=== PATIENT | male | born 1945 | race Caucasian/White ===

== ENCOUNTER 2019-12-09 14:25 | Inpatient (IN) | payer OTHER, MEDICARE ==
[2019-12-09] MEDS ORDERED: IPRATROPIUM-ALBUTEROL 3 ML NEB INHALATION PRN (14:31)
--- NOTE | 2019-12-09 14:38 | ED ---
General Adult HPI - General Stated complaint: lung mass Time Seen by Provider: 12/09/19 14:27 Source: patient, EMS, RN notes reviewed, old records reviewed - History of Present Illness Initial comments: 74-year-old male presenting as transfer from outside facility with right hilar mass, concern for metastases and a postobstructive pneumonia. Patient had presented with worsening dyspnea over the past one week. He received laboratory testing, chest x-ray, EKG, and CT of the chest. This revealed a right hilar mass, with postobstructive pneumonia versus pneumonitis as well as pleural effusion. There was concern for T10 lesion on CT. He had had increasing dyspnea and hemoptysis. He was initially 93% on room air which corrected with do not treatment prior to transfer. He receives ceftriaxone and Levaquin prior to transfer. He has been transferred for both treatment of pneumonia and evaluation of lung mass. Review of Systems ROS Statement: Those systems with pertinent positive or pertinent negative responses have been documented in the HPI. ROS Other: All systems not noted in ROS Statement are negative. General Exam General appearance: alert, in no apparent distress Head exam: Present: atraumatic, normocephalic Eye exam: Present: normal appearance, PERRL ENT exam: Present: normal exam Neck exam: Present: normal inspection. Absent: tenderness, meningismus Respiratory exam: Present: wheezes, rhonchi, decreased breath sounds. Absent: respiratory distress Cardiovascular Exam: Present: regular rate, normal rhythm GI/Abdominal exam: Present: soft. Absent: distended, tenderness, guarding Extremities exam: Present: normal inspection, normal capillary refill. Absent: pedal edema Neurological exam: Present: alert, oriented X3, CN II-XII intact. Absent: motor sensory deficit Psychiatric exam: Present: normal affect, normal mood Skin exam: Present: warm, dry, intact. Absent: cyanosis, diaphoretic Medical Decision Making - Medical Decision Making 74-year-old male presenting with new right hilar lung mass, postobstructive pneumonia, dyspnea and hemoptysis. Patient had received antibiotics prior to transfer. He will be admitted for pulmonology evaluation, likely oncology evaluation. Repeat laboratory studies will be obtained, review of previously obtained laboratory studies reveal normal CBC with mild leukocytosis of 12, normal electrolytes, negative troponin, negative BNP. Case discussed with Dr. Small who will admit. Disposition Clinical Impression: Postobstructive pneumonia, Hilar mass Disposition: ADMITTED IP TO THIS HOSP Condition: Stable Is patient prescribed a controlled substance at d/c from ED?: No Referrals: Niles Mead MD [Primary Care Provider] - 1-2 days Decision to Admit Reason: Admit from EC Decision Date: 12/09/19 Decision Time: 14:38
[2019-12-09] MEDS ORDERED: SODIUM CHLORIDE 0.9% 500 ML 500 ML IV STA (15:27)
[2019-12-09] MEDS ORDERED: BENZONATATE 100 MG CAP PO PRN (17:42)
[2019-12-09] MEDS ORDERED: CYCLOBENZAPRINE 10 MG TAB PO PRN (17:42)
[2019-12-09] MEDS ORDERED: TEMAZEPAM 15 MG CAP PO PRN (17:45)
[2019-12-09] MEDS ORDERED: ALPRAZolam 0.25 MG TAB PO PRN (17:45)
[2019-12-09] MEDS: IPRATROPIUM-ALBUTEROL 3 ML NEB INHALATION SCH ×2 (17:54→21:16)
[2019-12-09] MEDS: methylPREDNISolone SOD SUCCI 125 MG/2 ML VIAL IV SCH (18:27)
[2019-12-09] MEDS: NICOTINE 14MG/24HR PATCH TRANSDERM SCH (18:27)
[2019-12-09] MEDS: SODIUM CHLORIDE 0.9% 1,000 ML IV SCH (18:28)
--- NOTE | 2019-12-09 18:39 | CT ---
EXAMINATION TYPE: CT brain wo con DATE OF EXAM: 12/09/2019 COMPARISON: None INDICATION: Lung Ca DLP: 1196.4 mGycm, Automated exposure control for dose reduction was used. CONTRAST: None. This may limit evaluation for metastasis. CT of the brain is performed utilizing 3 mm thick sections through the posterior fossa and 3 mm thick sections through the remaining calvarium. Study is performed within 24 hours of arrival to the hosp ital. No abnormal hyperdensity is present to suggest an acute intracranial hemorrhage. No mass lesion is evident. No acute infarcts are evident. Some mild subcortical white matter changes may be present most notably at the right parietal region which is nonspecific and most likely related to microvascular ischemic change. Given the patient's history of lung cancer a contrast MRI is recommended for closer evaluatio n of this region. Ventricles and sulci are appropriate for the patient age. Paranasal sinuses and mastoid air cells within the [id number] are clear. IMPRESSIONS: 1. Suspected subcortical white matter ischemic-type changes. With the patient's history of lung can cer, MRI with contrast recommended for closer evaluation.
--- NOTE | 2019-12-09 19:07 | XR ---
EXAMINATION TYPE: XR chest 2V DATE OF EXAM: 12/09/2019 COMPARISON: 12/09/2019 outside film INDICATION: Abnormal prior TECHNIQUE: Frontal and lateral views of the chest are obtained. FINDINGS: The heart size is normal. The pulmonary vasculature is normal. There is a small right pleural effusion. Some platelike atelectasis at the right base.. IMPRESSION: 1. Small right pleural effusion with adjacent atelectasis.
--- NOTE | 2019-12-09 19:44 | HP ---
HISTORY AND PHYSICAL DATE OF SERVICE: 12/09/2019. CHIEF COMPLAINT: Lung mass. HISTORY OF PRESENT ILLNESS: This 74-year-old gentleman with a past medical history of multiple medical problems including hyperlipidemia, history of hernia, history of bursitis, being followed by Dr. Mead in the outpatient setting, was complaining of increased shortness of breath. The patient went to [facility] and transferred to [facility]. Patient had right hilar mass. The patient also had concerns of metastasis and and possible obstructing pneumonia. Patient also complaining of chest pain which is increasing with respiration. Shortness of breath increasing for the last several days. The possibility of postobstructive pneumonia also considered and the concerns of T10 lesion was also noted on the CT scan. There is some hemoptysis and shortness of breath also noted. The patient was being closely monitored at this time. Patient is started on Rocephin and Levaquin at this time. There is no history of fever, rigors or chills. No history of headache, loss of consciousness or chest pain, palpitations at this time. PAST MEDICAL HISTORY: Hyperlipidemia, hernia, history of bursitis of the hips, history of nicotine dependence. MEDICATIONS: Home medications are: 1. Flexeril 10 mg b.i.d. p.r.n. 2. Aleve 220 mg b.i.d. p.r.n. 3. Meloxicam 50 mg daily. 4. Tessalon Perles 100 mg q.8 p.r.n. 5. Ecotrin 81 mg p.o. daily. 6. Albuterol 2 puffs q.6h p.r.n. 7. Niacin 100 mg p.o. b.i.d. 8. Allerest 1 tablet p.o. daily. ALLERGIES: CODEINE, IBUPROFEN, MOLD, TETANUS TOXOID. SOCIAL HISTORY: History of smoking. No history of alcohol intake. FAMILY HISTORY: History of heart disease and strokes in the family. REVIEW OF SYSTEMS: ENT: No diminished vision. Diminished hearing. CARDIOVASCULAR system is as mentioned earlier. RESPIRATORY: As mentioned earlier. GI no nausea or vomiting. no dysuria. NERVOUS SYSTEM: No numbness or weakness. ALLERGY/IMMUNOLOGY: No allergy or hayfever. MUSCULOSKELETAL as mentioned earlier. HEMATOLOGY/ONCOLOGY: As mentioned earlier. ENDOCRINE as mentioned earlier. CONSTITUTIONAL: As mentioned earlier. DERMATOLOGY: Negative. RHEUMATOLOGY: Negative. PSYCHIATRIC: As mentioned earlier. PHYSICAL EXAMINATION: Alert and oriented times three. Pulse is 108, blood pressure 160/95, respirations 20, temperature 98.8, pulse ox 94% on 2 L. HEENT: Conjunctivae normal. NECK: No JVD. CARDIOVASCULAR: S1, S2 muffled. No S3, no S4. Tachycardia. RESPIRATIONS: Breath sounds diminished in the bases. Bilateral scattered rhonchi and crackles. ABDOMEN: Soft, obese, nontender. No mass palpable. LEGS no edema no swelling. NERVOUS SYSTEM: Higher functions as mentioned earlier. Moves all four extremities. No focal motor or sensory deficits. Lymphatics: No lymph nodes palpable in the neck, axillae or groin. SKIN: No ulcer, rashes or bleeding. JOINTS: No active deforming arthropathy. LABS: At this time shows labs are pending at this time. ASSESSMENT: 1. Acute right postobstructive pneumonia with severe pain and pleuritic pain. 2. Possible right hilar mass, rule out lung malignancy. 3. History of nicotine dependence. 4. Hyperlipidemia. 5. History of hernia. 6. History of bursitis of the hips. 7. Tachycardia for evaluation. RECOMMENDATIONS AND DISCUSSION: This 74-year-old gentleman who presented with multiple complex medical issues, we will monitor the patient closely. Continue the current medications, management, and symptomatic treatment. We will initiate broad-spectrum IV antibiotics. Consult Dr. Ponce for possible bronchoscopy. The patient apparently also already had an outpatient appointment for Dr. Ponce. We will continue to monitor. Otherwise, DVT prophylaxis. Symptomatic treatment. IV steroids. Prognosis guarded because of multiple complex medical issues. Further recommendations to follow. A copy of this dictation being forwarded to Dr. Mead who is the primary physician. Discussed with the patient at the bedside. MMODL / IJN: [id number] /
[2019-12-09] MEDS ORDERED: METOPROLOL TARTRATE 25 MG TAB PO STA (20:07)
[2019-12-09] MEDS: PIPERACILLIN-TAZOBACTAM 3.375 GM in SODIUM CHLORIDE 0.9% 100 ML IVPB SCH (20:14)
[2019-12-09] MEDS: HEPARIN SODIUM,PORCINE 5,000 UNIT/ML 1 ML VIAL SQ SCH (20:15)
[2019-12-09] MEDS ORDERED: METOPROLOL TARTRATE 25 MG TAB PO SCH (21:00)
[2019-12-09] MEDS: BUDESONIDE 1 MG/2 ML NEBU INHALATION SCH (21:17)
[2019-12-09 23:38] LABS: Appearance,Urine Cloudy (Clear); Bilirubin,Urine Negative (Negative); Blood,Urine Negative (Negative); Color,Urine Yellow; Glucose,Urine (UA) Trace (Negative); Ketones,Urine Trace (Negative); Leukocyte Esterase,Urine Negative (Negative); Mucus,Urine Rare /hpf; Nitrite,Urine Negative (Negative); PH, Urine 5.5 (5.0-8.0); Protein,Urine Trace (Negative); RBC,Urine 3 /hpf (0-5); Specific Gravity,Urine 1.035 (1.001-1.035); Squamous Epithelial Cell,Urine <1 /hpf (0-4); Urobilinogen,Urine <2.0 mg/dL (<2.0); WBC,Urine 3 /hpf (0-5)
[2019-12-10] MEDS: NIACIN 100 MG PO SCH ×3 (00:42→22:19)
[2019-12-10] MEDS: INSULIN ASPART (NovoLOG) 100 UNIT/ML VIAL SQ SCH ×5 (00:43→22:09)
[2019-12-10] MEDS: methylPREDNISolone SOD SUCCI 125 MG/2 ML VIAL IV SCH ×5 (00:52→23:51)
[2019-12-10] MEDS: PIPERACILLIN-TAZOBACTAM 3.375 GM in SODIUM CHLORIDE 0.9% 100 ML IVPB SCH ×3 (04:07→22:09)
[2019-12-10 06:14] LABS: Glucose,Whole Blood 144 mg/dL (75-99)
[2019-12-10] MEDS: PANTOPRAZOLE 40 MG TABLET PO SCH (06:57)
[2019-12-10 07:29] LABS: Basophils % (A) 0 %; Eosinophils % (A) 0 %; HCT 39.4 % (39.0-53.0); HGB 13.3 gm/dL (13.0-17.5); Lymphocytes # (A) 0.7 k/uL (1.0-4.8); Lymphocytes % (A) 5 %; MCH 31.2 pg (25.0-35.0); MCHC 33.7 g/dL (31.0-37.0); MCV 92.7 fL (80.0-100.0); Mean Platelet Volume 7.7; Monocytes # (A) 0.4 k/uL (0-1.0); Monocytes % (A) 2 %; Neutrophils # (A) 15.3 k/uL (1.3-7.7); Neutrophils % (A) 93 %; Platelet Count 412 k/uL (150-450); RBC 4.25 m/uL (4.30-5.90); RDW 12.3 % (11.5-15.5); WBC 16.5 k/uL (3.8-10.6)
[2019-12-10 07:31] LABS: ALT 27 U/L (4-49); AST 33 U/L (17-59); African American GFR (CKD) >90 (>60 ml/min/1.73 sqM); Albumin 3.3 g/dL (3.5-5.0); Alkaline Phosphatase 99 U/L (38-126); Anion Gap 9 mmol/L; Blood Urea Nitrogen 17 mg/dL (9-20); Calcium 9.2 mg/dL (8.4-10.2); Carbon Dioxide 20 mmol/L (22-30); Chloride 109 mmol/L (98-107); Glucose 143 mg/dL (74-99); Non-African American GFR(CKD) 81 (>60 ml/min/1.73 sqM); Potassium 4.4 mmol/L (3.5-5.1); Sodium 138 mmol/L (137-145); Total Bilirubin 0.5 mg/dL (0.2-1.3); Total Protein 7.5 g/dL (6.3-8.2)
--- NOTE | 2019-12-10 07:43 | XR ---
EXAMINATION TYPE: XR chest 1V portable DATE OF EXAM: 12/10/2019 COMPARISON: 12/09/2019 HISTORY: Lung cancer. Shortness of breath. TECHNIQUE: Single frontal view of the chest is obtained. FINDINGS: Right perihilar mass is seen as well as small layering right pleural effusion that is incr ease in the interim with associated right basilar airspace disease. Diffuse mild interstitial pulmona ry edema. Diffuse osseous demineralization. Upper limits of normal size of the cardiomediastinal silh ouette. IMPRESSION: Slightly worsened small right layering pleural effusion and right basilar atelectasis as well as mild interstitial pulmonary edema. Similar right perihilar mass.
[2019-12-10] MEDS: SODIUM CHLORIDE 0.9% 1,000 ML IV SCH ×2 (07:48→17:21)
[2019-12-10] MEDS: BUDESONIDE 1 MG/2 ML NEBU INHALATION SCH ×2 (08:17→19:19)
[2019-12-10] MEDS: IPRATROPIUM-ALBUTEROL 3 ML NEB INHALATION SCH ×4 (08:17→19:19)
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
[2019-12-10] MEDS ORDERED: predniSONE 20 MG TAB PO SCH (09:00)
[2019-12-10] MEDS: IOPAMIDOL CONTRAST (ORAL USE) VIAL PO PRN ×2 (09:17→10:23)
[2019-12-10] MEDS: METOPROLOL TARTRATE 50 MG TAB PO SCH ×2 (09:22→22:17)
[2019-12-10] MEDS: HEPARIN SODIUM,PORCINE 5,000 UNIT/ML 1 ML VIAL SQ SCH ×2 (09:23→22:08)
[2019-12-10] MEDS: NICOTINE 14MG/24HR PATCH TRANSDERM SCH (09:23)
--- NOTE | 2019-12-10 11:35 | CT ---
EXAMINATION TYPE: CT abdomen pelvis wo con DATE OF EXAM: 12/10/2019 COMPARISON: None HISTORY: possible lung CA CT DLP: 1007 mGycm Examination of the solid and hollow viscera is limited given the lack of contrast. FINDINGS: LUNG BASES: There is a right infrahilar mass. Moderate pleural effusion with compressive atelectasis. Suspect posterior soft tissue mass incompletely imaged. LIVER/GB: The gallbladder is unremarkable. No space-occupying hepatic lesion. PANCREAS: No pancreatic mass identified. No inflammatory process seen. SPLEEN: No evidence for splenomegaly. No intrasplenic lesions seen. ADRENALS: No adrenal nodules identified. No evidence for thickening. KIDNEYS: Hypoattenuating renal lesions likely reflect cysts. No nephrolithiasis. No hydronephrosis. BOWEL: Appendix has a normal appearance. No evidence of bowel obstruction. No inflammatory process. Lymph nodes: No evidence for adenopathy greater than 1 cm. Abdominal aorta: Atheromatous changes seen. No evidence for aneurysm. Genital organs: No significant abnormality. Other: Abnormal attenuation T10 may reflect hemangioma. Metastatic lesion is not excluded. IMPRESSION: 1. Right infrahilar mass with right-sided pleural effusion and atelectasis. Partially imaged chest wa ll mass seen posteriorly. 2. T10 abnormal attenuation to reflect hemangioma versus metastatic lesion. 3. Probable renal cysts.
--- NOTE | 2019-12-10 11:44 | NM ---
EXAMINATION TYPE: NM bone scan whole body DATE OF EXAM: 12/10/2019 COMPARISON: CT abdomen pelvis dated 12/10/[address] thorax dated 12/09/2019 HISTORY: Lung cancer Delayed whole-body scanning was performed following the injection of 26.4 mCi Tc 99m MDP. Images acq uired 3 hours post injection. FINDINGS: Abnormal uptake is seen on the right posterior rib 8 focally. When correlated with the recent outside CT dated 12/09/2019 this relates to a rib fracture. The previously questioned hemangioma versus metas tatic lesion at T10 within the vertebral body does not demonstrate abnormal uptake and is compatible with a benign hemangioma. Degenerative uptake is seen in the acromio clavicular joints, glenohumeral joints, sternoclavicular j oints, sacroiliac joints, knees, elbows, wrists, and ankles IMPRESSION: 1. No scintigraphic evidence of metastatic disease. 2. The previously questioned metastatic lesion at T10 versus hemangioma is no uptake and is most comp atible with a benign hemangioma. 3. Focal abnormal uptake on the right posterior rib 8 represents a minimally displaced fracture when correlated with the outside recent CT thorax.
[2019-12-10 11:58] LABS: Glucose,Whole Blood 169 mg/dL (75-99)
--- NOTE | 2019-12-10 12:21 | ECHOF ---
Referral Reason:chf MEASUREMENTS -------- HEIGHT: 188.0 cm WEIGHT: 102.1 kg BP: 144/63 IVSd: 1.6 cm (0.6 - 1.1) LVIDd: 3.1 cm (3.9 - 5.3) LVPWd: 1.8 cm (0.6 - 1.1) IVSs: 2.1 cm LVIDs: 1.9 cm LVPWs: 2.1 cm Ao Diam: 3.1 cm (2.0 - 3.7) AV Cusp: 1.9 cm (1.5 - 2.6) LA Diam: 3.4 cm (2.7 - 3.8) MV EXCURSION: 18.742 mm (> 18.000) MV EF SLOPE: 90 mm/s (70 - 150) EPSS: 0.7 cm MV E Moiz: 0.67 m/s MV DecT: 215 ms MV A Moiz: 1.02 m/s MV E/A Ratio: 0.66 RAP: 5.00 mmHg RVSP: 12.99 mmHg FINDINGS -------- Resting tachycardia (HR>100bpm). This was a technically adequate study. The left ventricular size is normal. There is severe concentric left ventricular hypertrophy. Ove rall left ventricular systolic function is normal with, an EF between 55 - 60 %. The right ventricle is normal in size. The left atrial size is normal. The right atrial size is normal. Aortic valve is trileaflet and is mildly thickened. The mitral valve is normal. The mitral valve leaflets are mildly thickened. There is trace mitral regurgitation. The tricuspid valve appears structurally normal. Trace tricuspid regurgitation present. Right lauro tricular systolic pressure is normal at < 35 mmHg. There is no pulmonic regurgitation present. The aortic root size is normal. Normal inferior vena cava with normal inspiratory collapse consistent with estimated right atrial pre ssure of 5 mmHg. There is a trivial pericardial effusion present. CONCLUSIONS -------- 1. Resting tachycardia (HR>100bpm). 2. This was a technically adequate study. 3. The left ventricular size is normal. 4. There is severe concentric left ventricular hypertrophy. 5. Overall left ventricular systolic function is normal with, an EF between 55 - 60 %. 6. The right ventricle is normal in size. 7. The left atrial size is normal. 8. The right atrial size is normal. 9. Aortic valve is trileaflet and is mildly thickened. 10. The mitral valve is normal. 11. The mitral valve leaflets are mildly thickened. 12. There is trace mitral regurgitation. 13. The tricuspid valve appears structurally normal. 14. Trace tricuspid regurgitation present. 15. Right ventricular systolic pressure is normal at < 35 mmHg. 16. There is no pulmonic regurgitation present. 17. The aortic root size is normal. 18. Normal inferior vena cava with normal inspiratory collapse consistent with estimated right atrial pressure of 5 mmHg. 19. There is a trivial pericardial effusion present. MASSEUR/MASSEUSE: Odilia Venegas RDCS
--- NOTE | 2019-12-10 14:31 | US ---
EXAMINATION TYPE: US chest DATE OF EXAM: 12/10/2019 COMPARISON: CT 12/10/2019 CLINICAL HISTORY: Markings for thoracentesis by pulmonary staff. TECHNIQUE: Targeted ultrasound of the posterior lower bilateral hemithoraces EXAM MEASUREMENTS: Right Pleural Effusion pocket size: 9.2 cm Right skin surface to fluid distance: 2.2 cm Multiple loculations noted. Left Pleural Effusion pocket size: none appreciated cm Right side marked for possible thoracentesis outside the dept. Pulmonologists are able to review the images in the patient?s EMR. IMPRESSIONS: Multiloculated small right pleural effusion.
[2019-12-10 16:59] LABS: Glucose,Whole Blood 146 mg/dL (75-99)
--- NOTE | 2019-12-10 20:34 | CONS ---
CONSULTATION PULMONARY/CRITICAL CARE CONSULTATION: DATE OF SERVICE: 12/10/2019 REASON FOR CONSULTATION: Lung mass. This is a very pleasant 74-year-old male who sees Dr. Mead up in [place]. He apparently was sent down for consideration of an evaluation of a hilar mass. The patient was apparently thought to have post-obstructive pneumonia. He came into the hospital complaining of increasing shortness of breath over the last week or so. In addition, he is coughing and producing some phlegm. No fever or chills. The patient apparently had a CT scan done in the other institution, but that CT scan is not available to me. Here he has had chest x-rays and abdominal CT scanning. Again his primary complaint was shortness of breath. He is coughing. He is producing phlegm. He has been coughing up phlegm that is bloody at times. Anyway, he was found to have a saturation that was a bit low initially. Currently he is on oxygen therapy, breathing treatments, antibiotics and corticosteroids. The patient will have an ultrasound of the chest. We will see if we can retrieve the CT scan of the chest done at the outside institution. He will likely need thoracentesis and bronchoscopy. HOME MEDICATIONS: His home medications include Flexeril, naproxen, meloxicam, Tessalon Perles, aspirin, albuterol inhaler and niacin. PAST MEDICAL HISTORY: His past medical history is positive for hyperlipidemia, bursitis, chronic nicotine dependence and hernia. Medications are reviewed. ALLERGIES: CODEINE, IBUPROFEN, MOLD, TETANUS TOXOID. SOCIAL HISTORY: Positive for 60 years of tobacco use. He smokes cigarettes, pipes and cigars. He inhaled many of these things. Denies any alcohol intake. No illicit drug use. FAMILY HISTORY: Positive for heart disease and strokes. REVIEW OF SYSTEMS: CONSTITUTIONAL: Negative. NEUROLOGIC: Negative. HEENT: Negative. CARDIOVASCULAR: Negative. PULMONARY: Shortness of breath, chest tightness, wheezing, cough and phlegm production. GI: Negative. : Negative. IMMUNOLOGIC: Negative. ENDOCRINOLOGIC: Negative. DERMATOLOGIC: Negative. RHEUMATOLOGIC negative. PHYSICAL EXAMINATION: VITAL SIGNS: Vital signs are reviewed. Temperature is 96.3, heart rate 94, respiratory rate 18, blood pressure 148/71, mean 96. Four-liter saturation is 96%. GENERAL APPEARANCE: Appears in no acute distress. HEENT EXAMINATION: Grossly unremarkable. Mucous membranes are moist. No oral lesions. NECK: Supple. Full range of motion. No adenopathy or thyromegaly. Neck veins are flat. CARDIOVASCULAR EXAMINATION: Regular rhythm and rate. S1, S2 normal. No S3, S4 or murmur. LUNGS: Relatively clear left lung. There are some coarse rhonchi on the right side. Breath sounds are diminished at the right side, particularly at the right base. Some crackles at the right base as well. ABDOMEN: Soft. Bowel sounds are heard. EXTREMITIES: Intact. No cyanosis, clubbing or edema. SKIN: Without rash. NEUROLOGIC: Neurologic examination is brief but nonfocal. LAB DATA: Reviewed. White count 16.5, hemoglobin 13.3, hematocrit 39.4, platelet count 412,000. Sodium 138, potassium 4.4, chloride 109, CO2 20. Anion gap is 9. BUN and creatinine were 17 and 0.93. The rest of the comprehensive metabolic profile looks okay. Urine is essentially negative. IMAGING: Chest x-ray shows a small right pleural effusion. A follow-up chest x-ray shows a slightly worsened right-sided pleural effusion as well as some mild interstitial edema and a potential right parahilar mass. A CT scan of the abdomen and pelvis shows a right infrahilar mass with right-sided pleural effusion and atelectasis. There is also a T10 lesion which may represent a benign or a malignant etiology. We have ordered an ultrasound of the right chest to see how big the effusion is. The bone scan shows no evidence of metastatic disease. CURRENT MEDICATIONS: Medications are reviewed. He is on Tylenol, Xanax, Tessalon Perles, Pulmicort, Flexeril, subcutaneous heparin, insulin, DuoNeb, Solu-Medrol, niacin, nicotine patch, Protonix, Zosyn, basic IV, and Restoril. ASSESSMENT: 1. Right infrahilar mass and possible post-obstructive pneumonia with pleural effusion; rule out lung cancer. 2. History of heavy tobacco use for more than 60 years. 3. Rule out chronic obstructive pulmonary disease. 4. History of hyperlipidemia. 5. History of hernia. 6. History of bursitis. 7. Degenerative joint disease. PLAN: The patient was counseled about the importance of smoking cessation. Apparently he recently met a woman and he stopped. The patient will have an ultrasound of the chest to rule out pleural effusion that might require thoracentesis. In addition, we will get him on the schedule for bronchoscopy. We might be able to make a diagnosis based on the appearance of the CT scan. Additional recommendations and suggestions are forthcoming. Will continue to follow. Medications are appropriate. MMODL / IJN: [id number] /
[2019-12-10 20:50] LABS: Glucose,Whole Blood 177 mg/dL (75-99)
--- NOTE | 2019-12-10 23:21 | PN ---
PROGRESS NOTE DATE OF SERVICE: 12/10/2019 This 74-year-old gentleman admitted with lung mass, also had possible postobstructive pneumonia also. The patient also had complete workup including abdominal pelvis CAT scan which showed right infrahilar mass and pleural effusion. Otherwise T10 abdominal attenuation. A 2D echo with Doppler was done from the cardiac point standpoint, which showed ejection fraction about 50-60 percent and Cardiology and Pulmonology following the patient closely. The atrial fibrillation with rapid ventricular rate resolved and indicating a paroxysmal atrial fibrillation. A bone scan was also done which showed no scintigraphic evidence of metastatic disease. T10 benign hemangioma suspected and a chest ultrasound was also done which showed multiloculated small right pleural effusion. Dr. Ponce, emergency services director evaluated the patient and recommended bronchoscopy. The patient being closely monitored. No chest pain. No palpitations. PAST MEDICAL HISTORY: Reviewed. REVIEW OF SYSTEMS: Cardiovascular as mentioned earlier. Respirations: As mentioned earlier. GASTROINTESTINAL: No nausea or vomiting. GENITOURINARY: No dysuria. CENTRAL NERVOUS SYSTEM: No numbness or weakness. CURRENT MEDICATIONS: Reviewed and include: 1. Tylenol 500 q.6h p.r.n. 2. DuoNeb q.i.d. and p.r.n. 3. Xanax 0.5 t.i.d. 4. Pulmicort. 5. Heparin. 6. Solu-Medrol 60 IV q.6h. 7. Lopressor. 8. Habitrol 14. 9. Protonix. 10.Zosyn. 11.Restoril. PHYSICAL EXAM: Patient is alert and oriented x2. Pulse is 70. Blood pressure is 144/60, respiration 18, temperature 97.7, pulse ox 94% on room air. HEENT: Conjunctivae normal. NECK: No JVD. CARDIOVASCULAR: S1, S2 muffled. RESPIRATION: Breath sounds diminished in the bases. Scattered rhonchi and crackles, especially on the right side. ABDOMEN: Soft. Nontender. LEGS are no edema. No swelling. CENTRAL NERVOUS SYSTEM: No focal deficits. LABORATORY DATA: WBC 16.2, hemoglobin 13.3. Sodium 138. ASSESSMENT: 1. Acute right postobstructive pneumonia possibly with severe pain and pleuritic pain. 2. Right hilar mass, rule out lung malignancy. 3. Chronic obstructive pulmonary disease, possibly. 4. History of nicotine dependence. 5. Hyperlipidemia. 6. History of hernia. 7. Atrial fibrillation with fast ventricular rate paroxysmal. 8. History of bursitis of both hips. 9. Increased random blood sugar possibly secondary to steroids. RECOMMENDATIONS AND DISCUSSION: In this 74-year-old gentleman who presented with multiple complex medical issues, at this time, I recommend to continue current medications, continue symptomatic treatment, management and beta blockers. Continue the bronchodilators, steroids. Continue the rest of medication. Continue with antibiotics and Dr. Ponce is planning bronchoscopy tomorrow. Symptomatically, the patient is slightly better. Guarded prognosis. Further recommendations to follow. MMODL / IJN: [id number] /
[2019-12-11] MEDS: PIPERACILLIN-TAZOBACTAM 3.375 GM in SODIUM CHLORIDE 0.9% 100 ML IVPB SCH ×3 (04:10→21:12)
[2019-12-11 05:43] LABS: Glucose,Whole Blood 137 mg/dL (75-99)
[2019-12-11] MEDS: methylPREDNISolone SOD SUCCI 125 MG/2 ML VIAL IV SCH ×4 (05:47→23:57)
[2019-12-11] MEDS: INSULIN ASPART (NovoLOG) 100 UNIT/ML VIAL SQ SCH ×4 (06:45→21:12)
[2019-12-11] MEDS: PANTOPRAZOLE 40 MG TABLET PO SCH (06:45)
[2019-12-11] MEDS: IPRATROPIUM-ALBUTEROL 3 ML NEB INHALATION SCH ×4 (06:55→21:14)
[2019-12-11] MEDS: BUDESONIDE 1 MG/2 ML NEBU INHALATION SCH ×2 (06:56→21:14)
[2019-12-11 07:04] LABS: Basophils % (A) 0 %; Eosinophils # (A) 0.1 k/uL (0-0.7); Eosinophils % (A) 0 %; HCT 40.8 % (39.0-53.0); Lymphocytes # (A) 0.8 k/uL (1.0-4.8); Lymphocytes % (A) 3 %; MCH 30.2 pg (25.0-35.0); MCHC 31.9 g/dL (31.0-37.0); MCV 94.6 fL (80.0-100.0); Mean Platelet Volume 7.6; Monocytes # (A) 0.8 k/uL (0-1.0); Monocytes % (A) 3 %; Neutrophils # (A) 24.8 k/uL (1.3-7.7); Neutrophils % (A) 93 %; Platelet Count 389 k/uL (150-450); RBC 4.31 m/uL (4.30-5.90); RDW 12.5 % (11.5-15.5); WBC 26.7 k/uL (3.8-10.6)
[2019-12-11 07:16] LABS: Calcium 8.7 mg/dL (8.4-10.2); Potassium 4.5 mmol/L (3.5-5.1)
[2019-12-11] MEDS: METOPROLOL TARTRATE 50 MG TAB PO SCH ×2 (09:12→21:12)
[2019-12-11] MEDS: HEPARIN SODIUM,PORCINE 5,000 UNIT/ML 1 ML VIAL SQ SCH ×2 (09:13→21:13)
[2019-12-11] MEDS: SODIUM CHLORIDE 0.9% 1,000 ML IV SCH ×2 (09:13→23:59)
[2019-12-11] MEDS: NICOTINE 14MG/24HR PATCH TRANSDERM SCH (09:14)
[2019-12-11] MEDS: NIACIN 100 MG PO SCH ×2 (09:14→21:19)
[2019-12-11 12:02] LABS: Glucose,Whole Blood 113 mg/dL (75-99)
[2019-12-11] MEDS ORDERED: KETAMINE 10 MG/ML 20 ML VIAL ONE (12:21)
[2019-12-11] MEDS ORDERED: fentaNYL (PF) 50 MCG/ML 2 ML AMP ONE (12:21)
[2019-12-11] MEDS ORDERED: GLYCOPYRROLATE 0.2 MG/ML 2 ML VIAL ONE (12:21)
[2019-12-11] MEDS ORDERED: MIDAZOLAM 2 MG/2 ML VIAL ONE (12:21)
[2019-12-11] MEDS ORDERED: PROPOFOL 10 MG/ML 20 ML VIAL IV ONE (12:21)
[2019-12-11] MEDS ORDERED: LIDOCAINE 2% INJ 20 MG/ML INTRATRACH ONE (12:28)
--- NOTE | 2019-12-11 12:35 | P.PN ---
Subjective Progress Note Date: 12/11/19 Principal diagnosis: Shortness of breath, right infrahilar mass and possible postobstructive pneumonia with pleural effusion, rule out lung cancer On 12/11/2019 patient seen in follow-up on selective care unit, vital signs are stable, he is on 4 L of oxygen his pulse ox is 95%, no acute issues overnight, patient has been nothing by mouth since midnight, for bronchoscopy with biopsies of the right infrahilar mass, and right-sided thoracentesis today. Patient is on IV Zosyn, steroids, nebulized bronchodilators. No complaints of chest pain. No worsening shortness of breath Objective - Vital Signs Vital signs: Vital Signs Temp 97.6 F 12/11/19 11:58 Pulse 57 L 12/11/19 11:58 Resp 18 12/11/19 11:58 BP 147/78 12/11/19 11:58 Pulse Ox 95 12/11/19 11:58 Intake & Output 12/10/19 12/11/19 12/11/19 18:59 06:59 18:59 Intake Total 480 1285 Output Total 400 Balance 480 885 Intake: Intake, IV Titration 925 Amount Piperacillin-Tazobactam 3 100 .375 gm In Sodium Chloride 0.9% 100 ml @ 25 mls/hr IVPB Q8H SANDRINE Rx#: [id number] Sodium Chloride 0.9% 1, 825 000 ml @ 75 mls/hr IV . [id number] SANDRINE Rx#:[id number] Oral 480 360 Output: Urine 400 Other: Voiding Method Toilet Toilet # Voids 1 # Bowel Movements 1 - Exam GENERAL EXAM: Alert, very pleasant, 74-year-old white male, on 4 L of oxygen with a pulse ox of 95% comfortable in no apparent distress. HEAD: Normocephalic/atraumatic. EYES: Normal reaction of pupils, equal size. Conjunctiva pink, sclera white. NOSE: Clear with pink turbinates. THROAT: No erythema or exudates. NECK: No masses, no JVD, no thyroid enlargement, no adenopathy. CHEST: No chest wall deformity. Symmetrical expansion. LUNGS: Equal air entry with diminished breath sounds over right lower lobe, CVS: Regular rate and rhythm, normal S1 and S2, no gallops, no murmurs, no rubs ABDOMEN: Soft, nontender. No hepatosplenomegaly, normal bowel sounds, no guarding or rigidity. EXTREMITIES: No clubbing, no edema, no cyanosis, 2+ pulses and upper and lower extremities. MUSCULOSKELETAL: Muscle strength and tone normal. SPINE: No scoliosis or deformity SKIN: No rashes CENTRAL NERVOUS SYSTEM: Alert and oriented -3. No focal deficits, tone is normal in all 4 extremities. PSYCHIATRIC: Alert and oriented -3. Appropriate affect. Intact judgment and insight. - Labs CBC & Chem 7: 12/11/19 06:50 12/11/19 06:50 Labs: Abnormal Lab Results - Last 24 Hours (Table) 12/10/19 12/10/19 12/11/19 Range/Units 16:57 20:48 05:41 WBC (3.8-10.6) k/uL Neutrophils # (1.3-7.7) k/uL Lymphocytes # (1.0-4.8) k/uL Chloride (98-107) mmol/L Carbon Dioxide (22-30) mmol/L BUN (9-20) mg/dL Glucose (74-99) mg/dL POC Glucose (mg/dL) 146 H 177 H 137 H (75-99) mg/dL 12/11/19 12/11/19 12/11/19 Range/Units 06:50 06:50 11:59 WBC 26.7 H (3.8-10.6) k/uL Neutrophils # 24.8 H (1.3-7.7) k/uL Lymphocytes # 0.8 L (1.0-4.8) k/uL Chloride 109 H (98-107) mmol/L Carbon Dioxide 21 L (22-30) mmol/L BUN 24 H (9-20) mg/dL Glucose 138 H (74-99) mg/dL POC Glucose (mg/dL) 113 H (75-99) mg/dL Assessment and Plan Plan: Assessment: #1. Right infrahilar mass and possible postobstructive pneumonia with pleural effusion, rule out lung cancer #2. History of heavy tobacco use for more than 60 years #3. Rule out chronic obstructive pulmonary disease 4. History of hyperlipidemia #5. History of hernia #6. History of bursitis #7. Degenerative joint disease #8. A. fib with RVR, currently in sinus rhythm #9. Chronic smoker of pipe and cigarettes on and off for over 40 years Plan: We'll proceed with right-sided thoracentesis before bronchoscopy with biopsies. Fluid will be sent for cytology, analysis, and cultures, biopsies will be sent to pathology. No continue with Zosyn, IV steroids, nebulized bronchodilators. We'll continue to follow I performed a history & physical examination of the patient and discussed their management with my nurse practitioner, Ginna Sanchez. I reviewed the nurse practitioner's note and agree with the documented findings and plan of care. Lung sounds are positive for diminished breath sounds. The findings and the impression was discussed with the patient. I attest to the documentation by the nurse practitioner. Time with Patient: Less than 30
--- NOTE | 2019-12-11 12:37 | PCN ---
PROCEDURE NOTE PROCEDURE: Right-sided thoracentesis. PREOPERATIVE DIAGNOSIS: Right pleural effusion. POSTOPERATIVE DIAGNOSIS: Right pleural effusion. OPERATORS: Dr. Ponce, Dr. Garcia and Helena Sanchez. DESCRIPTION OF PROCEDURE: A time-out was completed verifying correct patient, procedure, site, positioning , and implant (s) or special equipment if applicable. Ultrasound guidance was used and appropriate fluid pocket was identified and marked. Patient was positioned, prepped and draped in usual sterile fashion. Lidocaine was used to anesthetize the area. A Thoracentesis catheter was introduced into the pleural space and fluid was removed. Blood loss was none. A chest x-ray was ordered to evaluate for pneumothorax. Total Fluid Removed: 650 mL. Color of Fluid: Bloody in nature. Fluid was sent for appropriate laboratory tests. Patient tolerated the procedure well and there were no complications. The procedure took place in room 1 endoscopy. There was informed consent and universal timeout. The patient was receiving oxygen therapy. The posterior right chest was marked by ultrasound and 650 mL was removed from the right pleural space. No immediate complication. A chest x-ray will be done to rule out pneumothorax. The fluid was bloody in nature. It will be sent for analysis including cytology, chemistry and microbiology. Again the patient tolerated the procedure well without complication. MMODL / IJN: [id number] /
[2019-12-11] MEDS ORDERED: IV FLUID CONTINUATION 1,000 ML IV ONE ×2 (12:58)
--- NOTE | 2019-12-11 13:07 | PCN ---
PROCEDURE NOTE PROCEDURE: Bronchoscopy, airway examination, therapeutic lavage, BAL, brushes, washes and transbronchial biopsies right lower lobe. PREOPERATIVE DIAGNOSIS: Lung mass. POSTOP DIAGNOSIS: Lung mass. FURNACE LOADER: Dr. Ponce, Dr. Garcia and Helena Sanchez. DESCRIPTION OF PROCEDURE: There was informed consent and universal timeout. The patient's procedure took place in room #1 endoscopy suite. PROFESSIONAL BONDSMAN provided general anesthesia, unconscious sedation. After the patient was adequately sedated and being fully monitored, the bronchoscope was inserted through the right nostril. It passed through the right nasopharynx into the oropharynx. The hypopharynx was then entered. The hypopharyngeal structures including anterior commissure, true cords, false cords, arytenoids, piriform sinuses, right and left valleculae and epiglottis all appeared normal. There were some thick secretions noted in the hypopharynx. After topicalization, the bronchoscope was pushed through the glottic opening into the trachea. The trachea was normal. The tracheal brianne was sharp. The left side including the left upper lobe proper and its 2 segments, the lingula and its 2 segments, and the left lower lobe and its 4 segments all appeared normal. On the right side, there were thick secretions. The right upper lobe and its 3 segments appeared normal. Likewise, the right middle lobe and its 2 segments appeared relatively normal although there was some extrinsic compression. Of note was the fact that it was very difficult to enter into the right lower lobe. In fact, there was lots of significant extrinsic compression and obstruction endobronchially. The bronchoscope was pushed as far down as it could go. There, we did brushes of the right lower lobe under fluoroscopic guidance, multiple transbronchial biopsies on fluoroscopic guidance, and washes under fluoroscopic guidance. The patient tolerated the procedure well. There was minimal bleeding. We got 6 good pieces on transbronchial biopsy. The bronchoscope was then pulled back. We assessed the area to make sure there was no additional bleeding and there was not. The bronchoscope was withdrawn. The patient will be recovered. We did check for a pneumothorax after the procedure. There was none noted on fluoroscopy. A formal chest x-ray will be done. MMODL / IJN: [id number] /
--- NOTE | 2019-12-11 13:19 | XR ---
EXAMINATION TYPE: XR chest 1V portable DATE OF EXAM: 12/11/2019 COMPARISON: 12/10/2019 HISTORY: Status post right lung biopsy. TECHNIQUE: Single frontal view of the chest is obtained. FINDINGS: Right infrahilar mass remains. Improved right pleural effusion now trace with multifocal r ight basilar airspace disease. No postprocedural pneumothorax seen. Left lung is well aerated. Cardio mediastinal silhouette is stable. No acute osseous pathology. IMPRESSION: No postprocedural pneumothorax status post right lung biopsy. Right lung mass is seen wi th improved now trace right pleural effusion and right basilar airspace disease.
--- NOTE | 2019-12-11 13:44 | FL ---
EXAMINATION TYPE: FL bronchoscopy DATE OF EXAM: 12/11/2019 COMPARISON: NONE HISTORY: Right lung biopsy via bronchoscopy TECHNIQUE: Fluoroscopy. FINDINGS: Fluoroscopic guidance was provided during procedure performed by Dr. Small. A total of 68 seconds of fluoroscopic time was utilized during the procedure. No images were recorded. IMPRESSION: As Above.
[2019-12-11 15:50] LABS: Appearance,BF Cloudy; Nucleated Cells, Body Fluid 500 /uL; RBC, Body Fluid 17100 /uL
[2019-12-11 15:51] LABS: Appearance,BF Cloudy; Nucleated Cells, Body Fluid 3000 /uL; RBC, Body Fluid 71000 /uL
[2019-12-11 16:10] LABS: Mononuclear WBC,Body Fluid 37 %; Polynuclear WBC,Body Fluid 63 %; Total Cells Counted,Body Fluid 100
[2019-12-11 16:17] LABS: Mononuclear WBC,Body Fluid 73 %; Polynuclear WBC,Body Fluid 21 %; Total Cells Counted,Body Fluid 100
--- NOTE | 2019-12-11 16:36 | P.PN ---
Subjective Progress Note Date: 12/11/19 This is a 74-year-old gentleman with history of hypertension, hyperlipidemia who presented to [facility] with shortness of breath and hemoptysis. Cardiology was consulted by atrial fibrillation. Initial EKG here was interpreted by computer is atrial fibrillation. However, close inspection is suggestive of sinus rhythm and sinus tachycardia. Hasn't had any recurrence of atrial fibrillation. At this point patient doesn't need any long-term anticoagulation. His bronchoscopy and is being evaluated for bronchial mass. From Cardec standpoint we'll continue to monitor for any signs of atrial fibrillation. Objective - Vital Signs Vital signs: Vital Signs Temp 98.0 F 12/11/19 12:54 Pulse 88 12/11/19 15:34 Resp 16 12/11/19 13:24 BP 115/58 12/11/19 13:24 Pulse Ox 98 12/11/19 13:24 Intake & Output 12/10/19 12/11/19 12/11/19 18:59 06:59 18:59 Intake Total 480 1285 50 Output Total 400 Balance 480 885 50 Intake: IV 50 Intake, IV Titration 925 Amount Piperacillin-Tazobactam 3 100 .375 gm In Sodium Chloride 0.9% 100 ml @ 25 mls/hr IVPB Q8H SANDRINE Rx#: [id number] Sodium Chloride 0.9% 1, 825 000 ml @ 75 mls/hr IV . [id number] SANDRINE Rx#:[id number] Oral 480 360 Output: Urine 400 Other: Voiding Method Toilet Toilet # Voids 1 2 # Bowel Movements 1 - Exam GENERAL EXAM: Patient is alert and oriented and doesn't appear to be in any acute distress HEENT: Normocephalic. Normal reaction of pupils, equal size, normal range of extraocular motion. No erythema or exudates in the throat. NECK: No masses, no nuchal rigidity. CHEST: No chest wall deformity. LUNGS: Diminished breath sounds HEART: S1 and S2 normal with no audible mumurs or gallops. Regular rhythm, femorals equal on both sides.. ABDOMEN: No hepatosplenomegaly, normal bowel sounds, no guarding or rigidity. SKIN: No rashes CENTRAL NERVOUS SYSTEM: No focal deficits. EXTREMITIES: No cyanosis, clubbing or edema. - Labs CBC & Chem 7: 12/11/19 06:50 12/11/19 06:50 Labs: Abnormal Lab Results - Last 24 Hours (Table) 12/10/19 12/10/19 12/11/19 Range/Units 16:57 20:48 05:41 WBC (3.8-10.6) k/uL Neutrophils # (1.3-7.7) k/uL Lymphocytes # (1.0-4.8) k/uL Chloride (98-107) mmol/L Carbon Dioxide (22-30) mmol/L BUN (9-20) mg/dL Glucose (74-99) mg/dL POC Glucose (mg/dL) 146 H 177 H 137 H (75-99) mg/dL 12/11/19 12/11/19 12/11/19 Range/Units 06:50 06:50 11:59 WBC 26.7 H (3.8-10.6) k/uL Neutrophils # 24.8 H (1.3-7.7) k/uL Lymphocytes # 0.8 L (1.0-4.8) k/uL Chloride 109 H (98-107) mmol/L Carbon Dioxide 21 L (22-30) mmol/L BUN 24 H (9-20) mg/dL Glucose 138 H (74-99) mg/dL POC Glucose (mg/dL) 113 H (75-99) mg/dL Assessment and Plan (1) Atrial fibrillation Current Visit: Yes Status: Acute Code(s): I48.91 - UNSPECIFIED ATRIAL FIBRILLATION SNOMED Code(s): 88891944 (2) Hilar mass Current Visit: Yes Status: Acute Code(s): R91.8 - OTHER NONSPECIFIC ABNORMAL FINDING OF LUNG FIELD SNOMED Code(s): 624581337 (3) Postobstructive pneumonia Current Visit: Yes Status: Acute Code(s): J18.9 - PNEUMONIA, UNSPECIFIED ORGANISM SNOMED Code(s): 773095527 Plan: Review of his EKGs, did not show any definite atrial fibrillation. On telemetry, so far no atrial fibrillation documented. At this point we do not recommend any anticoagulation. Further recommendation will depend upon the clinical course
[2019-12-11 17:05] LABS: Glucose,Whole Blood 158 mg/dL (75-99)
[2019-12-11 18:43] LABS: Glucose, BF Source Thoracentesis Fluid; Glucose, Body Fluid 96 mg/dL; LDH, Body Fluid Source Thoracentesis Fluid; Total Protein, Body Fluid 4600 mg/dL
[2019-12-11 20:40] LABS: Glucose,Whole Blood 174 mg/dL (75-99)
--- NOTE | 2019-12-11 21:56 | PN ---
PROGRESS NOTE DATE OF SERVICE: 12/11/2019 This 74-year-old gentleman admitted with right hilar mass also had possible postobstructive pneumonia. The patient also had chest pain indicative of pleurisy. Dr. Ponce performed bronchoscopy today and the patient also had thoracocentesis on the right side and 650 mL of blood-stained fluid was also removed. Cytology has been sought at this time. The bronchoscopy revealed a lot of significant extrinsic compression and obstruction endobronchially. Brushings were done. The post-procedure chest x-ray, which was reviewed presently by me, showed evidence of a right lower lobe lesion, possibly mass lesion, and surrounding pneumonia also. PAST MEDICAL HISTORY: Reviewed. REVIEW OF SYSTEMS: CARDIOVASCULAR: No angina, palpitations. RESPIRATORY: As mentioned earlier. GASTROINTESTINAL: As mentioned earlier. GENITOURINARY: No dysuria or retention. CENTRAL NERVOUS SYSTEM: No numbness or weakness. CURRENT MEDICATIONS: Reviewed and include: 1. Tylenol p.r.n. 2. DuoNeb q.i.d. and p.r.n. 3. Xanax 0.25 t.i.d. 4. Tessalon. 5. Pulmicort 1 mg b.i.d. 6. Flexeril 10 mg b.i.d. p.r.n. 7. Heparin 5000 units subcutaneously b.i.d. 8. NovoLog. 9. Solu-Medrol 60 IV q.6. 10.Lopressor. 11.Habitrol 14 daily. 12.Niacin 100 mg p.o. b.i.d. 13.Protonix. 14.Zosyn 3.75 IV q.6. 15.Restoril 15 mg at bedtime p.r.n. PHYSICAL EXAM: Patient is alert and oriented x3. Pulse is 71, blood pressure is 115/58, respirations 16, temperature 98 degrees, pulse ox 98% on 2 liters. HEENT: Conjunctivae normal. NECK: No JVD. CARDIOVASCULAR: S1, S2, muffled. RESPIRATION: Breath sounds diminished in the bases. Bilateral scattered rhonchi and crackles. ABDOMEN: Soft, obese, nontender. LEGS: No edema. No swelling. CENTRAL NERVOUS SYSTEM: No focal deficits. LABS: WBC 26.7, glucose 113. Other labs are noted. Bronchial washing reports are pending at this time. ASSESSMENT: 1. Acute right postobstructive pneumonia, possibly with Gram-negative, with severe pleuritic pain with pleurisy. 2. Right hilar mass, possible lung cancer, status post bronchoscopy and brush biopsies. 3. Right pleural effusion, hemorrhagic, status post thoracentesis. 4. Chronic obstructive pulmonary disease, possibly. 5. History of nicotine dependence. 6. Hypertension. 7. Hyperlipidemia. 8. History of bursitis of both hips. 9. Increased random blood sugar, possibly secondary to steroids. 10.Possible sinus tachycardia. RECOMMENDATIONS AND DISCUSSION: In this 74-year-old gentleman who presented with multiple complex medical issues, we will monitor the patient closely. Continue the current medications, continue with the bronchodilators. Continue with IV steroids. Continue with empiric antibiotics. Symptomatic treatment for the pain. Closely monitor. As mentioned earlier, Cardiology opined that the rhythm is possibly sinus tachycardia rather than atrial fibrillation as read by the computer. We will continue to monitor. Bone scan is noted. Overall prognosis extremely guarded because of multiple complex medical issues. Further recommendations to follow. A copy of this dictation is being forwarded to Dr. Mead, who is the primary physician. MMODL / IJN: [id number] /
[2019-12-12] MEDS: PIPERACILLIN-TAZOBACTAM 3.375 GM in SODIUM CHLORIDE 0.9% 100 ML IVPB SCH ×3 (04:25→21:19)
[2019-12-12 05:53] LABS: Glucose,Whole Blood 117 mg/dL (75-99)
[2019-12-12 06:19] LABS: Basophils % (A) 0 %; Eosinophils % (A) 0 %; HCT 41.8 % (39.0-53.0); HGB 13.3 gm/dL (13.0-17.5); Lymphocytes # (A) 0.7 k/uL (1.0-4.8); Lymphocytes % (A) 3 %; MCH 30.3 pg (25.0-35.0); MCHC 31.9 g/dL (31.0-37.0); MCV 94.9 fL (80.0-100.0); Mean Platelet Volume 7.7; Monocytes # (A) 0.5 k/uL (0-1.0); Monocytes % (A) 2 %; Neutrophils # (A) 19.6 k/uL (1.3-7.7); Neutrophils % (A) 94 %; Platelet Count 409 k/uL (150-450); RDW 12.4 % (11.5-15.5); WBC 20.9 k/uL (3.8-10.6)
[2019-12-12] MEDS: methylPREDNISolone SOD SUCCI 125 MG/2 ML VIAL IV SCH ×3 (06:22→17:28)
[2019-12-12] MEDS: PANTOPRAZOLE 40 MG TABLET PO SCH (06:23)
[2019-12-12] MEDS: INSULIN ASPART (NovoLOG) 100 UNIT/ML VIAL SQ SCH ×4 (06:23→21:09)
[2019-12-12 06:27] LABS: Calcium 8.9 mg/dL (8.4-10.2); Potassium 4.6 mmol/L (3.5-5.1)
[2019-12-12] MEDS: IPRATROPIUM-ALBUTEROL 3 ML NEB INHALATION SCH ×4 (09:13→20:32)
[2019-12-12] MEDS: BUDESONIDE 1 MG/2 ML NEBU INHALATION SCH ×2 (09:13→20:32)
[2019-12-12] MEDS: NICOTINE 14MG/24HR PATCH TRANSDERM SCH (09:56)
[2019-12-12] MEDS: NIACIN 100 MG PO SCH ×2 (09:56→21:30)
[2019-12-12] MEDS: METOPROLOL TARTRATE 50 MG TAB PO SCH ×2 (09:56→21:21)
[2019-12-12] MEDS: HEPARIN SODIUM,PORCINE 5,000 UNIT/ML 1 ML VIAL SQ SCH ×2 (09:56→21:21)
[2019-12-12] MEDS: SODIUM CHLORIDE 0.9% 1,000 ML IV SCH (11:52)
[2019-12-12 12:15] LABS: Glucose,Whole Blood 134 mg/dL (75-99)
--- NOTE | 2019-12-12 13:35 | P.PN ---
Subjective Progress Note Date: 12/12/19 Principal diagnosis: Shortness of breath, right infrahilar mass and possible postobstructive pneumonia with pleural effusion, rule out lung cancer The patient is seen today every 2019 in follow-up on the selective care unit. He is currently resting quite comfortably in bed. He is feeling quite a bit better today compared to yesterday. Maintaining O2 saturations up to 95% on 3 L/m per nasal cannula. His been afebrile. Hemodynamically stable. He did undergo a right-sided thoracentesis with 650 ML's of bloody fluid removed. Fluid analysis shows a exudative result with high LDH of 1416 and high-protein at 4.6. Pathology pending. He is continued on DuoNeb inhalations, Tessalon Perles, Pulmicort and Perforomist inhalations, IV Solu-Medrol. He is on antibiotics in the form of Zosyn. NicoDerm patch is in place. Objective - Vital Signs Vital signs: Vital Signs Temp 97.8 F 12/12/19 06:02 Pulse 68 12/12/19 11:41 Resp 18 12/12/19 06:02 BP 143/71 12/12/19 06:02 Pulse Ox 99 12/12/19 06:02 Intake & Output 12/11/19 12/12/19 12/12/19 18:59 06:59 18:59 Intake Total 530 1125 480 Output Total 275 Balance 530 850 480 Intake: IV 50 Intake, IV Titration 1025 Amount Piperacillin-Tazobactam 3 200 .375 gm In Sodium Chloride 0.9% 100 ml @ 25 mls/hr IVPB Q8H [facility] Rx#: [id number] Sodium Chloride 0.9% 1, 825 000 ml @ 75 mls/hr IV . [id number] [facility] Rx#:[id number] Oral 480 100 480 Output: Urine 275 Other: Voiding Method Toilet # Voids 2 - Exam GENERAL EXAM: Alert, active, pleasant 74-year-old gentleman, on 3 L nasal ca nnula, comfortable in no apparent distress. HEAD: Normocephalic. EYES: Normal reaction of pupils, equal size. NOSE: Clear with pink turbinates. THROAT: No erythema or exudates. NECK: No masses, no JVD. CHEST: No chest wall deformity. LUNGS: Equal air entry with crackles in the right lung base, diminished. CVS: S1 and S2 normal with no audible murmur, regular rhythm. ABDOMEN: No hepatosplenomegaly, normal bowel sounds, no guarding or rigidity. SPINE: No scoliosis or deformity SKIN: No rashes CENTRAL NERVOUS SYSTEM: No focal deficits, tone is normal in all 4 extremities. EXTREMITIES: There is no peripheral edema. No clubbing, no cyanosis. Peripheral pulses are intact. - Labs CBC & Chem 7: 12/12/19 05:31 12/12/19 05:31 Labs: Abnormal Lab Results - Last 24 Hours (Table) 12/11/19 12/11/19 12/12/19 Range/Units 16:54 20:39 05:31 WBC 20.9 H (3.8-10.6) k/uL Neutrophils # 19.6 H (1.3-7.7) k/uL Lymphocytes # 0.7 L (1.0-4.8) k/uL BUN (9-20) mg/dL Glucose (74-99) mg/dL POC Glucose (mg/dL) 158 H 174 H (75-99) mg/dL 12/12/19 12/12/19 12/12/19 Range/Units 05:31 05:52 12:13 WBC (3.8-10.6) k/uL Neutrophils # (1.3-7.7) k/uL Lymphocytes # (1.0-4.8) k/uL BUN 25 H (9-20) mg/dL Glucose 114 H (74-99) mg/dL POC Glucose (mg/dL) 117 H 134 H (75-99) mg/dL Microbiology - Last 24 Hours (Table) 12/11/19 12:15 Gram Stain - Preliminary Thoracic Fluid Body Fluid Culture - Preliminary 12/11/19 12:15 Acid Fast Bacilli Smear - Final Bronchial Washings - Right Acid Fast Bacilli Culture - Preliminary 12/11/19 12:15 Acid Fast Bacilli Smear - Final Thoracic Fluid Acid Fast Bacilli Culture - Preliminary 12/11/19 12:15 Gram Stain - Preliminary Bronchial Washings - Right Bronchial Washings Culture - Preliminary 12/11/19 12:15 Fungal Culture - Preliminary Thoracic Fluid 12/11/19 12:15 Fungal Culture - Preliminary Bronchial Washings - Right Assessment and Plan Assessment: #1. Right infrahilar mass and possible postobstructive pneumonia with pleural effusion, rule out lung cancer #2. History of heavy tobacco use for more than 60 years #3. Rule out chronic obstructive pulmonary disease 4. History of hyperlipidemia #5. History of hernia #6. History of bursitis #7. Degenerative joint disease #8. A. fib with RVR, currently in sinus rhythm #9. Chronic smoker of pipe and cigarettes on and off for over 40 years Plan: The patient was seen and evaluated by Dr. Ponce. He is stable from the pulmonary standpoint. Fluid analysis from the pleural effusion is exudative in nature with elevated LDH and protein. Pathology pending. We'll continue with the current treatment plan. Titrate down the FiO2 as tolerated. Patient should be ready for discharge in the next 24-48 hours. He will follow-up in our office for pathology results next week. We'll continue to follow and make further recommendations based on his clinical status. I, the cosigning physician, performed a history & physical examination of the patient. Lungs sounds with crackles in the right lung base. Diminished. Maintaining good O2 saturations in the 90s on 3 L/m per nasal cannula. I discussed the assessment and plan of care with my nurse practitioner, Joselin Garcia. I attest to the above note as dictated by her.
[2019-12-12 16:35] LABS: Glucose,Whole Blood 121 mg/dL (75-99)
--- NOTE | 2019-12-12 19:58 | PN ---
PROGRESS NOTE DATE OF SERVICE: 12/12/2018 This 74-year-old gentleman admitted with right hilar mass and possible pneumonia, is being closely monitored. Patient still has some right-sided chest pain. Patient had bronchoscopy and brush biopsy by Dr. Ponce. The patient also had right pleural effusion which was also tapped yesterday. The patient is complaining of pain. Patient is on IV steroids as well as bronchodilators. Final biopsies are pending is at this time. PAST MEDICAL HISTORY: Reviewed. REVIEW OF SYSTEMS: CARDIOVASCULAR SYSTEM: As mentioned earlier. RESPIRATORY: As mentioned earlier. GI: No nausea. : No dysuria. NERVOUS SYSTEM: No numbness or weakness. CURRENT MEDICATIONS: 1. Tylenol 500 mg q.6h p.r.n. 2. DuoNeb q.i.d. and p.r.n. 3. Xanax 0.5 t.i.d. 4. Tessalon Perles q.6h. 5. Pulmicort 1 mg b.i.d. 6. Flexeril 10 mg b.i.d. p.r.n. 7. Heparin. 8. NovoLog. 9. Solu-Medrol 60 IV q.6 hours. 10.Lopressor 50 mg p.o. b.i.d. 11.Habitrol 14 daily. 12.Protonix 40 mg. 13.Zosyn 3.375 IV q.8. 14.Restoril 50 mg q.h.s. p.r.n. PHYSICAL EXAMINATION: Alert and oriented x3. Pulse is 60, blood pressure 143/70, respiration 18, temperature 97.8, pulse ox 90% on 3 L. HEENT: Conjunctivae normal. Oral mucosa moist. NECK: No jugular venous distention. No lymph node enlargement. CARDIOVASCULAR: S1, S2. RESPIRATORY: Diminished breath sounds at the bases. Bilateral scattered rhonchi and crackles. Expiratory wheezing. ABDOMEN: Soft, nontender. LEGS: No edema, no swelling. NERVOUS SYSTEM: No focal deficits. LAB STUDIES: WBC 20.9, hemoglobin 13.3, sodium 139, potassium 4.6. ASSESSMENT: 1. Acute right obstructive pneumonia, possibly gram-negative with severe pleuritic pain with pleurisy. 2. Right hilar mass, probable lung cancer status post bronchoscopy and brush biopsies. 3. Right pleural effusion hemorrhage status post thoracocentesis. 4. Chronic obstructive pulmonary disease. 5. History of nicotine dependence. 6. Hypertension. 7. Hyperlipidemia. 8. History of bursitis of both hips. 9. Increased random blood sugar, possibly secondary to steroids. 10.Possible sinus tachycardia. RECOMMENDATIONS AND DISCUSSION: In this 74-year-old gentleman who presented with multiple complex medical issues, we will monitor the patient closely, continue the current treatment and continue the symptomatic treatment. Continue the bronchodilators. Continue with IV steroids. Continue with empiric antibiotics. Otherwise, monitor closely. Increase ambulation. We will cut down the IV fluids at this time. Closely follow with multiple consultants and with biopsy. Further recommendations to follow. MMODL / IJN: [id number] /
[2019-12-12 20:41] LABS: Glucose,Whole Blood 126 mg/dL (75-99)
[2019-12-12] MEDS ORDERED: MORPHINE SULFATE 4 MG/ML SYRINGE IVP PRN (22:56)
[2019-12-12] MEDS: ACETAMINOPHEN TAB 500 MG TAB PO PRN (23:18)
--- NOTE | 2019-12-12 23:52 | XR ---
EXAMINATION TYPE: XR chest 2V DATE OF EXAM: 12/12/2019 COMPARISON: 12/11/2019 HISTORY: Short of breath TECHNIQUE: FINDINGS: There is blunting right costophrenic angle. There is infiltrate right lower lobe and consol idation at the inferior right pulmonary hilum. Left lung is clear. There is no pneumothorax. Bony tho rax is intact. IMPRESSION: Right pleural effusion and right lower lobe infiltrate unchanged compared to yesterday. N o pneumothorax.
[2019-12-13] MEDS: methylPREDNISolone SOD SUCCI 125 MG/2 ML VIAL IV SCH ×4 (00:26→18:10)
[2019-12-13] MEDS: PIPERACILLIN-TAZOBACTAM 3.375 GM in SODIUM CHLORIDE 0.9% 100 ML IVPB SCH ×3 (04:44→21:45)
[2019-12-13] MEDS: ACETAMINOPHEN TAB 500 MG TAB PO PRN ×2 (05:12→20:45)
[2019-12-13 06:01] LABS: Glucose,Whole Blood 111 mg/dL (75-99)
[2019-12-13] MEDS: INSULIN ASPART (NovoLOG) 100 UNIT/ML VIAL SQ SCH ×4 (06:26→21:46)
[2019-12-13] MEDS: PANTOPRAZOLE 40 MG TABLET PO SCH (06:26)
[2019-12-13] MEDS: HEPARIN SODIUM,PORCINE 5,000 UNIT/ML 1 ML VIAL SQ SCH ×2 (08:22→21:45)
[2019-12-13] MEDS: METOPROLOL TARTRATE 50 MG TAB PO SCH ×2 (08:22→21:45)
[2019-12-13] MEDS: NIACIN 100 MG PO SCH ×2 (08:23→21:46)
[2019-12-13] MEDS: NICOTINE 14MG/24HR PATCH TRANSDERM SCH (08:23)
[2019-12-13] MEDS: IPRATROPIUM-ALBUTEROL 3 ML NEB INHALATION SCH ×4 (08:30→21:18)
[2019-12-13] MEDS: BUDESONIDE 1 MG/2 ML NEBU INHALATION SCH ×2 (08:31→21:18)
[2019-12-13 11:44] LABS: Glucose,Whole Blood 111 mg/dL (75-99)
--- NOTE | 2019-12-13 12:11 | P.PN ---
Subjective Progress Note Date: 12/13/19 Principal diagnosis: Shortness of breath, right infrahilar mass and possible postobstructive pneumonia with pleural effusion, rule out lung cancer The patient is seen today every 2019 in follow-up on the selective care unit. He is currently resting quite comfortably in bed. He is feeling quite a bit better today compared to yesterday. Maintaining O2 saturations up to 95% on 3 L/m per nasal cannula. His been afebrile. Hemodynamically stable. He did undergo a right-sided thoracentesis with 650 ML's of bloody fluid removed. Fluid analysis shows a exudative result with high LDH of 1416 and high-protein at 4.6. Pathology pending. He is continued on DuoNeb inhalations, Tessalon Perles, Pulmicort and Perforomist inhalations, IV Solu-Medrol. He is on antibiotics in the form of Zosyn. NicoDerm patch is in place. The patient is seen today 12/13/2019 in follow-up on the selective care unit. Currently up ambulating in the room. Awake and alert in no acute distress. Maintaining O2 saturations in the low 90s on 2 L/m per nasal cannula. He's been afebrile. Pleural fluid and bronchial wash cultures are still pending. Pathology pending. Blood glucose 111. He remains on IV Solu-Medrol, DuoNeb inhalations, Pulmicort inhalations. Antibiotics in the form of Zosyn. NicoDerm patches in place. Objective - Vital Signs Vital signs: Vital Signs Temp 98.3 F 12/13/19 11:50 Pulse 62 12/13/19 11:50 Resp 18 12/13/19 11:50 BP 181/85 12/13/19 11:50 Pulse Ox 92 L 12/13/19 11:50 Intake & Output 12/12/19 12/13/19 12/13/19 18:59 06:59 18:59 Intake Total 1999 1185 180 Output Total 400 400 Balance 1999 785 -220 Intake: Intake, IV Titration 800 825 Amount Piperacillin-Tazobactam 3 200 .375 gm In Sodium Chloride 0.9% 100 ml @ 25 mls/hr IVPB Q8H [facility] Rx#: [id number] Sodium Chloride 0.9% 1, 600 825 000 ml @ 75 mls/hr IV . [id number] [facility] Rx#:[id number] Oral 1200 360 180 Output: Urine 400 400 Other: Voiding Method Toilet Toilet # Voids 2 - Exam GENERAL EXAM: Alert, active, pleasant 74-year-old gentleman, on 2 L nasal cannu la, comfortable in no apparent distress. HEAD: Normocephalic. EYES: Normal reaction of pupils, equal size. NOSE: Clear with pink turbinates. THROAT: No erythema or exudates. NECK: No masses, no JVD. CHEST: No chest wall deformity. LUNGS: Equal air entry with crackles in the right lung base, diminished. CVS: S1 and S2 normal with no audible murmur, regular rhythm. ABDOMEN: No hepatosplenomegaly, normal bowel sounds, no guarding or rigidity. SPINE: No scoliosis or deformity SKIN: No rashes CENTRAL NERVOUS SYSTEM: No focal deficits, tone is normal in all 4 extremities. EXTREMITIES: There is no peripheral edema. No clubbing, no cyanosis. Peripheral pulses are intact. - Labs CBC & Chem 7: 12/12/19 05:31 12/12/19 05:31 Labs: Abnormal Lab Results - Last 24 Hours (Table) 12/12/19 12/12/19 12/12/19 Range/Units 12:13 16:33 20:40 POC Glucose (mg/dL) 134 H 121 H 126 H (75-99) mg/dL 12/13/19 12/13/19 Range/Units 06:00 11:41 POC Glucose (mg/dL) 111 H 111 H (75-99) mg/dL Microbiology - Last 24 Hours (Table) 12/11/19 12:15 Gram Stain - Preliminary Thoracic Fluid Body Fluid Culture - Preliminary 12/11/19 12:15 Gram Stain - Final Bronchial Washings - Right Bronchial Washings Culture - Final Assessment and Plan Assessment: 1. Right infrahilar mass and possible postobstructive pneumonia with pleural effusion, rule out lung cancer 2. History of heavy tobacco use for more than 60 years 3. Rule out chronic obstructive pulmonary disease 4. History of hyperlipidemia 5. History of hernia 6. History of bursitis 7. Degenerative joint disease 8. A. fib with RVR, currently in sinus rhythm 9. Chronic smoker of pipe and cigarettes on and off for over 40 years Plan: The patient was seen and evaluated by Dr. Ponce. Fluid analysis from the pleural effusion is exudative in nature with elevated LDH and protein. Pathology pending. Titrate down the FiO2 as tolerated. He is cleared for discharge from the pulmonary standpoint. He will follow-up in our office for pathology results next week. I, the cosigning physician, performed a history & physical examination of the patient. Lungs sounds with crackles in the right lung base. Diminished. Maintaining good O2 saturations in the 90s on 2 L/m per nasal cannula. I discussed the assessment and plan of care with my nurse practitioner, Joselin Garcia. I attest to the above note as dictated by her.
[2019-12-13 17:05] LABS: Glucose,Whole Blood 105 mg/dL (75-99)
--- NOTE | 2019-12-13 20:46 | PN ---
PROGRESS NOTE DATE OF SERVICE: 12/13/2019 This 74-year-old gentleman admitted to the hospital with possible right hilar mass as well as postobstructive pneumonia is complaining of severe right-sided pain 10/[address] Ponce performed a bronchoscopy and thoracocentesis. Most recent chest x-ray which was reviewed personally by me showed still evidence of right lower lobe lesions including possible mass lesion with some postobstructive pneumonia and as well as some effusion also. The patient being closely monitored. PAST MEDICAL HISTORY: Reviewed. REVIEW OF SYSTEMS: CARDIOVASCULAR: No angina. RESPIRATIONS: As mentioned earlier. GI no nausea or vomiting. no dysuria. NERVOUS SYSTEM: No numbness or weakness. CURRENT MEDICATIONS: Reviewed and include: PHYSICAL EXAMINATION: Alert and oriented times three. Pulse is 62. Blood pressure 160/87, respirations 16, temperature 98 degrees, pulse ox 98% on 2 L. HEENT: Conjunctivae normal. NECK: No JVD. CARDIOVASCULAR: S1, S2 muffled. RESPIRATORY: Breath sounds diminished in the bases. A few scattered rhonchi and crackles. Expiratory wheezing also present. ABDOMEN: Soft, nontender. LEGS are no edema. No swelling. Nervous system: No focal deficits. LABS: At this time showed glucose 114, otherwise WBC 10.9 and BUN is 25, creatinine is 1. ASSESSMENT: 1. Acute right postobstructive pneumonia possibly gram-negative with severe pleuritic pain and pleurisy. 2. Right hilar mass probable lung cancer status bronchoscopy and brush biopsies, right pleural effusion possibly hemorrhagic, status post thoracocentesis. 3. Chronic obstructive pulmonary disease. 4. History of nicotine dependence. 5. Hypertension. 6. Hyperlipidemia. 7. History of bursitis of both hips. 8. Increased random blood sugar, possibly secondary to steroids. 9. Possible sinus tachycardia, no evidence of atrial fibrillation on the EKG per Cardiology. RECOMMENDATIONS AND DISCUSSION: Recommend to continue current medications, management and the symptomatic treatment. Patient is on high-dose IV steroids. I would recommend current medications and continue with pain medications, broad-spectrum IV antibiotics, bronchodilators. The patient requires nebulizer at home. We will continue to monitor and further recommendations to follow. Closely follow with Pulmonary. MMODL / IJN: [id number] / [facility]
[2019-12-13 21:47] LABS: Glucose,Whole Blood 120 mg/dL (75-99)
[2019-12-14] MEDS: methylPREDNISolone SOD SUCCI 125 MG/2 ML VIAL IV SCH ×3 (01:35→11:33)
[2019-12-14] MEDS: PIPERACILLIN-TAZOBACTAM 3.375 GM in SODIUM CHLORIDE 0.9% 100 ML IVPB SCH ×2 (05:03→11:33)
[2019-12-14 07:06] LABS: Glucose,Whole Blood 109 mg/dL (75-99)
[2019-12-14] MEDS: NICOTINE 14MG/24HR PATCH TRANSDERM SCH (07:32)
[2019-12-14] MEDS: HEPARIN SODIUM,PORCINE 5,000 UNIT/ML 1 ML VIAL SQ SCH (07:32)
[2019-12-14] MEDS: INSULIN ASPART (NovoLOG) 100 UNIT/ML VIAL SQ SCH ×2 (07:32→11:26)
[2019-12-14] MEDS: PANTOPRAZOLE 40 MG TABLET PO SCH (07:32)
[2019-12-14] MEDS: ACETAMINOPHEN TAB 500 MG TAB PO PRN (07:37)
[2019-12-14] MEDS: NIACIN 100 MG PO SCH (08:24)
[2019-12-14] MEDS: METOPROLOL TARTRATE 50 MG TAB PO SCH (08:24)
[2019-12-14] MEDS: IPRATROPIUM-ALBUTEROL 3 ML NEB INHALATION SCH ×3 (08:52→16:19)
[2019-12-14] MEDS: BUDESONIDE 1 MG/2 ML NEBU INHALATION SCH (08:52)
[2019-12-14 11:27] LABS: Glucose,Whole Blood 110 mg/dL (75-99)
--- NOTE | 2019-12-14 12:07 | P.PN ---
Subjective Progress Note Date: 12/14/19 A 74-year-old male patient with a right hilar mass and the right-sided pleural effusion post bronchoscopy revealing some endobronchial irregularities in the distal bronchus intermedius/right lower lobe area. Biopsies were done and that is also still pending for now. Patient also underwent a thoracentesis of the right lung with evacuation of650 mL of pleural fluid that was nonbloody. LDH was elevated and the total protein was elevated consistent with an exudate. Fluid cytology still pending for now. We are suspecting a locally advanced or metastatic non-small cell lung cancer. Final path is not out. Meanwhile, the patient is ambulating is on room air oxygen. No hemoptysis. Chest is a bit s ore at the site of the biopsy. No nausea. No vomiting. No altered mentation. Objective - Vital Signs Vital signs: Vital Signs Temp 97.4 F L 12/14/19 07:00 Pulse 94 12/14/19 09:08 Resp 14 12/14/19 07:00 BP 179/57 12/14/19 09:50 Pulse Ox 93 L 12/14/19 11:21 Intake & Output 12/13/19 12/14/19 12/14/19 18:59 06:59 18:59 Intake Total 410 Output Total 800 Balance -390 Intake: Oral 410 Output: Urine 800 Other: Voiding Method Toilet Toilet # Voids 1 2 - Exam GENERAL EXAM: Alert, active, pleasant 74-year-old gentleman, on RA, comfortable in no apparent distress. HEAD: Normocephalic. EYES: Normal reaction of pupils, equal size. NOSE: Clear with pink turbinates. THROAT: No erythema or exudates. NECK: No masses, no JVD. CHEST: No chest wall deformity. LUNGS: Equal air entry with crackles in the right lung base, diminished. CVS: S1 and S2 normal with no audible murmur, regular rhythm. ABDOMEN: No hepatosplenomegaly, normal bowel sounds, no guarding or rigidity. SPINE: No scoliosis or deformity SKIN: No rashes CENTRAL NERVOUS SYSTEM: No focal deficits, tone is normal in all 4 extremities. EXTREMITIES: There is no peripheral edema. No clubbing, no cyanosis. Peripheral pulses ar - Labs CBC & Chem 7: 12/12/19 05:31 12/12/19 05:31 Labs: Abnormal Lab Results - Last 24 Hours (Table) 12/13/19 12/13/19 12/14/19 Range/Units 17:03 21:43 07:04 POC Glucose (mg/dL) 105 H 120 H 109 H (75-99) mg/dL 12/14/19 Range/Units 11:25 POC Glucose (mg/dL) 110 H (75-99) mg/dL Microbiology - Last 24 Hours (Table) 12/11/19 12:15 Gram Stain - Preliminary Thoracic Fluid Body Fluid Culture - Preliminary 12/11/19 12:15 Gram Stain - Final Bronchial Washings - Right Bronchial Washings Culture - Final Assessment and Plan Plan: 1. Right infrahilar mass and possible postobstructive pneumonia with pleural effusion, rule out lung cancer, most likely of a primary lung type. As for the right-sided pleural effusion, this was drained and 650 mL of pleural fluid was also aspirated from the right lower lobe. Suspect locally advanced versus metastatic lung cancer with a malignant right-sided pleural effusion. In any rate, the fluid is exudative. Cytology is still pending. Biopsies from the right lower lobe are still pending. 2. History of heavy tobacco use for more than 60 years 3. Rule out chronic obstructive pulmonary disease 4. History of hyperlipidemia 5. History of hernia 6. History of bursitis 7. Degenerative joint disease 8. A. fib with RVR, currently in sinus rhythm 9. Chronic smoker of pipe and cigarettes on and off for over 40 years Plan As you are waiting for the final pathology results, the patient came in discharged home. No need for home oxygen therapy. Complete a seven-day course of Augmentin 875 mg by mouth twice a day in addition to a short course of prednisone burst taper starting with 30 mg for 4 days and then 20 mg for 4 days and then 10 mg for 4 days. A short-term follow-up in our office to discuss her results and set forth a treatment plan or this patient.
[2019-12-14] MEDS ORDERED: predniSONE 10 MG TAB PO SCH (12:15)
--- NOTE | 2019-12-14 14:05 | P.DS ---
Providers Date of admission: 12/09/19 14:31 Expected date of discharge: 12/14/19 Attending physician: Karoline Small Consults: 12/09/19 14:31 Consult Physician Routine Consulting Provider: Fuad Ponce Consult Reason/Comments: Lung mass, post obstructive pneumonia, metastases Do you want consulting provider notified?: Yes 12/09/19 17:45 Consult Physician Routine Consulting Provider: Paramjit Darnell Consult Reason/Comments: afib Do you want consulting provider notified?: Yes Consult Physician Routine Consulting Provider: Peter Barlow Consult Reason/Comments: Atrial fibrillation Do you want consulting provider notified?: Yes Primary care physician: [facility] Course: Final diagnosis Acute right postobstructive pneumonia possibly gram-negative with severe pleuritic pain and pleurisy Right hilar mass probable lung cancer status post bronchoscopy and brush biopsies, right pleural effusion possibly hemorrhagic, status post thoracentesis Chronic obstructive pulmonary disease History of nicotine dependence Hypertension Hyperlipidemia History of bursitis of both hips Increased random blood sugar, possibly secondary to steroids possible sinus tachycardia, no evidence of atrial fibrillation on EKG per cardiology Discharge disposition Patient is being discharged in a stable condition with guarded prognosis to home and will follow-up with Dr. Niles Mead in the outpatient setting upon discharge. Patient will also follow-up with Dr. Ponce pulmonary in 1-2 weeks. Patient will continue on a short course of oral antibiotics in the form of Augmentin twice daily for the next one week along with a prednisone taper. Patient will also continue bronchodilators prescription for nebulizer was provided. Total time taken is 35 minutes. History of present illness This is a 74-year-old male who was recently admitted with a possible right hilar mass as well as post-obstructive pneumonia and was being closely monitored. Pulmonary is following closely. During hospitalization Dr. Ponce performed a bronchoscopy along with a thoracentesis of the right side. Patient will be following up with Dr. Ponce in the office in 1-2 weeks for test results. Patient was maintained on IV steroids, IV antibiotics, and bronchodilators and showed some slow improvement. Patient will be continued on a prednisone taper along with oral Augmentin twice daily for the next one week. Patient will be continued on DuoNeb treatments 4 times a day along with when necessary until follow-up with primary care provider and pulmonary. Currently patients condition is stable and is ready for discharge today. No reports of chest pain or palpitations. Patient is afebrile. No reports of nausea or vomiting and patient is tolerating diet. On exam vital signs are stable. Temp is 97.4F, pulse is 98, respirations are 14, blood pressure is 179/57, oxygen saturation is 93% on room air. Cardio S1, S2 are muffled. Respiratory system shows diminished breath sounds at the bases with a few scattered rhonchi and some expiratory wheezing noted. Abdomen is soft and nontender. Nervous system shows no focal deficits. Please refer to medication reconciliation sheet for a list of medications. Patient Condition at Discharge: Stable Plan - Discharge Summary Discharge Rx Participant: No New Discharge Prescriptions: New Amoxic-Pot Clav 875-125Mg [Augmentin 875-125] 1 tab PO Q12HR 7 Days #14 tablet Ipratropium-Albuterol Nebulize [Duoneb 0.5 mg-3 mg/3 ml Soln] 3 ml INHALATION RT-QID 30 Days #120 ml Ipratropium-Albuterol Nebulize [Duoneb 0.5 mg-3 mg/3 ml Soln] 3 ml INHALATION RT-Q4H PRN ml PRN Reason: Shortness Of Breath Or Wheezing Metoprolol Tartrate [Lopressor] 50 mg PO BID 30 Days #60 tab HYDROcodone/APAP 5-325MG [[place] 5-325] 1 tab PO Q6HR PRN 3 Days #12 tab PRN Reason: Pain predniSONE 10 mg PO DIRECTED #30 tab Budesonide [Pulmicort] 1 mg INHALATION RT-BID 30 Days #30 ml Continue Cyclobenzaprine [Flexeril] 10 mg PO BID PRN PRN Reason: Pain Naproxen Sodium [Aleve] 220 mg PO BID PRN PRN Reason: Pain Meloxicam 15 mg PO DAILY Benzonatate [Tessalon Perles] 100 mg PO Q8H PRN PRN Reason: Cough Aspirin EC [Ecotrin Low Dose] 81 mg PO DAILY Albuterol Inhaler [Ventolin Hfa Inhaler] 2 puff INHALATION RT-Q6H PRN PRN Reason: Shortness Of Breath Niacin 100 mg PO BID Allerest Allergy Tablet 1 tab PO DAILY Discharge Medication List Albuterol Inhaler [Ventolin Hfa Inhaler] 2 puff INHALATION RT-Q6H PRN 12/09/19 [History] Allerest Allergy Tablet 1 tab PO DAILY 12/09/19 [History] Aspirin EC [Ecotrin Low Dose] 81 mg PO DAILY 12/09/19 [History] Benzonatate [Tessalon Perles] 100 mg PO Q8H PRN 12/09/19 [History] Cyclobenzaprine [Flexeril] 10 mg PO BID PRN 12/09/19 [History] Meloxicam 15 mg PO DAILY 12/09/19 [History] Naproxen Sodium [Aleve] 220 mg PO BID PRN 12/09/19 [History] Niacin 100 mg PO BID 12/09/19 [History] Amoxic-Pot Clav 875-125Mg [Augmentin 875-125] 1 tab PO Q12HR 7 Days #14 tablet 12/14/19 [Rx] Budesonide [Pulmicort] 1 mg INHALATION RT-BID 30 Days #30 ml 12/14/19 [Rx] HYDROcodone/APAP 5-325MG [[place] 5-325] 1 tab PO Q6HR PRN 3 Days #12 tab 12/14/19 [Rx] Ipratropium-Albuterol Nebulize [Duoneb 0.5 mg-3 mg/3 ml Soln] 3 ml INHALATION RT-Q4H PRN ml 12/14/19 [Rx] Ipratropium-Albuterol Nebulize [Duoneb 0.5 mg-3 mg/3 ml Soln] 3 ml INHALATION RT-QID 30 Days #120 ml 12/14/19 [Rx] Metoprolol Tartrate [Lopressor] 50 mg PO BID 30 Days #60 tab 12/14/19 [Rx] predniSONE 10 mg PO DIRECTED #30 tab 12/14/19 [Rx] Follow up Appointment(s)/Referral(s): [facility] [NON-STAFF] - (Supplied the Nebulizer) Niles Mead MD [Primary Care Provider] - 12/15/19 11:00 am Fuad Ponce DO [Doctor of Osteopathic Medicine] - 12/24/19 10:00 am Activity/Diet/Wound Care/Special Instructions: Activity Limited until follow-up Follow-up with primary care provider upon discharge Follow-up with Dr. Ponce in 7-10 days Continue with antibiotics until finished Continue with the prednisone taper Continue with breathing treatments Discharge Disposition: HOME SELF-CARE
[2019-12-14 14:57] VITALS: BP 173/71; RESP 16; TEMP 97.5
[2019-12-14 16:30] VITALS: PULSE 74
[2019-12-14] MEDS ORDERED: AMOXIC-POT CLAV 875-125MG 1 EACH TAB PO SCH (21:00)
== END 2019-12-14 18:35 | disposition home or self-care (01) | DRG 180 ==
LOC: EC 14:25 → 5NMEDONC 14:31 → 3SCARD 17:47 → 6NMEDSUR 12-13 15:12
PROVIDERS: ADMIT Hospitalist; ATTEND Hospitalist
PROC: 0BB68ZX Excision of Right Lower Lobe Bronchus, Via Natural or Artificial Opening Endoscopic, Diagnostic (ICD-10-PCS; principal; 2019-12-11 12:00)
PROC: 0B9F8ZX Drainage of Right Lower Lung Lobe, Via Natural or Artificial Opening Endoscopic, Diagnostic (ICD-10-PCS; principal; 2019-12-11 12:00)
PROC: 0BD68ZX Extraction of Right Lower Lobe Bronchus, Via Natural or Artificial Opening Endoscopic, Diagnostic (ICD-10-PCS; principal; 2019-12-11 12:00)
PROC: 0W993ZZ Drainage of Right Pleural Cavity, Percutaneous Approach (ICD-10-PCS; 2019-12-11 12:00)
DX: C34.01 Malignant neoplasm of right main bronchus (principal); J15.6 Pneumonia due to other Gram-negative bacteria; J44.0 Chronic obstructive pulmonary disease with (acute) lower respiratory infection; R04.2 Hemoptysis; J90 Pleural effusion, not elsewhere classified; J98.11 Atelectasis; J81.1 Chronic pulmonary edema; C77.1 Secondary and unspecified malignant neoplasm of intrathoracic lymph nodes; E78.5 Hyperlipidemia, unspecified; F17.210 Nicotine dependence, cigarettes, uncomplicated; I48.0 Paroxysmal atrial fibrillation; F41.9 Anxiety disorder, unspecified; M19.90 Unspecified osteoarthritis, unspecified site; D18.00 Hemangioma unspecified site; I10 Essential (primary) hypertension; R73.9 Hyperglycemia, unspecified; T38.0X5A Adverse effect of glucocorticoids and synthetic analogues, initial encounter; R74.0 Nonspecific elevation of levels of transaminase and lactic acid dehydrogenase [LDH]; Z71.6 Tobacco abuse counseling; Z79.1 Long term (current) use of non-steroidal anti-inflammatories (NSAID); Z79.82 Long term (current) use of aspirin; Z79.899 Other long term (current) drug therapy; Z87.39 Personal history of other diseases of the musculoskeletal system and connective tissue; Z91.048 Other nonmedicinal substance allergy status; Z87.81 Personal history of (healed) traumatic fracture; Z88.6 Allergy status to analgesic agent; Z88.5 Allergy status to narcotic agent; Z88.7 Allergy status to serum and vaccine; Z82.3 Family history of stroke; Z82.49 Family history of ischemic heart disease and other diseases of the circulatory system; Z80.7 Family history of other malignant neoplasms of lymphoid, hematopoietic and related tissues
CPT/HCPCS: 31623; 31624; 31628; 70450; 71045; 71046; 74176; 76604; 78306; 80048; 80053; 81001; 82945; 83615; 84157; 84443; 84484; 85025; 87070; 87102; 87116; 87205; 87206; 87252; 87496; 87498; 87502; 87529; 87634; 87798; 88104; 88108; 88305; 88341; 88342; 89050; 93005; 93306; 94640; 94760; 96361; 96365; 96366; 96372; 96375; 99285

== ENCOUNTER → 2019-12-19 | Outpatient (CLI) | payer MEDICARE ==
--- NOTE | 2019-12-21 09:30 | PE ---
Nuclear medicine PET/CT HISTORY: Non-small cell lung cancer, initial Patient received 11.7 mCi F-18 FDG intravenously in delayed scanning performed from skull base to mid thighs. Localization and attenuation correction CT scan Correlation prior CT dated 12/10/2019 Neck and chest: Within the subcutaneous fat of the upper back there is a small subcutaneous soft tiss ue nodule measuring only 5 to 6 mm with associated uptake, SUV 3. Subcarinal yudi uptake is extensiv e, the node is enlarged and SUV is 28. Right hilar uptake is also extensive, SUV 21. Peripheral uptak e associated with the right lower lobe soft tissue, SUV 11.1. There is an associated right pleural ef fusion. ABDOMEN: There is a focus of uptake. Noted within the tail of pancreas. SUV 6.9. No retroperitoneal u ptake, no evident adrenal mass. No evident liver mass. Soft tissue uptake along the anterior musculat ure of the proximal left lower extremity shows SUV 10.7. Within the abdomen at the level of the rectu m there is a soft tissue mass present measuring approximately 2.9 cm on axial image 231, SUV is 6. Osseous structures show multiple foci of abnormal uptake, within the manubrium there is a focus of up take seen without corresponding CT abnormality, SUV is 10.4, multiple ribs show small foci of uptake bilaterally. Focus of uptake also present within the L3 vertebral body. IMPRESSION: Lung mass with mediastinal and hilar adenopathy, hypermetabolic uptake. Abnormal uptake n oted within soft tissues, the pancreas, bones, pancreas, rectum shows an exophytic mass.
== END | disposition home or self-care (01) ==
LOC: RADPETMAIN 15:11
PROVIDERS: ATTEND Internal Medicine Critical Care Medicine
DX: C34.31 Malignant neoplasm of lower lobe, right bronchus or lung (principal)
CPT/HCPCS: 78815; A9552

== ENCOUNTER 2019-12-29 14:56 | Inpatient (IN) | payer MEDICARE ==
[2019-12-29 15:35] LABS: Basophils # (A) 0.1 k/uL (0-0.2); Basophils % (A) 0 %; Eosinophils # (A) 0.5 k/uL (0-0.7); Eosinophils % (A) 3 %; HCT 43.8 % (39.0-53.0); HGB 14.4 gm/dL (13.0-17.5); Lymphocytes # (A) 0.9 k/uL (1.0-4.8); Lymphocytes % (A) 5 %; MCH 30.9 pg (25.0-35.0); MCHC 32.9 g/dL (31.0-37.0); MCV 93.9 fL (80.0-100.0); Mean Platelet Volume 8.2; Monocytes # (A) 0.8 k/uL (0-1.0); Monocytes % (A) 5 %; Neutrophils # (A) 15.5 k/uL (1.3-7.7); Neutrophils % (A) 87 %; Platelet Count 245 k/uL (150-450); RBC 4.67 m/uL (4.30-5.90); RDW 13.3 % (11.5-15.5); WBC 17.9 k/uL (3.8-10.6)
[2019-12-29] MEDS ORDERED: IPRATROPIUM-ALBUTEROL 3 ML NEB INHALATION STA (15:40)
--- NOTE | 2019-12-29 15:42 | ED ---
SOB HPI - General Chief Complaint: Shortness of Breath Stated Complaint: RITA/coughing blood Time Seen by Provider: 12/29/19 15:19 Source: patient, family, RN notes reviewed Mode of arrival: wheelchair Limitations: no limitations - History of Present Illness Initial Comments: This is a 74-year-old male history of lung cancer is stage IV now who presents with complaints of shortness of breath for the past 2 days some exertional dyspnea also is had chronic pain specialist to his back exam for was his pain patches as he becomes somewhat incoherent generally is not feeling well. He has nausea. His sats are running or from 75-86%. MD Complaint: shortness of breath, cough - Related Data Home Medications Medication Instructions Recorded Confirmed Albuterol Inhaler [Ventolin Hfa 2 puff INHALATION RT-Q6H PRN 12/09/19 12/09/19 Inhaler] Allerest Allergy Tablet 1 tab PO DAILY 12/09/19 12/09/19 Aspirin EC [Ecotrin Low Dose] 81 mg PO DAILY 12/09/19 12/09/19 Benzonatate [Tessalon Perles] 100 mg PO Q8H PRN 12/09/19 12/09/19 Cyclobenzaprine [Flexeril] 10 mg PO BID PRN 12/09/19 12/09/19 Meloxicam 15 mg PO DAILY 12/09/19 12/09/19 Naproxen Sodium [Aleve] 220 mg PO BID PRN 12/09/19 12/09/19 Niacin 100 mg PO BID 12/09/19 12/09/19 Previous Rx's Medication Instructions Recorded Amoxic-Pot Clav 875-125Mg 1 tab PO Q12HR 7 Days #14 tablet 12/14/19 [Augmentin 875-125] Budesonide [Pulmicort] 1 mg INHALATION RT-BID 30 Days #30 12/14/19 ml HYDROcodone/APAP 5-325MG [[place] 1 tab PO Q6HR PRN 3 Days #12 tab 12/14/19 5-325] Ipratropium-Albuterol Nebulize 3 ml INHALATION RT-Q4H PRN ml 12/14/19 [Duoneb 0.5 mg-3 mg/3 ml Soln] Ipratropium-Albuterol Nebulize 3 ml INHALATION RT-QID 30 Days 12/14/19 [Duoneb 0.5 mg-3 mg/3 ml Soln] #120 ml Metoprolol Tartrate [Lopressor] 50 mg PO BID 30 Days #60 tab 12/14/19 predniSONE 10 mg PO DIRECTED #30 tab 12/14/19 Allergies Allergy/AdvReac Type Severity Reaction Status Date / Time codeine AdvReac Unknown Verified 12/29/19 15:06 ibuprofen AdvReac Unknown Verified 12/29/19 15:06 mold AdvReac Unknown Verified 12/29/19 15:06 tetanus and diphtheria AdvReac Unknown Verified 12/29/19 15:06 toxoids Review of Systems ROS Statement: Those systems with pertinent positive or pertinent negative responses have been documented in the HPI. ROS Other: All systems not noted in ROS Statement are negative. Past Medical History Past Medical History: Cancer, Hyperlipidemia, Osteoarthritis (OA) Additional Past Medical History / Comment(s): hernia, bursitis in hips and knees. Lung ca stage 4 History of Any Multi-Drug Resistant Organisms: None Reported Past Surgical History: Hernia Repair Additional Past Surgical History / Comment(s): back surgery 2008 replaced L5 disc, Past Anesthesia/Blood Transfusion Reactions: No Reported Reaction Past Psychological History: No Psychological Hx Reported Smoking Status: Former smoker Past Alcohol Use History: Occasional Past Drug Use History: None Reported - Past Family History Father Family Medical History: Cancer Additional Family Medical History / Comment(s): multiple myeloma, hypotension Mother Family Medical History: Cancer, Hypertension Additional Family Medical History / Comment(s): multiple myeloma General Exam - General Exam Comments Initial Comments: This is a well-developed well-nourished awake alert oriented 3 male Limitations: no limitations General appearance: alert, in no apparent distress Head exam: Present: atraumatic, normocephalic, normal inspection Eye exam: Present: normal appearance, PERRL, EOMI. Absent: scleral icterus, con junctival injection, periorbital swelling ENT exam: Present: mucous membranes dry Neck exam: Present: normal inspection. Absent: tenderness, meningismus, lymphadenopathy Respiratory exam: Present: wheezes, decreased breath sounds. Absent: respiratory distress, rales, rhonchi, stridor Cardiovascular Exam: Present: regular rate, normal rhythm, normal heart sounds. Absent: systolic murmur, diastolic murmur, rubs, gallop, clicks GI/Abdominal exam: Present: soft, normal bowel sounds. Absent: distended, tenderness, guarding, rebound, rigid Extremities exam: Present: normal inspection, full ROM, normal capillary refill. Absent: tenderness, pedal edema, joint swelling, calf tenderness Back exam: Present: normal inspection Neurological exam: Present: alert, oriented X3, CN II-XII intact Psychiatric exam: Present: normal affect, normal mood Skin exam: Present: warm, dry, intact, normal color. Absent: rash Course Vital Signs 12/29/19 12/29/19 12/29/19 15:02 15:29 16:17 Temperature 98.0 F Pulse Rate 60 92 Respiratory 24 22 Rate Blood Pressure 131/80 O2 Sat by Pulse 89 L Oximetry 12/29/19 16:27 Temperature Pulse Rate 103 H Respiratory Rate Blood Pressure O2 Sat by Pulse Oximetry Medical Decision Making - Medical Decision Making Due to the findings I did discuss findings the patient he still short of breath he will be admitted place an IV antibiotics continued treatments and pulmonary consultation. Case is discussed with Dr. Guzman - Lab Data Result diagrams: 12/29/19 15:20 12/29/19 15:20 Lab Results 12/29/19 12/29/19 12/29/19 Range/Units 15:20 15:20 15:20 WBC 17.9 H (3.8-10.6) k/uL RBC 4.67 (4.30-5.90) m/uL Hgb 14.4 (13.0-17.5) gm/dL Hct 43.8 (39.0-53.0) % MCV 93.9 (80.0-100.0) fL MCH 30.9 (25.0-35.0) pg MCHC 32.9 (31.0-37.0) g/dL RDW 13.3 (11.5-15.5) % Plt Count 245 (150-450) k/uL Neutrophils % 87 % Lymphocytes % 5 % Monocytes % 5 % Eosinophils % 3 % Basophils % 0 % Neutrophils # 15.5 H (1.3-7.7) k/uL Lymphocytes # 0.9 L (1.0-4.8) k/uL Monocytes # 0.8 (0-1.0) k/uL Eosinophils # 0.5 (0-0.7) k/uL Basophils # 0.1 (0-0.2) k/uL PT 10.8 (9.0-12.0) sec INR 1.0 (<1.2) APTT 24.5 (22.0-30.0) sec Sodium 136 L (137-145) mmol/L Potassium 4.4 (3.5-5.1) mmol/L Chloride 103 (98-107) mmol/L Carbon Dioxide 22 (22-30) mmol/L Anion Gap 11 mmol/L BUN 20 (9-20) mg/dL Creatinine 1.01 (0.66-1.25) mg/dL Est GFR (CKD-EPI)AfAm 85 (>60 ml/min/1.73 sqM) Est GFR (CKD-EPI)NonAf 74 (>60 ml/min/1.73 sqM) Glucose 137 H (74-99) mg/dL Plasma Lactic Acid Arturo (0.7-2.0) mmol/L Calcium 9.0 (8.4-10.2) mg/dL Total Bilirubin 0.9 (0.2-1.3) mg/dL AST 39 (17-59) U/L ALT 42 (4-49) U/L Alkaline Phosphatase 130 H (38-126) U/L Troponin I (0.000-0.034) ng/mL Total Protein 7.2 (6.3-8.2) g/dL Albumin 3.5 (3.5-5.0) g/dL 12/29/19 12/29/19 Range/Units 15:20 15:20 WBC (3.8-10.6) k/uL RBC (4.30-5.90) m/uL Hgb (13.0-17.5) gm/dL Hct (39.0-53.0) % MCV (80.0-100.0) fL MCH (25.0-35.0) pg MCHC (31.0-37.0) g/dL RDW (11.5-15.5) % Plt Count (150-450) k/uL Neutrophils % % Lymphocytes % % Monocytes % % Eosinophils % % Basophils % % Neutrophils # (1.3-7.7) k/uL Lymphocytes # (1.0-4.8) k/uL Monocytes # (0-1.0) k/uL Eosinophils # (0-0.7) k/uL Basophils # (0-0.2) k/uL PT (9.0-12.0) sec INR (<1.2) APTT (22.0-30.0) sec Sodium (137-145) mmol/L Potassium (3.5-5.1) mmol/L Chloride (98-107) mmol/L Carbon Dioxide (22-30) mmol/L Anion Gap mmol/L BUN (9-20) mg/dL Creatinine (0.66-1.25) mg/dL Est GFR (CKD-EPI)AfAm (>60 ml/min/1.73 sqM) Est GFR (CKD-EPI)NonAf (>60 ml/min/1.73 sqM) Glucose (74-99) mg/dL Plasma Lactic Acid Arturo 2.2 H* (0.7-2.0) mmol/L Calcium (8.4-10.2) mg/dL Total Bilirubin (0.2-1.3) mg/dL AST (17-59) U/L ALT (4-49) U/L Alkaline Phosphatase (38-126) U/L Troponin I <0.012 (0.000-0.034) ng/mL Total Protein (6.3-8.2) g/dL Albumin (3.5-5.0) g/dL - EKG Data -: EKG Interpreted by Me (Sinus tachycardia present) EKG Comments: Sinus tachycardia rate of 104 frequent PVCs. Interval 142 QRS 92 QT since QTC 336/441 LVH noted - Radiology Data Radiology results: image reviewed (I did review the imaging is evidence of increased right lower lobe markings the previous exam) Disposition Clinical Impression: Right lower lobe pneumonia, Acute exacerbation of chronic obstructive pulmonary disease, Lung cancer Disposition: ADMITTED IP TO THIS HOSP Condition: Fair Referrals: Niles Mead MD [Primary Care Provider] - 1-2 days
[2019-12-29 15:49] LABS: Albumin 3.5 g/dL (3.5-5.0); Potassium 4.4 mmol/L (3.5-5.1); Total Bilirubin 0.9 mg/dL (0.2-1.3); Total Protein 7.2 g/dL (6.3-8.2)
[2019-12-29 15:58] LABS: Partial Thromboplastin Time 24.5 sec (22.0-30.0); Prothrombin Time 10.8 sec (9.0-12.0)
[2019-12-29] MEDS ORDERED: SODIUM CHLORIDE 0.9% 1,000 ML IV STA (16:45)
[2019-12-29] MEDS ORDERED: LEVOFLOXACIN 750MG-D5W PMX 750 MG in DEXTROSE/WATER 1 150ML.BAG IVPB STA (17:24)
[2019-12-29] MEDS ORDERED: PNEUMONIA PROTOCOL UTILIZED 1 EACH MISC PO PRN (17:24)
[2019-12-29] MEDS ORDERED: PIPERACILLIN-TAZOBACTAM 3.375 GM in SODIUM CHLORIDE 0.9% 100 ML IVPB STA (17:24)
[2019-12-29] MEDS ORDERED: HYDROcodone/APAP 5-325MG 1 EACH TAB PO PRN (17:27)
[2019-12-29] MEDS ORDERED: CYCLOBENZAPRINE 10 MG TAB PO PRN (17:27)
[2019-12-29] MEDS ORDERED: predniSONE 10 MG TAB PO SCH (17:30)
--- NOTE | 2019-12-29 17:32 | XR ---
EXAMINATION TYPE: XR chest 2V DATE OF EXAM: 12/29/2019 COMPARISON: 12/12/2019 HISTORY: Short of breath. Lung cancer. TECHNIQUE: FINDINGS: There is bilateral pulmonary interstitial edema. There is masslike infiltrate at the right pulmonary hilum. Unchanged. There is mild blunting of right costophrenic angle. There are chest leads . IMPRESSION: There is infiltrate and pleural thickening and pleural fluid similar to last exam. Right lower lobe mass unchanged. Pulmonary interstitial edema slightly worse than last exam.
[2019-12-29] MEDS: SODIUM CHLORIDE 0.9% 1,000 ML IV SCH (18:44)
[2019-12-29] MEDS: methylPREDNISolone SOD SUCCI 125 MG/2 ML VIAL IV SCH ×2 (18:52→22:41)
[2019-12-29] MEDS: IPRATROPIUM-ALBUTEROL 3 ML NEB INHALATION SCH ×2 (20:13→23:02)
[2019-12-29] MEDS: METOPROLOL TARTRATE 50 MG TAB PO SCH (22:36)
[2019-12-29] MEDS: PIPERACILLIN-TAZOBACTAM 3.375 GM in SODIUM CHLORIDE 0.9% 100 ML IVPB SCH (22:41)
[2019-12-30] MEDS: IPRATROPIUM-ALBUTEROL 3 ML NEB INHALATION SCH ×5 (03:11→21:06)
[2019-12-30] MEDS: SODIUM CHLORIDE 0.9% 1,000 ML IV SCH ×3 (04:42→14:08)
[2019-12-30] MEDS: methylPREDNISolone SOD SUCCI 125 MG/2 ML VIAL IV SCH ×2 (04:56→11:13)
--- NOTE | 2019-12-30 07:47 | XR ---
EXAMINATION TYPE: XR chest 2V DATE OF EXAM: 12/30/2019 COMPARISON: 12/29/2019 HISTORY: Pneumonia. Follow-up exam. Lung cancer. TECHNIQUE: Frontal and lateral views of the chest are obtained. FINDINGS: Known right lower lobe lung mass with mediastinal adenopathy is redemonstrated with surrou nding patchy opacity. Increasing left lower lung opacity is also seen with diffuse interstitial promi nence. Cardia mediastinal silhouette is stable. Trace right pleural effusion. No pneumothorax seen. IMPRESSION: 1. Similar appearance of the right lower lobe pulmonary mass and surrounding airspace disease with kn own mediastinal adenopathy. 2. Increasing confluence of the left basilar opacity, possible multifocal pneumonia. 3. Stable interstitial prominence and trace right pleural effusion, mild fluid overload.
[2019-12-30] MEDS: ASPIRIN 81 MG PO SCH (09:07)
[2019-12-30] MEDS: MELOXICAM 7.5 MG TAB PO SCH (09:07)
[2019-12-30] MEDS: PIPERACILLIN-TAZOBACTAM 3.375 GM in SODIUM CHLORIDE 0.9% 100 ML IVPB SCH ×3 (09:07→23:43)
[2019-12-30] MEDS: METOPROLOL TARTRATE 50 MG TAB PO SCH ×2 (09:07→21:59)
[2019-12-30] MEDS ORDERED: IPRATROPIUM-ALBUTEROL 3 ML NEB INHALATION PRN (10:18)
--- NOTE | 2019-12-30 11:36 | CONS ---
CONSULTATION PULMONARY/CRITICAL CARE CONSULTATION: DATE OF CONSULTATION: 12/30/2019 This is a 74-year-old gentleman who I recently diagnosed with advanced non-small cell lung cancer, squamous cell type. I saw him in consultation on December 09. Please see my consultation on that day. He came into the hospital with a right hilar mass and postobstructive pneumonia. He underwent bronchoscopy which was positive for squamous cell carcinoma. A CT scan and PET scan were ordered. The PET scan showed diffuse disease to many portions of his body. Anyway, the patient comes back into the emergency room on December 28. He came in at 1456 in the afternoon. He presented with complaints of shortness of breath for the last couple days prior to admission. In addition, he has pain in the right chest, cough, chest congestion and phlegm production. He just was not feeling very well. His saturations were low. The patient sees Dr. Mead as a primary doctor. Again, I just met him recently in mid November. I had got him scheduled to see Dr. Jac Boles in Radiation therapy and Dr. Romelia Rm in Medical Oncology. I do not know that he seen either as yet. I think he was suppose to see Dr. Boles today. Again, the cancer was positive for squamous cell type. . CURRENT MEDICATIONS: Include albuterol inhaler, Allerest allergy tablet, aspirin, Tessalon Perles, Flexeril, meloxicam, naproxen, niacin, Augmentin, Pulmicort, formoterol, [place], DuoNeb, metoprolol, and prednisone. ALLERGIES: CODEINE, IBUPROFEN, MOLD and TETANUS and DIPHTHERIA SHOTS. MEDICAL HISTORY: Includes lung cancer, recently discovered, postobstructive pneumonia, hyperlipidemia, and osteoarthritis. Other medical problems include hernia, knee and hip bursitis, and the advanced lung cancer as mentioned. SURGICAL HISTORY: Includes hernia repair, recent bronchoscopy with biopsy, and back surgery. SOCIAL HISTORY: Positive for being a former heavy smoker. Does not smoke currently. Has been smoking for a number of years. He drinks alcohol occasionally. No illicit drug use. 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 FAMILY HISTORY: Positive for father with multiple myeloma and hypertension in her mother with a history of multiple myeloma and hypertension. REVIEW OF SYSTEMS: CONSTITUTIONAL: Negative. NEUROLOGIC: Negative. HEENT: Negative. CARDIOVASCULAR: Right sided chest pain. PULMONARY: Shortness of breath, chest congestion, cough, minimal phlegm production. GI: Negative. : Negative. RHEUMATOLOGIC: Negative. IMMUNOLOGIC: Negative. ENDOCRINOLOGIC: Negative. DERMATOLOGIC: Negative. Current vital signs are reviewed. Temperature is 97.6, heart rate 98, respiratory rate 18, blood pressure 120/90, mean 102 L, four L saturation 92%. Appears in no acute distress HEENT examination is grossly unremarkable. Nasal O2 in place. There is no conversational dyspnea. No accessory muscle use or audible wheezing. NECK: Supple, full range of motion. No adenopathy or thyromegaly. Neck veins are flat. CARDIOVASCULAR: Examination reveals regular rhythm rate. Heart rate in the high 80s low 90s. S1, S2 normal. Heart sounds are distant. LUNGS: Reveal coarse diffuse rhonchi. There are crackles at both lung bases. No wheezes. ABDOMEN: Soft, bowel sounds are heard. EXTREMITIES: Intact. No cyanosis, clubbing, or edema. SKIN: Without rash. NEUROLOGIC: Examination is brief, but nonfocal. LAB DATA: Includes a white count 17.9, hemoglobin 14.4, hematocrit 43.8, platelet count 345,000. PT, INR and PTT normal. Sodium 136, potassium 4.4, chloride is 103, CO2 is 22, anion gap 11, BUN and creatinine were 20 and 1.01, glucose was 137. Lactic acid was 2.2 and repeat was 1.8. The rest of his CMP was normal. The patient had a chest x-ray done, both on the third and the fourth. The chest x-ray shows a right lung mass, primarily in the right lower lobe. In addition, there may be a left-sided opacity in the left lower lobe as well. Microbiology is negative. Current medications are reviewed. Pulmonary medications include DuoNeb, Levaquin, Zosyn and oxygen therapy. ASSESSMENT: 1. Chronic obstructive pulmonary disease exacerbation complicated by left basilar pneumonia in a patient with a recent diagnosis of advanced non-small cell lung cancer/squamous cell type, with multiple metastatic sites including mediastinal and hilar adenopathy, pancreas, bones, and various soft tissues. 2. Prior history of heavy tobacco use. 3. Hyperlipidemia. 4. History of bursitis. 5. Prior history of hernia. PLAN: The patient's medications are reviewed. Will make sure he is on appropriate bronchodilators and antibiotics. Dr. Boles will apparently see the patient today and will get medical Oncology to see him while he is here in the hospital. I did explain what the diagnosis was to him. He does understand. Additional recommendations and suggestions are forthcoming. Prognosis is guarded. Will await input from Radiation Oncology and Medical Oncology. MMRASHAUNL / JONNAN: [id number] /
[2019-12-30 11:38] LABS: Glucose,Whole Blood 190 mg/dL (75-99)
[2019-12-30] MEDS ORDERED: IPRATROPIUM-ALBUTEROL 3 ML NEB INHALATION SCH (12:00)
[2019-12-30] MEDS: INSULIN ASPART (NovoLOG) 100 UNIT/ML VIAL SQ SCH ×3 (12:34→21:59)
--- NOTE | 2019-12-30 12:58 | P.HPIM ---
History of Present Illness H&P Date: 12/30/19 Chief Complaint: Short of breath History of presenting complaint: This is a very pleasant 74-year-old patient of Dr. Mead. Long-standing smoker until about a month ago. Chronic stable medical conditions include hyperlipidemia, Nila arthritis, bursitis of the hips and knees. Recently had a [place]. Diagnosed with lung cancer stage IV. Pathology is come back showing non-small cell lung cancer. Patient due to see radiation oncologist Dr. Jac Boles and oncologist Dr. Rm. Patient smoked for many years stopped about a month ago. Lives with his fiance. Patient presents with worsening shortness of breath last 3 days.'s S cough minimal sputum. No fever or chills. Appetite is fair. Fair bowel movements. Patient has thus pain in the mid spine for which she takes fentanyl patch. Review of systems: GEN.: Tired EYES: None HEENT: None NECK: None RESPIRATORY: As above CARDIOVASCULAR: None GASTROINTESTINAL: None GENITOURINARY: None MUSCULOSKELETAL: Joint pains and as above LYMPHATICS: None HEMATOLOGICAL: None PSYCHIATRY: None NEUROLOGICAL: None Past medical history to include: COPD, hypertension, hyperlipidemia, bursitis of the hips and knees, recently diagnosed lung cancer stage IV non-small cell type Social history: Smoked for many years stopped a month ago. 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 Physical examination: VITAL SIGNS: [98, 60, 24, 131/80, 89% on room air GENERAL: BMI 27%, propped up in bed slightly tired. EYES: Pupils equal. Conjunctiva normal. HEENT: External appearance of nose and ears normal, oral cavity grossly normal. NECK: JVD not raised; masses not palpable. HEART: First and second heart sounds are normal; no edema. LUNGS: Respiratory rate increased, decreased breath sounds some expiratory crackles. ABDOMEN: Soft, nontender, liver spleen not palpable, no masses palpable. PSYCH: Alert and oriented x3; mood and affect normal. NEUROLOGICAL: Cranial nerves grossly intact; no facial asymmetry, power and sensation grossly intact. LYMPHATICS: No lymph nodes palpable in the axilla and neck INVESTIGATIONS, reviewed in the clinical context: White count 7.9 hemoglobin 14.4 potassium 4.4 creatinine 1.01 Lactic acid 2.2 EKG tracing personally reviewed by me-sinus rhythm with PVCs Chest x-ray film personally reviewed by me-shows right-sided mass, interstitial prominence also the left side Assessment: -Bilateral pneumonia suspected gram-negative organism in up immunosuppressed patient -Acute hypoxic respiratory failure from above -COPD acute exacerbation in a ex-smoker -Stage IV lung cancer non-small cell type-new diagnosis -Hyperlipidemia -Primary osteoarthritis -Lactic acidosis2 Plan: Patient started on the blood bronchodilators make it every 4 hours, IV Solu- Medrol, IV Zosyn. Possibly some IV fluids. Home medications resumed. Lovenox for DVT prophylaxis. Consultation made to pulmonary radiation oncology and oncology. Care was discussed with the patient question were answered. We'll also add inhaled steroids. Care was discussed with the patient. Past Medical History Past Medical History: Cancer, Hyperlipidemia, Osteoarthritis (OA) Additional Past Medical History / Comment(s): hernia, bursitis in hips and knees. Lung ca stage 4 History of Any Multi-Drug Resistant Organisms: None Reported Past Surgical History: Hernia Repair Additional Past Surgical History / Comment(s): back surgery 2008 replaced L5 disc, Past Anesthesia/Blood Transfusion Reactions: No Reported Reaction Past Psychological History: No Psychological Hx Reported Smoking Status: Former smoker Past Alcohol Use History: Occasional Past Drug Use History: None Reported - Past Family History Father Family Medical History: Cancer Additional Family Medical History / Comment(s): multiple myeloma, hypotension Mother Family Medical History: Cancer, Hypertension Additional Family Medical History / Comment(s): multiple myeloma Medications and Allergies Home Medications Medication Instructions Recorded Confirmed Type Albuterol Inhaler [Ventolin Hfa 2 puff INHALATION RT-Q6H PRN 12/09/19 12/29/19 History Inhaler] Allerest Allergy Tablet 1 tab PO DAILY 12/09/19 12/29/19 History Aspirin EC [Ecotrin Low Dose] 81 mg PO DAILY 12/09/19 12/29/19 History Cyclobenzaprine [Flexeril] 10 mg PO BID PRN 12/09/19 12/29/19 History Meloxicam 15 mg PO DAILY 12/09/19 12/29/19 History Naproxen Sodium [Aleve] 220 mg PO BID PRN 12/09/19 12/29/19 History Niacin 100 mg PO BID 12/09/19 12/29/19 History Budesonide [Pulmicort] 1 mg INHALATION RT-BID 30 Days #30 12/14/19 12/29/19 Rx ml Ipratropium-Albuterol Nebulize 3 ml INHALATION RT-Q4H PRN ml 12/14/19 12/29/19 Rx [Duoneb 0.5 mg-3 mg/3 ml Soln] Ipratropium-Albuterol Nebulize 3 ml INHALATION RT-QID 30 Days 12/14/19 12/29/19 Rx [Duoneb 0.5 mg-3 mg/3 ml Soln] #120 ml Metoprolol Tartrate [Lopressor] 50 mg PO BID 30 Days #60 tab 12/14/19 12/29/19 Rx fentaNYL 25MCG/HR PATCH [Duragesic 1 patch TRANSDERM Q72H 12/29/19 12/29/19 History 25MCG/HR] Allergies Allergy/AdvReac Type Severity Reaction Status Date / Time codeine AdvReac Unknown Verified 12/29/19 20:21 ibuprofen AdvReac Unknown Verified 12/29/19 20:21 mold AdvReac Unknown Verified 12/29/19 20:21 tetanus and diphtheria AdvReac Unknown Verified 12/29/19 20:21 toxoids Physical Exam Vitals: Vital Signs Temp Pulse Pulse Resp BP BP Pulse Ox 12/30/19 09:00 97.6 F 98 18 120/90 92 L 12/30/19 08:36 94 12/30/19 08:26 100 91 L 12/30/19 04:03 97.9 F 81 20 128/73 92 L 12/30/19 03:23 76 12/30/19 03:11 72 12/29/19 23:40 74 12/29/19 23:31 74 12/29/19 23:07 97.8 F 69 20 142/69 92 L 12/29/19 21:23 97.5 F L 68 22 142/64 94 L 12/29/19 20:57 97.5 F L 68 22 142/64 94 L 12/29/19 20:31 100 12/29/19 20:13 100 12/29/19 18:57 98.2 F 78 16 139/64 98 12/29/19 18:02 94 16 148/63 99 12/29/19 16:27 103 H 12/29/19 16:17 92 12/29/19 15:29 22 12/29/19 15:02 98.0 F 60 24 131/80 89 L Intake and Output 12/29/19 12/30/19 12/30/19 22:59 06:59 14:59 Intake Total 270 1100 0 Balance 270 1100 0 Intake: Intake, IV Titration 150 1100 Amount Levofloxacin 750Mg-D5w 150 Pmx 750 mg In Dextrose/ Water 1 150ml.bag @ 100 mls/hr IVPB ONCE STA Rx#: [id number] Piperacillin-Tazobactam 3 100 .375 gm In Sodium Chloride 0.9% 100 ml @ 25 mls/hr IVPB Q8HR SANDRINE Rx# :[id number] Sodium Chloride 0.9% 1, 1000 000 ml @ 100 mls/hr IV . Q10H SANDRINE Rx#:[id number] Oral 120 0 Other: # Voids 1 1 Weight 102.965 kg Results CBC & Chem 7: 12/29/19 15:20 12/29/19 15:20 Labs: Abnormal Lab Results - Last 24 Hours (Table) 12/29/19 12/29/19 12/29/19 Range/Units 15:20 15:20 15:20 WBC 17.9 H (3.8-10.6) k/uL Neutrophils # 15.5 H (1.3-7.7) k/uL Lymphocytes # 0.9 L (1.0-4.8) k/uL Sodium 136 L (137-145) mmol/L Glucose 137 H (74-99) mg/dL Plasma Lactic Acid Arturo 2.2 H* (0.7-2.0) mmol/L Alkaline Phosphatase 130 H (38-126) U/L Thrombosis Risk Factor Assmnt - Choose All That Apply Any of the Below Risk Factors Present?: Yes Each Factor Represents 1 point: Serious lung disease incl. pneumonia (< 1month) Other Risk Factors: No Other congenital or acquired thrombophilia - If yes, enter type in comment: No Thrombosis Risk Factor Assessment Total Risk Factor Score: 1 Thrombosis Risk Factor Assessment Level: Low Risk
--- NOTE | 2019-12-30 14:02 | CDI ---
Documentation Clarification Form Date: 12/30/2019 01:46:42 PM From: Barbara Odonnell RN CCDS Admit Date: 12/29/2019 05:24:00 PM Patient Name: Maynor Daniels Visit Number: [id number] Discharge Date: ATTENTION: The Clinical Documentation Specialists (CDI) and [facility] Coding Staff appreciate your assistance in clarifying documentation. Please respond to the clarification below the line at the bottom and electronically sign. The CDI & [facility] Coding staff will review the response and follow-up if needed. Please note: Queries are made part of the Legal Health Record. If you have any questions, please contact the author of this message via ITS. Dr. Tuan Guzman 74-year-old male presents to the ED with shortness of breath and cough History/Risk Factors: Recent diagnosis of Lung cancer stage IV, stopped smoking a month ago. Clinical Indicators: Per the H&P 3/4 Bilateral pneumonia suspected gram-negative organism in an immunosuppressed patient. 3/ WBC 17.9 3/ Neutrophils 15.5 Lactic acid: 12/28 2.2, re check 12/28 1.8 Vitals signs on admission: 131/80 60 98.0 24 89% ra Treatment: Antibiotics: /3 Levofloxacin Ivpb x1; / Levaquin oral Daily 12/28 Zosyn Ivpb Q 8hrs IV Bolus: 12/28 0.9ns 1L bolus followed by 100cc/hr In your professional opinion, please clarify if these findings signify one of the following conditions, whether the condition is POA, and cause, if known: * Sepsis poa * Sepsis ruled out * Other, please specify * Unable to determine SIRS Criteria (2 or more of the following may indicate SIRS): -Temperature < 96.8F (36C) or > 101.0F (38.3C) -Heart Rate > 90 bpm -Respiratory Rate > 20 breaths/min or PaCO2 < 32 mmHg -White Blood Cell Count > 12,000 or < 4,000 cells/mm3 or > 10% bands -Lactate >2.0 mmol/L (>4.0 is equivalent to septic shock) (Last Revision: January 2018) Sepsis, POA MTDD
[2019-12-30] MEDS: ENOXAPARIN 40 MG/0.4 ML SYRINGE SQ SCH (14:07)
[2019-12-30 16:43] LABS: Glucose,Whole Blood 136 mg/dL (75-99)
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
[2019-12-30] MEDS ORDERED: LEVOFLOXACIN 750 MG TAB PO SCH (18:00)
[2019-12-30] MEDS: NAPROXEN 250 MG TAB PO PRN (18:08)
[2019-12-30] MEDS: methylPREDNISolone SOD SUCCI 40 MG/ML 1 ML VIAL IV SCH ×2 (18:08→23:43)
[2019-12-30] MEDS: BUDESONIDE 1 MG/2 ML NEBU INHALATION SCH (21:06)
[2019-12-30] MEDS: FORMOTEROL FUMARATE 20 MCG/2 ML NEBU INHALATION SCH (21:07)
[2019-12-30 21:21] LABS: Glucose,Whole Blood 157 mg/dL (75-99)
[2019-12-31] MEDS: IPRATROPIUM-ALBUTEROL 3 ML NEB INHALATION SCH ×7 (00:59→23:51)
[2019-12-31 06:20] LABS: Glucose,Whole Blood 145 mg/dL (75-99)
[2019-12-31] MEDS: INSULIN ASPART (NovoLOG) 100 UNIT/ML VIAL SQ SCH ×4 (06:52→22:03)
[2019-12-31] MEDS: FORMOTEROL FUMARATE 20 MCG/2 ML NEBU INHALATION SCH ×2 (07:49→20:20)
[2019-12-31] MEDS: BUDESONIDE 1 MG/2 ML NEBU INHALATION SCH ×2 (07:49→20:20)
[2019-12-31] MEDS: methylPREDNISolone SOD SUCCI 40 MG/ML 1 ML VIAL IV SCH ×3 (08:37→23:27)
[2019-12-31] MEDS: ASPIRIN 81 MG PO SCH (08:38)
[2019-12-31] MEDS: METOPROLOL TARTRATE 50 MG TAB PO SCH ×2 (08:38→22:03)
[2019-12-31] MEDS: ENOXAPARIN 40 MG/0.4 ML SYRINGE SQ SCH (08:38)
[2019-12-31] MEDS: MELOXICAM 7.5 MG TAB PO SCH (08:38)
[2019-12-31] MEDS: SODIUM CHLORIDE 0.9% 1,000 ML IV SCH (10:42)
[2019-12-31] MEDS: PIPERACILLIN-TAZOBACTAM 3.375 GM in SODIUM CHLORIDE 0.9% 100 ML IVPB SCH ×3 (11:01→23:28)
[2019-12-31 11:44] LABS: Glucose,Whole Blood 106 mg/dL (75-99)
--- NOTE | 2019-12-31 14:21 | P.PN ---
Subjective Progress Note Date: 12/31/19 On 12/31/2019 during the patient for a follow-up. The patient the patient also has COPD. The patient came into the hospital because of worsening shortness of breath and back pain. The patient was seen by radiation oncology. There was concern of significant narrowing of the distal right mainstem bronchus/bronchus intermedius area and the patient is currently being considered for radiation therapy for palliative purposes. He is going to undergo the first session today. He will also need medical oncology. As part of his workup, an MRI of the brain was to be completed to complete the staging workup. His tumor is still being evaluated for PDL 1 mutation. The patient has no significant chest pain. Less short of breath. No significant mucus production. He gets winded with limited amount of activity. The patient is being done also for home oxygen therapy for this patient. He is on a combination of DuoNeb nebulized treatment [id number], IV Zosyn, IV Solu Medrol 40 mg every 8 hours. He was receiving a fentanyl patch at home at a dose of 25 g for pain control. Objective - Vital Signs Vital signs: Vital Signs Temp 97.8 F 12/31/19 04:00 Pulse 75 12/31/19 11:47 Resp 20 12/31/19 11:47 BP 145/75 12/31/19 11:47 Pulse Ox 98 12/31/19 11:47 Intake & Output 12/30/19 12/31/19 12/31/19 18:59 06:59 18:59 Intake Total 702 480 420 Output Total 2 Balance 700 480 420 Weight 99.9 kg Intake: Oral 702 480 420 Output: Stool 2 Other: # Voids 1 1 - Exam The patient appeared well nourished and normally developed. Vital signs as documented. Head exam is unremarkable. No scleral icterus or corneal arcus noted. Neck is without jugular venous distension, thyromegaly, or carotid bruits. Carotid upstrokes are brisk bilaterally. Lungs sounds are diminished bilaterally right more than left and right lower lobe area. Few scattered rhonchi and expiratory wheezes are appreciated bilaterally. Cardiac exam reveals the PMI to be normally sized and situated. Rhythm is regular. First and second heart sounds normal. No murmurs, rubs or gallops. Abdominal exam reveals normal bowel sounds, no masses, no organomegaly and no aortic enlargement. Extremities are nonedematous and both femoral and pedal pulses are normal.Examination of the skin revealed no evidence of significant rashes, suspicious appearing nevi or other concerning lesions. Neurologically the patient is awake and alert and there is no focal neurological deficit. 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 The patient is being considered for palliative radiation therapy due to narrowing of the distal right bronchus intermedius/right lower lobe bronchus due to extrinsic compression and endobronchial tumor involvement.. The patient would also need systemic treatment depending on his PD L1 status. The patient has multiple metastatic lesions per PET scan findings. MRI of the brain is pending to complete the staging workup. 2 COPD 3 worsening shortness of breath maybe secondary to above in addition to the possibility of an acute COPD exacerbation currently on a combination of bronchodilators and steroids. Superimposed pneumonia is doubtful although cannot be completely excluded currently on IV Zosyn. 4 smoking history of 5 hyperlipidemia Plan Palliative radiation therapy to be started today Oncology follow-up regarding metastatic squamous cell carcinoma of the lung MRI of the brain to rule out [employer] metastases Continue bronchodilators Continue steroids Continued IV Zosyn Prognosis poor based on the above. Arrange home oxygen.
--- NOTE | 2019-12-31 16:27 | P.PN ---
Progress Note - Text Progress Note Date: 12/31/19 Chief Complaint: Short of breath History of presenting complaint: This is a very pleasant 74-year-old patient of Dr. Mead. Long-standing smoker until about a month ago. Chronic stable medical conditions include hyperlipidemia, Nila arthritis, bursitis of the hips and knees. Recently had a [place]. Diagnosed with lung cancer stage IV. Pathology is come back showing non-small cell lung cancer. Patient due to see radiation oncologist Dr. Jac Boles and oncologist Dr. Rm. Patient smoked for many years stopped about a month ago. Lives with his fiance. Patient presents with worsening shortness of breath last 3 days.'s S cough minimal sputum. No fever or chills. Appetite is fair. Fair bowel movements. Patient has thus pain in the mid spine for which she takes fentanyl patch. Admitted with-bilateral pneumonia, acute hypoxic respiratory failure, COPD exacerbation. Today-feeling a bit better. Less cough. Patient due to start radiation tomorrow. More cheerful today. Review of systems: Was done for constitutional, cardiovascular, GI, pulmonary. relevant finding as above Active Medications Hydrocodone Bitart/Acetaminophen ([place] 5-325) 1 each PO Q6HR PRN PRN Reason: Pain Albuterol/Ipratropium (Duoneb 0.5 Mg-3 Mg/3 Ml Soln) 3 ml INHALATION RT-QID PRN PRN Reason: Shortness Of Breath Or Wheezing Albuterol/Ipratropium (Duoneb 0.5 Mg-3 Mg/3 Ml Soln) 3 ml INHALATION Q4H [facility] Last Admin: 12/31/19 16:23 Dose: Not Given Documented by: Aspirin (Aspirin) 81 mg PO DAILY [facility] Last Admin: 12/31/19 08:38 Dose: 81 mg Documented by: Budesonide (Pulmicort) 1 mg INHALATION RT-BID [facility] Last Admin: 12/31/19 07:49 Dose: 1 mg Documented by: Cyclobenzaprine HCl (Flexeril) 10 mg PO BID PRN PRN Reason: Pain Enoxaparin Sodium (Lovenox) 40 mg SQ DAILY [facility] Last Admin: 12/31/19 08:38 Dose: 40 mg Documented by: Formoterol Fumarate (Perforomist) 20 mcg INHALATION RT-BID [facility] Last Admin: 12/31/19 07:49 Dose: 20 mcg Documented by: Piperacillin Sod/Tazobactam (Sod 3.375 gm/ Sodium Chloride) 100 mls @ 25 mls/hr IVPB Q8HR [facility] Stop: 01/09/20 00:01 Last Admin: 12/31/19 14:58 Dose: 25 mls/hr Documented by: Sodium Chloride (Saline 0.9%) 1,000 mls @ 50 mls/hr IV .Q20H [facility] Last Admin: 12/31/19 10:42 Dose: Not Given Documented by: Insulin Aspart (Novolog) 0 unit SQ ACHS [facility]; Protocol Last Admin: 12/31/19 11:46 Dose: Not Given Documented by: Meloxicam (Mobic) 15 mg PO DAILY [facility] Last Admin: 12/31/19 08:38 Dose: 15 mg Documented by: Methylprednisolone Sodium Succinate (Solu-Medrol) 40 mg IV Q8HR [facility] Last Admin: 12/31/19 14:58 Dose: 40 mg Documented by: Metoprolol Tartrate (Lopressor) 50 mg PO BID [facility] Last Admin: 12/31/19 08:38 Dose: 50 mg Documented by: Miscellaneous Information (Pneumonia Protocol Utilized) 1 each PO ONCE PRN PRN Reason: Per Protocol Naproxen (Naprosyn) 250 mg PO BID PRN PRN Reason: Pain Last Admin: 12/30/19 18:08 Dose: 250 mg Documented by: Niacin [Niacin] 100 (Mg) 100 mg PO BID [facility] Last Admin: 12/31/19 10:41 Dose: Not Given Documented by: Physical examination: VITAL SIGNS: 97.8, 88, 20, 135/67, 92% on 4 L GENERAL: Sitting on the bed, less tired short of breath EYES: Pupils equal. Conjunctiva normal. HEENT: External appearance of nose and ears normal, oral cavity grossly normal. NECK: JVD not raised; masses not palpable. HEART: First and second heart sounds are normal; no edema. LUNGS: Respiratory rate increased, decreased breath sounds some expiratory crackles. ABDOMEN: Soft, nontender, liver spleen not palpable, no masses palpable. PSYCH: Alert and oriented x3; mood and affect normal. INVESTIGATIONS, reviewed in the clinical context: Accu-Cheks noted Previous testing White count 7.9 hemoglobin 14.4 potassium 4.4 creatinine 1.01 Lactic acid 2.2 EKG tracing personally reviewed by me-sinus rhythm with PVCs Chest x-ray film personally reviewed by me-shows right-sided mass, interstitial prominence also the left side Assessment: -Bilateral pneumonia suspected gram-negative organism in up immunosuppressed patient, slow to respond -Acute hypoxic respiratory failure from above -COPD acute exacerbation in a ex-smoker, slow to respond -Stage IV lung cancer non-small cell type-new diagnosis -Hyperlipidemia -Primary osteoarthritis -Lactic acidosis2 Plan: Continue with bronchodilators, steroids, antibiotics. Patient to start palliative radiation treatment for back pain tomorrow. Other medications to continue. Care was discussed with the patient. Continue IV Zosyn.
[2019-12-31 17:56] LABS: Glucose,Whole Blood 111 mg/dL (75-99)
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
[2019-12-31 20:33] LABS: Glucose,Whole Blood 163 mg/dL (75-99)
[2020-01-01] MEDS: IPRATROPIUM-ALBUTEROL 3 ML NEB INHALATION SCH ×5 (04:02→19:28)
[2020-01-01] MEDS: SODIUM CHLORIDE 0.9% 1,000 ML IV SCH (05:39)
[2020-01-01] MEDS: INSULIN ASPART (NovoLOG) 100 UNIT/ML VIAL SQ SCH ×4 (06:55→21:16)
[2020-01-01 06:57] LABS: Glucose,Whole Blood 128 mg/dL (75-99)
[2020-01-01 07:19] LABS: African American GFR (CKD) >90 (>60 ml/min/1.73 sqM); Anion Gap 9 mmol/L; Blood Urea Nitrogen 21 mg/dL (9-20); Calcium 8.7 mg/dL (8.4-10.2); Carbon Dioxide 20 mmol/L (22-30); Chloride 108 mmol/L (98-107); Glucose 117 mg/dL (74-99); Non-African American GFR(CKD) 85 (>60 ml/min/1.73 sqM); Potassium 4.2 mmol/L (3.5-5.1); Sodium 137 mmol/L (137-145)
[2020-01-01 07:21] LABS: HCT 37.5 % (39.0-53.0); HGB 12.3 gm/dL (13.0-17.5); MCH 30.7 pg (25.0-35.0); MCHC 32.7 g/dL (31.0-37.0); MCV 93.8 fL (80.0-100.0); Mean Platelet Volume 7.9; Platelet Count 296 k/uL (150-450); RBC 3.99 m/uL (4.30-5.90); RDW 13.3 % (11.5-15.5); WBC 18.4 k/uL (3.8-10.6)
[2020-01-01] MEDS: BUDESONIDE 1 MG/2 ML NEBU INHALATION SCH ×2 (07:24→19:28)
[2020-01-01] MEDS: FORMOTEROL FUMARATE 20 MCG/2 ML NEBU INHALATION SCH ×2 (07:24→19:28)
[2020-01-01] MEDS: PIPERACILLIN-TAZOBACTAM 3.375 GM in SODIUM CHLORIDE 0.9% 100 ML IVPB SCH ×2 (08:13→17:38)
[2020-01-01] MEDS: methylPREDNISolone SOD SUCCI 40 MG/ML 1 ML VIAL IV SCH ×2 (08:13→17:37)
[2020-01-01] MEDS: MELOXICAM 7.5 MG TAB PO SCH (08:14)
[2020-01-01] MEDS: ASPIRIN 81 MG PO SCH (08:14)
[2020-01-01] MEDS: METOPROLOL TARTRATE 50 MG TAB PO SCH ×2 (08:14→21:16)
[2020-01-01] MEDS: ENOXAPARIN 40 MG/0.4 ML SYRINGE SQ SCH (08:15)
[2020-01-01 12:23] LABS: Glucose,Whole Blood 108 mg/dL (75-99)
--- NOTE | 2020-01-01 16:53 | P.PN ---
Subjective Progress Note Date: 01/01/20 On 12/31/2019 during the patient for a follow-up. The patient the patient also has COPD. The patient came into the hospital because of worsening shortness of breath and back pain. The patient was seen by radiation oncology. There was concern of significant narrowing of the distal right mainstem bronchus/bronchus intermedius area and the patient is currently being considered for radiation therapy for palliative purposes. He is going to undergo the first session today. He will also need medical oncology. As part of his workup, an MRI of the brain was to be completed to complete the staging workup. His tumor is still being evaluated for PDL 1 mutation. The patient has no significant chest pain. Less short of breath. No significant mucus production. He gets winded with limited amount of activity. The patient is being done also for home oxygen therapy for this patient. He is on a combination of DuoNeb nebulized treatment [id number], IV Zosyn, IV Solu Medrol 40 mg every 8 hours. He was receiving a fentanyl patch at home at a dose of 25 g for pain control. On 01/01/2020 patient is seen in follow-up on selective care unit, he is awake and alert, still has some exertional dyspnea, but overall he states his breathing has improved, he is a 2 L of oxygen the pulse ox of 94%, he is afebrile, hemodynamically stable, lung sounds reveal some bronchial sounds over right lower lobe, no wheezing, no rhonchi, breathing is comfortable. Yesterday patient had his second radiation treatment. Tolerated it well. No cough or congestion, no wheezing. Today's labs have been reviewed, white blood cell count is 18.4, hemoglobin of 12.3, sodium is 137, potassium is 4.2, chloride is 108, CO2 is 20, BUN is 21, creatinine 0.89. She has been treated with IV steroids, breathing treatments, and empiric antibiotics. Urine culture showed Tameka albicans, blood cultures negative. There have been no fever or chills. Objective - Vital Signs Vital signs: Vital Signs Temp 98.2 F 01/01/20 12:00 Pulse 64 01/01/20 15:58 Resp 18 01/01/20 15:58 BP 179/86 01/01/20 12:00 Pulse Ox 94 L 01/01/20 15:58 Intake & Output 12/31/19 01/01/20 01/01/20 18:59 06:59 18:59 Intake Total 1180 240 Balance 1180 240 Weight 98.7 kg Intake: Intake, IV Titration 100 Amount Piperacillin-Tazobactam 3 100 .375 gm In Sodium Chloride 0.9% 100 ml @ 25 mls/hr IVPB Q8HR [facility] Rx# :[id number] Oral 1080 240 Other: # Voids 1 - Exam GENERAL EXAM: Alert, very pleasant, 74-year-old white male, arthritis of oxygen with pulse ox 96%, comfortable in no apparent distress. HEAD: Normocephalic/atraumatic. EYES: Normal reaction of pupils, equal size. Conjunctiva pink, sclera white. NOSE: Clear with pink turbinates. THROAT: No erythema or exudates. NECK: No masses, no JVD, no thyroid enlargement, no adenopathy. CHEST: No chest wall deformity. Symmetrical expansion. LUNGS: Equal air entry with bronchial sounds at the right lower base CVS: Regular rate and rhythm, normal S1 and S2, no gallops, no murmurs, no rubs ABDOMEN: Soft, nontender. No hepatosplenomegaly, normal bowel sounds, no guarding or rigidity. EXTREMITIES: No clubbing, no edema, no cyanosis, 2+ pulses and upper and lower extremities. MUSCULOSKELETAL: Muscle strength and tone normal. SPINE: No scoliosis or deformity SKIN: No rashes CENTRAL NERVOUS SYSTEM: Alert and oriented -3. No focal deficits, tone is normal in all 4 extremities. PSYCHIATRIC: Alert and oriented -3. Appropriate affect. Intact judgment and insight. - Labs CBC & Chem 7: 01/01/20 06:18 01/01/20 06:18 Labs: Abnormal Lab Results - Last 24 Hours (Table) 12/31/19 12/31/19 01/01/20 Range/Units 17:54 20:23 06:18 WBC 18.4 H (3.8-10.6) k/uL RBC 3.99 L (4.30-5.90) m/uL Hgb 12.3 L (13.0-17.5) gm/dL Hct 37.5 L (39.0-53.0) % Chloride (98-107) mmol/L Carbon Dioxide (22-30) mmol/L BUN (9-20) mg/dL Glucose (74-99) mg/dL POC Glucose (mg/dL) 111 H 163 H (75-99) mg/dL 01/01/20 01/01/20 01/01/20 Range/Units 06:18 06:31 12:20 WBC (3.8-10.6) k/uL RBC (4.30-5.90) m/uL Hgb (13.0-17.5) gm/dL Hct (39.0-53.0) % Chloride 108 H (98-107) mmol/L Carbon Dioxide 20 L (22-30) mmol/L BUN 21 H (9-20) mg/dL Glucose 117 H (74-99) mg/dL POC Glucose (mg/dL) 128 H 108 H (75-99) mg/dL Microbiology - Last 24 Hours (Table) 12/31/19 04:12 Gram Stain - Preliminary Sputum Sputum Culture - Preliminary Tameka albicans 12/29/19 17:30 Blood Culture - Preliminary Blood No Growth after 48 hours Assessment and Plan Plan: Assessment: 1 stage IV squamous cell carcinoma of the lung. The patient is being considered for palliative radiation therapy due to narrowing of the distal right bronchus intermedius/right lower lobe bronchus due to extrinsic compression and endobronchial tumor involvement.. The patient would also need systemic treatment depending on his PD L1 status. The patient has multiple metastatic lesions per PET scan findings. MRI of the brain is pending to complete the staging workup. 2 COPD 3 worsening shortness of breath maybe secondary to above in addition to the possibility of an acute COPD exacerbation currently on a combination of bronchodilators and steroids. Superimposed pneumonia is doubtful although cannot be completely excluded currently on IV Zosyn. 4 smoking history of 5 hyperlipidemia Plan: Vital signs are stable, patient is tolerating ambulation still has some exertional dyspnea, but overall breathing has significantly improved, is co mfortable, no significant cough or congestion, tolerated his radiation treatment well. Cultures are negative thus far, no acute events overnight, his oxygen delivered to his house, possibility of discharge home today or tomorrow I performed a history & physical examination of the patient and discussed their management with my nurse practitioner, Ginna Sanchez. I reviewed the nurse practitioner's note and agree with the documented findings and plan of care. Lung sounds are positive for diminished breath sounds. The findings and the impression was discussed with the patient. I attest to the documentation by the nurse practitioner. Time with Patient: Less than 30
[2020-01-01 17:23] LABS: Glucose,Whole Blood 98 mg/dL (75-99)
--- NOTE | 2020-01-01 20:10 | P.PN ---
Progress Note - Text Progress Note Date: 01/01/20 Chief Complaint: Short of breath History of presenting complaint: This is a very pleasant 74-year-old patient of Dr. Mead. Long-standing smoker until about a month ago. Chronic stable medical conditions include hyperlipidemia, Nila arthritis, bursitis of the hips and knees. Recently had a Cosco. Diagnosed with lung cancer stage IV. Pathology is come back showing non-small cell lung cancer. Patient due to see radiation oncologist Dr. Jac Boles and oncologist Dr. Rm. Patient smoked for many years stopped about a month ago. Lives with his fiance. Patient presents with worsening shortness of breath last 3 days.'s S cough minimal sputum. No fever or chills. Appetite is fair. Fair bowel movements. Patient has thus pain in the mid spine for which she takes fentanyl patch. Admitted with-bilateral pneumonia, acute hypoxic respiratory failure, COPD exacerbation. Start radiation treatment for obstruction. Today-eating much better. Breathing much improved. The short of breath. Review of systems: Was done for constitutional, cardiovascular, GI, pulmonary. relevant finding as above Active Medications Hydrocodone Bitart/Acetaminophen ([place] 5-325) 1 each PO Q6HR PRN PRN Reason: Pain Albuterol/Ipratropium (Duoneb 0.5 Mg-3 Mg/3 Ml Soln) 3 ml INHALATION RT-QID PRN PRN Reason: Shortness Of Breath Or Wheezing Albuterol/Ipratropium (Duoneb 0.5 Mg-3 Mg/3 Ml Soln) 3 ml INHALATION Q4H [facility] [place] Last Admin: 01/01/20 19:28 Dose: 3 ml Documented by: Aspirin (Aspirin) 81 mg PO DAILY [facility] [place] Last Admin: 01/01/20 08:14 Dose: 81 mg Documented by: Budesonide (Pulmicort) 1 mg INHALATION RT-BID [facility] [place] Last Admin: 01/01/20 19:28 Dose: 1 mg Documented by: Cyclobenzaprine HCl (Flexeril) 10 mg PO BID PRN PRN Reason: Pain Enoxaparin Sodium (Lovenox) 40 mg SQ DAILY [facility] [place] Last Admin: 01/01/20 08:15 Dose: 40 mg Documented by: Formoterol Fumarate (Perforomist) 20 mcg INHALATION RT-BID [facility] [place] Last Admin: 01/01/20 19:28 Dose: 20 mcg Documented by: Piperacillin Sod/Tazobactam (Sod 3.375 gm/ Sodium Chloride) 100 mls @ 25 mls/hr IVPB Q8HR [facility] [place] Stop: 01/09/20 00:01 Last Admin: 01/01/20 17:38 Dose: 25 mls/hr Documented by: Sodium Chloride (Saline 0.9%) 1,000 mls @ 50 mls/hr IV .Q20H [facility] [place] Last Admin: 01/01/20 05:39 Dose: Not Given Documented by: Insulin Aspart (Novolog) 0 unit SQ ACHS [facility] [place]; Protocol Last Admin: 01/01/20 17:28 Dose: Not Given Documented by: Meloxicam (Mobic) 15 mg PO DAILY [facility] [place] Last Admin: 01/01/20 08:14 Dose: 15 mg Documented by: Methylprednisolone Sodium Succinate (Solu-Medrol) 40 mg IV Q8HR [facility] [place] Last Admin: 01/01/20 17:37 Dose: 40 mg Documented by: Metoprolol Tartrate (Lopressor) 50 mg PO BID [facility] [place] Last Admin: 01/01/20 08:14 Dose: 50 mg Documented by: Miscellaneous Information (Pneumonia Protocol Utilized) 1 each PO ONCE PRN PRN Reason: Per Protocol Naproxen (Naprosyn) 250 mg PO BID PRN PRN Reason: Pain Last Admin: 12/30/19 18:08 Dose: 250 mg Documented by: Niacin [Niacin] 100 (Mg) 100 mg PO BID [facility] [place] Last Admin: 01/01/20 08:15 Dose: Not Given Documented by: Physical examination: VITAL SIGNS: 98.2, 67, 18, 179/86, 97% on 2 L GENERAL: Sitting on the bed, for more comfortable EYES: Pupils equal. Conjunctiva normal. HEENT: External appearance of nose and ears normal, oral cavity grossly normal. NECK: JVD not raised; masses not palpable. HEART: First and second heart sounds are normal; no edema. LUNGS: Respiratory rate increased, improved air entry. ABDOMEN: Soft, nontender, liver spleen not palpable, no masses palpable. PSYCH: Alert and oriented x3; mood and affect normal. INVESTIGATIONS, reviewed in the clinical context: White count 18.4 hemoglobin 12.3 creatinine 0.89 Previous testing White count 7.9 hemoglobin 14.4 potassium 4.4 creatinine 1.01 Lactic acid 2.2 EKG tracing personally reviewed by wv-sinus rhythm with PVCs Chest x-ray film personally reviewed by me-shows right-sided mass, interstitial prominence also the left side Assessment: -Bilateral pneumonia suspected gram-negative organism in up immunosuppressed patient, improving -Post obstructive pneumonia-patient getting radiation treatment -Acute hypoxic respiratory failure from above -COPD acute exacerbation in a ex-smoker, improving -Stage IV lung cancer non-small cell type-new diagnosis -Hyperlipidemia -Primary osteoarthritis -Lactic acidosis2 Plan: Continue bronchodilators, IV Solu-Medrol to by mouth prednisone tomorrow morning. Continue with IV Zosyn today. Just oral antibiotics tomorrow. Oral intake good. DC IV fluids. Planning for discharge tomorrow.
[2020-01-01 20:35] LABS: Glucose,Whole Blood 132 mg/dL (75-99)
[2020-01-02] MEDS: PIPERACILLIN-TAZOBACTAM 3.375 GM in SODIUM CHLORIDE 0.9% 100 ML IVPB SCH (00:24)
[2020-01-02] MEDS: IPRATROPIUM-ALBUTEROL 3 ML NEB INHALATION SCH ×4 (00:51→12:59)
[2020-01-02] MEDS: SODIUM CHLORIDE 0.9% 1,000 ML IV SCH (03:03)
[2020-01-02] MEDS: NAPROXEN 250 MG TAB PO PRN (04:51)
[2020-01-02 06:20] LABS: Glucose,Whole Blood 95 mg/dL (75-99)
[2020-01-02] MEDS: INSULIN ASPART (NovoLOG) 100 UNIT/ML VIAL SQ SCH ×2 (06:24→12:53)
[2020-01-02] MEDS ORDERED: AMOXIC-POT CLAV 875-125MG 1 EACH TAB PO SCH (09:00)
[2020-01-02] MEDS ORDERED: predniSONE 20 MG TAB PO SCH (09:00)
[2020-01-02] MEDS: FORMOTEROL FUMARATE 20 MCG/2 ML NEBU INHALATION SCH (09:08)
[2020-01-02] MEDS: BUDESONIDE 1 MG/2 ML NEBU INHALATION SCH (09:08)
[2020-01-02] MEDS: MELOXICAM 7.5 MG TAB PO SCH (09:31)
[2020-01-02] MEDS: ASPIRIN 81 MG PO SCH (09:32)
[2020-01-02] MEDS: ENOXAPARIN 40 MG/0.4 ML SYRINGE SQ SCH (09:32)
[2020-01-02] MEDS: METOPROLOL TARTRATE 50 MG TAB PO SCH (09:32)
[2020-01-02 11:55] LABS: Glucose,Whole Blood 109 mg/dL (75-99)
[2020-01-02 13:21] VITALS: BP 152/93; PULSE 60; RESP 22; TEMP 97.3
--- NOTE | 2020-01-02 21:17 | P.DS ---
Providers Date of admission: 12/29/19 17:24 Expected date of discharge: 01/02/20 Attending physician: Tuan Guzman Consults: 12/29/19 17:24 Consult Physician Routine Consulting Provider: Fuad Ponce Consult Reason/Comments: Pneumonia, COPD, lung cancer Do you want consulting provider notified?: Yes 12/30/19 12:21 Consult Physician Routine Consulting Provider: Robbi Boles Consult Reason/Comments: Known to pt/lung CA Do you want consulting provider notified?: Yes Consult Physician Routine Consulting Provider: Gildardo Jaime Consult Reason/Comments: Lung CA Do you want consulting provider notified?: Yes Primary care physician: [facility] Course: Chief Complaint: Short of breath History of presenting complaint: This is a very pleasant 74-year-old patient of Dr. Mead. Long-standing smoker until about a month ago. Chronic stable medical conditions include hyperlipidemia, Nila arthritis, bursitis of the hips and knees. Recently had a Cosco. Diagnosed with lung cancer stage IV. Pathology is come back showing non-small cell lung cancer. Patient due to see radiation oncologist Dr. Jac Boles and oncologist Dr. Rm. Patient smoked for many years stopped about a month ago. Lives with his fiance. Patient presents with worsening shortness of breath last 3 days.'s S cough minimal sputum. No fever or chills. Appetite is fair. Fair bowel movements. Patient has thus pain in the mid spine for which she takes fentanyl patch. Admitted with-bilateral pneumonia, acute hypoxic respiratory failure, COPD exacerbation. Start radiation treatment for obstruction. Today-breathing is much improved. Has been eating well. Pain at the radiation site. Had lengthy discussion the patient patient's son and [id number] present. . Discussed with Dr. Dixon.. Okay to [place]. Follow-up with oncology and pulmonary. Discussion and discharge planning more than 35 minutes Consultation: Dr. Dixon and partners from pulmonary Dr. Jac Boles from radiation oncology Physical examination: VITAL SIGNS: 97.3, 60, 22, 152/93 95% on room air GENERAL: Sitting on the bed, for more comfortable EYES: Pupils equal. Conjunctiva normal. HEENT: External appearance of nose and ears normal, oral cavity grossly normal. NECK: JVD not raised; masses not palpable. HEART: First and second heart sounds are normal; no edema. LUNGS: Respiratory rate normal, improved air entry. ABDOMEN: Soft, nontender, liver spleen not palpable, no masses palpable. PSYCH: Alert and oriented x3; mood and affect normal. INVESTIGATIONS, reviewed in the clinical context: White count 18.4 hemoglobin 12.3 creatinine 0.89 Previous testing White count 7.9 hemoglobin 14.4 potassium 4.4 creatinine 1.01 Lactic acid 2.2 EKG tracing personally reviewed by me-sinus rhythm with PVCs Chest x-ray film personally reviewed by me-shows right-sided mass, interstitial prominence also the left side Assessment: -Post obstructive pneumonia-suspect gram-negative organisms patient getting radiation treatment, POA -Acute hypoxic respiratory failure from above, POA -COPD acute exacerbation in a ex-smoker, POA -Stage IV lung cancer non-small cell type-new diagnosis -Hyperlipidemia -Primary osteoarthritis -Lactic acidosis2 Disposition: Home Patient Condition at Discharge: Fair Plan - Discharge Summary Discharge Rx Participant: No New Discharge Prescriptions: New Amoxic-Pot Clav 875-125Mg [Augmentin 875-125] 1 each PO Q12HR #10 tab HYDROcodone/APAP 5-325MG [[place] 5-325] 1 each PO Q6HR PRN #30 tab PRN Reason: Pain predniSONE 10 mg PO DAILY #30 tab Continue Cyclobenzaprine [Flexeril] 10 mg PO BID PRN PRN Reason: Pain Naproxen Sodium [Aleve] 220 mg PO BID PRN PRN Reason: Pain Aspirin EC [Ecotrin Low Dose] 81 mg PO DAILY Albuterol Inhaler [Ventolin Hfa Inhaler] 2 puff INHALATION RT-Q6H PRN PRN Reason: Shortness Of Breath Niacin 100 mg PO BID Allerest Allergy Tablet 1 tab PO DAILY Ipratropium-Albuterol Nebulize [Duoneb 0.5 mg-3 mg/3 ml Soln] 3 ml INHALATION RT-QID 30 Days #120 ml Ipratropium-Albuterol Nebulize [Duoneb 0.5 mg-3 mg/3 ml Soln] 3 ml INHALATION RT-Q4H PRN ml PRN Reason: Shortness Of Breath Or Wheezing Metoprolol Tartrate [Lopressor] 50 mg PO BID 30 Days #60 tab Budesonide [Pulmicort] 1 mg INHALATION RT-BID 30 Days #30 ml Discontinued Meloxicam 15 mg PO DAILY fentaNYL 25MCG/HR PATCH [Duragesic 25MCG/HR] 1 patch TRANSDERM Q72H Discharge Medication List Albuterol Inhaler [Ventolin Hfa Inhaler] 2 puff INHALATION RT-Q6H PRN 12/09/19 [History] Allerest Allergy Tablet 1 tab PO DAILY 12/09/19 [History] Aspirin EC [Ecotrin Low Dose] 81 mg PO DAILY 12/09/19 [History] Cyclobenzaprine [Flexeril] 10 mg PO BID PRN 12/09/19 [History] Naproxen Sodium [Aleve] 220 mg PO BID PRN 12/09/19 [History] Niacin 100 mg PO BID 12/09/19 [History] Budesonide [Pulmicort] 1 mg INHALATION RT-BID 30 Days #30 ml 12/14/19 [Rx] Ipratropium-Albuterol Nebulize [Duoneb 0.5 mg-3 mg/3 ml Soln] 3 ml INHALATION RT-Q4H PRN ml 12/14/19 [Rx] Ipratropium-Albuterol Nebulize [Duoneb 0.5 mg-3 mg/3 ml Soln] 3 ml INHALATION RT-QID 30 Days #120 ml 12/14/19 [Rx] Metoprolol Tartrate [Lopressor] 50 mg PO BID 30 Days #60 tab 12/14/19 [Rx] Amoxic-Pot Clav 875-125Mg [Augmentin 875-125] 1 each PO Q12HR #10 tab 01/02/20 [Rx] HYDROcodone/APAP 5-325MG [[place] 5-325] 1 each PO Q6HR PRN #30 tab 01/02/20 [Rx] predniSONE 10 mg PO DAILY #30 tab 01/02/20 [Rx] Follow up Appointment(s)/Referral(s): Niles Mead MD [Primary Care Provider] - 1 Week Romelia Rm MD [STAFF PHYSICIAN] - 01/04/20 9:00 am Patient Instructions/Handouts: Lung Cancer (GEN), COPD (Chronic Obstructive Pulmonary Disease) (DC), Pneumonia (DC) Activity/Diet/Wound Care/Special Instructions: Patient requires home oxygen at discharge secondary to hypoxia from COPD and lung cancer Discharge Disposition: HOME SELF-CARE
== END 2020-01-02 13:50 | disposition home or self-care (01) | DRG 871 ==
LOC: EC 14:56 → 3SCARD 17:24
PROVIDERS: ADMIT Hospitalist; ATTEND Hospitalist
PROC: DB021ZZ Beam Radiation of Lung using Photons 1 - 10 MeV (ICD-10-PCS; principal; 2019-12-31)
DX: A41.9 Sepsis, unspecified organism (principal); J96.01 Acute respiratory failure with hypoxia; J15.6 Pneumonia due to other Gram-negative bacteria; E87.2 Acidosis; C77.1 Secondary and unspecified malignant neoplasm of intrathoracic lymph nodes; C79.51 Secondary malignant neoplasm of bone; C78.89 Secondary malignant neoplasm of other digestive organs; C79.89 Secondary malignant neoplasm of other specified sites; J44.1 Chronic obstructive pulmonary disease with (acute) exacerbation; J44.0 Chronic obstructive pulmonary disease with (acute) lower respiratory infection; C34.01 Malignant neoplasm of right main bronchus; G89.3 Neoplasm related pain (acute) (chronic); M19.91 Primary osteoarthritis, unspecified site; E78.5 Hyperlipidemia, unspecified; Z87.39 Personal history of other diseases of the musculoskeletal system and connective tissue; Z98.890 Other specified postprocedural states; Z96.89 Presence of other specified functional implants; Z79.899 Other long term (current) drug therapy; Z79.82 Long term (current) use of aspirin; Z79.1 Long term (current) use of non-steroidal anti-inflammatories (NSAID); Z87.891 Personal history of nicotine dependence; Z87.01 Personal history of pneumonia (recurrent); Z88.6 Allergy status to analgesic agent; Z91.048 Other nonmedicinal substance allergy status; Z88.5 Allergy status to narcotic agent; Z88.7 Allergy status to serum and vaccine; Z80.7 Family history of other malignant neoplasms of lymphoid, hematopoietic and related tissues; Z82.49 Family history of ischemic heart disease and other diseases of the circulatory system
CPT/HCPCS: 36415; 71046; 77295; 77300; 77332; 77334; 77412; 77417; 80048; 80053; 83605; 83735; 84484; 85025; 85027; 85610; 85730; 87040; 87070; 87205; 93005; 94640; 94760; 96361; 96365; 96367; 96375; 99285

== ENCOUNTER → 2020-01-06 | Outpatient (CLI) | payer MEDICARE ==
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
== END | disposition home or self-care (01) ==
LOC: RADMRIMAIN 14:07
PROVIDERS: ATTEND Internal Medicine Hematology & Oncology
DX: G31.89 Other specified degenerative diseases of nervous system (principal); R90.89 Other abnormal findings on diagnostic imaging of central nervous system; C79.51 Secondary malignant neoplasm of bone; M48.061 Spinal stenosis, lumbar region without neurogenic claudication; M48.07 Spinal stenosis, lumbosacral region; M51.36 Other intervertebral disc degeneration, lumbar region; M47.816 Spondylosis without myelopathy or radiculopathy, lumbar region; Q05.7 Lumbar spina bifida without hydrocephalus; C34.31 Malignant neoplasm of lower lobe, right bronchus or lung
CPT/HCPCS: 70553; 72158; A9585

== ENCOUNTER 2020-01-14 22:54 | Inpatient (IN) | payer MEDICARE ==
[2020-01-14] MEDS ORDERED: IPRATROPIUM-ALBUTEROL 3 ML NEB INHALATION STA (23:06)
[2020-01-14] MEDS ORDERED: SODIUM CHLORIDE 0.9% 1,000 ML IV STA ×2 (23:06)
[2020-01-14] MEDS ORDERED: MORPHINE SULFATE 4 MG/ML SYRINGE IVP STA (23:07)
--- NOTE | 2020-01-14 23:08 | ED ---
SOB HPI - General Stated Complaint: Chest Pain Time Seen by Provider: 01/14/20 22:57 Source: RN notes reviewed, old records reviewed Limitations: no limitations - History of Present Illness Initial Comments: This is a 74-year-old male DF for evaluation patient has a for evaluation regarding diffuse body aches diffuse body pains not feeling well shortness of breath. Patient comes in by EMS in significant distress secondary to significantly low oxygen level, oxygen low 80s even on home O2. Patient is recent diagnosis of lung CA, recent treatment for pneumonia which he didn't think was improved. Patient did Taper down from steroids, antibiotics. Patient has no recent travel show sick contacts but does have the recent inpatient hospitalization, patient does follow-up at this hospital for both for oncology as well as a significant respiratory issues. No chest pain, the patient has significant pain to his body with severe weakness MD Complaint: shortness of breath, cough, anxiety -: days(s) Severity: severe Severity scale (1-10): 8 Quality: aching, throbbing Consistency: constant Improves With: nothing Worsens With: exertion Known History Of: other (Lung CA) Context: recent URI, anxiety, recent illness Associated Symptoms: cough, other (weakness) Treatments Prior to Arrival: oxygen - Related Data Home Medications Medication Instructions Recorded Confirmed Albuterol Inhaler [Ventolin Hfa 2 puff INHALATION RT-Q6H PRN 12/09/19 12/29/19 Inhaler] Allerest Allergy Tablet 1 tab PO DAILY 12/09/19 12/29/19 Aspirin EC [Ecotrin Low Dose] 81 mg PO DAILY 12/09/19 12/29/19 Cyclobenzaprine [Flexeril] 10 mg PO BID PRN 12/09/19 12/29/19 Naproxen Sodium [Aleve] 220 mg PO BID PRN 12/09/19 12/29/19 Niacin 100 mg PO BID 12/09/19 12/29/19 Previous Rx's Medication Instructions Recorded Budesonide [Pulmicort] 1 mg INHALATION RT-BID 30 Days #30 12/14/19 ml Ipratropium-Albuterol Nebulize 3 ml INHALATION RT-Q4H PRN ml 12/14/19 [Duoneb 0.5 mg-3 mg/3 ml Soln] Ipratropium-Albuterol Nebulize 3 ml INHALATION RT-QID 30 Days 12/14/19 [Duoneb 0.5 mg-3 mg/3 ml Soln] #120 ml Metoprolol Tartrate [Lopressor] 50 mg PO BID 30 Days #60 tab 12/14/19 Amoxic-Pot Clav 875-125Mg 1 each PO Q12HR #10 tab 01/02/20 [Augmentin 875-125] HYDROcodone/APAP 5-325MG [[place] 1 each PO Q6HR PRN #30 tab 01/02/20 5-325] predniSONE 10 mg PO DAILY #30 tab 01/02/20 Allergies Allergy/AdvReac Type Severity Reaction Status Date / Time codeine AdvReac Unknown Verified 12/29/19 20:21 ibuprofen AdvReac Unknown Verified 12/29/19 20:21 mold AdvReac Unknown Verified 12/29/19 20:21 tetanus and diphtheria AdvReac Unknown Verified 12/29/19 20:21 toxoids Review of Systems ROS Statement: Those systems with pertinent positive or pertinent negative responses have been documented in the HPI. ROS Other: All systems not noted in ROS Statement are negative. Past Medical History Past Medical History: Cancer, Hyperlipidemia, Osteoarthritis (OA) Additional Past Medical History / Comment(s): hernia, bursitis in hips and knees. Lung ca stage 4 History of Any Multi-Drug Resistant Organisms: None Reported Past Surgical History: Hernia Repair Additional Past Surgical History / Comment(s): back surgery 2008 replaced L5 disc, Past Anesthesia/Blood Transfusion Reactions: No Reported Reaction Past Psychological History: No Psychological Hx Reported Smoking Status: Former smoker (Smoked for 60 years; recently was smoking pipes up to 5 a day) Past Alcohol Use History: Occasional Past Drug Use History: None Reported - Past Family History Father Family Medical History: Cancer Additional Family Medical History / Comment(s): multiple myeloma, hypotension Mother Family Medical History: Cancer, Hypertension Additional Family Medical History / Comment(s): multiple myeloma General Exam General appearance: alert, in no apparent distress Head exam: Present: atraumatic, normocephalic, normal inspection Eye exam: Present: normal appearance, PERRL, EOMI. Absent: scleral icterus, conjunctival injection, periorbital swelling ENT exam: Present: normal exam, mucous membranes moist Neck exam: Present: normal inspection. Absent: tenderness, meningismus, lymphadenopathy Respiratory exam: Present: wheezes, accessory muscle use, decreased breath sounds, prolonged expiratory. Absent: respiratory distress, rales, rhonchi, stridor Cardiovascular Exam: Present: normal rhythm, bradycardia, normal heart sounds. Absent: systolic murmur, diastolic murmur, rubs, gallop, clicks GI/Abdominal exam: Present: soft, normal bowel sounds. Absent: distended, tenderness, guarding, rebound, rigid Extremities exam: Present: normal inspection, full ROM, normal capillary refill. Absent: tenderness, pedal edema, joint swelling, calf tenderness Back exam: Present: normal inspection Neurological exam: Present: alert, oriented X3, CN II-XII intact Psychiatric exam: Present: normal affect, normal mood Skin exam: Present: warm, dry, intact, normal color. Absent: rash Course Vital Signs 01/14/20 01/14/20 01/14/20 22:56 23:21 23:28 Temperature 98.0 F Pulse Rate 56 L 58 L 59 L Respiratory 18 Rate Blood Pressure 115/60 O2 Sat by Pulse 94 L Oximetry 01/14/20 23:30 Temperature Pulse Rate 93 Respiratory 22 Rate Blood Pressure 115/60 O2 Sat by Pulse 92 L Oximetry - Reevaluation(s) Reevaluation #1: 01/15/20 00:03 Medical records reviewed Reevaluation #2: 01/15/20 00:03 Mild the minimal improvement in symptoms of breathing treatment oxygenation here in the ER Reevaluation #3: 01/15/20 00:03 Pain is improved Reevaluation #4: 01/15/20 00:03 Patient family informed results, questions are answered Medical Decision Making - Medical Decision Making 71 female DF for evaluation patient has a for evaluation of severe shortness of breath history of COPD with new diagnosis of small cell lung cancer, patient does have increasing right-sided pleural effusion edema decreasing white count sent low suspicion for recurrent pneumonia, no fever, patient will be admitted for breathing treatments, COPD exacerbation complicated with pleural effusion and hypoxia. - Lab Data Result diagrams: 01/14/20 23:01 01/14/20 23:01 Lab Results 01/14/20 01/14/20 01/14/20 Range/Units 23:01 23:01 23:01 WBC 15.6 H (3.8-10.6) k/uL RBC 4.25 L (4.30-5.90) m/uL Hgb 13.0 (13.0-17.5) gm/dL Hct 40.3 (39.0-53.0) % MCV 95.0 (80.0-100.0) fL MCH 30.7 (25.0-35.0) pg MCHC 32.4 (31.0-37.0) g/dL RDW 13.5 (11.5-15.5) % Plt Count 218 (150-450) k/uL Neutrophils % 84 % Lymphocytes % 6 % Monocytes % 7 % Eosinophils % 1 % Basophils % 0 % Neutrophils # 13.1 H (1.3-7.7) k/uL Lymphocytes # 0.9 L (1.0-4.8) k/uL Monocytes # 1.1 H (0-1.0) k/uL Eosinophils # 0.2 (0-0.7) k/uL Basophils # 0.0 (0-0.2) k/uL PT 10.2 (9.0-12.0) sec INR 1.0 (<1.2) APTT 24.5 (22.0-30.0) sec Sodium 135 L (137-145) mmol/L Potassium 4.7 (3.5-5.1) mmol/L Chloride 104 (98-107) mmol/L Carbon Dioxide 23 (22-30) mmol/L Anion Gap 8 mmol/L BUN 22 H (9-20) mg/dL Creatinine 0.86 (0.66-1.25) mg/dL Est GFR (CKD-EPI)AfAm >90 (>60 ml/min/1.73 sqM) Est GFR (CKD-EPI)NonAf 86 (>60 ml/min/1.73 sqM) Glucose 131 H (74-99) mg/dL Plasma Lactic Acid Arturo (0.7-2.0) mmol/L Calcium 8.6 (8.4-10.2) mg/dL Magnesium 2.0 (1.6-2.3) mg/dL Total Bilirubin 0.4 (0.2-1.3) mg/dL AST 30 (17-59) U/L ALT 49 (4-49) U/L Alkaline Phosphatase 94 (38-126) U/L Creatine Kinase <20 L (55-170) U/L Troponin I (0.000-0.034) ng/mL NT-Pro-B Natriuret Pep pg/mL Total Protein 6.0 L (6.3-8.2) g/dL Albumin 3.0 L (3.5-5.0) g/dL Influenza Type A RNA (Not Detectd) Influenza Type B (PCR) (Not Detectd) 01/14/20 01/14/20 01/14/20 Range/Units 23:01 23:01 23:01 WBC (3.8-10.6) k/uL RBC (4.30-5.90) m/uL Hgb (13.0-17.5) gm/dL Hct (39.0-53.0) % MCV (80.0-100.0) fL MCH (25.0-35.0) pg MCHC (31.0-37.0) g/dL RDW (11.5-15.5) % Plt Count (150-450) k/uL Neutrophils % % Lymphocytes % % Monocytes % % Eosinophils % % Basophils % % Neutrophils # (1.3-7.7) k/uL Lymphocytes # (1.0-4.8) k/uL Monocytes # (0-1.0) k/uL Eosinophils # (0-0.7) k/uL Basophils # (0-0.2) k/uL PT (9.0-12.0) sec INR (<1.2) APTT (22.0-30.0) sec Sodium (137-145) mmol/L Potassium (3.5-5.1) mmol/L Chloride (98-107) mmol/L Carbon Dioxide (22-30) mmol/L Anion Gap mmol/L BUN (9-20) mg/dL Creatinine (0.66-1.25) mg/dL Est GFR (CKD-EPI)AfAm (>60 ml/min/1.73 sqM) Est GFR (CKD-EPI)NonAf (>60 ml/min/1.73 sqM) Glucose (74-99) mg/dL Plasma Lactic Acid Arturo 2.6 H* (0.7-2.0) mmol/L Calcium (8.4-10.2) mg/dL Magnesium (1.6-2.3) mg/dL Total Bilirubin (0.2-1.3) mg/dL AST (17-59) U/L ALT (4-49) U/L Alkaline Phosphatase (38-126) U/L Creatine Kinase (55-170) U/L Troponin I <0.012 (0.000-0.034) ng/mL NT-Pro-B Natriuret Pep 494 pg/mL Total Protein (6.3-8.2) g/dL Albumin (3.5-5.0) g/dL Influenza Type A RNA (Not Detectd) Influenza Type B (PCR) (Not Detectd) 01/14/20 Range/Units 23:21 WBC (3.8-10.6) k/uL RBC (4.30-5.90) m/uL Hgb (13.0-17.5) gm/dL Hct (39.0-53.0) % MCV (80.0-100.0) fL MCH (25.0-35.0) pg MCHC (31.0-37.0) g/dL RDW (11.5-15.5) % Plt Count (150-450) k/uL Neutrophils % % Lymphocytes % % Monocytes % % Eosinophils % % Basophils % % Neutrophils # (1.3-7.7) k/uL Lymphocytes # (1.0-4.8) k/uL Monocytes # (0-1.0) k/uL Eosinophils # (0-0.7) k/uL Basophils # (0-0.2) k/uL PT (9.0-12.0) sec INR (<1.2) APTT (22.0-30.0) sec Sodium (137-145) mmol/L Potassium (3.5-5.1) mmol/L Chloride (98-107) mmol/L Carbon Dioxide (22-30) mmol/L Anion Gap mmol/L BUN (9-20) mg/dL Creatinine (0.66-1.25) mg/dL Est GFR (CKD-EPI)AfAm (>60 ml/min/1.73 sqM) Est GFR (CKD-EPI)NonAf (>60 ml/min/1.73 sqM) Glucose (74-99) mg/dL Plasma Lactic Acid Arturo (0.7-2.0) mmol/L Calcium (8.4-10.2) mg/dL Magnesium (1.6-2.3) mg/dL Total Bilirubin (0.2-1.3) mg/dL AST (17-59) U/L ALT (4-49) U/L Alkaline Phosphatase (38-126) U/L Creatine Kinase (55-170) U/L Troponin I (0.000-0.034) ng/mL NT-Pro-B Natriuret Pep pg/mL Total Protein (6.3-8.2) g/dL Albumin (3.5-5.0) g/dL Influenza Type A RNA Not Detected (Not Detectd) Influenza Type B (PCR) Not Detected (Not Detectd) - EKG Data -: EKG Interpreted by Me (EKG shows sinus a rate of 100, KS 150, QRS 90, QTc 448, multiple PVCs) - Radiology Data Radiology results: report reviewed (Chest x-ray shows increased right-sided effusion and edema), image reviewed Critical Care Time Critical Care Time: Yes Total Critical Care Time: 31 Disposition Clinical Impression: Squamous cell lung cancer, Acute exacerbation of chronic obstructive pulmonary disease, Lung cancer, Malignant pleural effusion, Acute pulmonary edema, Hypoxia Disposition: ADMITTED IP TO THIS HOSP Condition: Serious Is patient prescribed a controlled substance at d/c from ED?: No Referrals: Niles Mead MD [Primary Care Provider] - 1-2 days
[2020-01-14 23:17] LABS: Basophils % (A) 0 %; Eosinophils # (A) 0.2 k/uL (0-0.7); Eosinophils % (A) 1 %; HCT 40.3 % (39.0-53.0); Lymphocytes # (A) 0.9 k/uL (1.0-4.8); Lymphocytes % (A) 6 %; MCH 30.7 pg (25.0-35.0); MCHC 32.4 g/dL (31.0-37.0); Mean Platelet Volume 7.7; Monocytes # (A) 1.1 k/uL (0-1.0); Monocytes % (A) 7 %; Neutrophils # (A) 13.1 k/uL (1.3-7.7); Neutrophils % (A) 84 %; Platelet Count 218 k/uL (150-450); RBC 4.25 m/uL (4.30-5.90); RDW 13.5 % (11.5-15.5); WBC 15.6 k/uL (3.8-10.6)
[2020-01-14 23:28] LABS: ALT 49 U/L (4-49); AST 30 U/L (17-59); African American GFR (CKD) >90 (>60 ml/min/1.73 sqM); Alkaline Phosphatase 94 U/L (38-126); Anion Gap 8 mmol/L; Blood Urea Nitrogen 22 mg/dL (9-20); Calcium 8.6 mg/dL (8.4-10.2); Carbon Dioxide 23 mmol/L (22-30); Chloride 104 mmol/L (98-107); Creatine Kinase <20 U/L (55-170); Glucose 131 mg/dL (74-99); Non-African American GFR(CKD) 86 (>60 ml/min/1.73 sqM); Potassium 4.7 mmol/L (3.5-5.1); Sodium 135 mmol/L (137-145); Total Bilirubin 0.4 mg/dL (0.2-1.3)
[2020-01-14 23:29] LABS: Partial Thromboplastin Time 24.5 sec (22.0-30.0); Prothrombin Time 10.2 sec (9.0-12.0)
--- NOTE | 2020-01-14 23:54 | XR ---
EXAMINATION TYPE: XR chest 2V DATE OF EXAM: 01/14/2020 COMPARISON: 12/30/2019 HISTORY: Pneumonia TECHNIQUE: FINDINGS: There is blunting right costophrenic angle and large area of airspace infiltrate right lowe r lobe. There is also some infiltrate left lower lobe. Pulmonary vascularity is difficult to evaluate because of the lung disease. Heart appears enlarged. Congestive heart failure is possible. IMPRESSION: Increasing bilateral pulmonary infiltrates and pleural fluid on the right side compared t o last exam. This could be chronic congestive heart failure. RDS is also possible.
[2020-01-15] MEDS ORDERED: DEXAMETHASONE SOD PHOSPHATE 10 MG/ML 1 ML VIAL IV STA
[2020-01-15] MEDS ORDERED: IPRATROPIUM-ALBUTEROL 3 ML NEB INHALATION STA
[2020-01-15] MEDS ORDERED: SODIUM CHLORIDE 0.9% 1,000 ML IV SCH
[2020-01-15] MEDS ORDERED: MORPHINE SULFATE 4 MG/ML SYRINGE IVP PRN (00:09)
[2020-01-15] MEDS: IPRATROPIUM-ALBUTEROL 3 ML NEB INHALATION SCH ×3 (08:19→15:45)
[2020-01-15] MEDS: ENOXAPARIN 40 MG/0.4 ML SYRINGE SQ SCH (09:25)
[2020-01-15] MEDS ORDERED: CYCLOBENZAPRINE 10 MG TAB PO PRN (12:55)
[2020-01-15] MEDS ORDERED: HYDROcodone/APAP 5-325MG 1 EACH TAB PO PRN (12:55)
[2020-01-15] MEDS ORDERED: NAPROXEN 250 MG TAB PO PRN (12:55)
[2020-01-15] MEDS ORDERED: NIACIN 100 MG PO SCH (13:00)
[2020-01-15] MEDS ORDERED: FUROSEMIDE 10 MG/ML 4 ML VIAL IV STA (13:20)
[2020-01-15] MEDS: METOPROLOL TARTRATE 50 MG TAB PO SCH ×2 (13:33→20:51)
[2020-01-15] MEDS: LEVOFLOXACIN 500 MG TAB PO SCH (13:33)
[2020-01-15] MEDS: ASPIRIN 81 MG PO SCH (13:33)
[2020-01-15] MEDS: BUDESONIDE 1 MG/2 ML NEBU INHALATION SCH ×2 (14:17→19:55)
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
--- NOTE | 2020-01-15 14:50 | P.CNPUL ---
History of Present Illness Consult date: 01/15/20 Requesting physician: Tuan Guzman Reason for consult: dyspnea Chief complaint: Shortness of breath, muscle and joint pain History of present illness: This is a very pleasant 74-year-old gentleman who follows with Dr. Mead as his primary care provider. He has a history of hyperlipidemia, osteoarthritis, recent diagnosis of squamous cell carcinoma and the bronchial wash from November 2019. He had a recent admission for postobstructive pneumonia and discharged in good condition on 01/02/2020. He had been seen at [facility] in [facility] this week 01/13/2020 and had undergone bronchoscopy with further biopsies. Yesterday he developed a fairly acute onset of shortness of breath, muscle and joint aches and difficulty ambulating. He was brought here to the emergency room via EMS and had been found to have low oxygen levels in the 70s even while on home oxygen. Chest x-ray revealed increasing bilateral pulmonary infiltrates and pleural fluid on the right side compared to previous exam of 12/30/2019. White count 15.6. Hemoglobin 13.1. Sodium 135. Potassium 4.7. Creatinine 0.86. Initial lactic 2.6, currently 1.7. Troponin negative. ProBNP 494. Influenza screen negative. He is seen today in consultation on the regular medical floor. He is awake and alert in no acute distress. He is maintaining O2 saturations in the 90s on 6 L/m per nasal cannula. Breathing a bit easier today compared to yesterday. Able to move his lower extremities and bend his knees with less joint pain. He has remained afebrile. Hemodynamically stable. He did receive 1 L of fluid resuscitation yesterday. Review of Systems REVIEW OF SYSTEMS: CONSTITUTIONAL: Denies any recent significant weight loss or weight gain. EYES: Denies change in vision. EARS, NOSE, MOUTH, THROAT: Denies headaches, denies sore throat. CARDIOVASCULAR: Denies chest pain, palpitations or syncopal episodes. RESPIRATORY: Positive for shortness of breath, no cough, congestion or hem optysis. GASTROINTESTINAL: Denies change in appetite, denies abdominal pain GENITOURINARY: Denies hematuria, denies infections. MUSKULOSKELETAL: Positive for joint and muscle pain INTEGUMENTARY: Denies rash, denies eczema. NEUROLOGICAL: Denies recent memory loss, no recent seizure activity. PSYCHIATRIC: Denies anxiety, denies depression. HEMATOLOGIC/LYMPHATIC: Denies anemia, denies enlarged lymph nodes. Past Medical History Past Medical History: Cancer, Hyperlipidemia, Osteoarthritis (OA) Additional Past Medical History / Comment(s): hernia, bursitis in hips and knees. Lung ca stage 4 History of Any Multi-Drug Resistant Organisms: None Reported Past Surgical History: Hernia Repair Additional Past Surgical History / Comment(s): back surgery 2008 replaced L5 disc, Past Anesthesia/Blood Transfusion Reactions: No Reported Reaction Past Psychological History: No Psychological Hx Reported Smoking Status: Former smoker Past Alcohol Use History: Occasional Past Drug Use History: None Reported - Past Family History Father Family Medical History: Cancer Additional Family Medical History / Comment(s): multiple myeloma, hypotension Mother Family Medical History: Cancer, Hypertension Additional Family Medical History / Comment(s): multiple myeloma Medications and Allergies Home Medications Medication Instructions Recorded Confirmed Type Albuterol Inhaler [Ventolin Hfa 2 puff INHALATION RT-Q6H PRN 12/09/19 01/15/20 History Inhaler] Allerest Allergy Tablet 1 tab PO DAILY 12/09/19 01/15/20 History Aspirin EC [Ecotrin Low Dose] 81 mg PO DAILY 12/09/19 01/15/20 History Cyclobenzaprine [Flexeril] 10 mg PO BID PRN 12/09/19 01/15/20 History Naproxen Sodium [Aleve] 220 mg PO BID PRN 12/09/19 01/15/20 History Niacin 100 mg PO BID 12/09/19 01/15/20 History Budesonide [Pulmicort] 1 mg INHALATION RT-BID 30 Days #30 12/14/19 01/15/20 Rx ml Ipratropium-Albuterol Nebulize 3 ml INHALATION RT-Q4H PRN ml 12/14/19 01/15/20 Rx [Duoneb 0.5 mg-3 mg/3 ml Soln] Ipratropium-Albuterol Nebulize 3 ml INHALATION RT-QID 30 Days 12/14/19 01/15/20 Rx [Duoneb 0.5 mg-3 mg/3 ml Soln] #120 ml Metoprolol Tartrate [Lopressor] 50 mg PO BID 30 Days #60 tab 12/14/19 01/15/20 Rx HYDROcodone/APAP 5-325MG [Baxley 1 tab PO Q6HR PRN 01/15/20 01/15/20 History 5-325] predniSONE See Taper PO DAILY 01/15/20 01/15/20 History Allergies Allergy/AdvReac Type Severity Reaction Status Date / Time codeine AdvReac Unknown Verified 01/15/20 08:57 ibuprofen AdvReac Unknown Verified 01/15/20 08:57 mold AdvReac Unknown Verified 01/15/20 08:57 tetanus and diphtheria AdvReac Unknown Verified 01/15/20 08:57 toxoids Physical Exam Vitals: Vital Signs Temp Pulse Pulse Resp BP BP Pulse Ox 01/15/20 12:23 97.8 F 110 H 18 152/73 93 L 01/15/20 11:31 96 01/15/20 11:19 102 H 01/15/20 08:34 90 01/15/20 08:22 96 01/15/20 05:00 98.3 F 91 16 148/77 94 L 01/15/20 01:19 97.7 F 70 142/63 92 L 01/15/20 00:29 101 H 01/15/20 00:22 95 01/15/20 00:00 101 H 22 113/96 94 L 01/14/20 23:30 93 22 115/60 92 L 01/14/20 23:28 59 L 01/14/20 23:21 58 L 01/14/20 22:56 98.0 F 56 L 18 115/60 94 L Intake and Output 01/14/20 01/15/20 01/15/20 22:59 06:59 14:59 Output Total 800 Balance -800 Output: Urine 800 Other: Voiding Method Urinal Weight 98.883 kg 98.883 kg GENERAL EXAM: Alert, active, pleasant 74-year-old gentleman, on 6 L nasal cannul a, comfortable in no apparent distress. HEAD: Normocephalic. EYES: Normal reaction of pupils, equal size. NOSE: Clear with pink turbinates. THROAT: No erythema or exudates. NECK: No masses, no JVD. CHEST: No chest wall deformity. LUNGS: Equal air entry with crackles in the bilateral bases right greater than left. CVS: S1 and S2 normal with no audible murmur, regular rhythm. ABDOMEN: No hepatosplenomegaly, normal bowel sounds, no guarding or rigidity. SPINE: No scoliosis or deformity SKIN: No rashes CENTRAL NERVOUS SYSTEM: No focal deficits, tone is normal in all 4 extremities. EXTREMITIES: There is no peripheral edema. No clubbing, no cyanosis. Peripheral pulses are intact. Results - Laboratory Findings CBC and BMP: 01/14/20 23:01 01/14/20 23:01 PT/INR, D-dimer PT 10.2 sec (9.0-12.0) 01/14/20 23:01 INR 1.0 (<1.2) 01/14/20 23:01 Abnormal lab findings: Abnormal Labs 01/14/20 01/14/20 01/14/20 23:01 23:01 23:01 WBC 15.6 H RBC 4.25 L Neutrophils # 13.1 H Lymphocytes # 0.9 L Monocytes # 1.1 H Sodium 135 L BUN 22 H Glucose 131 H Plasma Lactic Acid Arturo 2.6 H* Creatine Kinase <20 L Total Protein 6.0 L Albumin 3.0 L - Diagnostic Findings Chest x-ray: image reviewed Assessment and Plan Assessment: 1 Acute on chronic hypoxic respiratory failure in a patient with a recent diagnosis highly suspicious for non-small cell lung cancer on a bronchial wash in November 2019. Transbronchial biopsies were nondiagnostic. PET scan on 12/19/2019 revealed left lung mass with mediastinal and hilar adenopathy along with abnormal uptake within soft tissues, the pancreas, bones, rectum. Follow-up bronchoscopy with biopsies done 01/13/2020, [facility] in [place]. Results pending. Possible healthcare acquired pneumonia, possible pulmonary embolism, possible fluid volume overload. 2 Acute exacerbation chronic obstructive pulmonary disease 3 Previous heavy tobacco dependence 4 Hyperlipidemia 5 History of bursitis. 6 History of hernia. Plan: The patient was seen and evaluated by Dr. Arreguin. Chest x-ray reviewed. We will go ahead and order a CT angiogram to rule out pulmonary embolism. Add Levaquin. Give a dose of Lasix 80 mg IV 1. Titrate down the FiO2 as tolerated. We'll continue to follow and make further recommendations based on his clinical status. I, the cosigning physician, performed a history & physical examination of the patient. Lungs sounds with basilar crackles right greater than left. Maintaining good O2 saturations in the 90s on 6 L/m per nasal cannula. I discussed the assessment and plan of care with my nurse practitioner, Joselin Garcia. I attest to the above consultation as dictated by her. Time with Patient: Greater than 30
--- NOTE | 2020-01-15 15:53 | CT ---
EXAMINATION TYPE: CT angio chest DATE OF EXAM: 01/15/2020 COMPARISON: PET CT December 19, 2019. HISTORY: Lung ca, hypoxia, r.o PE. CT DLP: 480.80 mGycm. Automated Exposure Control for Dose Reduction was Utilized. CONTRAST: CTA scan of the thorax is performed with IV Contrast, patient injected with 100 mL of Isovue 370, pul monary embolism protocol. MIP Images are created on CT scanner and reviewed. FINDINGS: LUNGS: Background of fairly severe underlying emphysematous change redemonstrated. Large in place of right infrahilar mass or neoplasm redemonstrated with associated basilar obstructive atelectasis and/ or consolidation and small right pleural effusion. Left lung shows no suspicious focal nodule or mass . No pneumothorax bilaterally. MEDIASTINUM: There is satisfactory enhancement of the pulmonary artery and its branches, there is no CT evidence for pulmonary embolism. Mass effect with narrowing of right lower lobe arterial branch noted. There are abnormal thoracic lymph nodes redemonstrated. Markedly enlarged subcarinal lymph nod e measuring 4.2 x 4.0 cm axial image 72 is redemonstrated. No cardiomegaly or pericardial effusion i s seen. OTHER: Multilevel spurring in the spine. IMPRESSION: Advanced emphysematous change with known high-grade right lung neoplasm. No acute pulmona ry embolism. No significant change from recent PET/CT.
[2020-01-15] MEDS ORDERED: PIPERACILLIN-TAZOBACTAM 3.375 GM in SODIUM CHLORIDE 0.9% 100 ML IVPB SCH (16:00)
--- NOTE | 2020-01-15 19:20 | P.HPIM ---
History of Present Illness H&P Date: 01/15/20 Chief Complaint: Short of breath Chief Complaint: Short of breath History of presenting complaint: This is a very pleasant 74-year-old patient of Dr. Mead. Long-standing smoker until recently Chronic stable medical conditions include hyperlipidemia, osteoarthritis, bursitis of the hips and knees, home oxygen 3 L.. Diagnosed with lung cancer stage IV. - non-small cell lung cancer. Recently in the hospital from December 28 through . Started on radiation treatment. He recently had PET scan that showed metastatic disease. He was at [facility] on January 12 had bronchoscopy with further biopsies. Patient following that became suddenly tired aching all over a bit short of breath week. No fever no chills. Slight cough. Pulse ox to drop to 70%. No headaches. No throat pain. Appetite has remained good. Patient feeling better this morning. Review of systems: GEN.: Tired, no fever or chills EYES: None HEENT: None NECK: None RESPIRATORY: As above CARDIOVASCULAR: None GASTROINTESTINAL: None GENITOURINARY: None MUSCULOSKELETAL: Joint pains and as above LYMPHATICS: None HEMATOLOGICAL: None PSYCHIATRY: None NEUROLOGICAL: None Past medical history to include: COPD, hypertension, hyperlipidemia, bursitis of the hips and knees, lung cancer stage IV non-small cell type Social history: Smoked for many years stopped November 2019. 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 Physical examination: VITAL SIGNS: 98, 56, 18, blood pressure 115/60, 94% on 10 L nonrebreather-upon presentation GENERAL: BMI 26.5, sitting up in distress EYES: Pupils equal. Conjunctiva normal. HEENT: External appearance of nose and ears normal, oral cavity grossly normal. NECK: JVD not raised; masses not palpable. HEART: First and second heart sounds are normal; no edema. LUNGS: Respiratory rate increased, decreased breath sounds some wheezing. ABDOMEN: Soft, nontender, liver spleen not palpable, no masses palpable. PSYCH: Alert and oriented x3; mood and affect normal. NEUROLOGICAL: Cranial nerves grossly intact; no facial asymmetry, power and sensation grossly intact. LYMPHATICS: No lymph nodes palpable in the axilla and neck INVESTIGATIONS, reviewed in the clinical context: White count 15.6 hemoglobin 13 platelets 218 potassium 4.7 creatinine 0.86 Influenza type A and type B both negative EKG tracing personally reviewed by me-PVCs, sinus rhythm Chest x-ray film personally reviewed by me-increasing bilateral infiltrates Assessment: -Possible malignant pneumonitis, POA -Acute hypoxic respiratory failure from above, POA -COPD acute exacerbation in a ex-smoker, POA -Stage IV lung cancer non-small cell type- -Hyperlipidemia -Primary osteoarthritis -Lactic acidosis, type II Plan: Patient started on bronchodilators, Levaquin. Computed tomography scan being ordered for rule out PE. Home medications are to be resumed. Add inhaled steroids. Pulmonary was consulted. Lovenox for DVT prophylaxis. Had IV Solu- Medrol. Past Medical History Past Medical History: Cancer, Hyperlipidemia, Osteoarthritis (OA) Additional Past Medical History / Comment(s): hernia, bursitis in hips and knees. Lung ca stage 4 History of Any Multi-Drug Resistant Organisms: None Reported Past Surgical History: Hernia Repair Additional Past Surgical History / Comment(s): back surgery 2008 replaced L5 disc, Past Anesthesia/Blood Transfusion Reactions: No Reported Reaction Past Psychological History: No Psychological Hx Reported Smoking Status: Former smoker Past Alcohol Use History: Occasional Past Drug Use History: None Reported - Past Family History Father Family Medical History: Cancer Additional Family Medical History / Comment(s): multiple myeloma, hypotension Mother Family Medical History: Cancer, Hypertension Additional Family Medical History / Comment(s): multiple myeloma Medications and Allergies Home Medications Medication Instructions Recorded Confirmed Type Albuterol Inhaler [Ventolin Hfa 2 puff INHALATION RT-Q6H PRN 12/09/19 01/15/20 History Inhaler] Allerest Allergy Tablet 1 tab PO DAILY 12/09/19 01/15/20 History Aspirin EC [Ecotrin Low Dose] 81 mg PO DAILY 12/09/19 01/15/20 History Cyclobenzaprine [Flexeril] 10 mg PO BID PRN 12/09/19 01/15/20 History Naproxen Sodium [Aleve] 220 mg PO BID PRN 12/09/19 01/15/20 History Niacin 100 mg PO BID 12/09/19 01/15/20 History Budesonide [Pulmicort] 1 mg INHALATION RT-BID 30 Days #30 12/14/19 01/15/20 Rx ml Ipratropium-Albuterol Nebulize 3 ml INHALATION RT-Q4H PRN ml 12/14/19 01/15/20 Rx [Duoneb 0.5 mg-3 mg/3 ml Soln] Ipratropium-Albuterol Nebulize 3 ml INHALATION RT-QID 30 Days 12/14/19 01/15/20 Rx [Duoneb 0.5 mg-3 mg/3 ml Soln] #120 ml Metoprolol Tartrate [Lopressor] 50 mg PO BID 30 Days #60 tab 12/14/19 01/15/20 Rx HYDROcodone/APAP 5-325MG [Lorain 1 tab PO Q6HR PRN 01/15/20 01/15/20 History 5-325] predniSONE See Taper PO DAILY 01/15/20 01/15/20 History Allergies Allergy/AdvReac Type Severity Reaction Status Date / Time codeine AdvReac Unknown Verified 01/15/20 08:57 ibuprofen AdvReac Unknown Verified 01/15/20 08:57 mold AdvReac Unknown Verified 01/15/20 08:57 tetanus and diphtheria AdvReac Unknown Verified 01/15/20 08:57 toxoids Physical Exam Vitals: Vital Signs Temp Pulse Pulse Resp BP BP Pulse Ox 01/15/20 12:23 97.8 F 110 H 18 152/73 93 L 01/15/20 11:31 96 01/15/20 11:19 102 H 01/15/20 08:34 90 01/15/20 08:22 96 01/15/20 05:00 98.3 F 91 16 148/77 94 L 01/15/20 01:19 97.7 F 70 142/63 92 L 01/15/20 00:29 101 H 01/15/20 00:22 95 01/15/20 00:00 101 H 22 113/96 94 L 01/14/20 23:30 93 22 115/60 92 L 01/14/20 23:28 59 L 01/14/20 23:21 58 L 01/14/20 22:56 98.0 F 56 L 18 115/60 94 L Intake and Output 01/14/20 01/15/20 01/15/20 22:59 06:59 14:59 Output Total 800 Balance -800 Output: Urine 800 Other: Voiding Method Urinal Weight 98.883 kg 98.883 kg Results CBC & Chem 7: 01/14/20 23:01 01/14/20 23:01 Labs: Abnormal Lab Results - Last 24 Hours (Table) 01/14/20 01/14/20 01/14/20 Range/Units 23:01 23:01 23:01 WBC 15.6 H (3.8-10.6) k/uL RBC 4.25 L (4.30-5.90) m/uL Neutrophils # 13.1 H (1.3-7.7) k/uL Lymphocytes # 0.9 L (1.0-4.8) k/uL Monocytes # 1.1 H (0-1.0) k/uL Sodium 135 L (137-145) mmol/L BUN 22 H (9-20) mg/dL Glucose 131 H (74-99) mg/dL Plasma Lactic Acid Arturo 2.6 H* (0.7-2.0) mmol/L Creatine Kinase <20 L (55-170) U/L Total Protein 6.0 L (6.3-8.2) g/dL Albumin 3.0 L (3.5-5.0) g/dL Thrombosis Risk Factor Assmnt - Choose All That Apply Any of the Below Risk Factors Present?: Yes Each Factor Represents 1 point: Abnormal pulmonary function (COPD), Obesity (BMI >25) Other Risk Factors: Yes Each Risk Factor Represents 2 Points: Age 61-74 years, Malignancy Other congenital or acquired thrombophilia - If yes, enter type in comment: No Thrombosis Risk Factor Assessment Total Risk Factor Score: 6 Thrombosis Risk Factor Assessment Level: High Risk
[2020-01-15] MEDS: IPRATROPIUM-ALBUTEROL 3 ML NEB INHALATION PRN (19:55)
[2020-01-15] MEDS: methylPREDNISolone SOD SUCCI 40 MG/ML 1 ML VIAL IV SCH (20:25)
[2020-01-15] MEDS: LACTATED RINGERS 1,000 ML IV SCH (20:25)
[2020-01-16] MEDS: methylPREDNISolone SOD SUCCI 40 MG/ML 1 ML VIAL IV SCH ×2 (04:01→13:46)
[2020-01-16] MEDS: BUDESONIDE 1 MG/2 ML NEBU INHALATION SCH (09:01)
[2020-01-16] MEDS: IPRATROPIUM-ALBUTEROL 3 ML NEB INHALATION PRN ×3 (09:01→16:04)
[2020-01-16] MEDS: ASPIRIN 81 MG PO SCH (10:07)
[2020-01-16] MEDS: ENOXAPARIN 40 MG/0.4 ML SYRINGE SQ SCH (10:07)
[2020-01-16] MEDS: LEVOFLOXACIN 500 MG TAB PO SCH (10:07)
[2020-01-16] MEDS: METOPROLOL TARTRATE 50 MG TAB PO SCH (10:07)
--- NOTE | 2020-01-16 12:11 | P.PN ---
Subjective Progress Note Date: 01/16/20 Principal diagnosis: Acute on chronic hypoxic respiratory failure This is a very pleasant 74-year-old gentleman who follows with Dr. Mead as his primary care provider. He has a history of hyperlipidemia, osteoarthritis, recent diagnosis of squamous cell carcinoma and the bronchial wash from November 2019. He had a recent admission for postobstructive pneumonia and discharged in good condition on 01/02/2020. He had been seen at [facility] in [facility] this week 01/13/2020 and had undergone bronchoscopy with further biopsies. Yesterday he developed a fairly acute onset of shortness of breath, muscle and joint aches and difficulty ambulating. He was brought here to the emergency room via EMS and had been found to have low oxygen levels in the 70s even while on home oxygen. Chest x-ray revealed increasing bilateral pulmonary infiltrates and pleural fluid on the right side compared to previous exam of 12/30/2019. White count 15.6. Hemoglobin 13.1. Sodium 135. Potassium 4.7. Creatinine 0.86. Initial lactic 2.6, currently 1.7. Troponin negative. ProBNP 494. Influenza screen negative. He is seen today in consultation on the regular medical floor. He is awake and alert in no acute distress. He is maintaining O2 saturations in the 90s on 6 L/m per nasal cannula. Breathing a bit easier today compared to yesterday. Able to move his lower extremities and bend his knees with less joint pain. He has remained afebrile. Hemodynamically stable. He did receive 1 L of fluid resuscitation yesterday. The patient was seen today 01/16/2020 in follow-up on the regular medical floor. He is currently sitting up in a chair at the bedside. Awake and alert in no acute distress. Denies any worsening shortness of breath, cough or congestion. Breathing much easier today compared to yesterday. Anxious to go home. He is maintaining good O2 saturation in the mid 90s on 2 L/m per nasal cannula. He's afebrile. Hemodynamically stable. CT angiogram ruled out pulmonary embolism. There is advanced emphysematous changes and known high-grade right lung neoplasm. No significant change from recent PET scan on 12/19/2019. He remains on DuoNeb inhalations, Pulmicort and Perforomist inhalations, IV Solu-Medrol. Antibiotics in the form of Levaquin. Objective - Vital Signs Vital signs: Vital Signs Temp 98.0 F 01/16/20 05:00 Pulse 80 01/16/20 09:15 Resp 16 01/16/20 08:00 BP 137/74 01/16/20 05:00 Pulse Ox 95 01/16/20 05:00 Intake & Output 01/15/20 01/16/20 01/16/20 18:59 06:59 18:59 Intake Total 80 815 Output Total 400 300 Balance -320 515 Intake: Intake, IV Titration 80 225 Amount Lactated Ringers 1,000 ml 225 @ 75 mls/hr IV .[id number] SANDRINE Rx#:[id number] Sodium Chloride 0.9% 1, 80 000 ml @ 20 mls/hr IV . Q24H SANDRINE Rx#:[id number] Oral 590 Output: Urine 400 300 Other: Voiding Method Urinal Urinal - Exam GENERAL EXAM: Alert, active, pleasant 74-year-old gentleman, on 2 L nasal cannula, comfortable in no apparent distress. HEAD: Normocephalic. EYES: Normal reaction of pupils, equal size. NOSE: Clear with pink turbinates. THROAT: No erythema or exudates. NECK: No masses, no JVD. CHEST: No chest wall deformity. LUNGS: Equal air entry with rhonchi in the right lung otherwise clear, diminished. CVS: S1 and S2 normal with no audible murmur, regular rhythm. ABDOMEN: No hepatosplenomegaly, normal bowel sounds, no guarding or rigidity. SPINE: No scoliosis or deformity SKIN: No rashes CENTRAL NERVOUS SYSTEM: No focal deficits, tone is normal in all 4 extremities. EXTREMITIES: There is no peripheral edema. No clubbing, no cyanosis. Peripheral pulses are intact. - Labs CBC & Chem 7: 01/14/20 23:01 01/14/20 23:01 Assessment and Plan Assessment: 1 Acute on chronic hypoxic respiratory failure in a patient with a recent diagno sis highly suspicious for non-small cell lung cancer on a bronchial wash in November 2019. Transbronchial biopsies were nondiagnostic. PET scan on 12/19/2019 revealed left lung mass with mediastinal and hilar adenopathy along with abnormal uptake within soft tissues, the pancreas, bones, rectum. Follow-up bronchoscopy with biopsies done 01/13/2020, [facility] in [place]. Results pending. CT angiogram performed yesterday ruled out pulmonary embolism. There is significant advanced emphysematous changes with known high-grade right lung neoplasm. No significant change compared to PET scan. 2 Acute exacerbation chronic obstructive pulmonary disease 3 Previous heavy tobacco dependence 4 Hyperlipidemia 5 History of bursitis. 6 History of hernia. Plan: The patient was seen and evaluated by Dr. Arreguin. He is cleared for discharge from the pulmonary standpoint. Complete a prednisone taper. Complete a course of antibiotics. Continue his home pulmonary medications. Follow-up with o ncology as scheduled. Follow up with Dr. Ponce as scheduled. I, the cosigning physician, performed a history & physical examination of the patient. Lungs sounds with few scattered rhonchi in the right lung. Maintaining good O2 saturations in the 90s on 2 L/m per nasal cannula. I discussed the assessment and plan of care with my nurse practitioner, Joselin Garcia. I attest to the above note as dictated by her.
[2020-01-16 12:18] VITALS: BP 137/78; RESP 17; TEMP 97.5
[2020-01-16] MEDS: LACTATED RINGERS 1,000 ML IV SCH (13:47)
[2020-01-16 16:06] VITALS: PULSE 80
--- NOTE | 2020-01-16 19:54 | P.DS ---
Providers Date of admission: 01/15/20 00:00 Expected date of discharge: 01/16/20 Attending physician: Tuan Guzman Consults: 01/15/20 00:00 Consult Physician Routine Consulting Provider: Ulises Dixon Consult Reason/Comments: hypoxia Do you want consulting provider notified?: Yes Consult Physician Routine Consulting Provider: Romelia Rm Consult Reason/Comments: known Do you want consulting provider notified?: Yes Primary care physician: [facility] Course: Chief Complaint: Short of breath History of presenting complaint: This is a very pleasant 74-year-old patient of Dr. Mead. Long-standing smoker until recently Chronic stable medical conditions include hyperlipidemia, osteoarthritis, bursitis of the hips and knees, home oxygen 3 L.. Diagnosed with lung cancer stage IV. - non-small cell lung cancer. Recently in the hospital from December 28 through . Started on radiation treatment. He recently had PET scan that showed metastatic disease. He was at [facility] in [facility] on January 12 had bronchoscopy with further biopsies. Patient following that became suddenly tired aching all over a bit short of breath week. No fever no chills. Slight cough. Pulse ox to drop to 70%. No headaches. No throat pain. Appetite has remained good. Patient feeling better this morning. Admitted with COPD exacerbation. Possible pneumonia. Given a burst of steroids. Has bronchodilators antibiotics. Today-feeling much better. Feeling back to his baseline. Very keen to go home. Cleared by Dr. Dior. Discussed with patient Discussion and discharge planning more than 35 minutes Consultation: Dr. Arreguin from pulmonary Physical examination: VITAL SIGNS: 97.5, 66, 17, blood pressure 1 3778, 95% on 2 L GENERAL: Sitting up, comfortable EYES: Pupils equal. Conjunctiva normal. HEENT: External appearance of nose and ears normal, oral cavity grossly normal. NECK: JVD not raised; masses not palpable. HEART: First and second heart sounds are normal; no edema. LUNGS: Respiratory rate increased, decreased breath sounds. ABDOMEN: Soft, nontender, liver spleen not palpable, no masses palpable. PSYCH: Alert and oriented x3; mood and affect normal. INVESTIGATIONS, reviewed in the clinical context: White count 15.6 hemoglobin 13 platelets 218 potassium 4.7 creatinine 0.86 Influenza type A and type B both negative EKG tracing personally reviewed by me-PVCs, sinus rhythm Chest x-ray film personally reviewed by me-increasing bilateral infiltrates Assessment: -Possible viral pneumonitis, cannot rule out's bacterial cause POA -Acute hypoxic respiratory failure from above, POA -COPD acute exacerbation in a ex-smoker, POA -Stage IV lung cancer non-small cell type- -Hyperlipidemia -Primary osteoarthritis -Lactic acidosis, type II Disposition: Home Patient Condition at Discharge: Stable Plan - Discharge Summary Discharge Rx Participant: No New Discharge Prescriptions: New Levofloxacin [Levaquin] 500 mg PO Q24H #5 tab predniSONE 10 mg PO DAILY #30 tab Continue Cyclobenzaprine [Flexeril] 10 mg PO BID PRN PRN Reason: Pain Naproxen Sodium [Aleve] 220 mg PO BID PRN PRN Reason: Pain Aspirin EC [Ecotrin Low Dose] 81 mg PO DAILY Albuterol Inhaler [Ventolin Hfa Inhaler] 2 puff INHALATION RT-Q6H PRN PRN Reason: Shortness Of Breath Niacin 100 mg PO BID Allerest Allergy Tablet 1 tab PO DAILY Ipratropium-Albuterol Nebulize [Duoneb 0.5 mg-3 mg/3 ml Soln] 3 ml INHALATION RT-QID 30 Days #120 ml Metoprolol Tartrate [Lopressor] 50 mg PO BID 30 Days #60 tab Budesonide [Pulmicort] 1 mg INHALATION RT-BID 30 Days #30 ml HYDROcodone/APAP 5-325MG [[place] 5-325] 1 tab PO Q6HR PRN PRN Reason: Pain Discontinued Ipratropium-Albuterol Nebulize [Duoneb 0.5 mg-3 mg/3 ml Soln] 3 ml INHALATION RT-Q4H PRN ml PRN Reason: Shortness Of Breath Or Wheezing predniSONE See Taper PO DAILY Discharge Medication List Albuterol Inhaler [Ventolin Hfa Inhaler] 2 puff INHALATION RT-Q6H PRN 12/09/19 [History] Allerest Allergy Tablet 1 tab PO DAILY 12/09/19 [History] Aspirin EC [Ecotrin Low Dose] 81 mg PO DAILY 12/09/19 [History] Cyclobenzaprine [Flexeril] 10 mg PO BID PRN 12/09/19 [History] Naproxen Sodium [Aleve] 220 mg PO BID PRN 12/09/19 [History] Niacin 100 mg PO BID 12/09/19 [History] Budesonide [Pulmicort] 1 mg INHALATION RT-BID 30 Days #30 ml 12/14/19 [Rx] Ipratropium-Albuterol Nebulize [Duoneb 0.5 mg-3 mg/3 ml Soln] 3 ml INHALATION RT-QID 30 Days #120 ml 12/14/19 [Rx] Metoprolol Tartrate [Lopressor] 50 mg PO BID 30 Days #60 tab 12/14/19 [Rx] HYDROcodone/APAP 5-325MG [[place] 5-325] 1 tab PO Q6HR PRN 01/15/20 [History] Levofloxacin [Levaquin] 500 mg PO Q24H #5 tab 01/16/20 [Rx] predniSONE 10 mg PO DAILY #30 tab 01/16/20 [Rx] Follow up Appointment(s)/Referral(s): oncology,dr [Other] - 1 Week Niles Mead MD [Primary Care Provider] - 1-2 days Patient Instructions/Handouts: Prednisone (By mouth), Levofloxacin (By mouth), Lung Cancer (DC), Hypoxia (GEN) Activity/Diet/Wound Care/Special Instructions: diet as tolerated activity limited until seen by
== END 2020-01-16 17:28 | disposition home or self-care (01) | DRG 193 ==
LOC: EC 22:54 → 5NMEDONC 01-15
PROVIDERS: ADMIT Hospitalist; ATTEND Hospitalist
DX: J12.9 Viral pneumonia, unspecified (principal); J96.21 Acute and chronic respiratory failure with hypoxia; J44.0 Chronic obstructive pulmonary disease with (acute) lower respiratory infection; J44.1 Chronic obstructive pulmonary disease with (acute) exacerbation; E87.2 Acidosis; J91.0 Malignant pleural effusion; C34.91 Malignant neoplasm of unspecified part of right bronchus or lung; E78.5 Hyperlipidemia, unspecified; F41.9 Anxiety disorder, unspecified; R59.9 Enlarged lymph nodes, unspecified; M19.91 Primary osteoarthritis, unspecified site; Z99.81 Dependence on supplemental oxygen; Z79.82 Long term (current) use of aspirin; Z79.51 Long term (current) use of inhaled steroids; Z79.899 Other long term (current) drug therapy; Z87.891 Personal history of nicotine dependence; Z98.890 Other specified postprocedural states; Z96.89 Presence of other specified functional implants; Z88.6 Allergy status to analgesic agent; Z88.5 Allergy status to narcotic agent; Z88.7 Allergy status to serum and vaccine; Z91.048 Other nonmedicinal substance allergy status; Z80.7 Family history of other malignant neoplasms of lymphoid, hematopoietic and related tissues; Z82.49 Family history of ischemic heart disease and other diseases of the circulatory system
CPT/HCPCS: 36415; 71046; 71275; 80053; 82550; 83605; 83735; 83880; 84484; 85025; 85610; 85730; 87502; 93005; 94640; 96361; 96374; 96375; 96376; 99291

== ENCOUNTER 2020-01-29 20:47 | Inpatient (IN) | payer MEDICARE ==
--- NOTE | 2020-01-29 21:23 | ED ---
SOB HPI - General Chief Complaint: Shortness of Breath Stated Complaint: SOB Time Seen by Provider: 01/29/20 20:50 Source: patient, RN notes reviewed, old records reviewed Mode of arrival: EMS Limitations: no limitations - History of Present Illness Initial Comments: This is a 74-year-old male. Recent medical history recurrent pneumonia shortness of breath chest pain known diagnosis of lung cancer any as well as a significant recent hospital admission, patient presents today for shortness of breath fever feels like his heart is racing tachycardia diaphoresis and weakness. Patient overall does not feel well. Patient is in mild distress secondary to work of breathing heart rate and fever. MD Complaint: shortness of breath, cough, pain with inspiration, anxiety -: hour(s) Severity: severe Severity scale (1-10): 8 Quality: aching Consistency: constant Improves With: nothing Worsens With: exertion Known History Of: COPD, congestive heart failure, recurrent pneumonia, other (Lung cancer) Context: recent URI, anxiety, recent illness Associated Symptoms: pain with inspiration, fever, cough, sputum production, palpitations Treatments Prior to Arrival: none - Related Data Home Medications Medication Instructions Recorded Confirmed Albuterol Inhaler (Bulk) [Ventolin 2 puff INHALATION RT-Q6H PRN 12/09/19 Hfa Inhaler (Bulk)] Allerest Allergy Tablet 1 tab PO DAILY 12/09/19 01/30/20 Aspirin EC [Ecotrin Low Dose] 81 mg PO DAILY 12/09/19 01/30/20 Cyclobenzaprine [Flexeril] 10 mg PO BID PRN 12/09/19 01/30/20 Naproxen Sodium [Aleve] 220 mg PO BID PRN 12/09/19 01/30/20 Niacin 100 mg PO BID 12/09/19 01/30/20 HYDROcodone/APAP 5-325MG [[place] 1 tab PO Q6HR PRN 01/15/20 01/30/20 5-325] Morphine Sulfate Ir [MSIR] 15 mg PO Q8HR PRN 01/30/20 01/30/20 Previous Rx's Medication Instructions Recorded Budesonide [Pulmicort] 1 mg INHALATION RT-BID 30 Days #30 12/14/19 ml Ipratropium-Albuterol Nebulize 3 ml INHALATION RT-QID 30 Days 12/14/19 [Duoneb 0.5 mg-3 mg/3 ml Soln] #120 ml Amoxic-Pot Clav 875-125Mg 1 each PO Q12HR #10 tab 02/05/20 [Augmentin 875-125] Apixaban [Eliquis] 5 mg PO BID #60 tab 02/05/20 Digoxin [Lanoxin] 125 mcg PO DAILY #30 tab 02/05/20 Famotidine [Pepcid] 20 mg PO Q12HR #60 tab 02/05/20 Folic Acid 1 mg PO DAILY tab 02/05/20 Metoprolol Tartrate [Lopressor] 50 mg PO TID 30 Days #90 tab 02/05/20 Verapamil [Isoptin] 80 mg PO TID #90 tab 02/05/20 Allergies Allergy/AdvReac Type Severity Reaction Status Date / Time codeine AdvReac Unknown Verified 01/15/20 08:57 ibuprofen AdvReac Unknown Verified 01/15/20 08:57 mold AdvReac Unknown Verified 01/15/20 08:57 tetanus and diphtheria AdvReac Unknown Verified 01/15/20 08:57 toxoids Review of Systems ROS Statement: Those systems with pertinent positive or pertinent negative responses have been documented in the HPI. ROS Other: All systems not noted in ROS Statement are negative. Past Medical History Past Medical History: Cancer, Hyperlipidemia, Osteoarthritis (OA) Additional Past Medical History / Comment(s): hernia, bursitis in hips and knees. Lung ca stage 4 History of Any Multi-Drug Resistant Organisms: None Reported Past Surgical History: Hernia Repair Additional Past Surgical History / Comment(s): back surgery 2008 replaced L5 disc, Past Anesthesia/Blood Transfusion Reactions: No Reported Reaction Past Psychological History: No Psychological Hx Reported Smoking Status: Former smoker Past Alcohol Use History: Occasional Past Drug Use History: None Reported - Past Family History Father Family Medical History: Cancer Additional Family Medical History / Comment(s): multiple myeloma, hypotension Mother Family Medical History: Cancer, Hypertension Additional Family Medical History / Comment(s): multiple myeloma General Exam Limitations: no limitations General appearance: alert, in no apparent distress, anxious Head exam: Present: atraumatic, normocephalic, normal inspection Eye exam: Present: normal appearance, PERRL, EOMI. Absent: scleral icterus, conjunctival injection, periorbital swelling ENT exam: Present: normal exam, mucous membranes dry Neck exam: Present: normal inspection. Absent: tenderness, meningismus, lymphadenopathy Respiratory exam: Present: respiratory distress, wheezes, accessory muscle use, decreased breath sounds, prolonged expiratory. Absent: rales, rhonchi, stridor Cardiovascular Exam: Present: normal rhythm, tachycardia, normal heart sounds. Absent: systolic murmur, diastolic murmur, rubs, gallop, clicks GI/Abdominal exam: Present: soft, normal bowel sounds. Absent: distended, tenderness, guarding, rebound, rigid Extremities exam: Present: normal inspection, full ROM, normal capillary refill. Absent: tenderness, pedal edema, joint swelling, calf tenderness Back exam: Present: normal inspection Neurological exam: Present: alert, oriented X3, CN II-XII intact Psychiatric exam: Present: normal affect, normal mood Skin exam: Present: warm, dry, intact, normal color. Absent: rash Course Vital Signs 01/29/20 01/29/20 01/29/20 20:52 21:00 23:10 Temperature 102.7 F H 99.6 F Pulse Rate 121 H 107 H Respiratory 21 18 18 Rate Blood Pressure 151/89 122/67 O2 Sat by Pulse 98 95 Oximetry - Reevaluation(s) Reevaluation #1: Medical record is reviewed Patient feeling better with fever control here in the ER hydration respiratory status is improving Patient does appear to have recurrent pneumonia on top of known CVA Medical Decision Making - Lab Data Result diagrams: 02/05/20 07:12 02/05/20 07:12 Lab Results 01/29/20 01/29/20 01/29/20 Range/Units 20:03 20:03 21:50 WBC 19.2 H (3.8-10.6) k/uL RBC 4.07 L (4.30-5.90) m/uL Hgb 12.3 L (13.0-17.5) gm/dL Hct 38.1 L (39.0-53.0) % MCV 93.8 (80.0-100.0) fL MCH 30.2 (25.0-35.0) pg MCHC 32.2 (31.0-37.0) g/dL RDW 14.4 (11.5-15.5) % Plt Count 294 (150-450) k/uL Neutrophils % 91 % Lymphocytes % 3 % Monocytes % 3 % Eosinophils % 3 % Basophils % 0 % Neutrophils # 17.5 H (1.3-7.7) k/uL Lymphocytes # 0.5 L (1.0-4.8) k/uL Monocytes # 0.6 (0-1.0) k/uL Eosinophils # 0.5 (0-0.7) k/uL Basophils # 0.0 (0-0.2) k/uL PT (9.0-12.0) sec INR (<1.2) APTT (22.0-30.0) sec Sodium (137-145) mmol/L Potassium (3.5-5.1) mmol/L Chloride (98-107) mmol/L Carbon Dioxide (22-30) mmol/L Anion Gap mmol/L BUN (9-20) mg/dL Creatinine (0.66-1.25) mg/dL Est GFR (CKD-EPI)AfAm (>60 ml/min/1.73 sqM) Est GFR (CKD-EPI)NonAf (>60 ml/min/1.73 sqM) Glucose (74-99) mg/dL Plasma Lactic Acid Arturo (0.7-2.0) mmol/L Calcium (8.4-10.2) mg/dL Phosphorus (2.5-4.5) mg/dL Magnesium (1.6-2.3) mg/dL Total Bilirubin (0.2-1.3) mg/dL AST (17-59) U/L ALT (4-49) U/L Alkaline Phosphatase (38-126) U/L Creatine Kinase (55-170) U/L CK-MB (CK-2) (0.0-2.4) ng/mL Troponin I (0.000-0.034) ng/mL NT-Pro-B Natriuret Pep pg/mL Total Protein (6.3-8.2) g/dL Albumin (3.5-5.0) g/dL TSH (0.465-4.680) mIU/L Urine Color Urine Appearance (Clear) Urine pH (5.0-8.0) Ur Specific [place] (1.001-1.035) Urine Protein (Negative) Urine Glucose (UA) (Negative) Urine Ketones (Negative) Urine Blood (Negative) Urine Nitrite (Negative) Urine Bilirubin (Negative) Urine Urobilinogen (<2.0) mg/dL Ur Leukocyte Esterase (Negative) Coronavirus (PCR) Not Detected (Not Detected) Influenza Type A RNA Not Detected (Not Detectd) Influenza Type B (PCR) Not Detected (Not Detectd) 01/29/20 01/29/20 01/29/20 Range/Units 21:50 21:50 21:50 WBC (3.8-10.6) k/uL RBC (4.30-5.90) m/uL Hgb (13.0-17.5) gm/dL Hct (39.0-53.0) % MCV (80.0-100.0) fL MCH (25.0-35.0) pg MCHC (31.0-37.0) g/dL RDW (11.5-15.5) % Plt Count (150-450) k/uL Neutrophils % % Lymphocytes % % Monocytes % % Eosinophils % % Basophils % % Neutrophils # (1.3-7.7) k/uL Lymphocytes # (1.0-4.8) k/uL Monocytes # (0-1.0) k/uL Eosinophils # (0-0.7) k/uL Basophils # (0-0.2) k/uL PT 10.7 (9.0-12.0) sec INR 1.0 (<1.2) APTT 23.6 (22.0-30.0) sec Sodium 131 L (137-145) mmol/L Potassium 4.9 (3.5-5.1) mmol/L Chloride 99 (98-107) mmol/L Carbon Dioxide 25 (22-30) mmol/L Anion Gap 7 mmol/L BUN 21 H (9-20) mg/dL Creatinine 0.92 (0.66-1.25) mg/dL Est GFR (CKD-EPI)AfAm >90 (>60 ml/min/1.73 sqM) Est GFR (CKD-EPI)NonAf 82 (>60 ml/min/1.73 sqM) Glucose 105 H (74-99) mg/dL Plasma Lactic Acid Arturo (0.7-2.0) mmol/L Calcium 8.6 (8.4-10.2) mg/dL Phosphorus 3.0 (2.5-4.5) mg/dL Magnesium 1.8 (1.6-2.3) mg/dL Total Bilirubin 0.4 (0.2-1.3) mg/dL AST 36 (17-59) U/L ALT 41 (4-49) U/L Alkaline Phosphatase 94 (38-126) U/L Creatine Kinase <20 L (55-170) U/L CK-MB (CK-2) (0.0-2.4) ng/mL Troponin I (0.000-0.034) ng/mL NT-Pro-B Natriuret Pep pg/mL Total Protein 6.2 L (6.3-8.2) g/dL Albumin 3.0 L (3.5-5.0) g/dL TSH 1.060 (0.465-4.680) mIU/L Urine Color Yellow Urine Appearance Clear (Clear) Urine pH 5.5 (5.0-8.0) Ur Specific [place] 1.019 (1.001-1.035) Urine Protein Trace H (Negative) Urine Glucose (UA) Negative (Negative) Urine Ketones Negative (Negative) Urine Blood Negative (Negative) Urine Nitrite Negative (Negative) Urine Bilirubin 1+ H (Negative) Urine Urobilinogen 3.0 (<2.0) mg/dL Ur Leukocyte Esterase Negative (Negative) Coronavirus (PCR) (Not Detected) Influenza Type A RNA (Not Detectd) Influenza Type B (PCR) (Not Detectd) 01/29/20 01/29/20 01/29/20 Range/Units 21:50 21:50 21:50 WBC (3.8-10.6) k/uL RBC (4.30-5.90) m/uL Hgb (13.0-17.5) gm/dL Hct (39.0-53.0) % MCV (80.0-100.0) fL MCH (25.0-35.0) pg MCHC (31.0-37.0) g/dL RDW (11.5-15.5) % Plt Count (150-450) k/uL Neutrophils % % Lymphocytes % % Monocytes % % Eosinophils % % Basophils % % Neutrophils # (1.3-7.7) k/uL Lymphocytes # (1.0-4.8) k/uL Monocytes # (0-1.0) k/uL Eosinophils # (0-0.7) k/uL Basophils # (0-0.2) k/uL PT (9.0-12.0) sec INR (<1.2) APTT (22.0-30.0) sec Sodium (137-145) mmol/L Potassium (3.5-5.1) mmol/L Chloride (98-107) mmol/L Carbon Dioxide (22-30) mmol/L Anion Gap mmol/L BUN (9-20) mg/dL Creatinine (0.66-1.25) mg/dL Est GFR (CKD-EPI)AfAm (>60 ml/min/1.73 sqM) Est GFR (CKD-EPI)NonAf (>60 ml/min/1.73 sqM) Glucose (74-99) mg/dL Plasma Lactic Acid Arturo 2.8 H* (0.7-2.0) mmol/L Calcium (8.4-10.2) mg/dL Phosphorus (2.5-4.5) mg/dL Magnesium (1.6-2.3) mg/dL Total Bilirubin (0.2-1.3) mg/dL AST (17-59) U/L ALT (4-49) U/L Alkaline Phosphatase (38-126) U/L Creatine Kinase (55-170) U/L CK-MB (CK-2) <0.2 (0.0-2.4) ng/mL Troponin I 0.023 (0.000-0.034) ng/mL NT-Pro-B Natriuret Pep 970 pg/mL Total Protein (6.3-8.2) g/dL Albumin (3.5-5.0) g/dL TSH (0.465-4.680) mIU/L Urine Color Urine Appearance (Clear) Urine pH (5.0-8.0) Ur Specific [place] (1.001-1.035) Urine Protein (Negative) Urine Glucose (UA) (Negative) Urine Ketones (Negative) Urine Blood (Negative) Urine Nitrite (Negative) Urine Bilirubin (Negative) Urine Urobilinogen (<2.0) mg/dL Ur Leukocyte Esterase (Negative) Coronavirus (PCR) (Not Detected) Influenza Type A RNA (Not Detectd) Influenza Type B (PCR) (Not Detectd) - EKG Data -: EKG Interpreted by Me (EKG shows sinus tachycardia rate of 119 ND 142, QRS 90, QTc 420) Critical Care Time Critical Care Time: Yes Total Critical Care Time: 31 Disposition Clinical Impression: Postobstructive pneumonia, Hypoxia, Right lower lobe pneumonia, Lung cancer, Acute exacerbation of chronic obstructive pulmonary disease, Atrial fibrillation Disposition: ADMITTED IP TO THIS HOSP Condition: Serious
[2020-01-29] MEDS ORDERED: ACETAMINOPHEN TAB 500 MG TAB PO STA (21:31)
[2020-01-29] MEDS ORDERED: SODIUM CHLORIDE 0.9% 1,000 ML IV STA ×2 (21:31)
[2020-01-29 22:07] LABS: Basophils % (A) 0 %; Eosinophils # (A) 0.5 k/uL (0-0.7); Eosinophils % (A) 3 %; HCT 38.1 % (39.0-53.0); HGB 12.3 gm/dL (13.0-17.5); Lymphocytes # (A) 0.5 k/uL (1.0-4.8); Lymphocytes % (A) 3 %; MCH 30.2 pg (25.0-35.0); MCHC 32.2 g/dL (31.0-37.0); MCV 93.8 fL (80.0-100.0); Mean Platelet Volume 7.4; Monocytes # (A) 0.6 k/uL (0-1.0); Monocytes % (A) 3 %; Neutrophils # (A) 17.5 k/uL (1.3-7.7); Neutrophils % (A) 91 %; Platelet Count 294 k/uL (150-450); RBC 4.07 m/uL (4.30-5.90); RDW 14.4 % (11.5-15.5); WBC 19.2 k/uL (3.8-10.6)
[2020-01-29 22:11] LABS: Appearance,Urine Clear (Clear); Bilirubin,Urine 1+ (Negative); Blood,Urine Negative (Negative); Color,Urine Yellow; Glucose,Urine (UA) Negative (Negative); Ketones,Urine Negative (Negative); Leukocyte Esterase,Urine Negative (Negative); Nitrite,Urine Negative (Negative); PH, Urine 5.5 (5.0-8.0); Protein,Urine Trace (Negative); Specific Gravity,Urine 1.019 (1.001-1.035)
[2020-01-29 22:16] LABS: Partial Thromboplastin Time 23.6 sec (22.0-30.0); Prothrombin Time 10.7 sec (9.0-12.0)
--- NOTE | 2020-01-29 22:26 | XR ---
EXAMINATION TYPE: XR chest 1V portable DATE OF EXAM: 01/29/2020 COMPARISON: 01/14/2020 HISTORY: Difficulty breathing TECHNIQUE: Single view FINDINGS: There is opacification of 50% right hemithorax related to large pleural effusion. There is pulmonary vascular congestion. Heart appears enlarged. There are chest leads. IMPRESSION: Chronic congestive heart failure with increasing right pleural effusion compared to last exam.
[2020-01-29 22:27] LABS: ALT 41 U/L (4-49); AST 36 U/L (17-59); African American GFR (CKD) >90 (>60 ml/min/1.73 sqM); Alkaline Phosphatase 94 U/L (38-126); Anion Gap 7 mmol/L; Blood Urea Nitrogen 21 mg/dL (9-20); Calcium 8.6 mg/dL (8.4-10.2); Carbon Dioxide 25 mmol/L (22-30); Chloride 99 mmol/L (98-107); Creatine Kinase <20 U/L (55-170); Glucose 105 mg/dL (74-99); Magnesium 1.8 mg/dL (1.6-2.3); Non-African American GFR(CKD) 82 (>60 ml/min/1.73 sqM); Potassium 4.9 mmol/L (3.5-5.1); Sodium 131 mmol/L (137-145); Total Bilirubin 0.4 mg/dL (0.2-1.3); Total Protein 6.2 g/dL (6.3-8.2)
[2020-01-29] MEDS ORDERED: PNEUMONIA PROTOCOL UTILIZED 1 EACH MISC PO PRN (22:27)
[2020-01-29] MEDS ORDERED: AZITHROMYCIN 500 MG in SODIUM CHLORIDE 0.9% 250 ML IVPB STA (22:27)
[2020-01-29 22:43] LABS: Creatine Kinase MB <0.2 ng/mL (0.0-2.4); Troponin I 0.023 ng/mL (0.000-0.034)
[2020-01-30] MEDS: FUROSEMIDE 10 MG/ML 4 ML VIAL IV SCH ×3 (00:40→20:16)
[2020-01-30] MEDS ORDERED: AZITHROMYCIN 500 MG in SODIUM CHLORIDE 0.9% 250 ML IVPB ONE ×2 (00:45→01:00)
[2020-01-30] MEDS ORDERED: ACETAMINOPHEN TAB 325 MG TAB PO PRN (01:47)
[2020-01-30] MEDS ORDERED: DILTIAZEM DRIP BOLUS FROM BAG 1 MG SOLN IV ONE (04:17)
[2020-01-30] MEDS: DILTIAZEM 125 MG in SODIUM CHLORIDE 0.9% 100 ML IV SCH ×2 (04:34→18:22)
--- NOTE | 2020-01-30 07:21 | XR ---
EXAMINATION TYPE: XR chest 1V portable DATE OF EXAM: 01/30/2020 HISTORY: Pneumonia . REFERENCE: Previous study dated 01/29/2020. FINDINGS: There is a large right pleural effusion, unchanged from previous. Heart size is obscured. T here is vascular congestion and mild edema. IMPRESSION: 1. CONTINUING CHANGES OF MILD HEART FAILURE. 2. LARGE RIGHT SIDED OPACITY LIKELY A COMBINATION OF PLEURAL FLUID AND CONSOLIDATION.
[2020-01-30] MEDS: SYMBICORT 160-4.5 MCG INHALER INHALATION SCH ×2 (07:43→20:24)
[2020-01-30] MEDS: TIOTROPIUM 18 MCG/PUFF INHALER INHALATION SCH (07:43)
[2020-01-30] MEDS ORDERED: IPRATROPIUM BROMIDE 0.06% NASAL SPRAY (15 ML) INTRANASAL SCH (08:00)
[2020-01-30] MEDS ORDERED: ALBUTEROL HFA INHALER INHALATION SCH (08:00)
[2020-01-30] MEDS: HYDROcodone/APAP 5-325MG 1 EACH TAB PO PRN ×3 (08:30→23:19)
[2020-01-30] MEDS: METOPROLOL TARTRATE 50 MG TAB PO SCH ×2 (08:31→20:22)
[2020-01-30] MEDS ORDERED: ASPIRIN 81 MG PO SCH (09:00)
[2020-01-30] MEDS ORDERED: NIACIN 100 MG PO SCH (09:00)
[2020-01-30] MEDS ORDERED: PIPERACILLIN-TAZOBACTAM 3.375 GM in SODIUM CHLORIDE 0.9% 100 ML IVPB SCH (10:30)
[2020-01-30] MEDS ORDERED: ALBUTEROL HFA INHALER INHALATION PRN (10:39)
[2020-01-30] MEDS: ALBUTEROL HFA INHALER INHALATION SCH ×4 (11:22→23:45)
[2020-01-30] MEDS: FAMOTIDINE 20 MG/2 ML VIAL IV SCH ×2 (11:27→20:22)
[2020-01-30] MEDS: MORPHINE SULFATE IR 15 MG TABLET PO PRN ×2 (11:27→19:45)
--- NOTE | 2020-01-30 12:22 | P.CRDCN ---
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 He denies prior history of coronary artery disease and does not regularly follow in the office with a contact worker. We have been asked to see in consultation for heart failure. He is seen and examined sitting up in bed in no acute distress. He states he has been experiencing hot symptoms at home associated with altered mental status, feeling generally weak and increased shortness of breath. Per the patient he underwent chemotherapy yesterday. He is quite uncomfortable due to chronic back pain at the time of my evaluation. He states his shortness of breath has been ongoing and persistent for the previous couple of months. He noticed a cough recently and felt like he was running a fever. On arrival to the emergency department blood pressure was 151/89 heart rate 121 temperature of 102.7F and requiring oxygen via nonrebreather. Through the night around 4 AM he went into atrial fibrillation with rapid ventricular rates around 145. He has been initiated on a Cardizem infusion and is just now converted to sinus mechanism. He denies chest pain or palpitations. Initial EKG on arrival reveals sinus tachycardia with a heart rate of 119. Chest x-ray last night in the emergency department revealed c hronic congestive heart failure with increasing right pleural effusion. Repeat this morning revealed ongoing changes of mild heart failure with a large right- sided opacity. Laboratory data reviewed, WBC 19.2, hemoglobin 12.3, platelets 294, sodium 131, potassium 4.9, creatinine 0.92, lactic acid on admission 2.8 with a repeat of 1.7, magnesium 1.8, troponin 0.023 and 0.027, NT proBNP 970 and TSH 1.06. Coated 19 testing pending. Chronic daily cardiac medications include Lopressor 50 mg twice a day and aspirin 81 mg daily. He underwent when a right pleural effusion thoracentesis in November with removal of 650 mL of fluid and also underwent a bronchoscopy with bronchial washing at that time. REVIEW OF SYSTEMS At the time of my exam: CONSTITUTIONAL: Denies fever or chills. CARDIOVASCULAR: Complains of shortness of breath. Denies chest pain, orthopnea, PND or palpitations. RESPIRATORY: Denies cough. GASTROINTESTINAL: Denies abdominal pain, diarrhea, constipation, nausea or vomiting. MUSCULOSKELETAL: Denies myalgias. NEUROLOGIC: Denies numbness, tingling or weakness. ENDOCRINE: Denies fatigue, weight change, polydipsia or polyurina. GENITOURINARY: Denies burning, hematuria or urgency with micturation. HEMATOLOGIC: Denies history of anemia or bleeding. PHYSICAL EXAMINATION Blood pressure 119/57 heart rate 98 afebrile and maintaining oxygen saturation on nasal cannula. CONSTITUTIONAL: No apparent distress. HEENT: Head is normocephalic. Pupils are equal, round. Sclerae anicteric. Mucous membranes of the mouth are moist. No JVD. No carotid bruit. CHEST EXAMINATION: Lungs are clear to auscultation. No chest wall tenderness is noted on palpation or with deep breathing. HEART EXAMINATION: Irregular rate and rhythm. S1, S2 heard. Systolic ejection murmur at he left sternal border, no gallops or rub. ABDOMEN: Soft, nontender. Positive bowel sounds. EXTREMITIES: 2+ peripheral pulses, no lower extremity edema and no calf tenderness. NEUROLOGIC EXAMINATION: Patient is awake, alert and oriented x3. ASSESSMENT Paroxysmal atrial fibrillation, new onset. Spontaneously converted to sinus mechanism. Pleural effusion Febrile illness associated with shortness of breath and cough, COVID19 testing pending Lactic acidosis Leukocytosis Squamous cell non-small cell carcinoma Hypertension PLAN Repeat EKG to document sinus mechanism. If truly in sinus discontinue cardizem infusion. Obtain 2-D echocardiogram and Doppler study to assess cardiac structure and function. Initiate eliquis 5 mg BID for thromboembolic protection. Discontinue aspirin. Further recommendations to follow based on clinical course. Thank you kindly for this consultation. Nurse Practitioner note has been reviewed, I agree with a documented findings and plan of care. Patient was seen and examined. Past Medical History Past Medical History: Cancer, Hyperlipidemia, Osteoarthritis (OA) Additional Past Medical History / Comment(s): hernia, bursitis in hips and knees. Lung ca stage 4, chemo and radiation History of Any Multi-Drug Resistant Organisms: None Reported Past Surgical History: Hernia Repair Additional Past Surgical History / Comment(s): back surgery 2008 replaced L5 disc, Past Anesthesia/Blood Transfusion Reactions: No Reported Reaction Past Psychological History: No Psychological Hx Reported Smoking Status: Former smoker Past Alcohol Use History: Occasional Past Drug Use History: None Reported - Past Family History Father Family Medical History: Cancer Additional Family Medical History / Comment(s): multiple myeloma, hypotension Mother Family Medical History: Cancer, Hypertension Additional Family Medical History / Comment(s): multiple myeloma Medications and Allergies Home Medications Medication Instructions Recorded Confirmed Type Albuterol Inhaler (Bulk) [Ventolin 2 puff INHALATION RT-Q6H PRN 12/09/1901/29 History Hfa Inhaler (Bulk)] Allerest Allergy Tablet 1 tab PO DAILY 12/09/19 01/15/20 History Aspirin EC [Ecotrin Low Dose] 81 mg PO DAILY 12/09/19 01/30/20 History Cyclobenzaprine [Flexeril] 10 mg PO BID PRN 12/09/19 01/15/20 History Naproxen Sodium [Aleve] 220 mg PO BID PRN 12/09/19 01/30/20 History Niacin 100 mg PO BID 12/09/19 01/30/20 History Budesonide [Pulmicort] 1 mg INHALATION RT-BID 30 Days #30 12/14/19 01/30/20 Rx ml Ipratropium-Albuterol Nebulize 3 ml INHALATION RT-QID 30 Days 12/14/19 01/30/20 Rx [Duoneb 0.5 mg-3 mg/3 ml Soln] #120 ml Metoprolol Tartrate [Lopressor] 50 mg PO BID 30 Days #60 tab 12/14/19 01/30/20 Rx HYDROcodone/APAP 5-325MG [[place] 1 tab PO Q6HR PRN 01/15/20 01/30/20 History 5-325] Levofloxacin [Levaquin] 500 mg PO Q24H #5 tab 01/16/20 01/30/20 Rx predniSONE 10 mg PO DAILY #30 tab 01/16/20 01/30/20 Rx Morphine Sulfate Ir [MSIR] 15 mg PO Q8HR PRN 01/30/20 01/30/20 History Allergies Allergy/AdvReac Type Severity Reaction Status Date / Time codeine AdvReac Unknown Verified 01/15/20 08:57 ibuprofen AdvReac Unknown Verified 01/15/20 08:57 mold AdvReac Unknown Verified 01/15/20 08:57 tetanus and diphtheria AdvReac Unknown Verified 01/15/20 08:57 toxoids Physical Exam Vitals: Vital Signs Temp Pulse Pulse Resp BP BP Pulse Ox 01/30/20 08:00 97.7 F 98 22 119/57 93 L 01/30/20 04:05 18 94 L 01/30/20 04:00 98.0 F 146 H 18 107/60 82 L 01/30/20 00:52 98.3 F 98 20 141/71 95 01/30/20 00:44 98 20 01/29/20 23:10 99.6 F 107 H 18 122/67 95 01/29/20 21:00 18 01/29/20 20:52 102.7 F H 121 H 21 151/89 98 Intake and Output 01/29/20 01/30/20 01/30/20 22:59 06:59 14:59 Intake Total 480 Output Total 975 Balance -975 480 Intake: Oral 480 Output: Urine 975 Other: Voiding Method Urinal # Voids 1 Weight 104.326 kg 102.5 kg Results 01/29/20 21:50 01/29/20 21:50 Cardiac Enzymes 01/29/20 01/29/20 01/30/20 Range/Units 21:50 21:50 04:39 AST 36 (17-59) U/L CK-MB (CK-2) <0.2 (0.0-2.4) ng/mL Troponin I 0.023 0.027 (0.000-0.034) ng/mL Coagulation 01/29/20 Range/Units 21:50 PT 10.7 (9.0-12.0) sec APTT 23.6 (22.0-30.0) sec CBC 01/29/20 Range/Units 21:50 WBC 19.2 H (3.8-10.6) k/uL RBC 4.07 L (4.30-5.90) m/uL Hgb 12.3 L (13.0-17.5) gm/dL Hct 38.1 L (39.0-53.0) % Plt Count 294 (150-450) k/uL Comprehensive Metabolic Panel 01/29/20 Range/Units 21:50 Sodium 131 L (137-145) mmol/L Potassium 4.9 (3.5-5.1) mmol/L Chloride 99 (98-107) mmol/L Carbon Dioxide 25 (22-30) mmol/L BUN 21 H (9-20) mg/dL Creatinine 0.92 (0.66-1.25) mg/dL Glucose 105 H (74-99) mg/dL Calcium 8.6 (8.4-10.2) mg/dL AST 36 (17-59) U/L ALT 41 (4-49) U/L Alkaline Phosphatase 94 (38-126) U/L Total Protein 6.2 L (6.3-8.2) g/dL Albumin 3.0 L (3.5-5.0) g/dL Current Medications Generic Name Dose Route Start Last Admin Trade Name Freq PRN Reason Stop Dose Admin Acetaminophen 650 mg 01/30/20 01:47 Tylenol Tab PO Q6HR PRN Fever and/ or Pain Hydrocodone Bitart/Acetaminophen 1 each 01/30/20 01:44 01/30/20 08:30 [place] 5-325 PO 1 each Q6HR PRN Administration Pain Albuterol Sulfate 3 puff 01/30/20 08:00 01/30/20 07:43 Ventolin Hfa Inhaler INHALATION 3 puff RT-QID SANDRINE Administration Aspirin 81 mg 01/30/20 09:00 01/30/20 08:30 Aspirin PO 81 mg DAILY SANDRINE Administration Azithromycin 500 mg 01/30/20 21:00 Zithromax PO DAILY@2100 SANDRINE Budesonide/Formoterol Fumarate 2 puff 01/30/20 08:00 01/30/20 07:43 Symbicort 160-4.5 Mcg Inhaler INHALATION 2 puff RT-BID SANDRINE Administration Furosemide 40 mg 01/29/20 22:30 01/30/20 00:40 Lasix IV 40 mg Q12H SANDRINE Administration Ceftriaxone Sodium 1 gm/ 50 mls @ 100 mls/hr 01/30/20 22:29 Sodium Chloride IVPB Q24H SANDRINE Diltiazem HCl 125 mg/ Sodium 125 mls @ 7.5 mls/hr 01/30/20 04:30 01/30/20 04:34 Chloride IV 7.5 mg/hr .[id number] SANDRINE 7.5 mls/hr Administration 7.5 MG/HR Metoprolol Tartrate 50 mg 01/30/20 09:00 01/30/20 08:31 Lopressor PO 50 mg BID SANDRINE Administration Miscellaneous Information 1 each 01/29/20 22:27 Pneumonia Protocol Utilized PO ONCE PRN Per Protocol Tiotropium [place] 1 puff 01/30/20 08:00 01/30/20 07:43 Spiriva INHALATION 1 puff RT-DAILY SANDRINE Administration Intake and Output 01/29/20 01/30/20 01/30/20 22:59 06:59 14:59 Intake Total 480 Output Total 975 Balance -975 480 Intake: Oral 480 Output: Urine 975 Other: Voiding Method Urinal # Voids 1 Weight 104.326 kg 102.5 kg 01/29/20 21:50 01/29/20 21:50
--- NOTE | 2020-01-30 13:34 | ECHOF ---
Referral Reason:new onset afib MEASUREMENTS -------- HEIGHT: 193.0 cm WEIGHT: 102.1 kg BP: 119/57 RVIDd: 3.0 cm (< 3.3) IVSd: 1.5 cm (0.6 - 1.1) LVIDd: 3.7 cm (3.9 - 5.3) LVPWd: 1.5 cm (0.6 - 1.1) IVSs: 2.0 cm LVIDs: 2.5 cm LVPWs: 1.9 cm LA Diam: 3.5 cm (2.7 - 3.8) Ao Diam: 3.2 cm (2.0 - 3.7) AV Cusp: 1.7 cm (1.5 - 2.6) MV EXCURSION: 14.924 mm (> 18.000) MV EF SLOPE: 83 mm/s (70 - 150) EPSS: 0.8 cm AR PHT: 1120 ms RAP: 5.00 mmHg RVSP: 26.93 mmHg FINDINGS -------- Atrial fibrillation. This was a technically adequate study. The left ventricular size is normal. There is moderate concentric left ventricular hypertrophy. O verall left ventricular systolic function is mildly impaired with, an EF between 45 - 50 %. The right ventricle is normal in size. Normal LA size by volume 22+/-6 ml/m2. The right atrium is normal in size. Interatrial and interventricular septum intact. Aortic valve is trileaflet and is mildly thickened. Trace to mild aortic regurgitation. The mitral valve leaflets are mildly thickened. Mild mitral annular calcification present. There is trace to mild mitral regurgitation. Mild tricuspid regurgitation present. Right ventricular systolic pressure is normal at < 35 mmHg. Trace/mild (physiologic) pulmonic regurgitation. The aortic root size is normal. Normal inferior vena cava with normal inspiratory collapse consistent with estimated right atrial pre ssure of 5 mmHg. There is a small pericardial effusion is located near the right ventricle. CONCLUSIONS -------- 1. Atrial fibrillation. 2. This was a technically adequate study. 3. The left ventricular size is normal. 4. There is moderate concentric left ventricular hypertrophy. 5. Overall left ventricular systolic function is mildly impaired with, an EF between 45 - 50 %. 6. The right ventricle is normal in size. 7. Normal LA size by volume 22+/-6 ml/m2. 8. The right atrium is normal in size. 9. Interatrial and interventricular septum intact. 10. Aortic valve is trileaflet and is mildly thickened. 11. Trace to mild aortic regurgitation. 12. The mitral valve leaflets are mildly thickened. 13. Mild mitral annular calcification present. 14. There is trace to mild mitral regurgitation. 15. Mild tricuspid regurgitation present. 16. Right ventricular systolic pressure is normal at < 35 mmHg. 17. Trace/mild (physiologic) pulmonic regurgitation. 18. The aortic root size is normal. 19. Normal inferior vena cava with normal inspiratory collapse consistent with estimated right atrial pressure of 5 mmHg. 20. There is a small pericardial effusion is located near the right ventricle. RENTAL CAR DELIVERER: Jessy Buckner RDCS
--- NOTE | 2020-01-30 14:24 | P.HPIM ---
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 History of saturating 92% on 6 L oxygen, no home oxygen at home, he has decreased appetite Heart rate went up to 146 after sucking Cardizem drip this morning's 98, blood pressure 119/57. Fever on admission 1 or 2.7, his saturating 94% on 6 L oxygen via nasal cannula. He has chronic leukocytosis and currently is 19.2 which is slightly more than his baseline of 15-18, sodium 131, creatinine 0.9, lactic acid 2.8 and 1.7, liver enzymes not elevated, troponin is negative, TSH 1.0 Chest x-ray showing right lower lobe pleural effusion and consolidation. EKG: S inus tachycardia at 119 with PVCs, QTC is 427 Currently patient is on Zosyn, and Lasix 40 mg twice daily M APS was checked on 01/29 and he was on morphine IR unremarkable Review of Systems CONSTITUTIONAL: No fever, no malaise, no fatigue. HEENT: No recent visual problems or hearing problems. Denied any sore throat. CARDIOVASCULAR: No orthopnea, PND, no palpitations, no syncope. PULMONARY: no hemoptysis. GASTROINTESTINAL: No diarrhea, no nausea, no vomiting, no abdominal pain. Normoactive bowel sounds. NEUROLOGICAL: No headaches, no weakness, no numbness. HEMATOLOGICAL: Denies any bleeding or petechiae. GENITOURINARY: Denies any burning micturition, frequency, or urgency. MUSCULOSKELETAL/RHEUMATOLOGICAL: Denies any joint pain, swelling, or any muscle pain. ENDOCRINE: Denies any polyuria or polydipsia. Past Medical History Past Medical History: Cancer, Hyperlipidemia, Osteoarthritis (OA) Additional Past Medical History / Comment(s): hernia, bursitis in hips and knees. Lung ca stage 4, chemo and radiation History of Any Multi-Drug Resistant Organisms: None Reported Past Surgical History: Hernia Repair Additional Past Surgical History / Comment(s): back surgery 2008 replaced L5 disc, Past Anesthesia/Blood Transfusion Reactions: No Reported Reaction Past Psychological History: No Psychological Hx Reported Smoking Status: Former smoker Past Alcohol Use History: Occasional Past Drug Use History: None Reported - Past Family History Father Family Medical History: Cancer Additional Family Medical History / Comment(s): multiple myeloma, hypotension Mother Family Medical History: Cancer, Hypertension Additional Family Medical History / Comment(s): multiple myeloma Medications and Allergies Home Medications Medication Instructions Recorded Confirmed Type Albuterol Inhaler (Bulk) [Ventolin 2 puff INHALATION RT-Q6H PRN 12/09/19 01/30/20 History Hfa Inhaler (Bulk)] Allerest Allergy Tablet 1 tab PO DAILY 12/09/19 01/30/20 History Aspirin EC [Ecotrin Low Dose] 81 mg PO DAILY 12/09/19 01/30/20 History Cyclobenzaprine [Flexeril] 10 mg PO BID PRN 12/09/19 01/30/20 History Naproxen Sodium [Aleve] 220 mg PO BID PRN 12/09/19 01/30/20 History Niacin 100 mg PO BID 12/09/19 01/30/20 History Budesonide [Pulmicort] 1 mg INHALATION RT-BID 30 Days #30 12/14/19 01/30/20 Rx ml Ipratropium-Albuterol Nebulize 3 ml INHALATION RT-QID 30 Days 12/14/19 01/30/20 Rx [Duoneb 0.5 mg-3 mg/3 ml Soln] #120 ml Metoprolol Tartrate [Lopressor] 50 mg PO BID 30 Days #60 tab 12/14/19 01/30/20 Rx HYDROcodone/APAP 5-325MG [[place] 1 tab PO Q6HR PRN 01/15/20 01/30/20 History 5-325] Morphine Sulfate Ir [MSIR] 15 mg PO Q8HR PRN 01/30/20 01/30/20 History Allergies Allergy/AdvReac Type Severity Reaction Status Date / Time codeine AdvReac Unknown Verified 01/15/20 08:57 ibuprofen AdvReac Unknown Verified 01/15/20 08:57 mold AdvReac Unknown Verified 01/15/20 08:57 tetanus and diphtheria AdvReac Unknown Verified 01/15/20 08:57 toxoids Physical Exam Vitals: Vital Signs Temp Pulse Pulse Resp BP BP Pulse Ox 01/30/20 08:00 97.7 F 98 22 119/57 93 L 01/30/20 04:05 18 94 L 01/30/20 04:00 98.0 F 146 H 18 107/60 82 L 01/30/20 00:52 98.3 F 98 20 141/71 95 01/30/20 00:44 98 20 01/29/20 23:10 99.6 F 107 H 18 122/67 95 01/29/20 21:00 18 01/29/20 20:52 102.7 F H 121 H 21 151/89 98 Intake and Output 01/29/20 01/30/20 01/30/20 22:59 06:59 14:59 Intake Total 480 Output Total 975 Balance -975 480 Intake: Oral 480 Output: Urine 975 Other: Voiding Method Urinal # Voids 1 Weight 104.326 kg 102.5 kg GENERAL: The patient is alert and oriented x3, not in any acute distress. Well developed, well nourished. HEENT: Pupils are round and equally reacting to light. EOMI. No scleral icterus. No conjunctival pallor. Normocephalic, atraumatic. No pharyngeal erythema. No thyromegaly. CARDIOVASCULAR: S1 and S2 present. No murmurs, rubs, or gallops. -PULMONARY: Chest is clear to auscultation, no wheezing or crackles. Decreased breath sounds on the right lung base ABDOMEN: Soft, nontender, nondistended, normoactive bowel sounds. No palpable organomegaly. MUSCULOSKELETAL: No joint swelling or deformity. EXTREMITIES: No cyanosis, clubbing, or pedal edema. NEUROLOGICAL: Gross neurological examination did not reveal any focal deficits. SKIN: No rashes. No petechiae Results CBC & Chem 7: 01/29/20 21:50 01/29/20 21:50 Labs: Abnormal Lab Results - Last 24 Hours (Table) 01/29/20 01/29/20 01/29/20 Range/Units 21:50 21:50 21:50 WBC 19.2 H (3.8-10.6) k/uL RBC 4.07 L (4.30-5.90) m/uL Hgb 12.3 L (13.0-17.5) gm/dL Hct 38.1 L (39.0-53.0) % Neutrophils # 17.5 H (1.3-7.7) k/uL Lymphocytes # 0.5 L (1.0-4.8) k/uL Sodium 131 L (137-145) mmol/L BUN 21 H (9-20) mg/dL Glucose 105 H (74-99) mg/dL Plasma Lactic Acid Arturo (0.7-2.0) mmol/L Creatine Kinase <20 L (55-170) U/L Total Protein 6.2 L (6.3-8.2) g/dL Albumin 3.0 L (3.5-5.0) g/dL Urine Protein Trace H (Negative) Urine Bilirubin 1+ H (Negative) 01/29/20 Range/Units 21:50 WBC (3.8-10.6) k/uL RBC (4.30-5.90) m/uL Hgb (13.0-17.5) gm/dL Hct (39.0-53.0) % Neutrophils # (1.3-7.7) k/uL Lymphocytes # (1.0-4.8) k/uL Sodium (137-145) mmol/L BUN (9-20) mg/dL Glucose (74-99) mg/dL Plasma Lactic Acid [place] 2.8 H* (0.7-2.0) mmol/L Creatine Kinase (55-170) U/L Total Protein (6.3-8.2) g/dL Albumin (3.5-5.0) g/dL Urine Protein (Negative) Urine Bilirubin (Negative) Thrombosis Risk Factor Assmnt - Choose All That Apply Each Factor Represents 1 point: Swollen legs (current) Other Risk Factors: Yes Each Risk Factor Represents 2 Points: Age 61-74 years Other congenital or acquired thrombophilia - If yes, enter type in comment: No Thrombosis Risk Factor Assessment Total Risk Factor Score: 3 Thrombosis Risk Factor Assessment Level: Moderate Risk Assessment and Plan Assessment: Right lower lobe pneumonia ,Healthcare associated versus postobstructive with possible right-sided pleural effusion Acute hypoxic respiratory failure 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 fib with RVR, new onset Possible Acute COPD exacerbation Elevated lactic acid, came back to normal Hyponatremia Hyperlipidemia Plan: This is a pleasant 74 years old male who presents with lung cancer are pneumonia and A. fib. Continue with antibiotics, continue with aspirin. Continue with Cardizem medication for his atrial fibrillation. Several consults on the case including. Tested for Covid 19 disease is been requested and result is pending. Xanax for anxiety Labs and medication were reviewed.. Continue same treatment. Continue with symptomatic treatment. Resume home medication. Monitor lytes and vitals. DVT and GI prophylaxis. Further recommendations of the clinical course of the patient DVT prophylaxis: Subcutaneous heparin GI Prophylaxis: Pepcid PT/OT: Pending Prognosis is guarded
[2020-01-30] MEDS ORDERED: ALPRAZolam 0.25 MG TAB PO PRN (14:30)
--- NOTE | 2020-01-30 14:36 | P.CNPUL ---
History of Present Illness Consult date: 01/30/20 Reason for consult: dyspnea, pneumonia History of present illness: 74-year-old male patient with known history of metastatic small cell carcinoma of the lung was recently started on systemic chemotherapy. He was started on systemic chemotherapy 2 days ago and the patient came in yesterday to the emergency department because of feeling short of breath and he also felt that he was hallucinating and feeling quite weak. He felt anxious also. He did feel feverish yet there was no documented temperature at home. ED confirmed that the patient had a temperature of 102.7. For that reason, he was admitted to the hospital for further workup. Note that he was having chronic shortness of breath and the patient has limited exercise capacity. He was having also increased cough. Upon arrival to the ED, his heart rate was also at 121. He was placed on nonrebreather facemask and later on he was weaned down to 40 to about 2 by nasal cannula. He was found to be in atrial fibrillation which is of a new onset and his heart rate went up to 145. He was started on Cardizem infusion and later on this morning the patient converted back to normal sinus rhythm. Echo is to follow Chest x-ray shows volume loss in the right lower lobe and a right-sided pleural effusion The white cell count was at 19.2 The troponin is at 0.023 and 0.027 ProBNP level is at 970 Covid19 nasal swab has been done and there still pending Previous CAT scan of the chest that was done on 01/15/2020 shows mass in the right infrahilar region consistent with neoplasm in addition to basilar obstructive atelectasis/consolidation and a right-sided pleural effusion. There was also a moderately enlarged subcarinal lymph node measuring 4 x 4.2 cm and multi level splitting of the spine PET scan from 12/19/2019 showed large mass and mediastinal and hilar lymphadenopathy with increased metabolic uptake and there was also abnormal uptake in the soft tissues, the pancreas, the bones involving multiple ribs bilaterally and focus of uptake also was present the L3 vertebral body. 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 Nuclear bone scan on 12/10/2019 showed metastatic lesion at the level of T10 and focal abnormal uptake in the right posterior eighth rib MRI of the brain done on 01/06/2020 showed no evidence of any intracranial met astases. MRI of the lumbar spine showed 1.1 cm metastatic focus involving the posterior inferior L3 body of the vertebral. Review of Systems CONSTITUTIONAL: Denies any recent significant weight loss or weight gain. The patient reports diminished appetite EYES: Denies change in vision. EARS, NOSE, MOUTH, THROAT: Denies headaches, denies sore throat. CARDIOVASCULAR: Denies chest pain, palpitations or syncopal episodes. There is a new onset atrial fibrillation as mentioned in my HPI RESPIRATORY: Positive for shortness of breath, the patient is also having episodic hemoptysis GASTROINTESTINAL: Denies change in appetite, denies abdominal pain GENITOURINARY: Denies hematuria, denies infections. MUSKULOSKELETAL: Positive for joint and muscle pain INTEGUMENTARY: Denies rash, denies eczema. NEUROLOGICAL: Denies recent memory loss, no recent seizure activity. PSYCHIATRIC: Denies anxiety, denies depression. HEMATOLOGIC/LYMPHATIC: Denies anemia, denies enlarged lymph nodes. Past Medical History Past Medical History: Cancer (Stage IV squamous cell carcinoma of the lung), Hyperlipidemia, Osteoarthritis (OA) Additional Past Medical History / Comment(s): hernia, bursitis in hips and knees. Lung ca stage 4, chemo and radiation History of Any Multi-Drug Resistant Organisms: None Reported Past Surgical History: Hernia Repair Additional Past Surgical History / Comment(s): back surgery 2008 replaced L5 disc, Past Anesthesia/Blood Transfusion Reactions: No Reported Reaction Past Psychological History: No Psychological Hx Reported Smoking Status: Former smoker Past Alcohol Use History: Occasional Past Drug Use History: None Reported - Past Family History Father Family Medical History: Cancer Additional Family Medical History / Comment(s): multiple myeloma, hypotension Mother Family Medical History: Cancer, Hypertension Additional Family Medical History / Comment(s): multiple myeloma Medications and Allergies Home Medications Medication Instructions Recorded Confirmed Type Albuterol Inhaler (Bulk) [Ventolin 2 puff INHALATION RT-Q6H PRN 12/09/19 01/30/20 History Hfa Inhaler (Bulk)] Allerest Allergy Tablet 1 tab PO DAILY 12/09/19 01/30/20 History Aspirin EC [Ecotrin Low Dose] 81 mg PO DAILY 12/09/19 01/30/20 History Cyclobenzaprine [Flexeril] 10 mg PO BID PRN 12/09/19 01/30/20 History Naproxen Sodium [Aleve] 220 mg PO BID PRN 12/09/19 01/30/20 History Niacin 100 mg PO BID 12/09/19 01/30/20 History Budesonide [Pulmicort] 1 mg INHALATION RT-BID 30 Days #30 12/14/19 01/30/20 Rx ml Ipratropium-Albuterol Nebulize 3 ml INHALATION RT-QID 30 Days 12/14/19 01/30/20 Rx [Duoneb 0.5 mg-3 mg/3 ml Soln] #120 ml Metoprolol Tartrate [Lopressor] 50 mg PO BID 30 Days #60 tab 12/14/19 01/30/20 Rx HYDROcodone/APAP 5-325MG [[place] 1 tab PO Q6HR PRN 01/15/20 01/30/20 History 5-325] Morphine Sulfate Ir [MSIR] 15 mg PO Q8HR PRN 01/30/20 01/30/20 History Allergies Allergy/AdvReac Type Severity Reaction Status Date / Time codeine AdvReac Unknown Verified 01/15/20 08:57 ibuprofen AdvReac Unknown Verified 01/15/20 08:57 mold AdvReac Unknown Verified 01/15/20 08:57 tetanus and diphtheria AdvReac Unknown Verified 01/15/20 08:57 toxoids Physical Exam Vitals: Vital Signs Temp Pulse Pulse Resp BP BP Pulse Ox 01/30/20 11:34 97.7 F 136 H 24 112/51 92 L 01/30/20 08:00 97.7 F 98 22 119/57 93 L 01/30/20 04:05 18 94 L 01/30/20 04:00 98.0 F 146 H 18 107/60 82 L 01/30/20 00:52 98.3 F 98 20 141/71 95 01/30/20 00:44 98 20 01/29/20 23:10 99.6 F 107 H 18 122/67 95 01/29/20 21:00 18 01/29/20 20:52 102.7 F H 121 H 21 151/89 98 Intake and Output 01/29/20 01/30/20 01/30/20 22:59 06:59 14:59 Intake Total 720 Output Total 975 Balance -975 720 Intake: Oral 720 Output: Urine 975 Other: Voiding Method Urinal # Voids 1 Weight 104.326 kg 102.5 kg 102.5 kg GENERAL EXAM: Alert, active, pleasant 74-year-old gentleman, on 4 L nasal cannula, comfortable in no apparent distress. HEAD: Normocephalic. EYES: Normal reaction of pupils, equal size. NOSE: Clear with pink turbinates. THROAT: No erythema or exudates. NECK: No masses, no JVD. CHEST: No chest wall deformity. LUNGS: There is diminished breath on the right lung base along with some dullness to percussion. Few scattered rhonchi heard bilaterally. CVS: S1 and S2 normal with no audible murmur, regular rhythm. ABDOMEN: No hepatosplenomegaly, normal bowel sounds, no guarding or rigidity. SPINE: No scoliosis or deformity SKIN: No rashes CENTRAL NERVOUS SYSTEM: No focal deficits, tone is normal in all 4 extremities. EXTREMITIES: There is no peripheral edema. No clubbing, no cyanosis. Peripheral pulses are intact. Results - Laboratory Findings CBC and BMP: 01/29/20 21:50 01/29/20 21:50 PT/INR, D-dimer PT 10.7 sec (9.0-12.0) 01/29/20 21:50 INR 1.0 (<1.2) 01/29/20 21:50 Abnormal lab findings: Abnormal Labs 01/29/20 01/29/20 01/29/20 21:50 21:50 21:50 WBC 19.2 H RBC 4.07 L Hgb 12.3 L Hct 38.1 L Neutrophils # 17.5 H Lymphocytes # 0.5 L Sodium 131 L BUN 21 H Glucose 105 H Plasma Lactic Acid Arturo Creatine Kinase <20 L Total Protein 6.2 L Albumin 3.0 L Urine Protein Trace H Urine Bilirubin 1+ H 01/29/20 21:50 WBC RBC Hgb Hct Neutrophils # Lymphocytes # Sodium BUN Glucose Plasma Lactic Acid Arturo 2.8 H* Creatine Kinase Total Protein Albumin Urine Protein Urine Bilirubin - Diagnostic Findings Chest x-ray: image reviewed Assessment and Plan Plan: 1 acute febrile illness with leukocytosis likely secondary to an underlying infectious cause. Suspect a postobstructive pneumonia involving the right lower lobe. The patient has been placed also end up with isolation suspecting Covid 19 infection and the analysis for that is still pending. I favor bacterial infection/right lower lobe pneumonia on the postobstructive type 2 metastatic squamous cell carcinoma discussed above and the patient was started on systemic chemotherapy recently, specifically [address] Rm 3 right lower lobe atelectasis with a mass effect involving the right lower lobe bronchus secondary to an infrahilar tumor. The patient has atelectasis and right lower lobe effusion and there is an excellent medium for postobstructive pneumonias. 4 COPD 5 skeletal metastases 6 new onset atrial fibrillation with rapid ventricular response, lpn private duty on the case and the patient was treated with a Cardizem drip. No anticoagulants for now 7 hyperlipidemia 8 osteoarthritis with chronic lumbar disc disease 9 acute hypoxic respiratory failure currently on oxygen at 4 L per minute nasal cannula Plan Complete Covid 19 evaluation and this needs to be ruled out Check pro calcitonin level which is consistent with bacterial infection of elevated Monitor fever pattern Discontinue the Rocephin and Zithromax and put the patient IV Zosyn for postobstructive pneumonia Management of atrial fibrillation per cardiology including an echocardiogram and medication for rate control. The metabolic anticoagulation will be left up to cardiology The patient has volume loss and a right-sided pleural effusion. No much benefit from thoracentesis as the patient's right lower lobe may not adequately expand following such a procedure Continue oxygen therapy at 4 L per minute nasal cannula Elevated lactic acid levels are normalizing We'll continue to follow. Prognosis poor. I discussed CODE STATUS and the patient wished to be a DNR/DNI based on our conversation. Time with Patient: Greater than 30
[2020-01-30] MEDS: ALPRAZolam 0.5 MG TAB PO PRN (15:47)
[2020-01-30] MEDS: APIXABAN 5 MG TAB PO SCH ×2 (15:47→20:22)
[2020-01-30 19:56] LABS: Glucose,Whole Blood 122 mg/dL (75-99)
[2020-01-30 20:14] LABS: Basophils % (A) 0 %; Eosinophils # (A) 0.5 k/uL (0-0.7); Eosinophils % (A) 3 %; HCT 36.6 % (39.0-53.0); HGB 11.8 gm/dL (13.0-17.5); Lymphocytes # (A) 0.8 k/uL (1.0-4.8); Lymphocytes % (A) 4 %; MCH 30.6 pg (25.0-35.0); MCHC 32.3 g/dL (31.0-37.0); MCV 94.7 fL (80.0-100.0); Mean Platelet Volume 7.3; Monocytes # (A) 0.2 k/uL (0-1.0); Monocytes % (A) 1 %; Neutrophils % (A) 92 %; Platelet Count 323 k/uL (150-450); RBC 3.86 m/uL (4.30-5.90); RDW 14.3 % (11.5-15.5); WBC 18.5 k/uL (3.8-10.6)
[2020-01-30 20:21] LABS: ABG Base Excess 2.8 mmol/L; ABG HCO3 26 mmol/L (21-25); ABG Oxygen Saturation 93.5 % (94-97); ABG PCO2 35 mmHg (35-45); ABG PH 7.48 (7.35-7.45); ABG PO2 64 mmHg (83-108); ABG TCO2 27 mmol/L (19-24); Allen Test Performed? Yes
[2020-01-30] MEDS: PIPERACILLIN-TAZOBACTAM 3.375 GM in SODIUM CHLORIDE 0.9% 100 ML IVPB SCH (20:22)
--- NOTE | 2020-01-30 20:22 | XR ---
EXAMINATION TYPE: XR chest 1V portable DATE OF EXAM: 01/30/2020 COMPARISON: Today HISTORY: Chest pain There is opacification more than 50% right hemithorax. There is pulmonary vascular congestion. There is mild pulmonary interstitial edema. There are chest leads. IMPRESSION: Congestive heart failure with large right pleural effusion. Pulmonary congestion slightly worse than exam this morning.
[2020-01-30 20:27] LABS: Partial Thromboplastin Time 23.1 sec (22.0-30.0)
[2020-01-30 20:32] LABS: Calcium 7.4 mg/dL (8.4-10.2); Potassium 4.2 mmol/L (3.5-5.1)
[2020-01-30] MEDS ORDERED: HEPARIN SODIUM,PORCINE 5,000 UNIT/ML 1 ML VIAL SQ SCH (21:00)
[2020-01-30] MEDS ORDERED: AZITHROMYCIN 500 MG TAB PO SCH (21:00)
--- NOTE | 2020-01-31 00:29 | P.CONS ---
History of Present Illness - Reason for Consult Consult date: 01/30/20 Fever Requesting physician: Fazal E Sheet - Chief Complaint shortness of breath x 2 days - History of Present Illness Patient is a 74-year-old male with a past medical significant for metastatic small cell carcinoma of the lung for the patient has been recently s tarted on chemotherapy last chemo about 2 days ago before he presented to hospital patient is presented to the hospital with chief complaints of increasing shortness of breath on minimal exertion the patient also have a cough which has been mild to moderate intensity with occasional sputum production no hemoptysis patient denies having any chest pain denies having any URI symptoms no nausea no vomiting no choking with food no abdominal pain or any diarrhea on presentation to the hospital patient was noticed to be febrile with a temperature of 102 consulted for right he was also noticed to be A. fib with RVR patient did have elevated white count of 19,000 patient did have a chest x-ray which was read as chronic congestive heart failure with increasing right pleural effusion compared to last exam with concern for possible pneumonia patient was started on Rocephin and azithromycin he also have COVID-19 testing which came back negative patient subsequently has been evaluated by pulmonary antibiotic has been switched over to Zosyn with concern for possible postobstructive pneumonia infectious disease consult for further recommendation regarding biotic therapy. 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 Lung ca stage 4, chemo and radiation History of Any Multi-Drug Resistant Organisms: None Reported Past Surgical History: Hernia Repair Additional Past Surgical History / Comment(s): back surgery 2008 replaced L5 disc, Past Anesthesia/Blood Transfusion Reactions: No Reported Reaction Past Psychological History: No Psychological Hx Reported Smoking Status: Former smoker Past Alcohol Use History: Occasional Past Drug Use History: None Reported - Past Family History Father Family Medical History: Cancer Additional Family Medical History / Comment(s): multiple myeloma, hypotension Mother Family Medical History: Cancer, Hypertension Additional Family Medical History / Comment(s): multiple myeloma Medications and Allergies Home Medications Medication Instructions Recorded Confirmed Type Albuterol Inhaler (Bulk) [Ventolin 2 puff INHALATION RT-Q6H PRN 12/09/19 01/30/20 History Hfa Inhaler (Bulk)] Allerest Allergy Tablet 1 tab PO DAILY 12/09/19 01/30/20 History Aspirin EC [Ecotrin Low Dose] 81 mg PO DAILY 12/09/19 01/30/20 History Cyclobenzaprine [Flexeril] 10 mg PO BID PRN 12/09/19 01/30/20 History Naproxen Sodium [Aleve] 220 mg PO BID PRN 12/09/19 01/30/20 History Niacin 100 mg PO BID 12/09/19 01/30/20 History Budesonide [Pulmicort] 1 mg INHALATION RT-BID 30 Days #30 12/14/19 01/30/20 Rx ml Ipratropium-Albuterol Nebulize 3 ml INHALATION RT-QID 30 Days 12/14/19 01/30/20 Rx [Duoneb 0.5 mg-3 mg/3 ml Soln] #120 ml Metoprolol Tartrate [Lopressor] 50 mg PO BID 30 Days #60 tab 12/14/19 01/30/20 R x HYDROcodone/APAP 5-325MG [[place] 1 tab PO Q6HR PRN 01/15/20 01/30/20 History 5-325] Morphine Sulfate Ir [MSIR] 15 mg PO Q8HR PRN 01/30/20 01/30/20 History Allergies Allergy/AdvReac Type Severity Reaction Status Date / Time codeine AdvReac Unknown Verified 01/15/20 08:57 ibuprofen AdvReac Unknown Verified 01/15/20 08:57 mold AdvReac Unknown Verified 01/15/20 08:57 tetanus and diphtheria AdvReac Unknown Verified 01/15/20 08:57 toxoids Physical Exam Vitals: Vital Signs Temp Pulse Pulse Resp BP BP Pulse Ox 01/30/20 11:34 97.7 F 136 H 24 112/51 92 L 01/30/20 08:00 97.7 F 98 22 119/57 93 L 01/30/20 04:05 18 94 L 01/30/20 04:00 98.0 F 146 H 18 107/60 82 L 01/30/20 00:52 98.3 F 98 20 141/71 95 01/30/20 00:44 98 20 01/29/20 23:10 99.6 F 107 H 18 122/67 95 01/29/20 21:00 18 01/29/20 20:52 102.7 F H 121 H 21 151/89 98 Intake and Output 01/30/20 01/30/20 01/30/20 06:59 14:59 22:59 Intake Total 720 Output Total 975 Balance -975 720 Intake: Oral 720 Output: Urine 975 Other: Voiding Method Urinal # Voids 1 Weight 102.5 kg 102.5 kg GENERAL DESCRIPTION: Elderly male lying in bed, no distress. No tachypnea or accessory muscle of respiration use. HEENT: Shows Pallor , no scleral icterus. Oral mucous membrane is dry. NECK: Trachea central, no thyromegaly. LUNGS: Unlabored breathing. Decreased breath sound at the base. No wheeze or crackle. HEART: S1, S2, regular rate and rhythm. ABDOMEN: Soft, no tenderness , guarding or rigidity EXTREMITIES: No edema of feet. SKIN: No rash, no masses palpable. NEUROLOGICAL: The patient is awake, alert, oriented x3, mood and affect normal Results CBC & Chem 7: 01/30/20 19:56 01/30/20 19:56 Labs: Abnormal Lab Results - Last 24 Hours (Table) 01/29/20 01/29/20 01/29/20 Range/Units 21:50 21:50 21:50 WBC 19.2 H (3.8-10.6) k/uL RBC 4.07 L (4.30-5.90) m/uL Hgb 12.3 L (13.0-17.5) gm/dL Hct 38.1 L (39.0-53.0) % Neutrophils # 17.5 H (1.3-7.7) k/uL Lymphocytes # 0.5 L (1.0-4.8) k/uL Sodium 131 L (137-145) mmol/L BUN 21 H (9-20) mg/dL Glucose 105 H (74-99) mg/dL Plasma Lactic Acid Arturo (0.7-2.0) mmol/L Creatine Kinase <20 L (55-170) U/L Total Protein 6.2 L (6.3-8.2) g/dL Albumin 3.0 L (3.5-5.0) g/dL Urine Protein Trace H (Negative) Urine Bilirubin 1+ H (Negative) 01/29/20 Range/Units 21:50 WBC (3.8-10.6) k/uL RBC (4.30-5.90) m/uL Hgb (13.0-17.5) gm/dL Hct (39.0-53.0) % Neutrophils # (1.3-7.7) k/uL Lymphocytes # (1.0-4.8) k/uL Sodium (137-145) mmol/L BUN (9-20) mg/dL Glucose (74-99) mg/dL Plasma Lactic Acid Arturo 2.8 H* (0.7-2.0) mmol/L Creatine Kinase (55-170) U/L Total Protein (6.3-8.2) g/dL Albumin (3.5-5.0) g/dL Urine Protein (Negative) Urine Bilirubin (Negative) Assessment and Plan Assessment: 1-patient presented to the hospital with increasing shortness of breath in this patient with history of metastatic lung cancer with recent start of chemotherapy with evidence of for right-sided effusion pneumonia question of possible gram-negative versus postobstructive with likely etiology clinically doubt community-acquired pneumonia and the patient will be ruled out for COVID 19 infection and patient with no other obvious clinical focus of infection abdominal soft and evidence of any cellulitis (1) Postobstructive pneumonia Current Visit: No Status: Acute Priority: High Code(s): J18.9 - PNEUMONIA, UNSPECIFIED ORGANISM SNOMED Code(s): 066122242 Plan: 1-sputum for Gram stain and culture along with blood cultures 2-Zosyn 3.375 g every 8 hour We will follow on clinical condition and cultures to further adjust medication if needed Thank you for this consultation we will follow the patient along with you Time with Patient: Greater than 30
[2020-01-31] MEDS: ALBUTEROL HFA INHALER INHALATION SCH ×4 (03:42→20:29)
[2020-01-31] MEDS: PIPERACILLIN-TAZOBACTAM 3.375 GM in SODIUM CHLORIDE 0.9% 100 ML IVPB SCH ×3 (04:19→20:23)
[2020-01-31] MEDS: SYMBICORT 160-4.5 MCG INHALER INHALATION SCH ×2 (07:15→20:31)
[2020-01-31] MEDS: TIOTROPIUM 18 MCG/PUFF INHALER INHALATION SCH (07:16)
[2020-01-31] MEDS: HYDROmorphone 1 MG/ML 1 ML SYRINGE IVP PRN (08:43)
[2020-01-31] MEDS: FAMOTIDINE 20 MG/2 ML VIAL IV SCH ×2 (08:43→20:23)
[2020-01-31] MEDS: APIXABAN 5 MG TAB PO SCH (08:44)
[2020-01-31] MEDS: METOPROLOL TARTRATE 50 MG TAB PO SCH ×2 (08:44→20:23)
[2020-01-31] MEDS ORDERED: IPRATROPIUM-ALBUTEROL 3 ML NEB INHALATION PRN (10:29)
--- NOTE | 2020-01-31 11:35 | P.PN ---
Subjective HISTORY OF PRESENTING ILLNESS This is a pleasant 74-year-old male past medical history significant for squamous cell lung cancer currently undergoing chemotherapy and radiation, dyslipidemia, hypertension, chronic back pain status post surgery osteoarthritis. He denies prior history of coronary artery disease and does not regularly follow in the office with a capability lead. He is seen and examined sitting up in bed in no acute distress however his oxygen saturations are in the 80s on high flow nonrebreather. He denies worsening shortness of breath. He has no chest pain dizziness or palpitations. He continues to cough. Unfortun ately yesterday shortly after converting to sinus mechanism he went back into atrial fibrillation. He is continued to be maintained on a Cardizem infusion. Heart rates between 90 and 120. Blood pressure 115/55. COVID testing negative. Blood gases from last night reveal a pH of 7.48, pCO2 35, pO2 of 64, bicarbonate 26. Repeat chest x-ray last night revealed congestive heart failure with large right pleural effusion, pulmonary congestion slightly worse than previous study. Currently maintained on Eliquis 5 mg twice a day, diltiazem infusion, Lasix 40 mg IV twice a day and Lopressor 50 mg twice a day. Pulmonary evaluated the patient and suspect post-obstructive pneumonia. PHYSICAL EXAMINATION CONSTITUTIONAL: No apparent distress. HEENT: Head is normocephalic. Pupils are equal, round. Sclerae anicteric. Mucous membranes of the mouth are moist. No JVD. No carotid bruit. CHEST EXAMINATION: Scattered rhonchi, diminished bilaterally. No chest wall tenderness is noted on palpation or with deep breathing. HEART EXAMINATION: Irregular rate and rhythm. S1, S2 heard. Systolic ejection m urmur at he left sternal border, no gallops or rub. EXTREMITIES: 2+ peripheral pulses, no lower extremity edema and no calf tenderness. ASSESSMENT Paroxysmal atrial fibrillation, new onset. Continues in A. fib currently. Eliquis started yesterday and discussed with hematology. Pleural effusion Febrile illness associated with shortness of breath and cough, COVID19 testing NEGATIVE. Lactic acidosis Leukocytosis Squamous cell non-small cell carcinoma Hypertension PLAN Repeat CT chest per pulmonary care team pending at this time. Ongoing medical management. Shortness of breath related to carcinoma and obstructing mass. Nurse Practitioner note has been reviewed, I agree with a documented findings and plan of care. Patient was seen and examined. Objective - Vital Signs Vital signs: Vital Signs Temp 97.5 F L 01/31/20 08:16 Pulse 112 H 01/31/20 08:16 Resp 34 H 01/31/20 08:16 BP 115/55 01/31/20 08:16 Pulse Ox 92 L 01/31/20 08:16 Intake & Output 01/30/20 01/31/20 01/31/20 18:59 06:59 18:59 Intake Total 1063.5 Output Total 800 825 Balance 263.5 -825 Weight 102.5 kg 103 kg Intake: Intake, IV Titration 103.5 Amount Diltiazem 125 mg In 103.5 Sodium Chloride 0.9% 100 ml @ 7.5 MG/HR 7.5 mls/hr IV .[id number] [facility] Rx#: [id number] Oral 960 Output: Urine 800 825 Other: Voiding Method Urinal # Voids 1 - Labs CBC & Chem 7: 01/30/20 19:56 01/30/20 19:56 Labs: Abnormal Lab Results - Last 24 Hours (Table) 01/30/20 01/30/20 01/30/20 Range/Units 09:12 19:44 19:56 WBC 18.5 H (3.8-10.6) k/uL RBC 3.86 L (4.30-5.90) m/uL Hgb 11.8 L (13.0-17.5) gm/dL Hct 36.6 L (39.0-53.0) % Neutrophils # 17.0 H (1.3-7.7) k/uL Lymphocytes # 0.8 L (1.0-4.8) k/uL ABG pH (7.35-7.45) ABG pO2 (83-108) mmHg ABG HCO3 (21-25) mmol/L ABG Total CO2 (19-24) mmol/L ABG O2 Saturation (94-97) % Sodium (137-145) mmol/L BUN (9-20) mg/dL Glucose (74-99) mg/dL POC Glucose (mg/dL) 122 H (75-99) mg/dL Calcium (8.4-10.2) mg/dL Procalcitonin 0.47 H (0.02-0.09) ng/mL 04/04/20 04/04/20 Range/Units 19:56 20:16 WBC (3.8-10.6) k/uL RBC (4.30-5.90) m/uL Hgb (13.0-17.5) gm/dL Hct (39.0-53.0) % Neutrophils # (1.3-7.7) k/uL Lymphocytes # (1.0-4.8) k/uL ABG pH 7.48 H (7.35-7.45) ABG pO2 64 L (83-108) mmHg ABG HCO3 26 H (21-25) mmol/L ABG Total CO2 27 H (19-24) mmol/L ABG O2 Saturation 93.5 L (94-97) % Sodium 134 L (137-145) mmol/L BUN 26 H (9-20) mg/dL Glucose 108 H (74-99) mg/dL POC Glucose (mg/dL) (75-99) mg/dL Calcium 7.4 L (8.4-10.2) mg/dL Procalcitonin (0.02-0.09) ng/mL Microbiology - Last 24 Hours (Table) 01/30/20 07:50 Gram Stain - Preliminary Sputum Sputum Culture - Preliminary 01/29/20 20:00 Blood Culture - Preliminary Blood No Growth after 24 hours
--- NOTE | 2020-01-31 11:39 | CT ---
EXAMINATION TYPE: CT chest wo con DATE OF EXAM: 01/31/2020 COMPARISON: Previous study dated 01/15/2020. HISTORY: RLL collapse. The patient has a known right-sided neoplasm. CT DLP: 534.2 mGycm. Automated Exposure Control for Dose Reduction was Utilized. TECHNIQUE: CT scan of the thorax is performed without IV contrast. FINDINGS: There is a loculated pleural effusion on the right which is increased in size significantly from the previous study. There is right lower lobe collapse and the patient's right lower lobe neopl asm cannot be clearly distinguished. There is, however, a 6 cm cavitary lesion in the right lower lob e and this may represent residual neoplasm. There is a background of coarse interstitial fibrosis and evidence of emphysematous change. There is a small left pleural effusion. The right lower lobe pulmo nary bronchus appears patent. There is no significant axillary adenopathy. There is some shotty mediastinal adenopathy. The heart i s mildly enlarged. There is no pericardial fluid. Visualized portions of the upper abdomen demonstrate a simple appearing, 3.7 cm left renal cyst and a smaller 2.5 cm right renal cyst. There is hypertrophic spondylosis within the spine. There is a comminuted fractures of the posterior aspect of the right seventh, eighth and ninth ribs. There is a mildly displaced. There is no associated pneumothorax. These were present previously. IMPRESSION: 1. LARGE, LOCULATED PLEURAL EFFUSION ON THE RIGHT WITH A SMALLER LEFT PLEURAL EFFUSION. 2. 6 CM CAVITARY LESION IN THE RIGHT LOWER LOBE WHICH LIKELY REPRESENTS PATIENT'S PRIMARY NEOPLASM. 3. PATENCY OF THE RIGHT LOWER LOBE PULMONARY BRONCHUS. 4. FRACTURE THE POSTERIOR ASPECT OF THE RIGHT SEVENTH, EIGHTH AND NINTH RIBS WHICH ARE STABLE FROM [place] EVIOUS. 5. BACKGROUND OF DIFFUSE EMPHYSEMATOUS AND COARSE INTERSTITIAL FIBROSIS. 6. BILATERAL RENAL CYSTS.
[2020-01-31] MEDS: FUROSEMIDE 10 MG/ML 4 ML VIAL IV SCH ×2 (11:49→23:40)
[2020-01-31] MEDS: DILTIAZEM 125 MG in SODIUM CHLORIDE 0.9% 100 ML IV SCH (11:49)
[2020-01-31] MEDS ORDERED: ALBUTEROL HFA INHALER INHALATION SCH (12:00)
[2020-01-31] MEDS ORDERED: IPRATROPIUM-ALBUTEROL 3 ML NEB INHALATION SCH ×3 (12:00→16:00)
[2020-01-31] MEDS ORDERED: ALBUTEROL HFA INHALER INHALATION PRN (12:01)
--- NOTE | 2020-01-31 12:11 | P.PN ---
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 History of saturating 92% on 6 L oxygen, no home oxygen at home, he has decrea sed appetite Heart rate went up to 146 after sucking Cardizem drip this morning's 98, blood pressure 119/57. Fever on admission 1 or 2.7, his saturating 94% on 6 L oxygen via nasal cannula. He has chronic leukocytosis and currently is 19.2 which is slightly more than his baseline of 15-18, sodium 131, creatinine 0.9, lactic acid 2.8 and 1.7, liver enzymes not elevated, troponin is negative, TSH 1.0 Chest x-ray showing right lower lobe pleural effusion and consolidation. EKG: Sinus tachycardia at 119 with PVCs, QTC is 427 Currently patient is on Zosyn, and Lasix 40 mg twice daily MAPS was checked on 01/29 and he was on morphine IR unremarkable 01/31/2020 Patient awake and alert, no chest pain, his dyspnea is improving, yesterday he needed more oxygen and oxygen requirement went up from 6 L via nasal cannula to 15 L via non-rebreather, slightly tachypneic. Occasional coughing. Blood pr essure 98/60, he is afebrile Since admission, he has sleep last night, and this morning patient looks more comfortable WBC is 18.5 K, ABG pH 7.4, CO2 is 26 and pCO2 is 35 from yesterday He remains on Zosyn, which will inhaler and Spiriva also is on Cardizem drip and started on Eliquis CONSTITUTIONAL: No fever, no malaise, no fatigue. HEENT: No recent visual problems or hearing problems. Denied any sore throat. GASTROINTESTINAL: No diarrhea, no nausea, no vomiting, no abdominal pain. Normoactive bowel sounds. NEUROLOGICAL: No headaches, no weakness, no numbness. HEMATOLOGICAL: Denies any bleeding or petechiae. GENITOURINARY: Denies any burning micturition, frequency, or urgency. MUSCULOSKELETAL/RHEUMATOLOGICAL: Denies any joint pain, swelling, or any muscle pain. ENDOCRINE: Denies any polyuria or polydipsia. Active Medications Generic Name Dose Route Start Last Admin Trade Name Freq PRN Reason Stop Dose Admin Acetaminophen 650 mg 01/30/20 01:47 Tylenol Tab PO Q6HR PRN Fever and/ or Pain Hydrocodone Bitart/Acetaminophen 1 each 01/30/20 01:44 01/30/20 23:19 [place] 5-325 PO 1 each Q6HR PRN Administration Pain Albuterol Sulfate 2 puff 01/31/20 12:00 01/31/20 12:01 Ventolin Hfa Inhaler INHALATION 2 puff RT-QID [facility]INE Administration Albuterol Sulfate 2 puff 01/31/20 12:01 Ventolin Hfa Inhaler INHALATION RT-Q2H PRN SHORTNESS OF BREATH Alprazolam 0.5 mg 01/30/20 14:23 01/30/20 15:47 Xanax PO 0.5 mg BID PRN Administration SEVERE Anxiety Apixaban 5 mg 01/30/20 12:30 01/31/20 08:44 Eliquis PO 5 mg BID SANDRINE Administration Budesonide/Formoterol Fumarate 2 puff 01/30/20 08:00 01/31/20 07:15 Symbicort 160-4.5 Mcg Inhaler INHALATION 2 puff RT-BID SANDRINE Administration Famotidine 20 mg 01/30/20 11:15 01/31/20 08:43 Pepcid IV 20 mg Q12HR SAN[facility]INE Administration Furosemide 40 mg 01/29/20 22:30 01/31/20 11:49 Lasix IV 40 mg Q12H SAN[facility]INE Administration Hydromorphone HCl 1 mg 01/31/20 08:23 01/31/20 08:43 Dilaudid IVP 1 mg Q4HR PRN Administration Severe Pain Diltiazem HCl 125 mg/ Sodium 125 mls @ 7.5 mls/hr 01/30/20 04:30 01/31/20 11:49 Chloride IV 7.5 mg/hr .[id number] SAN[facility]INE 7.5 mls/hr Administration 7.5 MG/HR Piperacillin Sod/Tazobactam 100 mls @ 25 mls/hr 01/30/20 20:00 01/31/20 11:50 Sod 3.375 gm/ Sodium Chloride IVPB 25 mls/hr Q8H SAN[facility]INE Administration Metoprolol Tartrate 50 mg 01/30/20 09:00 01/31/20 08:44 Lopressor PO 50 mg BID SANDRNIE Administration Miscellaneous Information 1 each 01/29/20 22:27 Pneumonia Protocol Utilized PO ONCE PRN Per Protocol Morphine Sulfate 15 mg 01/30/20 10:39 01/30/20 19:45 Msir PO 15 mg Q8HR PRN Administration Moderate to Severe Pain Tiotropium [place] 1 puff 02/01/20 08:00 Spiriva INHALATION RT-DAILY SANDRINE Objective - Vital Signs Vital signs: Vital Signs Temp 97.6 F 01/31/20 11:57 Pulse 81 01/31/20 11:57 Resp 18 01/31/20 11:57 BP 98/60 01/31/20 11:57 Pulse Ox 94 L 01/31/20 11:57 Intake & Output 01/30/20 01/31/20 01/31/20 18:59 06:59 18:59 Intake Total 1063.5 125 Output Total 800 825 Balance 263.5 -825 125 Weight 102.5 kg 103 kg Intake: Intake, IV Titration 103.5 125 Amount Diltiazem 125 mg In 103.5 125 Sodium Chloride 0.9% 100 ml @ 7.5 MG/HR 7.5 mls/hr IV .[id number] [facility] Rx#: [id number] Oral 960 Output: Urine 800 825 Other: Voiding Method Urinal # Voids 1 - Exam GENERAL: The patient is alert and oriented x3, not in any acute distress. Well developed, well nourished. HEENT: Pupils are round and equally reacting to light. EOMI. No scleral icterus. No conjunctival pallor. Normocephalic, atraumatic. No pharyngeal erythema. No thyromegaly. CARDIOVASCULAR: S1 and S2 present. No murmurs, rubs, or gallops. -PULMONARY: Chest is clear to auscultation, no wheezing or crackles. Decreased breath sounds on the right lung base ABDOMEN: Soft, nontender, nondistended, normoactive bowel sounds. No palpable organomegaly. MUSCULOSKELETAL: No joint swelling or deformity. EXTREMITIES: No cyanosis, clubbing, or pedal edema. NEUROLOGICAL: Gross neurological examination did not reveal any focal deficits. SKIN: No rashes. No petechiae - Labs CBC & Chem 7: 01/30/20 19:56 01/30/20 19:56 Labs: Abnormal Lab Results - Last 24 Hours (Table) 01/30/20 01/30/20 01/30/20 Range/Units 09:12 19:44 19:56 WBC 18.5 H (3.8-10.6) k/uL RBC 3.86 L (4.30-5.90) m/uL Hgb 11.8 L (13.0-17.5) gm/dL Hct 36.6 L (39.0-53.0) % Neutrophils # 17.0 H (1.3-7.7) k/uL Lymphocytes # 0.8 L (1.0-4.8) k/uL ABG pH (7.35-7.45) ABG pO2 (83-108) mmHg ABG HCO3 (21-25) mmol/L ABG Total CO2 (19-24) mmol/L ABG O2 Saturation (94-97) % Sodium (137-145) mmol/L BUN (9-20) mg/dL Glucose (74-99) mg/dL POC Glucose (mg/dL) 122 H (75-99) mg/dL Calcium (8.4-10.2) mg/dL Procalcitonin 0.47 H (0.02-0.09) ng/mL 01/30/20 01/30/20 Range/Units 19:56 20:16 WBC (3.8-10.6) k/uL RBC (4.30-5.90) m/uL Hgb (13.0-17.5) gm/dL Hct (39.0-53.0) % Neutrophils # (1.3-7.7) k/uL Lymphocytes # (1.0-4.8) k/uL ABG pH 7.48 H (7.35-7.45) ABG pO2 64 L (83-108) mmHg ABG HCO3 26 H (21-25) mmol/L ABG Total CO2 27 H (19-24) mmol/L ABG O2 Saturation 93.5 L (94-97) % Sodium 134 L (137-145) mmol/L BUN 26 H (9-20) mg/dL Glucose 108 H (74-99) mg/dL POC Glucose (mg/dL) (75-99) mg/dL Calcium 7.4 L (8.4-10.2) mg/dL Procalcitonin (0.02-0.09) ng/mL Microbiology - Last 24 Hours (Table) 01/30/20 07:50 Gram Stain - Preliminary Sputum Sputum Culture - Preliminary 01/29/20 20:00 Blood Culture - Preliminary Blood No Growth after 24 hours Assessment and Plan Assessment: Right lower lobe pneumonia ,Healthcare associated versus postobstructive pna, with possible right-sided pleural effusion Acute hypoxic respiratory failure 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 fib with RVR, new onset Possible Acute COPD exacerbation Elevated lactic acid, came back to normal Hyponatremia Hyperlipidemia Plan: This is a pleasant 74 years old male who presents with lung cancer are pneumonia and A. fib. Continue with antibiotics, continue with aspirin. Continue with Cardizem medication for his atrial fibrillation. Several consults on the case including. Tested for Covid 19 disease is been requested and result is pending. Xanax for anxiety Labs and medication were reviewed.. Continue same treatment. Continue with symptomatic treatment. Resume home medication. Monitor lytes and vitals. DVT and GI prophylaxis. Further recommendations of the clinical course of the patient DVT prophylaxis: Subcutaneous heparin GI Prophylaxis: Pepcid PT/OT: Pending Prognosis is guarded
--- NOTE | 2020-01-31 14:53 | P.PN ---
Subjective Progress Note Date: 01/31/20 74-year-old male patient with known history of metastatic small cell carcinoma of the lung was recently started on systemic chemotherapy. He was started on systemic chemotherapy 2 days ago and the patient came in yesterday to the emergency department because of feeling short of breath and he also felt that he was hallucinating and feeling quite weak. He felt anxious also. He did feel feverish yet there was no documented temperature at home. ED confirmed that the patient had a temperature of 102.7. For that reason, he was admitted to the hospital for further workup. Note that he was having chronic shortness of breath and the patient has limited exercise capacity. He was having also increased cough. Upon arrival to the ED, his heart rate was also at 121. He was placed on nonrebreather facemask and later on he was weaned down to 40 to about 2 by nasal cannula. He was found to be in atrial fibrillation which is of a new onset and his heart rate went up to 145. He was started on Cardizem infusion and later on this morning the patient converted back to normal sinus rhythm. Echo is to follow Chest x-ray shows volume loss in the right lower lobe and a right-sided pleural effusion The white cell count was at 19.2 The troponin is at 0.023 and 0.027 ProBNP level is at 970 Covid19 nasal swab has been done and there still pending Previous CAT scan of the chest that was done on 01/15/2020 shows mass in the right infrahilar region consistent with neoplasm in addition to basilar obst ructive atelectasis/consolidation and a right-sided pleural effusion. There was also a moderately enlarged subcarinal lymph node measuring 4 x 4.2 cm and multi level splitting of the spine PET scan from 12/19/2019 showed large mass and mediastinal and hilar lymphadenopathy with increased metabolic uptake and there was also abnormal uptake in the soft tissues, the pancreas, the bones involving multiple ribs bilaterally and focus of uptake also was present the L3 vertebral body. 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 Nuclear bone scan on 12/10/2019 showed metastatic lesion at the level of T10 and focal abnormal uptake in the right posterior eighth rib MRI of the brain done on 01/06/2020 showed no evidence of any intracranial metastases. MRI of the lumbar spine showed 1.1 cm metastatic focus involving the posterior inferior L3 body of the vertebral. On 01/31/2020 on seeing the patient for a follow-up. Since yesterday, the patient had a very rough night. The patient became short of breath and hypoxic and he has been placed on 100% nonrebreather facemask. His pH is at 7.48 with a pCO2 of 35 and pO2 of 64 and this was done 80% oxygen. His white cell count remains elevated at 18.5. His Covid 19 evaluation was negative. Coagulation profile is within normal limits. Renal function is also stable. ProBNP level is 3005 60. Pro-Calcitonin was 0.47. I evaluated this patient and this morning. The patient was still having some trouble breathing although he seems to be much more comfortable compared to yesterday evening. He reports some improvement in his shortness of breath. I ordered a repeat CAT scan of the chest that was done without contrast and the CAT scan showed a loculated pleural effusion on the right with a smaller left pleural effusion. A 6 cm cavitary lesion in the right lower lobe was seen representing a primary neoplasm. The right lower lobe bronchus was not seen to be patent. There is a fracture in the posterior aspect of the right seventh and eighth and ninth rib which was stable compared to the previous evaluation. There was diffuse emphysema and coarse interstitial fibrosis. As such, I suspect located parapneumonic effusion on the right, likely postobstructive in nature and the patient is currently on IV Zosyn. Objective - Vital Signs Vital signs: Vital Signs Temp 97.6 F 01/31/20 11:57 Pulse 81 01/31/20 11:57 Resp 18 01/31/20 11:57 BP 98/60 01/31/20 11:57 Pulse Ox 94 L 01/31/20 11:57 Intake & Output 01/30/20 01/31/20 01/31/20 18:59 06:59 18:59 Intake Total 1063.5 365 Output Total 800 825 600 Balance 263.5 -825 -235 Weight 102.5 kg 103 kg Intake: Intake, IV Titration 103.5 125 Amount Diltiazem 125 mg In 103.5 125 Sodium Chloride 0.9% 100 ml @ 7.5 MG/HR 7.5 mls/hr IV .[id number] [facility] Rx#: [id number] Oral 960 240 Output: Urine 800 825 600 Other: Voiding Method Urinal # Voids 1 2 - Exam GENERAL EXAM: Alert, active, pleasant 74-year-old gentleman, on 100% nonrebreather facemask and the patient was taken off the nasal cannula, comfortable HEany continues to have a mild degree of respiratory distress even at rest. Head exam was generally normal. There was no scleral icterus or corneal arcus. Mucous membranes were moist. EYES: Normal reaction of pupils, equal size. NOSE: Clear with pink turbinates. THROAT: No erythema or exudates. NECK: No masses, no JVD. CHEST: No chest wall deformity. LUNGS: There is diminished breath on the right lung base along with some du llness to percussion. Few scattered rhonchi heard bilaterally. CVS: S1 and S2 normal with no audible murmur, regular rhythm. ABDOMEN: No hepatosplenomegaly, normal bowel sounds, no guarding or rigidity. SPINE: No scoliosis or deformity SKIN: No rashes CENTRAL NERVOUS SYSTEM: No focal deficits, tone is normal in all 4 extremities. EXTREMITIES: There is no peripheral edema. No clubbing, no cyanosis. Perip - Labs CBC & Chem 7: 01/30/20 19:56 01/30/20 19:56 Labs: Abnormal Lab Results - Last 24 Hours (Table) 01/30/20 01/30/20 01/30/20 Range/Units 09:12 19:44 19:56 WBC 18.5 H (3.8-10.6) k/uL RBC 3.86 L (4.30-5.90) m/uL Hgb 11.8 L (13.0-17.5) gm/dL Hct 36.6 L (39.0-53.0) % Neutrophils # 17.0 H (1.3-7.7) k/uL Lymphocytes # 0.8 L (1.0-4.8) k/uL ABG pH (7.35-7.45) ABG pO2 (83-108) mmHg ABG HCO3 (21-25) mmol/L ABG Total CO2 (19-24) mmol/L ABG O2 Saturation (94-97) % Sodium (137-145) mmol/L BUN (9-20) mg/dL Glucose (74-99) mg/dL POC Glucose (mg/dL) 122 H (75-99) mg/dL Calcium (8.4-10.2) mg/dL Procalcitonin 0.47 H (0.02-0.09) ng/mL 01/30/20 01/30/20 Range/Units 19:56 20:16 WBC (3.8-10.6) k/uL RBC (4.30-5.90) m/uL Hgb (13.0-17.5) gm/dL Hct (39.0-53.0) % Neutrophils # (1.3-7.7) k/uL Lymphocytes # (1.0-4.8) k/uL ABG pH 7.48 H (7.35-7.45) ABG pO2 64 L (83-108) mmHg ABG HCO3 26 H (21-25) mmol/L ABG Total CO2 27 H (19-24) mmol/L ABG O2 Saturation 93.5 L (94-97) % Sodium 134 L (137-145) mmol/L BUN 26 H (9-20) mg/dL Glucose 108 H (74-99) mg/dL POC Glucose (mg/dL) (75-99) mg/dL Calcium 7.4 L (8.4-10.2) mg/dL Procalcitonin (0.02-0.09) ng/mL Microbiology - Last 24 Hours (Table) 01/30/20 07:50 Gram Stain - Preliminary Sputum Sputum Culture - Preliminary 01/29/20 20:00 Blood Culture - Preliminary Blood No Growth after 24 hours Assessment and Plan Plan: 1 acute febrile illness with leukocytosis likely secondary to an underlying infectious cause. Suspect a postobstructive pneumonia involving the right lower lobe. The patient has been placed also end up with isolation suspecting Covid 19 infection and the analysis for that is still pending. I favor bacterial infection/right lower lobe pneumonia on the postobstructive type. Subsequent evaluation yielded that the patient was a Covid 19 negative and a follow-up CAT scan of the chest showed a large loculated right-sided pleural effusion, lateral loculated in the lateral right chest wall in addition to a right lower lobe atelectasis with some right basilar effusion, obstruction of the right lower lobe bronchus secondary to infrahilar mass in addition to diffuse emphysema and some interstitial fibrosis. Strongly suspect postobstructive pneumonia with a loculated parapneumonic effusion on the right. May not be amenable for thora centesis and may consider IR driven thoracentesis of the right lateral loculated pleural effusion. 2 metastatic squamous cell carcinoma discussed above and the patient was started on systemic chemotherapy recently, o through Dr. Rm 3 right lower lobe atelectasis with a mass effect involving the right lower lobe bronchus secondary to an infrahilar tumor. The patient has atelectasis and right lower lobe effusion and there is an excellent medium for postobstructive pneumonias. The condition is involved and the patient developed a loculated right-sided pleural effusion along the right lateral chest wall. 4 COPD 5 skeletal metastases 6 new onset atrial fibrillation with rapid ventricular response, mainspring former brace end on the case and the patient was treated with a Cardizem drip. No anticoagulants for now 7 hyperlipidemia 8 osteoarthritis with chronic lumbar disc disease 9 acute hypoxic respiratory failure currently on oxygen at 100% nonrebreather facemask Plan Continue IV Zosyn CAT scan of the chest was reviewed Covid 19 evaluation was negative Start the patient on DuoNeb nebulized treatments around the clock, and also start the patient IV Solu-Medrol Hold anticoagulation and sedation for a drainage that can be done by interventional radiology under ultrasound guidance. The loculated right-sided pleural effusion may be potentially drained. However, the clinical response is not definite that the patient a trapped right lower lobe and significant obstruction of the right lower lobe bronchus.
[2020-01-31] MEDS: methylPREDNISolone SOD SUCCI 125 MG/2 ML VIAL IV SCH ×2 (16:39→23:41)
[2020-01-31] MEDS: HYDROcodone/APAP 5-325MG 1 EACH TAB PO PRN (16:43)
[2020-01-31 16:48] LABS: Glucose,Whole Blood 133 mg/dL (75-99)
--- NOTE | 2020-01-31 16:49 | P.CONS ---
History of Present Illness - Reason for Consult Consult date: 01/31/20 Lung cancer - Chief Complaint Respiratory distress - History of Present Illness This is a pleasant 74-year-old gentleman, who initially presented with shortness of breath or lung complaints 1-1/2 month ago on further evaluation showed a lung mass which was further evaluated with a biopsy and a PET scan for staging workup which unfortunately revealed stage IV/metastatic carcinoma most consistent with squamous cell etiology but extends to disease as per the PET scan. CT of the chest done on 320 shows advanced emphysematous changes with known high-grade right lung neoplasm no acute pulmonary embolism. Brain MRI shows no evidence of metastasis. MRI of the spine shows multiple osseous metastasis . osseous metastasis. PET scan done on 12/19/2019 shows large lung mass with mediastinal and hilar adenopathy and uptake in multiple tissues including pancreas, bones, rectum and bony metastasis. Pathology consistent with poorly differentiated squamous cell carcinoma Leukocytosis with neutrophilia WBC count of 19.2 was likely due to Neulasta Anemia hemoglobin of 11.8. This slightly low sodium at 134. Cultures pending. Patient was recently started on chemotherapy status post cycle 1 Review of Systems Patient complains of shortness of breath, progressively getting worse not able to continue speaking due to persistent respiratory symptoms. Rest of the review of systems negative. Past Medical History Past Medical History: Cancer (Stage IV squamous cell carcinoma of the lung), Hyperlipidemia, Osteoarthritis (OA) Additional Past Medical History / Comment(s): hernia, bursitis in hips and knees . Lung ca stage 4, chemo and radiation History of Any Multi-Drug Resistant Organisms: None Reported Past Surgical History: Hernia Repair Additional Past Surgical History / Comment(s): back surgery 2008 replaced L5 disc, Past Anesthesia/Blood Transfusion Reactions: No Reported Reaction Past Psychological History: No Psychological Hx Reported Smoking Status: Former smoker Past Alcohol Use History: Occasional Past Drug Use History: None Reported - Past Family History Father Family Medical History: Cancer Additional Family Medical History / Comment(s): multiple myeloma, hypotension Mother Family Medical History: Cancer, Hypertension Additional Family Medical History / Comment(s): multiple myeloma Medications and Allergies Home Medications Medication Instructions Recorded Confirmed Type Albuterol Inhaler (Bulk) [Ventolin 2 puff INHALATION RT-Q6H PRN 12/09/19 01/30/20 History Hfa Inhaler (Bulk)] Allerest Allergy Tablet 1 tab PO DAILY 12/09/19 01/30/20 History Aspirin EC [Ecotrin Low Dose] 81 mg PO DAILY 12/09/19 01/30/20 History Cyclobenzaprine [Flexeril] 10 mg PO BID PRN 12/09/19 01/30/20 History Naproxen Sodium [Aleve] 220 mg PO BID PRN 12/09/19 01/30/20 History Niacin 100 mg PO BID 12/09/19 01/30/20 History Budesonide [Pulmicort] 1 mg INHALATION RT-BID 30 Days #30 12/14/19 01/30/20 Rx ml Ipratropium-Albuterol Nebulize 3 ml INHALATION RT-QID 30 Days 12/14/19 01/30/20 Rx [Duoneb 0.5 mg-3 mg/3 ml Soln] #120 ml Metoprolol Tartrate [Lopressor] 50 mg PO BID 30 Days #60 tab 12/14/19 01/30/20 Rx HYDROcodone/APAP 5-325MG [[place] 1 tab PO Q6HR PRN 01/15/20 01/30/20 History 5-325] Morphine Sulfate Ir [MSIR] 15 mg PO Q8HR PRN 01/30/20 01/30/20 History Allergies Allergy/AdvReac Type Severity Reaction Status Date / Time codeine AdvReac Unknown Verified 01/15/20 08:57 ibuprofen AdvReac Unknown Verified 01/15/20 08:57 mold AdvReac Unknown Verified 01/15/20 08:57 tetanus and diphtheria AdvReac Unknown Verified 01/15/20 08:57 toxoids Physical Exam Vitals: Vital Signs Temp Pulse Resp BP Pulse Ox 01/31/20 11:57 97.6 F 81 18 98/60 94 L 01/31/20 11:13 34 H 01/31/20 08:16 97.5 F L 112 H 34 H 115/55 92 L 01/31/20 08:00 34 H 01/31/20 04:21 98 22 92/52 93 L 01/31/20 03:45 93 L 01/31/20 03:33 112 H 22 01/31/20 03:32 22 95 01/31/20 03:31 97.8 F 112 H 22 107/71 85 L 01/31/20 00:00 98.6 F 121 H 24 115/63 94 L 04/04/20 21:13 120 H 26 H 105/61 96 01/30/20 20:25 125 H 30 H 129/73 95 01/30/20 20:15 118 H 30 H 98/59 96 01/30/20 20:05 115 H 30 H 117/52 96 01/30/20 20:00 120 H 26 H 01/30/20 19:56 118 H 34 H 133/59 95 01/30/20 19:51 102 H 34 H 140/80 87 L 01/30/20 19:46 120 H 33 H 149/60 96 01/30/20 19:41 97.9 F 129 H 30 H 104/55 81 L Intake and Output 01/31/20 01/31/20 01/31/20 06:59 14:59 22:59 Intake Total 365 Output Total 375 600 400 Balance -375 235 -400 Intake: Intake, IV Titration 125 Amount Diltiazem 125 mg In 125 Sodium Chloride 0.9% 100 ml @ 7.5 MG/HR 7.5 mls/hr IV .[id number] [facility] Rx#: [id number] Oral 240 Output: Urine 375 600 400 Other: Voiding Method Urinal # Voids 2 Weight 103 kg The patient appeared well nourished and normally developed. Vital signs as doc umented. Head exam is unremarkable. No scleral icterus or corneal arcus noted. Neck is without jugular venous distension, thyromegaly, or carotid bruits. Carotid upstrokes are brisk bilaterally. Lungs are clear to auscultation and percussion. Cardiac exam reveals the PMI to be normally sized and situated. Rhythm is regular. First and second heart sounds normal. No murmurs, rubs or gallops. Abdominal exam reveals normal bowel sounds, no masses, no organomegaly and no aortic enlargement. Extremities are nonedematous and both femoral and pedal pulses are normal. Results CBC & Chem 7: 01/30/20 19:56 01/30/20 19:56 Labs: Abnormal Lab Results - Last 24 Hours (Table) 01/30/20 01/30/20 01/30/20 Range/Units 09:12 19:44 19:56 WBC 18.5 H (3.8-10.6) k/uL RBC 3.86 L (4.30-5.90) m/uL Hgb 11.8 L (13.0-17.5) gm/dL Hct 36.6 L (39.0-53.0) % Neutrophils # 17.0 H (1.3-7.7) k/uL Lymphocytes # 0.8 L (1.0-4.8) k/uL ABG pH (7.35-7.45) ABG pO2 (83-108) mmHg ABG HCO3 (21-25) mmol/L ABG Total CO2 (19-24) mmol/L ABG O2 Saturation (94-97) % Sodium (137-145) mmol/L BUN (9-20) mg/dL Glucose (74-99) mg/dL POC Glucose (mg/dL) 122 H (75-99) mg/dL Calcium (8.4-10.2) mg/dL Procalcitonin 0.47 H (0.02-0.09) ng/mL 01/30/20 01/30/20 Range/Units 19:56 20:16 WBC (3.8-10.6) k/uL RBC (4.30-5.90) m/uL Hgb (13.0-17.5) gm/dL Hct (39.0-53.0) % Neutrophils # (1.3-7.7) k/uL Lymphocytes # (1.0-4.8) k/uL ABG pH 7.48 H (7.35-7.45) ABG pO2 64 L (83-108) mmHg ABG HCO3 26 H (21-25) mmol/L ABG Total CO2 27 H (19-24) mmol/L ABG O2 Saturation 93.5 L (94-97) % Sodium 134 L (137-145) mmol/L BUN 26 H (9-20) mg/dL Glucose 108 H (74-99) mg/dL POC Glucose (mg/dL) (75-99) mg/dL Calcium 7.4 L (8.4-10.2) mg/dL Procalcitonin (0.02-0.09) ng/mL Microbiology - Last 24 Hours (Table) 01/30/20 07:50 Gram Stain - Preliminary Sputum Sputum Culture - Preliminary 01/29/20 20:00 Blood Culture - Preliminary Blood No Growth after 24 hours Assessment and Plan Assessment: Impression and plan. #1. Stage IV/metastatic non-small cell lung cancer: Poorly differentiated squamous cell carcinoma of lung with extensive metastatic disease in pancreas, colon, lymph nodes, bony metastasis. - CT of the chest done on 320 shows advanced emphysematous changes with known high-grade right lung neoplasm no acute pulmonary embolism. Brain MRI shows no evidence of metastasis. MRI of the spine shows multiple osseous metastasis . osseous metastasis. PET scan done on 12/19/2019 shows large lung mass with mediastinal and hilar adenopathy and uptake in multiple tissues including pancreas, bones, rectum and bony metastasis. Pathology consistent with poorly differentiated squamous cell carcinoma. - Status post cycle #1 of chemotherapy most likely carboplatinum with Taxol I do not have access to office records at this time. - Patient may also have likely received Neulasta which can lead to leukocytosis. Patient does not remember. - Continue outpatient follow-up in one week after discharge for continuing treatment/chemotherapy. The patient is currently not neutropenic in fact leukocytosis. #2. Respiratory distress/pneumonia right-sided pleural effusion secondary to cancer. Underlying COPD, Congestion. COVID 19 pending. Postobstructive pneumonia. Leukocytosis fever. - Patient is in respiratory distress and is not able to hold a conversation. - Possibility of intubation. - Treatment of pneumonia on IV antibiotics Zosyn. Also on steroids for the Medrol. Cultures pending. #3. Anemia with hemoglobin 11.8. Continue monitoring. #4. Electrolyte imbalance with low sodium at 134. #5. Leukocytosis with mainly neutrophilia current count 10.2 possibility could be due to sepsis versus use of Neulasta. Patient does not remember. Thank you for allowing us to participate in the care of your patient. Please feel free to call us with any questions. Ariadne Odonnell MD [employer], [facility] [place] [facility] [id number], [address] [place] [address] Office: [phone],
[2020-01-31] MEDS: guaiFENesin-DM 100-10MG/5ML 10 ML CUP PO PRN (20:24)
--- NOTE | 2020-01-31 21:39 | PN ---
PROGRESS NOTE DATE OF SERVICE: 01/31/2020 REASON FOR FOLLOWUP: Pneumonia. INTERVAL HISTORY: The patient is currently afebrile. The patient is breathing comfortably. The FiO2 is currently down to nasal cannula oxygen. Denies having chest pain. Did have some cough. The patient's chest pain to the left side has decreased intensity. No nausea, no vomiting. No abdominal pain. No diarrhea. PHYSICAL EXAMINATION: Blood pressure 124/68 with a pulse of 72. Temperature is 97.9. He is 99% on 6 L nasal cannula. General description is an elderly male lying in bed in no distress. Respiratory system: Unlabored breathing, decreased breath sounds in the bases. No wheeze. Heart S1, S2. Regular rate and rhythm. Abdomen soft, no tenderness. LABS: Hemoglobin 11.8, white count 18.5. BUN of 26, creatinine 1.04. Blood culture has been negative. Sputum is currently pending. DIAGNOSTIC IMPRESSION AND PLAN: Patient presented to hospital with left-sided chest pain, shortness of breath and cough in this patient who did have a loculated pleural effusion on the right with concern for complicated pneumonia. The patient is covered with Zosyn. Sputum culture will be followed and monitor clinical course closely. MMODL / IJN: [id number] / MTDD
[2020-02-01] MEDS: HYDROmorphone 1 MG/ML 1 ML SYRINGE IVP PRN (02:16)
[2020-02-01] MEDS: PIPERACILLIN-TAZOBACTAM 3.375 GM in SODIUM CHLORIDE 0.9% 100 ML IVPB SCH ×3 (04:01→20:40)
[2020-02-01 05:39] LABS: Glucose,Whole Blood 141 mg/dL (75-99)
[2020-02-01] MEDS: DILTIAZEM 125 MG in SODIUM CHLORIDE 0.9% 100 ML IV SCH ×2 (06:06→22:45)
[2020-02-01] MEDS: INSULIN ASPART (NovoLOG) 100 UNIT/ML VIAL SQ SCH ×4 (06:07→20:40)
[2020-02-01 06:30] LABS: Basophils % (A) 0 %; Eosinophils % (A) 0 %; HCT 36.2 % (39.0-53.0); HGB 11.4 gm/dL (13.0-17.5); Lymphocytes # (A) 0.3 k/uL (1.0-4.8); Lymphocytes % (A) 2 %; MCH 29.7 pg (25.0-35.0); MCHC 31.4 g/dL (31.0-37.0); MCV 94.6 fL (80.0-100.0); Mean Platelet Volume 7.9; Monocytes # (A) 0.1 k/uL (0-1.0); Monocytes % (A) 1 %; Neutrophils % (A) 96 %; Platelet Count 243 k/uL (150-450); RBC 3.83 m/uL (4.30-5.90); RDW 14.1 % (11.5-15.5); WBC 12.4 k/uL (3.8-10.6)
[2020-02-01 06:42] LABS: African American GFR (CKD) >90 (>60 ml/min/1.73 sqM); Anion Gap 10 mmol/L; Blood Urea Nitrogen 23 mg/dL (9-20); Calcium 6.9 mg/dL (8.4-10.2); Carbon Dioxide 25 mmol/L (22-30); Chloride 100 mmol/L (98-107); Glucose 130 mg/dL (74-99); Non-African American GFR(CKD) 85 (>60 ml/min/1.73 sqM); Potassium 3.7 mmol/L (3.5-5.1); Sodium 135 mmol/L (137-145)
[2020-02-01] MEDS ORDERED: TIOTROPIUM 18 MCG/PUFF INHALER INHALATION SCH (08:00)
[2020-02-01] MEDS: ALBUTEROL HFA INHALER INHALATION SCH ×4 (08:07→19:26)
[2020-02-01] MEDS: SYMBICORT 160-4.5 MCG INHALER INHALATION SCH ×2 (08:08→19:26)
[2020-02-01] MEDS: TIOTROPIUM 18 MCG/PUFF INHALER INHALATION SCH (08:08)
[2020-02-01] MEDS: methylPREDNISolone SOD SUCCI 125 MG/2 ML VIAL IV SCH ×3 (08:55→22:47)
[2020-02-01] MEDS: METOPROLOL TARTRATE 50 MG TAB PO SCH ×3 (08:56→20:39)
[2020-02-01] MEDS: guaiFENesin-DM 100-10MG/5ML 10 ML CUP PO PRN (08:56)
[2020-02-01] MEDS: FAMOTIDINE 20 MG/2 ML VIAL IV SCH (08:56)
[2020-02-01] MEDS: HYDROcodone/APAP 5-325MG 1 EACH TAB PO PRN ×2 (08:57→20:39)
[2020-02-01] MEDS: FUROSEMIDE 10 MG/ML 4 ML VIAL IV SCH ×2 (09:09→22:47)
--- NOTE | 2020-02-01 09:14 | PN ---
PROGRESS NOTE Mr. Daniels is a gentleman with lung CA with significant volume loss in the lungs, right side with possible effusion as well. He is in atrial fib, rate is moderate. He is, however, feeling better. His breathing is easier. His Eliquis 5 mg b.i.d. was held mainly because he may be going for thoracentesis today. Blood pressure is 120/70, pulse rate is about 90-110, irregular, JVD 1 cm, no carotid bruit. S1-S2 heard normally. Lungs reveal diminished breath sounds, especially on the right base. Abdomen and lower extremity exam unchanged. Plan is to increase Lopressor to 3 times a day and resume apixaban as soon as his thoracentesis is performed. MMODL / IJN: [id number] /
[2020-02-01 11:29] LABS: Glucose,Whole Blood 170 mg/dL (75-99)
--- NOTE | 2020-02-01 12:00 | CDI ---
Documentation Clarification Form Date: 02/01/2020 11:20:36 AM From: Kimberly LambWinklerSANDHYA, CCDS Admit Date: 01/29/2020 10:28:00 PM Patient Name: Maynor Daniels Visit Number: [id number] Discharge Date: ATTENTION: The Clinical Documentation Specialists (CDI) and [facility] Coding Staff appreciate your assistance in clarifying documentation. Please respond to the clarification below the line at the bottom and electronically sign. The CDI & [facility] Coding staff will review the response and follow-up if needed. Please note: Queries are made part of the Legal Health Record. If you have any questions, please contact the author of this message via ITS. Dr. Fazal Lovett. Sheet: Patient presented to the ED on 01/28 with SOB & cough & diagnosed with RLL pneumonia with possible right side pleural effusion, acute hypoxic respiratory failure & has stage IV Lung cancer with metastasis to pancreas, lymph nodes, bones & rectum. Also tested for COVID 19. Per the 01/29 History & Physical the patient was receiving his first chemo yesterday, started having hallucinations, became dyspneic & temp on arrival to ED was 102, also developed atrial fibrillation & was started on Cardizem drip. The documentation does not include if the patient was possibly also septic on admission. History/Risk Factors: Stage IV Lung Cancer with metastasis, in chemotherapy & radiation; Paroxysmal atrial fibrillation, COPD, Hypertensive heart disease with heart failure, nos. Clinical Indicators: Presented to the ED as above. Also tested for COVID 19 (negative) & Influenza negative. VS 01/28: T 102.7^, P 121^, R 21 (sob, cough), BP 151/89, PO 98 15% nrb LAB 01/28: WBC 19.2^, Hgb 12.3*, Neut 17.5^, Lactic Acid 2.8^^. RAD: 01/28 CXR: Chronic CHF with increasing right pleural effusion. 01/28 Blood cx: neg (preliminary). Treatment: IV fluid bolus, IV fluid rate 130, IV Lasix, IV Azithromycin, 15% nrb. COVID 19 testing. In your professional opinion, please clarify if these findings signify one of the following conditions, whether the condition is POA, and cause, if known: Sepsis ruled out Sepsis, please specify cause if known. Severe Sepsis Other, please specify Unable to determine Present on Admission: Yes or No (Last Revision: January 2018) Unable to determine MTDD
--- NOTE | 2020-02-01 12:55 | CT ---
EXAMINATION TYPE: CT chest tube insertion DATE OF EXAM: 02/01/2020 COMPARISON: 01/31/2020 HISTORY: Chest tube placement CT DLP: 1133.1 mGycm The procedure is discussed with the patient, the risks, complications, benefits and alternatives, wer e discussed and any questions were answered. Informed consent was obtained. The patient is placed p meche on the CT table, prepped and draped in the usual sterile fashion. Utilizing a 22-gauge [place] needle access into right pleural space was achieved and there is placement O.018 guidewire. There is conversion to an O.035 system with placement of an O.035 guidewire. Serial dilation 8 Chilean with placement 8 Chilean chest tube. Pathology pending. All elements of maximal barrier and sterile technique were utilized. The patient remained stable throughout the procedure with no immediate postprocedural complication. IMPRESSION: 1. Successful CT guided right chest tube insertion
--- NOTE | 2020-02-01 13:04 | P.PN ---
Subjective Progress Note Date: 02/01/20 Principal diagnosis: 74-year-old male patient with known history of metastatic small cell carcinoma of the lung was recently started on systemic chemotherapy. He was started on sy stemic chemotherapy 2 days ago and the patient came in yesterday to the emergency department because of feeling short of breath and he also felt that he was hallucinating and feeling quite weak. He felt anxious also. He did feel feverish yet there was no documented temperature at home. ED confirmed that the patient had a temperature of 102.7. For that reason, he was admitted to the hospital for further workup. Note that he was having chronic shortness of breath and the patient has limited exercise capacity. He was having also increased cough. Upon arrival to the ED, his heart rate was also at 121. He was placed on nonrebreather facemask and later on he was weaned down to 40 to about 2 by nasal cannula. He was found to be in atrial fibrillation which is of a new onset and his heart rate went up to 145. He was started on Cardizem infusion and later on this morning the patient converted back to normal sinus rhythm. Echo is to follow Chest x-ray shows volume loss in the right lower lobe and a right-sided pleural effusion The white cell count was at 19.2 The troponin is at 0.023 and 0.027 ProBNP level is at 970 Covid19 nasal swab has been done and there still pending Previous CAT scan of the chest that was done on 01/15/2020 shows mass in the right infrahilar region consistent with neoplasm in addition to basilar obstructive atelectasis/consolidation and a right-sided pleural effusion. There was also a moderately enlarged subcarinal lymph node measuring 4 x 4.2 cm and multi level splitting of the spine PET scan from 12/19/2019 showed large mass and mediastinal and hilar lymphadenopathy with increased metabolic uptake and there was also abnormal uptake in the soft tissues, the pancreas, the bones involving multiple ribs bilaterally and focus of uptake also was present the L3 vertebral body. 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 Nuclear bone scan on 12/10/2019 showed metastatic lesion at the level of T10 and focal abnormal uptake in the right posterior eighth rib MRI of the brain done on 01/06/2020 showed no evidence of any intracranial metastases. MRI of the lumbar spine showed 1.1 cm metastatic focus involving the posterior inferior L3 body of the vertebral. On 01/31/2020 on seeing the patient for a follow-up. Since yesterday, the patient had a very rough night. The patient became short of breath and hypoxic and he has been placed on 100% nonrebreather facemask. His pH is at 7.48 with a pCO2 of 35 and pO2 of 64 and this was done 80% oxygen. His white cell count remains elevated at 18.5. His Covid 19 evaluation was negative. Coagulation profile is within normal limits. Renal function is also stable. ProBNP level is 3005 60. Pro-Calcitonin was 0.47. I evaluated this patient and this morning. The patient was still having some trouble breathing although he seems to be much more comfortable compared to yesterday evening. He reports some improvement in his shortness of breath. I ordered a repeat CAT scan of the chest that was done without contrast and the CAT scan showed a loculated pleural effusion on the right with a smaller left pleural effusion. A 6 cm cavitary lesion in the right lower lobe was seen representing a primary neoplasm. The right lower lobe bronchus was not seen to be patent. There is a fracture in the posterior aspect of the right seventh and eighth and ninth rib which was stable compared to the previous evaluation. There was diffuse emphysema and coarse interstitial fibrosis. As such, I suspect located parapneumonic effusion on the right, likely postobstructive in nature and the patient is currently on IV Zosyn. The patient was seen today 02/01/2020 for follow-up with Dr. Arreguin. His Covid 19 evaluation was negative. He continues to have episodes of shortness of breath, cough, and oxygen desaturation. Remains afebrile. He is currently on 8 L high flow nasal cannula with oxygen saturation 94%. Computed tomography scan of the chest was completed yesterday demonstrating a loculated pleural effusion on the right and small left pleural effusion with 6 cm cavitary lesion in the right lower lobe representing primary neoplasm. Interventional radiology was consulted for placement of drainage tube. Objective - Vital Signs Vital signs: Vital Signs Temp 97.8 F 02/01/20 08:00 Pulse 116 H 02/01/20 08:00 Resp 22 02/01/20 08:00 BP 121/61 02/01/20 08:00 Pulse Ox 94 L 02/01/20 08:00 Intake & Output 01/31/20 02/01/20 02/01/20 18:59 06:59 18:59 Intake Total 725 305 476 Output Total 1000 550 Balance -275 -245 476 Weight 103.5 kg Intake: IV 180 .9 180 Intake, IV Titration 125 125 Amount Diltiazem 125 mg In 125 125 Sodium Chloride 0.9% 100 ml @ 7.5 MG/HR 7.5 mls/hr IV .[id number] [facility] Rx#: [id number] Oral 600 476 Output: Urine 1000 550 Other: Voiding Method Urinal Urinal # Voids 2 1 - Constitutional General appearance: Present: cooperative, no acute distress - Respiratory Details: Lungs sounds diminished on the right with a few scattered rhonchi bilaterally. Respirations even, nonlabored at rest. Currently on 8 L high flow nasal cannula with oxygen saturation 94%. - Cardiovascular Details: S1, S2 present. Irregular rate and rhythm, atrial fibrillation on telemetry. Palpable peripheral pulses bilaterally. No edema present. - Gastrointestinal Gastrointestinal Comment(s): Abdomen soft, nontender, nondistended. No organomegaly present. Active bowel sounds present 4 quadrants. Tolerating diet. - Genitourinary Genitourinary Comment(s): Continues to void - Integumentary Integumentary Comment(s): Skin is warm and dry. - Neurologic Neurologic: Present: CNII-XII intact - Musculoskeletal Musculoskeletal: Present: strength equal bilaterally - Psychiatric Psychiatric: Present: A&O x's 3, appropriate affect, intact judgment & insight - Allied health notes Allied health notes reviewed: nursing - Labs CBC & Chem 7: 02/01/20 05:06 02/01/20 05:06 Labs: Abnormal Lab Results - Last 24 Hours (Table) 01/31/20 02/01/20 02/01/20 Range/Units 16:39 05:06 05:06 WBC 12.4 H (3.8-10.6) k/uL RBC 3.83 L (4.30-5.90) m/uL Hgb 11.4 L (13.0-17.5) gm/dL Hct 36.2 L (39.0-53.0) % Neutrophils # 12.0 H (1.3-7.7) k/uL Lymphocytes # 0.3 L (1.0-4.8) k/uL Sodium 135 L (137-145) mmol/L BUN 23 H (9-20) mg/dL Glucose 130 H (74-99) mg/dL POC Glucose (mg/dL) 133 H (75-99) mg/dL Calcium 6.9 L (8.4-10.2) mg/dL 02/01/20 02/01/20 Range/Units 05:37 11:28 WBC (3.8-10.6) k/uL RBC (4.30-5.90) m/uL Hgb (13.0-17.5) gm/dL Hct (39.0-53.0) % Neutrophils # (1.3-7.7) k/uL Lymphocytes # (1.0-4.8) k/uL Sodium (137-145) mmol/L BUN (9-20) mg/dL Glucose (74-99) mg/dL POC Glucose (mg/dL) 141 H 170 H (75-99) mg/dL Calcium (8.4-10.2) mg/dL Microbiology - Last 24 Hours (Table) 01/30/20 07:50 Gram Stain - Final Sputum Sputum Culture - Final 01/29/20 20:00 Blood Culture - Preliminary Blood No Growth after 48 hours Assessment and Plan Assessment: 1 acute febrile illness with leukocytosis likely secondary to an underlying infectious cause. Suspect a postobstructive pneumonia involving the right lower lobe. The patient has been placed also end up with isolation suspecting Covid 19 infection which was negative. I favor bacterial infection/right lower lobe pneumonia on the postobstructive type. Subsequent evaluation yielded that the patient was a Covid 19 negative and a follow-up CAT scan of the chest showed a large loculated right-sided pleural effusion, lateral loculated in the lateral right chest wall in addition to a right lower lobe atelectasis with some right basilar effusion, obstruction of the right lower lobe bronchus secondary to infrahilar mass in addition to diffuse emphysema and some interstitial fibrosis. Strongly suspect postobstructive pneumonia with a loculated parapneumonic effusion on the right. May not be amenable for thoracentesis and may consider IR driven thoracentesis of the right lateral loculated pleural effusion. 2 metastatic squamous cell carcinoma discussed above and the patient was started on systemic chemotherapy recently through Dr. Rm 3 right lower lobe atelectasis with a mass effect involving the right lower lobe bronchus secondary to an infrahilar tumor. The patient has atelectasis and right lower lobe effusion and there is an excellent medium for postobstructive pneumonias. The condition is involved and the patient developed a loculated right-sided pleural effusion along the right lateral chest wall. 4 COPD 5 skeletal metastases 6 new onset atrial fibrillation with rapid ventricular response, heel shaper on the case and the patient was treated with a Cardizem drip. No anticoagulants for now 7 hyperlipidemia 8 osteoarthritis with chronic lumbar disc disease 9 acute hypoxic respiratory failure currently on 8 L high flow nasal cannula Plan: Continue IV Zosyn CAT scan of the chest was reviewed Covid 19 evaluation was negative Continue DuoNeb nebulized treatments around the clock, and continue IV Solu- Medrol Hold anticoagulation and sedation for a drainage that can be done by interventional radiology under ultrasound guidance. The loculated right-sided pleural effusion may be potentially drained. However, the clinical response is not definite that the patient a trapped right lower lobe and significant obstruction of the right lower lobe bronchus. Await drainage results I, the cosigning physician, performed a history & physical examination of the patient. Lungs sounds are diminished in the right lung base with scattered rhonchi bilaterally. Maintaining good O2 saturations in the 90s on 8 L high flow nasal cannula. I discussed the assessment and plan of care with my nurse practitioner, Odilia Grimaldo. I attest to the above note as dictated by her. Time with Patient: Greater than 30
[2020-02-01] MEDS: MORPHINE SULFATE IR 15 MG TABLET PO PRN (14:18)
[2020-02-01] MEDS: SALT AND SODA MOUTHWASH 1,000 ML PO SCH ×3 (16:17→22:54)
[2020-02-01 17:09] LABS: Glucose,Whole Blood 137 mg/dL (75-99)
--- NOTE | 2020-02-01 17:16 | P.PN ---
Subjective Progress Note Date: 02/01/20 Principal diagnosis: CHF, malignant pleural effusion. In follow-up today patient is still requiring 8 L nasal cannula for respiratory comfort, 2-3 L is his baseline. He says his mouth is irritated, his cough today is productive with clear sputum, no fevers, nausea, vomiting, he is tolerating oral intake, no chest pain, abdominal pain or cramping, acute changes in bowel or bladder habits, no pain to report Objective - Vital Signs Vital signs: Vital Signs Temp 98.2 F 02/01/20 16:00 Pulse 102 H 02/01/20 16:00 Resp 22 02/01/20 16:00 BP 113/79 02/01/20 16:00 Pulse Ox 96 02/01/20 16:00 Intake & Output 01/31/20 02/01/20 02/01/20 18:59 06:59 18:59 Intake Total 725 305 476 Output Total 1000 550 Balance -275 -245 476 Weight 103.5 kg Intake: IV 180 .9 180 Intake, IV Titration 125 125 Amount Diltiazem 125 mg In 125 125 Sodium Chloride 0.9% 100 ml @ 7.5 MG/HR 7.5 mls/hr IV .[id number] [facility] Rx#: [id number] Oral 600 476 Output: Urine 1000 550 Other: Voiding Method Urinal Urinal # Voids 2 1 - Constitutional General appearance: Present: average body habitus, cooperative, mild distress - EENT Eyes: Present: anicteric sclerae, EOMI ENT: Present: hearing grossly normal, pharyngeal erythema - Respiratory Respiratory: bilateral: diminished - Cardiovascular Rhythm: regular Heart sounds: normal: S1, S2 Abnormal Heart Sounds: Absent: systolic murmur, diastolic murmur, rub, S3 Gallop, S4 Gallop, click, other - Gastrointestinal General gastrointestinal: Present: normal bowel sounds, soft - Neurologic Neurologic: Present: CNII-XII intact - Musculoskeletal Musculoskeletal: Present: generalized weakness, strength equal bilaterally - Psychiatric Psychiatric: Present: A&O x's 3, appropriate affect, intact judgment & insight - Labs CBC & Chem 7: 02/01/20 05:06 02/01/20 05:06 Labs: Abnormal Lab Results - Last 24 Hours (Table) 02/01/20 02/01/20 02/01/20 Range/Units 05:06 05:06 05:37 WBC 12.4 H (3.8-10.6) k/uL RBC 3.83 L (4.30-5.90) m/uL Hgb 11.4 L (13.0-17.5) gm/dL Hct 36.2 L (39.0-53.0) % Neutrophils # 12.0 H (1.3-7.7) k/uL Lymphocytes # 0.3 L (1.0-4.8) k/uL Sodium 135 L (137-145) mmol/L BUN 23 H (9-20) mg/dL Glucose 130 H (74-99) mg/dL POC Glucose (mg/dL) 141 H (75-99) mg/dL Calcium 6.9 L (8.4-10.2) mg/dL 02/01/20 Range/Units 11:28 WBC (3.8-10.6) k/uL RBC (4.30-5.90) m/uL Hgb (13.0-17.5) gm/dL Hct (39.0-53.0) % Neutrophils # (1.3-7.7) k/uL Lymphocytes # (1.0-4.8) k/uL Sodium (137-145) mmol/L BUN (9-20) mg/dL Glucose (74-99) mg/dL POC Glucose (mg/dL) 170 H (75-99) mg/dL Calcium (8.4-10.2) mg/dL Microbiology - Last 24 Hours (Table) 01/30/20 07:50 Gram Stain - Final Sputum Sputum Culture - Final 01/29/20 20:00 Blood Culture - Preliminary Blood No Growth after 48 hours Assessment and Plan (1) Acute pneumonia Narrative/Plan: Pulmonary and Infectious Disease following for the same. Current Visit: Yes Status: Acute Priority: High Code(s): J18.9 - PNEUMONIA, UNSPECIFIED ORGANISM SNOMED Code(s): 893192706 (2) Malignant pleural effusion Narrative/Plan: Status post chest tube insertion. Cytology pending. Anticipate improved respiratory symptoms with relief of the same. Patient has had only one cycle of treatment. Would anticipate decreased perfusion volume and recurrence with treatment. Current Visit: No Status: Chronic Priority: Medium Code(s): J91.0 - LATANYA GNANT PLEURAL EFFUSION SNOMED Code(s): 68159377 (3) Squamous cell lung cancer Narrative/Plan: Patient just started treatment for the same. Plan would be to continue with therapy once pneumonia treated, no more fevers and patient's oxygen is stabilized. Current Visit: Yes Status: Acute Priority: High Code(s): C34.90 - MAL IGNANT NEOPLASM OF UNSP PART OF UNSP BRONCHUS OR LUNG SNOMED Code(s): 254 363040 Plan: Doctor attests: I performed a history and physical examination of this patient, developed impression and plan of care, discussed with dictator. I agree with dictators note, documented as a scribe.
--- NOTE | 2020-02-01 18:03 | P.PN ---
Progress Note - Text Progress Note Date: 02/01/20 History of presenting complaint: This is a very pleasant 74-year-old patient of Dr. Mead. Long-standing smoker until recently Chronic stable medical conditions include hyperlipidemia, osteoarthritis, bursitis of the hips and knees, home oxygen 3 L.. Diagnosed with lung cancer stage IV. - non-small cell lung cancer. Received radiation treatment. PET scan that showed metastatic disease. Hernan in [facility] on January 12 had bronchoscopy with further biopsies. Has been getting systemic chemotherapy. Presented with-fever short of breath tired. Initially put on a nonrebreather face hirsch. Also new onset atrial fibrillation with rapid ventricular rate. Admitted with-post obstructive pneumonia affecting the right lower lobe, COVID 19-ruled out, large loculated right pleural effusion, new onset atrial fibrillation with rapid ventricular response, acute hypoxic respiratory failure Today-radiology guided right-sided chest tube was placed. Bloody drainage. Appetite is okay. Shortness of breath present. On 6 L nasal cannula. Heart rate hoping around 100. Eating about 100% of his meals Review of systems: Was done for constitutional, cardiovascular, GI, pulmonary. relevant finding as above Active Medications Acetaminophen (Tylenol Tab) 650 mg PO Q6HR PRN PRN Reason: Fever and/ or Pain Hydrocodone Bitart/Acetaminophen ([place] 5-325) 1 each PO Q6HR PRN PRN Reason: Pain Last Admin: 02/01/20 08:57 Dose: 1 each Documented by: Albuterol Sulfate (Ventolin Hfa Inhaler) 2 puff INHALATION RT-QID [facility] Last Admin: 02/01/20 16:02 Dose: 2 puff Documented by: Alprazolam (Xanax) 0.5 mg PO BID PRN PRN Reason: SEVERE Anxiety Last Admin: 01/30/20 15:47 Dose: 0.5 mg Documented by: Budesonide/Formoterol Fumarate (Symbicort 160-4.5 Mcg Inhaler) 2 puff INHALATION RT-BID [facility] Last Admin: 02/01/20 08:08 Dose: 2 puff Documented by: Famotidine (Pepcid) 20 mg PO Q12HR [facility] Furosemide (Lasix) 40 mg IV Q12H [facility] Last Admin: 02/01/20 09:09 Dose: 40 mg Documented by: Guaifenesin/Dextromethorphan (Robitussin Dm) 10 ml PO Q12H PRN PRN Reason: Cough Last Admin: 02/01/20 08:56 Dose: 10 ml Documented by: Hydromorphone HCl (Dilaudid) 1 mg IVP Q4HR PRN PRN Reason: Severe Pain Last Admin: 02/01/20 02:16 Dose: 1 mg Documented by: Diltiazem HCl 125 mg/ Sodium (Chloride) 125 mls @ 7.5 mls/hr IV .[id number] [facility] Last Admin: 02/01/20 06:06 Dose: 7.5 mg/hr, 7.5 mls/hr Documented by: Piperacillin Sod/Tazobactam (Sod 3.375 gm/ Sodium Chloride) 100 mls @ 25 mls/hr IVPB Q8H [facility] Last Admin: 02/01/20 12:49 Dose: 25 mls/hr Documented by: Insulin Aspart (Novolog) 0 unit SQ ACHS [facility]; Protocol Last Admin: 02/01/20 17:38 Dose: Not Given Documented by: Methylprednisolone Sodium Succinate (Solu-Medrol) 60 mg IV Q8HR [facility] Last Admin: 02/01/20 16:16 Dose: 60 mg Documented by: Metoprolol Tartrate (Lopressor) 50 mg PO TID [facility] Last Admin: 02/01/20 16:17 Dose: 50 mg Documented by: Miscellaneous Information (Pneumonia Protocol Utilized) 1 each PO ONCE PRN PRN Reason: Per Protocol Morphine Sulfate (Msir) 15 mg PO Q8HR PRN PRN Reason: Moderate to Severe Pain Last Admin: 02/01/20 14:18 Dose: 15 mg Documented by: Sodium Bicarbonate () 5 ml PO 5XD [facility] Last Admin: 02/01/20 16:17 Dose: Not Given Documented by: Tiotropium [place] (Spiriva) 1 puff INHALATION RT-DAILY [facility] Last Admin: 02/01/20 08:08 Dose: 1 puff Documented by: Physical examination: VITAL SIGNS: Afebrile, 109, 26, 117/69, 93 % on 6 L GENERAL: Sitting up, on a chair, eating lunch EYES: Pupils equal. Conjunctiva normal. HEENT: External appearance of nose and ears normal, oral cavity grossly normal. NECK: JVD not raised; masses not palpable. HEART: Heart sounds irregular; no edema. LUNGS: Respiratory rate increased, decreased breath sounds. CHEST wall: Right-sided chest drain ABDOMEN: Soft, nontender, liver spleen not palpable, no masses palpable. PSYCH: Alert and oriented x3; mood and affect normal. INVESTIGATIONS, reviewed in the clinical context: White count 12.4 hemoglobin 11.4 progression 3.7 creatinine 0.89 Previous testing: White count 19.2 hemoglobin 12.3 progression 4.9 creatinine 0.92 lactic acid 2.8 Computed tomography scan chest-large loculated pleural effusion on the right, 6 cm cavitary lesion on the right lower lobe, fracture of the right seventh and eighth rib and ninth ribs, from previous, coarse interstitial fibrosis and diffuse emphysema 2-D echocardiogram-moderate concentric LVH, EF 45-50% Sputum culture-respiratory jeff Assessment: -Right-sided postobstructive pneumonia with severe sepsis, POA -Right-sided parapneumonic effusion, status post 1.9 L being drained today -Acute hypoxic respiratory failure from above, slow to respond requiring 6 L of oxygen -New onset atrial fibrillation, rate uncontrolled -Acute COPD exacerbation in a ex-smoker, slow to respond -Stage IV lung cancer non-small cell type-status post radiation, currently on chemotherapy -Hyperlipidemia -Primary osteoarthritis -Lactic acidosis, from sepsis, POA Plan: Care was discussed with the patient. Questions were answered. Lopressor increased to 3 times a day by cardiology. Apixaban has been held. Patient remains on a Cardizem drip. Also in IV Zosyn. Remains on high-dose steroids.
[2020-02-01 20:14] LABS: Glucose,Whole Blood 196 mg/dL (75-99)
[2020-02-01 20:22] LABS: Glucose, BF Source Pleural Fluid; Glucose, Body Fluid 64 mg/dL; LDH, Body Fluid Source Pleural Fluid; Total Protein, Body Fluid 3200 mg/dL
[2020-02-01] MEDS: APIXABAN 5 MG TAB PO SCH (20:39)
[2020-02-01] MEDS: FAMOTIDINE 20 MG TAB PO SCH (20:40)
[2020-02-01] MEDS: ALPRAZolam 0.5 MG TAB PO PRN (22:56)
--- NOTE | 2020-02-01 23:34 | PN ---
PROGRESS NOTE DATE OF SERVICE: 02/01/2020 REASON FOR FOLLOWUP: Pneumonia. INTERVAL HISTORY: The patient is currently afebrile. The patient is status post thoracocentesis. Pleural fluid protein and LDH elevated. The patient tolerated the procedure. The patient denies having any chest pain. Cough has decreased in intensity. No nausea, no vomiting. No abdominal pain or diarrhea. PHYSICAL EXAMINATION: Blood pressure 105/68 with a pulse of 83, temperature 97.5. He is 95% on 3 L nasal cannula. General description is an elderly male up in the chair in no distress. RESPIRATORY SYSTEM: Unlabored breathing with decreased breath sounds at the base. No wheeze. HEART: S1, S2. Regular rate and rhythm. ABDOMEN: Soft. No tenderness. LABS: Hemoglobin 11.4. White count is down to 12.4. BUN of 23, creatinine 0.89. Sputum culture is currently pending. Blood culture has been negative. DIAGNOSTIC IMPRESSION AND PLAN: Patient with left-sided pneumonia and loculated pleural effusion, status post chest tube placement, concern for possible complicated pneumonia. We are waiting for the culture to finalize. Continue with Zosyn and adjust medication further if needed. Continue supportive care. MMODL / IJN: [id number] / MTDD
[2020-02-02] MEDS: PIPERACILLIN-TAZOBACTAM 3.375 GM in SODIUM CHLORIDE 0.9% 100 ML IVPB SCH ×3 (04:20→20:54)
[2020-02-02] MEDS: SALT AND SODA MOUTHWASH 1,000 ML PO SCH ×5 (05:48→22:57)
[2020-02-02 05:49] LABS: Basophils % (A) 0 %; Eosinophils % (A) 0 %; HCT 33.7 % (39.0-53.0); HGB 10.7 gm/dL (13.0-17.5); Lymphocytes # (A) 0.3 k/uL (1.0-4.8); Lymphocytes % (A) 2 %; MCH 29.5 pg (25.0-35.0); MCHC 31.7 g/dL (31.0-37.0); Mean Platelet Volume 7.4; Monocytes # (A) 0.2 k/uL (0-1.0); Monocytes % (A) 1 %; Neutrophils # (A) 14.3 k/uL (1.3-7.7); Neutrophils % (A) 96 %; Platelet Count 267 k/uL (150-450); RBC 3.62 m/uL (4.30-5.90); WBC 14.8 k/uL (3.8-10.6)
[2020-02-02 06:09] LABS: African American GFR (CKD) >90 (>60 ml/min/1.73 sqM); Anion Gap 8 mmol/L; Blood Urea Nitrogen 32 mg/dL (9-20); Calcium 6.8 mg/dL (8.4-10.2); Carbon Dioxide 29 mmol/L (22-30); Chloride 97 mmol/L (98-107); Glucose 129 mg/dL (74-99); Non-African American GFR(CKD) 79 (>60 ml/min/1.73 sqM); Potassium 3.1 mmol/L (3.5-5.1); Sodium 134 mmol/L (137-145)
[2020-02-02 06:19] LABS: Glucose,Whole Blood 127 mg/dL (75-99)
[2020-02-02] MEDS: INSULIN ASPART (NovoLOG) 100 UNIT/ML VIAL SQ SCH ×4 (06:24→20:42)
[2020-02-02] MEDS: TIOTROPIUM 18 MCG/PUFF INHALER INHALATION SCH (07:52)
[2020-02-02] MEDS: ALBUTEROL HFA INHALER INHALATION SCH ×4 (07:52→20:16)
[2020-02-02] MEDS: SYMBICORT 160-4.5 MCG INHALER INHALATION SCH ×2 (07:52→20:17)
[2020-02-02] MEDS: methylPREDNISolone SOD SUCCI 125 MG/2 ML VIAL IV SCH (08:28)
[2020-02-02] MEDS: FUROSEMIDE 10 MG/ML 4 ML VIAL IV SCH ×2 (08:32→20:54)
[2020-02-02] MEDS: APIXABAN 5 MG TAB PO SCH ×2 (08:37→20:55)
[2020-02-02] MEDS: FAMOTIDINE 20 MG TAB PO SCH ×2 (08:38→20:55)
[2020-02-02] MEDS: METOPROLOL TARTRATE 50 MG TAB PO SCH ×3 (08:38→20:55)
--- NOTE | 2020-02-02 09:59 | PN ---
PROGRESS NOTE Mr. Daniels is a gentleman with lung CA who also has developed atrial fibrillation. His LV systolic function is fairly well preserved. His rate is slightly faster. I am going to add verapamil 40 mg t.i.d. to his regimen. He had a chest tube insertion yesterday. We have resumed his apixaban 5 mg b.i.d. LV systolic function is fair at about nearly 45% to 50%. Vitals are stable. JVD 1 cm. No carotid bruit. S1, S2 heard normally with a short systolic murmur. Some tachycardia. Lungs reveal diminished breath sounds. Chest tube in place. We will continue his current medical regimen and add verapamil 40 mg t.i.d. MMODL / IJN: [id number] /
[2020-02-02] MEDS: VERAPAMIL 40 MG TAB PO SCH ×3 (10:01→20:55)
--- NOTE | 2020-02-02 10:51 | CDI ---
Documentation Clarification Form Date: 02/02/2020 10:35:34 AM From: Kimberly LambWinklerSANDHYA paris, CCDS Admit Date: 01/29/2020 10:28:00 PM Patient Name: Maynor Daniels Visit Number: [id number] Discharge Date: ATTENTION: The Clinical Documentation Specialists (CDI) and [facility] Coding Staff appreciate your assistance in clarifying documentation. Please respond to the clarification below the line at the bottom and electronically sign. The CDI & [facility] Coding staff will review the response and follow-up if needed. Please note: Queries are made part of the Legal Health Record. If you have any questions, please contact the author of this message via ITS. Dr. Tang Granados: Per the 01/29 Cardiology Consult: "We have been asked to see in consultation for heart failure." ECHO was ordered. The acuity & specificity of the patients heart failure is not specified. History/Risk Factors: Stage IV lung cancer status post radiation, currently in chemotherapy. 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 Clinical Indicators: Patient presented to the ED on 01/28 with SOB via EMS. Tested for COVID-19 (negative). Diagnosed with sepsis, acute hypoxic respiratory failure, lung cancer, malignant pleural effusion, pneumonia & acute exacerbation of COPD, also developed paroxysmal atrial fibrillation. VS 01/28: T 102.7^, P 121^, R 21 - 18 (sob, cough), BP 151/89, PO 98 15% nrb. BNP 01/28: 970 Echocardiogram Results 01/29: Atrial fibrillation. The left ventricular size is normal. There is moderate concentric left ventricular hypertrophy. Overall left ventricular systolic function is mildly impaired with, an EF between 45 - 50 %. Chest X Ray 01/28: Chronic CHF with increasing right pleural effusion. 01/29 CXR: Continuing changes of mild heart failure. 01/29 CXR: CHF with large right pleural effusion. Pulmonary congestion slightly worse. Treatment on admission: IV fluid bolus 1,000 mls @ 999/hr, IV fluid 1,000 mls @ 130/hr, IV Lasix 40 mg q12, O2: 15% nrb, now 5L nc. Chest tube placed on 01/31 for right side pleural effusion. In your professional opinion, can you please clarify the acuity and type of CHF if known? Systolic Heart Failure: o Acute o Chronic o Acute on Chronic Other heart failure, please specify acuity & type: __unable to determine Unable to Determine (Last Revision: January 2018) MTDD
--- NOTE | 2020-02-02 11:03 | XR ---
EXAMINATION TYPE: XR chest 1V portable DATE OF EXAM: 02/02/2020 Comparison: 01/30/2020 Clinical History: 74-year-old male pleural effusion Findings: Right-sided pigtail pleural catheter is present. Pleural effusion on this side has decreased, a small pleural effusion remains. Trace pleural effusion suspected on the left. There is a 5 mm sliver of ai r in the pleural space along the right lateral aspect of the thorax. Focal right basilar opacities. H eart borderline in size. Impression: 1. Right-sided pigtail pleural catheter in place. There is a trace 5 mm right lateral pneumothorax de monstrated and a residual small pleural effusion. Prominent adjacent right basilar atelectasis and or consolidation remains. 2. Trace left effusion suspected.
--- NOTE | 2020-02-02 11:22 | P.PN ---
Subjective Progress Note Date: 02/02/20 Principal diagnosis: CHF, pleural effusion, Sq cell NSCLC In follow-up today patient is feeling much better. His O2 needs are decreasing, 2-3 L is his baseline. Oral irritation is less, cough continues to be productive with clear sputum, no fevers, nausea, vomiting, he is tolerating oral intake, no chest pain, abdominal pain or cramping, acute changes in bowel or bladder habits, no pain to report Objective - Vital Signs Vital signs: Vital Signs Temp 97.5 F L 02/02/20 04:00 Pulse 68 02/02/20 04:00 Resp 18 02/02/20 04:00 BP 116/72 02/02/20 04:00 Pulse Ox 95 02/02/20 04:00 Intake & Output 02/01/20 02/02/20 02/02/20 18:59 06:59 18:59 Intake Total 716 224.875 180 Output Total 795 15 0 Balance -79 209.875 180 Weight 100 kg Intake: Intake, IV Titration 224.875 Amount Diltiazem 125 mg In 124.875 Sodium Chloride 0.9% 100 ml @ 7.5 MG/HR 7.5 mls/hr IV .[id number] [facility] Rx#: [id number] Piperacillin-Tazobactam 3 100 .375 gm In Sodium Chloride 0.9% 100 ml @ 25 mls/hr IVPB Q8H [facility] Rx#: [id number] Oral 716 180 Output: Chest Tube Drainage 795 15 0 Right Anterior Chest 795 15 0 Other: # Voids 2 - Constitutional General appearance: Present: average body habitus, cooperative, no acute distress - EENT Eyes: Present: anicteric sclerae, EOMI ENT: Present: hearing grossly normal, normal oropharynx - Respiratory Respiratory: bilateral: diminished (R>L) - Cardiovascular Heart sounds: normal: S1, S2 - Peripheral edema leg Peripheral Edema: bilateral: None - Gastrointestinal General gastrointestinal: Present: normal bowel sounds, soft - Neurologic Neurologic: Present: CNII-XII intact - Musculoskeletal Musculoskeletal: Present: strength equal bilaterally - Psychiatric Psychiatric: Present: A&O x's 3, appropriate affect, intact judgment & insight - Labs CBC & Chem 7: 02/02/20 04:45 02/02/20 04:45 Labs: Abnormal Lab Results - Last 24 Hours (Table) 02/01/20 02/01/20 02/01/20 Range/Units 11:28 17:08 20:13 WBC (3.8-10.6) k/uL RBC (4.30-5.90) m/uL Hgb (13.0-17.5) gm/dL Hct (39.0-53.0) % Neutrophils # (1.3-7.7) k/uL Lymphocytes # (1.0-4.8) k/uL Sodium (137-145) mmol/L Potassium (3.5-5.1) mmol/L Chloride (98-107) mmol/L BUN (9-20) mg/dL Glucose (74-99) mg/dL POC Glucose (mg/dL) 170 H 137 H 196 H (75-99) mg/dL Calcium (8.4-10.2) mg/dL 02/02/20 02/02/20 02/02/20 Range/Units 04:45 04:45 06:18 WBC 14.8 H (3.8-10.6) k/uL RBC 3.62 L (4.30-5.90) m/uL Hgb 10.7 L (13.0-17.5) gm/dL Hct 33.7 L (39.0-53.0) % Neutrophils # 14.3 H (1.3-7.7) k/uL Lymphocytes # 0.3 L (1.0-4.8) k/uL Sodium 134 L (137-145) mmol/L Potassium 3.1 L (3.5-5.1) mmol/L Chloride 97 L (98-107) mmol/L BUN 32 H (9-20) mg/dL Glucose 129 H (74-99) mg/dL POC Glucose (mg/dL) 127 H (75-99) mg/dL Calcium 6.8 L (8.4-10.2) mg/dL Microbiology - Last 24 Hours (Table) 01/29/20 20:00 Blood Culture - Preliminary Blood No Growth after 72 hours 01/30/20 07:50 Gram Stain - Final Sputum Sputum Culture - Final Assessment and Plan (1) Acute pneumonia Narrative/Plan: Pulmonary and Infectious Disease following for the same. Current Visit: Yes Status: Acute Priority: High Code(s): J18.9 - PNEUMONIA, UNSPECIFIED ORGANISM SNOMED Code(s): 266706445 (2) Pleural effusion Narrative/Plan: Status post chest tube insertion. Respiratory comfort significantly improved per patient. Cytology pending. Patient has had only one cycle of treatment. Would anticipate decreased perfusion volume and recurrence with treatment Pleural fluid cytology 12/11/19 was negative for malignancy. I have removed the malignant pleural effusion diagnosis until such time there is cytology confirming the same. Pending current cytology. Current Visit: Yes Status: Acute Code(s): J90 - PLEURAL EFFUSION, NOT ELSEWHERE CLASSIFIED SNOMED Code(s): 95486590 (3) Squamous cell lung cancer Narrative/Plan: Patient just started treatment for the same. Hematologically he tolerated well so far, he received on 01/27. Eliu will be in the next 5-7 days. Cont to monitor CBC. Plan would be to continue with therapy once pneumonia treated, pleural effusion managed, no more fevers and patient's oxygen is stabilized. Current Visit: Yes Status: Acute Priority: High Code(s): C34.90 - MALIGNANT NEOPLASM OF UNSP PART OF UNSP BRONCHUS OR LUNG SNOMED Code(s): 652326772 Plan: Doctor attests: I performed a history and physical examination of this patient, developed impression and plan of care, discussed with dictator. I agree with dictators note, documented as a scribe.
[2020-02-02 11:31] LABS: Glucose,Whole Blood 160 mg/dL (75-99)
--- NOTE | 2020-02-02 13:07 | P.PN ---
Subjective Progress Note Date: 02/02/20 Principal diagnosis: Known history of metastatic small cell carcinoma of the lung was recently started on systemic chemotherapy. 74-year-old male patient with known history of metastatic small cell carcinoma of the lung was recently started on systemic chemotherapy. He was started on systemic chemotherapy 2 days ago and the patient came in yesterday to the emergency department because of feeling short of breath and he also felt that he was hallucinating and feeling quite weak. He felt anxious also. He did feel feverish yet there was no documented temperature at home. ED confirmed that the patient had a temperature of 102.7. For that reason, he was admitted to the [facility] for further workup. Note that he was having chronic shortness of breath and the patient has limited exercise capacity. He was having also increased cough. Upon arrival to the ED, his heart rate was also at 121. He was placed on nonrebreather facemask and later on he was weaned down to 40 to about 2 by nasal cannula. He was found to be in atrial fibrillation which is of a new onset and his heart rate went up to 145. He was started on Cardizem infusion and later on this morning the patient converted back to normal sinus rhythm. Echo is to follow Chest x-ray shows volume loss in the right lower lobe and a right-sided pleural effusion The white cell count was at 19.2 The troponin is at 0.023 and 0.027 ProBNP level is at 970 Covid19 nasal swab has been done and there still pending Previous CAT scan of the chest that was done on 01/15/2020 shows mass in the right infrahilar region consistent with neoplasm in addition to basilar obstructive atelectasis/consolidation and a right-sided pleural effusion. There was also a moderately enlarged subcarinal lymph node measuring 4 x 4.2 cm and multi level splitting of the spine PET scan from 12/19/2019 showed large mass and mediastinal and hilar lymphadenopathy with increased metabolic uptake and there was also abnormal uptake in the soft tissues, the pancreas, the bones involving multiple ribs bilaterally and focus of uptake also was present the L3 vertebral body. 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 Nuclear bone scan on 12/10/2019 showed metastatic lesion at the level of T10 and focal abnormal uptake in the right posterior eighth rib MRI of the brain done on 01/06/2020 showed no evidence of any intracranial metastases. MRI of the lumbar spine showed 1.1 cm metastatic focus involving the posterior inferior L3 body of the vertebral. On 01/31/2020 on seeing the patient for a follow-up. Since yesterday, the patient had a very rough night. The patient became short of breath and hypoxic and he has been placed on 100% nonrebreather facemask. His pH is at 7.48 with a pCO2 of 35 and pO2 of 64 and this was done 80% oxygen. His white cell count remains elevated at 18.5. His Covid 19 evaluation was negative. Coagulation profile is within normal limits. Renal function is also stable. ProBNP level is 3005 60. Pro-Calcitonin was 0.47. I evaluated this patient and this morning. The patient was still having some trouble breathing although he seems to be much more comfortable compared to yesterday evening. He reports some improvement in his shortness of breath. I ordered a repeat CAT scan of the chest that was done without contrast and the CAT scan showed a loculated pleural effusion on the right with a smaller left pleural effusion. A 6 cm cavitary lesion in the right lower lobe was seen representing a primary neoplasm. The right lower lobe bronchus was not seen to be patent. There is a fracture in the posterior aspect of the right seventh and eighth and ninth rib which was stable compared to the previous evaluation. There was diffuse emphysema and coarse interstitial fibrosis. As such, I suspect located parapneumonic effusion on the right, likely postobstructive in nature and the patient is currently on IV Zosyn. The patient was seen today 02/01/2020 for follow-up with Dr. Arreguin. His Covid 19 evaluation was negative. He continues to have episodes of shortness of breath, cough, and oxygen desaturation. Remains afebrile. He is currently on 8 L high flow nasal cannula with oxygen saturation 94%. Computed tomography scan of the chest was completed yesterday demonstrating a loculated pleural effusion on the right and small left pleural effusion with 6 cm cavitary lesion in the right lower lobe representing primary neoplasm. Interventional radiology was consulted for placement of drainage tube. On 02/02/2020 the patient was seen in follow-up with Dr. Arreguin at his bedside. His follow-up Covid 19 testing results were negative. Patient was lethargic today and slow to answer questions. The chest x-ray was compared to previous c hest x-ray which did show some improvements. Chest x-ray results showed right- sided pigtail pleural catheter in place, trace 5 mm right lateral pneumothorax demonstrated and residual small pleural effusion. It also showed prominent adjacent right basilar atelectasis and/or consolidation. Oxygen saturations are 95% on 6 L nasal cannula. Right pleural pigtail catheter with 15 mL output last 24 hours. He remains hemodynamically stable and has been afebrile the last 24 hours. Labs today showed a WBC count 14.8, Hgb 10.7, potassium 3.1, BUN 32, and creatinine 0.96. Pleural fluid showed fluid glucose 64, fluid total protein 3200 and fluid LDH 1006. Objective - Vital Signs Vital signs: Vital Signs Temp 96.7 F L 02/02/20 07:55 Pulse 63 02/02/20 07:55 Resp 18 02/02/20 07:55 BP 118/69 02/02/20 07:55 Pulse Ox 92 L 02/02/20 07:55 Intake & Output 02/01/20 02/02/20 02/02/20 18:59 06:59 18:59 Intake Total 716 224.875 180 Output Total 795 15 0 Balance -79 209.875 180 Weight 100 kg Intake: Intake, IV Titration 224.875 Amount Diltiazem 125 mg In 124.875 Sodium Chloride 0.9% 100 ml @ 7.5 MG/HR 7.5 mls/hr IV .[id number] [facility] Rx#: [id number] Piperacillin-Tazobactam 3 100 .375 gm In Sodium Chloride 0.9% 100 ml @ 25 mls/hr IVPB Q8H [facility] Rx#: [id number] Oral 716 180 Output: Chest Tube Drainage 795 15 0 Right Anterior Chest 795 15 0 Other: Voiding Method Urinal # Voids 2 - Constitutional Constitutional Comment(s): 74-year-old chronically ill gentleman. General appearance: Present: cooperative, no acute distress - EENT Eyes: Present: PERRLA. Absent: scleral icterus - Neck Details: Neck supple, no lymphadenopathy. - Respiratory Details: Lung sounds diminished to his right lower lobe with some few scattered crackles. Respirations are symmetrical and nonlabored. Oxygen saturation is 95% on 6 L nasal cannula. - Cardiovascular Details: Irregular rhythm and controlled rate. S1 and S2 present, negative for S3, gallop or murmur. No edema present. - Gastrointestinal Gastrointestinal Comment(s): Abdomen is soft, nontender nondistended. Active bowel sounds present in all 4 abdominal quadrants. No organomegaly appreciated. - Integumentary Integumentary Comment(s): Skin is warm and dry. No clubbing or cyanosis is present. - Neurologic Neurologic: Present: CNII-XII intact - Musculoskeletal Musculoskeletal: Present: generalized weakness, strength equal bilaterally - Psychiatric Psychiatric Comment(s): Flat affect, lethargic. - Allied health notes Allied health notes reviewed: nursing - Labs CBC & Chem 7: 02/02/20 04:45 02/02/20 04:45 Labs: Abnormal Lab Results - Last 24 Hours (Table) 02/01/20 02/01/20 02/02/20 Range/Units 17:08 20:13 04:45 WBC 14.8 H (3.8-10.6) k/uL RBC 3.62 L (4.30-5.90) m/uL Hgb 10.7 L (13.0-17.5) gm/dL Hct 33.7 L (39.0-53.0) % Neutrophils # 14.3 H (1.3-7.7) k/uL Lymphocytes # 0.3 L (1.0-4.8) k/uL Sodium (137-145) mmol/L Potassium (3.5-5.1) mmol/L Chloride (98-107) mmol/L BUN (9-20) mg/dL Glucose (74-99) mg/dL POC Glucose (mg/dL) 137 H 196 H (75-99) mg/dL Calcium (8.4-10.2) mg/dL 02/02/20 02/02/20 02/02/20 Range/Units 04:45 06:18 11:30 WBC (3.8-10.6) k/uL RBC (4.30-5.90) m/uL Hgb (13.0-17.5) gm/dL Hct (39.0-53.0) % Neutrophils # (1.3-7.7) k/uL Lymphocytes # (1.0-4.8) k/uL Sodium 134 L (137-145) mmol/L Potassium 3.1 L (3.5-5.1) mmol/L Chloride 97 L (98-107) mmol/L BUN 32 H (9-20) mg/dL Glucose 129 H (74-99) mg/dL POC Glucose (mg/dL) 127 H 160 H (75-99) mg/dL Calcium 6.8 L (8.4-10.2) mg/dL Microbiology - Last 24 Hours (Table) 01/29/20 20:00 Blood Culture - Preliminary Blood No Growth after 72 hours 01/30/20 07:50 Gram Stain - Final Sputum Sputum Culture - Final - Imaging and Cardiology Chest x-ray: report reviewed, image reviewed Assessment and Plan Assessment: 1 acute febrile illness with leukocytosis likely secondary to an underlying infectious cause. Suspect a postobstructive pneumonia involving the right lower lobe. I favor bacterial infection/right lower lobe pneumonia on the postobstructive type. Subsequent evaluation yielded that the patient was a Covid 19 negative and a follow-up CAT scan of the chest showed a large loculated right-sided pleural effusion, lateral loculated in the lateral right chest wall in addition to a right lower lobe atelectasis with some right basilar effusion, obstruction of the right lower lobe bronchus secondary to infrahilar mass in addition to diffuse emphysema and some interstitial fibrosis. Strongly suspect postobstructive pneumonia with a loculated parapneumonic effusion on the right. Right chest pigtail catheter has been placed by interventional radiology. 2 metastatic squamous cell carcinoma discussed above and the patient was started on systemic chemotherapy recently through Dr. Rm 3 right lower lobe atelectasis with a mass effect involving the right lower lobe bronchus secondary to an infrahilar tumor. The patient has atelectasis and right lower lobe effusion and there is an excellent medium for postobstructive pneumonias. The condition is involved and the patient developed a loculated right-sided pleural effusion along the right lateral chest wall. 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 No anticoagulants for now 7 hyperlipidemia 8 osteoarthritis with chronic lumbar disc disease 9 acute hypoxic respiratory failure currently on 6 L nasal cannula Plan: 1. Continue IV Zosyn 2. Covid 19 evaluation was negative, per current protocol keeping the patient on droplet precautions. 3. Continue DuoNeb nebulized treatments around the clock. 4. We will decrease his Solu-Medrol 40 mg IV every 12 hours. 5. Continue eliquis 5 mg PO BID for new-onset A. fib 6. Continue right pigtail catheter to Pleur-evac and water seal. 7. More recommendations to follow based on patient's clinical course. The patient was seen and examined with Dr. Arreguin, the plan and assessment were discussed. Time with Patient: Less than 30
[2020-02-02 16:40] LABS: Glucose,Whole Blood 145 mg/dL (75-99)
--- NOTE | 2020-02-02 17:02 | P.PN ---
Progress Note - Text Progress Note Date: 02/02/20 History of presenting complaint: This is a very pleasant 74-year-old patient of Dr. Mead. Long-standing smoker until recently Chronic stable medical conditions include hyperlipidemia, osteoarthritis, bursitis of the hips and knees, home oxygen 3 L.. Diagnosed with lung cancer stage IV. - non-small cell lung cancer. Received radiation treatment. PET scan that showed metastatic disease. [facility]an in [facility] on January 12 had bronchoscopy with further biopsies. Has been getting systemic chemotherapy. Presented with-fever short of breath tired. Initially put on a nonrebreather face hirsch. Also new onset atrial fibrillation with rapid ventricular rate. Admitted with-post obstructive pneumonia affecting the right lower lobe, COVID 19-ruled out, large loculated right pleural effusion, new onset atrial fibrillation with rapid ventricular response, acute hypoxic respiratory carson [email or web address] guided right-sided chest tube was placed. Bloody drainage. COVID-19 ruled out Today-. Tired. Some shortness of breath. Tolerating diet. No fever no chills. Minimal cough Review of systems: Was done for constitutional, cardiovascular, GI, pulmonary. relevant finding as above Active Medications Acetaminophen (Tylenol Tab) 650 mg PO Q6HR PRN PRN Reason: Fever and/ or Pain Hydrocodone Bitart/Acetaminophen ([place] 5-325) 1 each PO Q6HR PRN PRN Reason: Pain Last Admin: 02/01/20 20:39 Dose: 1 each Documented by: Albuterol Sulfate (Ventolin Hfa Inhaler) 2 puff INHALATION RT-QID [facility] Last Admin: 02/02/20 15:48 Dose: 2 puff Documented by: Alprazolam (Xanax) 0.5 mg PO BID PRN PRN Reason: SEVERE Anxiety Last Admin: 02/01/20 22:56 Dose: 0.5 mg Documented by: Apixaban (Eliquis) 5 mg PO BID [facility] Last Admin: 02/02/20 08:37 Dose: 5 mg Documented by: Budesonide/Formoterol Fumarate (Symbicort 160-4.5 Mcg Inhaler) 2 puff INHALATION RT-BID [facility] Last Admin: 02/02/20 07:52 Dose: 2 puff Documented by: Famotidine (Pepcid) 20 mg PO Q12HR [facility] Last Admin: 02/02/20 08:38 Dose: 20 mg Documented by: Furosemide (Lasix) 40 mg IV Q12H [facility] Last Admin: 02/02/20 08:32 Dose: 40 mg Documented by: Guaifenesin/Dextromethorphan (Robitussin Dm) 10 ml PO Q12H PRN PRN Reason: Cough Last Admin: 02/01/20 08:56 Dose: 10 ml Documented by: Hydromorphone HCl (Dilaudid) 1 mg IVP Q4HR PRN PRN Reason: Severe Pain Last Admin: 02/01/20 02:16 Dose: 1 mg Documented by: Piperacillin Sod/Tazobactam (Sod 3.375 gm/ Sodium Chloride) 100 mls @ 25 mls/hr IVPB Q8H [facility] Last Admin: 02/02/20 13:03 Dose: 25 mls/hr Documented by: Insulin Aspart (Novolog) 0 unit SQ ACHS [facility]; Protocol Last Admin: 02/02/20 16:47 Dose: 2 unit Documented by: Methylprednisolone Sodium Succinate (Solu-Medrol) 40 mg IV Q12H [facility] Metoprolol Tartrate (Lopressor) 50 mg PO TID [facility] Last Admin: 02/02/20 16:51 Dose: Not Given Documented by: Miscellaneous Information (Pneumonia Protocol Utilized) 1 each PO ONCE PRN PRN Reason: Per Protocol Morphine Sulfate (Msir) 15 mg PO Q8HR PRN PRN Reason: Moderate to Severe Pain Last Admin: 02/01/20 14:18 Dose: 15 mg Documented by: Sodium Bicarbonate () 5 ml PO 5XD [facility] Last Admin: 02/02/20 16:49 Dose: 5 ml Documented by: Tiotropium [place] (Spiriva) 1 puff INHALATION RT-DAILY [facility] Last Admin: 02/02/20 07:52 Dose: 1 puff Documented by: Verapamil HCl (Isoptin) 40 mg PO TID [facility] Last Admin: 02/02/20 16:48 Dose: 40 mg Documented by: Physical examination: VITAL SIGNS: 97.5, 91, 18, 1507, 97% on 6 L GENERAL: Propped up in bed, tired EYES: Pupils equal. Conjunctiva normal. HEENT: External appearance of nose and ears normal, oral cavity grossly normal. NECK: JVD not raised; masses not palpable. HEART: Heart sounds irregular; no edema. LUNGS: Respiratory rate increased, decreased breath sounds. CHEST wall: Right-sided pigtail pleural catheter ABDOMEN: Soft, nontender, liver spleen not palpable, no masses palpable. PSYCH: Alert and oriented x3; mood and affect tired INVESTIGATIONS, reviewed in the clinical context: White count 14.8 hemoglobin 10.7 potassium 3.1 crit 0.96 Previous testing: White count 19.2 hemoglobin 12.3 progression 4.9 creatinine 0.92 lactic acid 2.8 Computed tomography scan chest-large loculated pleural effusion on the right, 6 cm cavitary lesion on the right lower lobe, fracture of the right seventh and eighth rib and ninth ribs, from previous, coarse interstitial fibrosis and diffuse emphysema 2-D echocardiogram-moderate concentric LVH, EF 45-50% Sputum culture-respiratory jeff Assessment: -Right-sided postobstructive pneumonia with severe sepsis, POA -Right-sided parapneumonic effusion, status post 1.9 L being drained-with a pigtail catheter -Acute hypoxic respiratory failure from above, slow to respond requiring 6 L of oxygen-slow to respond -New onset atrial fibrillation, rate uncontrolled -Acute COPD exacerbation in a ex-smoker, slow to respond -Stage IV lung cancer non-small cell type-status post radiation, currently on chemotherapy -Hyperlipidemia -Primary osteoarthritis -Lactic acidosis, from sepsis, POA -Coronavirus PCR-not detected Plan: Patient currently on eliquis that was resumed by cardiology, IV Lasix, IV Solu- Medrol decreased to 40 mg every 12, IV Zosyn. Continue current medication treatment plan. Prognosis guarded.
[2020-02-02 20:43] LABS: Glucose,Whole Blood 131 mg/dL (75-99)
[2020-02-02] MEDS: methylPREDNISolone SOD SUCCI 40 MG/ML 1 ML VIAL IV SCH (20:54)
--- NOTE | 2020-02-02 22:11 | PN ---
PROGRESS NOTE DATE OF SERVICE: 02/02/2020 REASON FOR FOLLOWUP: Pneumonia. INTERVAL HISTORY: The patient is currently afebrile, has been breathing slightly comfortably. The patient denies having any chest pain. He did have some cough but no sputum. No nausea, no vomiting, no abdominal pain or diarrhea. PHYSICAL EXAMINATION: Blood pressure 113/67 with a pulse of 98, temperature 98. He is 94% on 3 L nasal cannula. General description is an elderly male up in the chair in no distress. RESPIRATORY SYSTEM: Unlabored breathing with decreased breath sounds at the base. No wheeze. HEART: S1, S2. Regular rate and rhythm. ABDOMEN: Soft. No tenderness. LABS: Hemoglobin is 10.7, white count 14.8, BUN of 32, creatinine 0.96. Sputum culture so far negative. DIAGNOSTIC IMPRESSION AND PLAN: Patient with pneumonia and pleural effusion, status post chest tube placement. Unfortunately no cultures. The patient is currently covered with Zosyn; to continue. Monitor clinical course closely. Continue with supportive care. MMODL / IJN: [id number] /
[2020-02-03] MEDS: PIPERACILLIN-TAZOBACTAM 3.375 GM in SODIUM CHLORIDE 0.9% 100 ML IVPB SCH ×3 (03:29→20:43)
[2020-02-03 06:08] LABS: Glucose,Whole Blood 128 mg/dL (75-99)
[2020-02-03] MEDS: INSULIN ASPART (NovoLOG) 100 UNIT/ML VIAL SQ SCH ×4 (06:15→20:47)
[2020-02-03] MEDS: SALT AND SODA MOUTHWASH 1,000 ML PO SCH ×5 (06:16→22:45)
[2020-02-03 06:18] LABS: Basophils % (A) 0 %; Eosinophils % (A) 0 %; HCT 32.3 % (39.0-53.0); HGB 10.6 gm/dL (13.0-17.5); Lymphocytes # (A) 0.3 k/uL (1.0-4.8); Lymphocytes % (A) 3 %; MCH 30.4 pg (25.0-35.0); MCHC 32.9 g/dL (31.0-37.0); MCV 92.3 fL (80.0-100.0); Mean Platelet Volume 7.6; Monocytes # (A) 0.1 k/uL (0-1.0); Monocytes % (A) 2 %; Neutrophils # (A) 9.2 k/uL (1.3-7.7); Neutrophils % (A) 95 %; Platelet Count 234 k/uL (150-450); RBC 3.49 m/uL (4.30-5.90); RDW 14.1 % (11.5-15.5); WBC 9.6 k/uL (3.8-10.6)
[2020-02-03 06:31] LABS: Calcium 6.7 mg/dL (8.4-10.2)
[2020-02-03] MEDS ORDERED: POTASSIUM CHLORIDE ER 20 MEQ TAB.ER PO STA (06:50)
[2020-02-03] MEDS: ALBUTEROL HFA INHALER INHALATION SCH ×4 (07:58→19:36)
[2020-02-03] MEDS: TIOTROPIUM 18 MCG/PUFF INHALER INHALATION SCH (07:59)
[2020-02-03] MEDS: SYMBICORT 160-4.5 MCG INHALER INHALATION SCH ×2 (07:59→19:36)
[2020-02-03] MEDS ORDERED: POTASSIUM CHLORIDE ER 20 MEQ TAB.ER PO ONE (09:00)
[2020-02-03] MEDS: methylPREDNISolone SOD SUCCI 40 MG/ML 1 ML VIAL IV SCH ×2 (09:14→20:43)
[2020-02-03] MEDS: APIXABAN 5 MG TAB PO SCH ×2 (09:14→20:43)
[2020-02-03] MEDS: FUROSEMIDE 10 MG/ML 4 ML VIAL IV SCH (09:14)
[2020-02-03] MEDS: VERAPAMIL 40 MG TAB PO SCH (09:14)
[2020-02-03] MEDS: METOPROLOL TARTRATE 50 MG TAB PO SCH ×3 (09:15→20:44)
[2020-02-03] MEDS: FAMOTIDINE 20 MG TAB PO SCH ×2 (09:15→20:43)
[2020-02-03] MEDS ORDERED: Potassium Replacement Protocol 1 EACH MISC MISCELLANE PRN (09:51)
[2020-02-03] MEDS ORDERED: VERAPAMIL 40 MG TAB PO ONE (10:45)
[2020-02-03] MEDS ORDERED: VERAPAMIL 80 MG TAB PO SCH (10:45)
--- NOTE | 2020-02-03 11:00 | PN ---
PROGRESS NOTE Mr. Daniels is a patient with lung cancer, atrial fib rapid rate. The ventricular rate is in the range of 100-120, irregular. I added verapamil yesterday. He also has a chest tube, but there does not seem to be much drainage from the chest tube at this time. He is hemodynamically stable. Denies any chest pain. His breathing is somewhat easier now. I am recommending that we continue metoprolol 50 mg t.i.d. and increase the verapamil to 80 mg t.i.d. and see how he does. Vitals are stable. There is JVD 1 cm. No carotid bruit. Breath sounds are diminished. The lungs, abdomen and lower extremity exam is unchanged. Prognosis remains guarded. MMODL / IJN: [id number] /
[2020-02-03 11:40] LABS: Glucose,Whole Blood 162 mg/dL (75-99)
--- NOTE | 2020-02-03 12:29 | P.PN ---
Subjective Progress Note Date: 02/03/20 Principal diagnosis: Known history of metastatic small cell carcinoma of the lung was recently started on systemic chemotherapy. 74-year-old male patient with known history of metastatic small cell carcinoma of the lung was recently started on systemic chemotherapy. He was started on systemic chemotherapy 2 days ago and the patient came in yesterday to the emergency department because of feeling short of breath and he also felt that he was hallucinating and feeling quite weak. He felt anxious also. He did feel feverish yet there was no documented temperature at home. ED confirmed that the patient had a temperature of 102.7. For that reason, he was admitted to the [facility] for further workup. Note that he was having chronic shortness of breath and the patient has limited exercise capacity. He was having also increased cough. Upon arrival to the ED, his heart rate was also at 121. He was placed on nonrebreather facemask and later on he was weaned down to 40 to about 2 by nasal cannula. He was found to be in atrial fibrillation which is of a new onset and his heart rate went up to 145. He was started on Cardizem infusion and later on this morning the patient converted back to normal sinus rhythm. Echo is to follow Chest x-ray shows volume loss in the right lower lobe and a right-sided pleural effusion The white cell count was at 19.2 The troponin is at 0.023 and 0.027 ProBNP level is at 970 Covid19 nasal swab has been done and there still pending Previous CAT scan of the chest that was done on 01/15/2020 shows mass in the right infrahilar region consistent with neoplasm in addition to basilar obstructive atelectasis/consolidation and a right-sided pleural effusion. There was also a moderately enlarged subcarinal lymph node measuring 4 x 4.2 cm and multi level splitting of the spine PET scan from 12/19/2019 showed large mass and mediastinal and hilar lymphadenopathy with increased metabolic uptake and there was also abnormal uptake in the soft tissues, the pancreas, the bones involving multiple ribs bilaterally and focus of uptake also was present the L3 vertebral body. 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 Nuclear bone scan on 12/10/2019 showed metastatic lesion at the level of T10 and focal abnormal uptake in the right posterior eighth rib MRI of the brain done on 01/06/2020 showed no evidence of any intracranial metastases. MRI of the lumbar spine showed 1.1 cm metastatic focus involving the posterior inferior L3 body of the vertebral. On 01/31/2020 on seeing the patient for a follow-up. Since yesterday, the patient had a very rough night. The patient became short of breath and hypoxic and he has been placed on 100% nonrebreather facemask. His pH is at 7.48 with a pCO2 of 35 and pO2 of 64 and this was done 80% oxygen. His white cell count remains elevated at 18.5. His Covid 19 evaluation was negative. Coagulation profile is within normal limits. Renal function is also stable. ProBNP level is 3005 60. Pro-Calcitonin was 0.47. I evaluated this patient and this morning. The patient was still having some trouble breathing although he seems to be much more comfortable compared to yesterday evening. He reports some improvement in his shortness of breath. I ordered a repeat CAT scan of the chest that was done without contrast and the CAT scan showed a loculated pleural effusion on the right with a smaller left pleural effusion. A 6 cm cavitary lesion in the right lower lobe was seen representing a primary neoplasm. The right lower lobe bronchus was not seen to be patent. There is a fracture in the posterior aspect of the right seventh and eighth and ninth rib which was stable compared to the previous evaluation. There was diffuse emphysema and coarse interstitial fibrosis. As such, I suspect located parapneumonic effusion on the right, likely postobstructive in nature and the patient is currently on IV Zosyn. The patient was seen today 02/01/2020 for follow-up with Dr. Arreguin. His Covid 19 evaluation was negative. He continues to have episodes of shortness of breath, cough, and oxygen desaturation. Remains afebrile. He is currently on 8 L high flow nasal cannula with oxygen saturation 94%. Computed tomography scan of the chest was completed yesterday demonstrating a loculated pleural effusion on the right and small left pleural effusion with 6 cm cavitary lesion in the right lower lobe representing primary neoplasm. Interventional radiology was consulted for placement of drainage tube. On 02/02/2020 the patient was seen in follow-up with Dr. Arreguin at his bedside. His follow-up Covid 19 testing results were negative. Patient was lethargic today and slow to answer questions. The chest x-ray was compared to previous c hest x-ray which did show some improvements. Chest x-ray results showed right- sided pigtail pleural catheter in place, trace 5 mm right lateral pneumothorax demonstrated and residual small pleural effusion. It also showed prominent adjacent right basilar atelectasis and/or consolidation. Oxygen saturations are 95% on 6 L nasal cannula. Right pleural pigtail catheter with 15 mL output last 24 hours. He remains hemodynamically stable and has been afebrile the last 24 hours. Labs today showed a WBC count 14.8, Hgb 10.7, potassium 3.1, BUN 32, and creatinine 0.96. Pleural fluid showed fluid glucose 64, fluid total protein 3200 and fluid LDH 1006. On 02/03/2020 the patient was seen and examined in follow-up with Dr. Arreguin at his bedside. The patient reports he feels somewhat better today and his mentation is more alert. Denies any complaints of pain or shortness of breath. He is sitting up to the bedside chair on the third floor cardiac stepdown unit. Right chest pigtail catheter remains in place to Pleur-evac and to waterseal. No air leak is present. 140 mL of thin serosanguineous drainage output from the pigtail catheter last 24 hours. No chest x-ray was completed today. The pleural fluid cytology showed reactive mesothelial cells and blood, and there were no malignant cells identified. Oxygen saturations 93% on 3 L nasal cannula. Remains with 0.9% normal saline at 20 mL per hour. He has been afebrile the last 24 hours. Labs today show a trending down of his WBCs which were 9.6, Hgb 10.6, sodium 135, potassium 3.0, BUN 37, and creatinine 0.98. Objective - Vital Signs Vital signs: Vital Signs Temp 97.9 F 02/03/20 09:10 Pulse 73 02/03/20 11:45 Resp 16 02/03/20 11:45 BP 114/68 02/03/20 11:45 Pulse Ox 96 02/03/20 11:45 Intake & Output 02/02/20 02/03/20 02/03/20 18:59 06:59 18:59 Intake Total 420 850 240 Output Total 840 672 655 Balance -420 178 -415 Weight 97 kg Intake: IV 10 Invasive Line 3 10 Intake, IV Titration 200 Amount Piperacillin-Tazobactam 3 200 .375 gm In Sodium Chloride 0.9% 100 ml @ 25 mls/hr IVPB Q8H [facility] Rx#: [id number] Oral 420 640 240 Output: Chest Tube Drainage 40 72 30 Right Anterior Chest 40 72 30 Urine 800 600 625 Other: Voiding Method Urinal Urinal # Voids 1 # Bowel Movements 1 - Constitutional Constitutional Comment(s): 74-year-old gentleman who is alert and oriented, sitting up to the bedside chair and is in no acute distress. General appearance: Present: average body habitus, cooperative, no acute distress - EENT Eyes: Present: PERRLA, normal appearance. Absent: scleral icterus ENT: Present: hearing grossly normal, normal oropharynx. Absent: thrush - Neck Details: Neck is supple. Neck: Absent: lymphadenopathy, stridor - Respiratory Details: Lung sounds diminished to his bilateral bases right greater than left with few scattered crackles. Respirations are symmetrical and nonlabored. Oxygen saturation are 93% on 3 L nasal cannula. - Cardiovascular Details: Irregular rhythm with a tachycardic rate. S1 and S2 present, negative for S3, gallop or murmur. Remote telemetry showing atrial fibrillation heart rate 111 BPM. - Gastrointestinal Gastrointestinal Comment(s): Abdomen is soft, nontender nondistended. Active bowel sounds present all 4 abdominal quadrants. General gastrointestinal: Absent: organomegaly - Integumentary Integumentary Comment(s): Skin is warm and dry. No clubbing or cyanosis is present. Integumentary: Absent: rash - Neurologic Neurologic: Present: CNII-XII intact - Musculoskeletal Musculoskeletal: Present: generalized weakness, strength equal bilaterally - Psychiatric Psychiatric: Present: A&O x's 3, appropriate affect, intact judgment & insight - Allied health notes Allied health notes reviewed: nursing - Labs CBC & Chem 7: 02/03/20 05:23 02/03/20 05:23 Labs: Abnormal Lab Results - Last 24 Hours (Table) 02/02/20 02/02/20 02/03/20 Range/Units 16:38 20:41 05:23 RBC 3.49 L (4.30-5.90) m/uL Hgb 10.6 L (13.0-17.5) gm/dL Hct 32.3 L (39.0-53.0) % Neutrophils # 9.2 H (1.3-7.7) k/uL Lymphocytes # 0.3 L (1.0-4.8) k/uL Sodium (137-145) mmol/L Potassium (3.5-5.1) mmol/L BUN (9-20) mg/dL Glucose (74-99) mg/dL POC Glucose (mg/dL) 145 H 131 H (75-99) mg/dL Calcium (8.4-10.2) mg/dL 02/03/20 02/03/20 02/03/20 Range/Units 05:23 06:06 11:39 RBC (4.30-5.90) m/uL Hgb (13.0-17.5) gm/dL Hct (39.0-53.0) % Neutrophils # (1.3-7.7) k/uL Lymphocytes # (1.0-4.8) k/uL Sodium 135 L (137-145) mmol/L Potassium 3.0 L (3.5-5.1) mmol/L BUN 37 H (9-20) mg/dL Glucose 121 H (74-99) mg/dL POC Glucose (mg/dL) 128 H 162 H (75-99) mg/dL Calcium 6.7 L (8.4-10.2) mg/dL Microbiology - Last 24 Hours (Table) 01/29/20 20:00 Blood Culture - Preliminary Blood No Growth after 96 hours Assessment and Plan Assessment: 1 acute febrile illness with leukocytosis likely secondary to an underlying infectious cause. Suspect a postobstructive pneumonia involving the right lower lobe. I favor bacterial infection/right lower lobe pneumonia on the postobstructive type. Subsequent evaluation yielded that the patient was a Covid 19 negative and a follow-up CAT scan of the chest showed a large loculated right-sided pleural effusion, lateral loculated in the lateral right chest wall in addition to a right lower lobe atelectasis with some right basilar effusion, obstruction of the right lower lobe bronchus secondary to infrahilar mass in addition to diffuse emphysema and some interstitial fibrosis. Strongly suspect postobstructive pneumonia with a loculated parapneumonic effusion on the right. Right chest pigtail catheter has been placed by interventional radiology. 2 metastatic squamous cell carcinoma discussed above and the patient was started on systemic chemotherapy recently through Dr. Rm 3 right lower lobe atelectasis with a mass effect involving the right lower lobe bronchus secondary to an infrahilar tumor. The patient has atelectasis and right lower lobe effusion and there is an excellent medium for postobstructive pneumonias. The condition is involved and the patient developed a loculated right-sided pleural effusion along the right lateral chest wall. 4 COPD 5 skeletal metastases 6 new onset atrial fibrillation with rapid ventricular response, stripper printed circuit boards on the case and the patient was treated with a Cardizem drip. No anticoagulants for now 7 hyperlipidemia 8 osteoarthritis with chronic lumbar disc disease 9 acute hypoxic respiratory failure currently on 6 L nasal cannula 10. Hypokalemia secondary to Lasix Plan: 1. The patient was seen and examined at his bedside with Dr. Arreguin. 2. Covid 19 evaluation was negative, per current protocol keeping the patient on droplet precautions. 3. Continue DuoNeb nebulized treatments around the clock. 4. Continue Solu-Medrol 40 mg IV every 12 hours. 5. Continue eliquis 5 mg PO BID for new-onset A. fib 6. Continue right pigtail catheter to Pleur-evac and water seal. Sent fluid for Gram stain analysis, cultures and cell count. 7. Discontinue Lasix and electrolyte replacement per protocol. 8. Chest x-ray in the morning 02/04/2020. 9. Atrial fibrillation management per cardiology recommendations. 10. Medical management and other comorbidities per primary care service. 11. More recommendations to follow based on patient's clinical course. The patient was seen and examined with Dr. Arreguin, the plan and assessment were discussed. Time with Patient: Less than 30
--- NOTE | 2020-02-03 13:30 | P.PN ---
Subjective Progress Note Date: 02/03/20 Principal diagnosis: CHF, pleural effusion, Sq cell NSCLC In follow-up today patient is continues to do well, O2 needs are near his 2-3 L baseline. Denies fevers, oral irritation is less, chest pain, breathing is improved, chest tube is tolerable, no untreated pain to report Objective - Vital Signs Vital signs: Vital Signs Temp 97.9 F 02/03/20 09:10 Pulse 73 02/03/20 11:45 Resp 16 02/03/20 11:45 BP 114/68 02/03/20 11:45 Pulse Ox 96 02/03/20 11:45 Intake & Output 02/02/20 02/03/20 02/03/20 18:59 06:59 18:59 Intake Total 420 850 340 Output Total 840 672 893 Balance -420 178 -553 Weight 97 kg Intake: IV 10 Invasive Line 3 10 Intake, IV Titration 200 100 Amount Piperacillin-Tazobactam 3 200 100 .375 gm In Sodium Chloride 0.9% 100 ml @ 25 mls/hr IVPB Q8H [facility] Rx#: [id number] Oral 420 640 240 Output: Chest Tube Drainage 40 72 48 Right Anterior Chest 40 72 48 Urine 800 600 845 Other: Voiding Method Urinal Urinal # Voids 1 # Bowel Movements 1 - Constitutional General appearance: Present: average body habitus, cooperative, no acute distress - EENT Eyes: Present: anicteric sclerae, EOMI ENT: Present: hearing grossly normal, normal oropharynx - Respiratory Details: patient carries on conversation without shortness of breath - Cardiovascular Details: good color - Neurologic Neurologic: Present: CNII-XII intact - Musculoskeletal Musculoskeletal Comment(s): requires assistive device, can change positions independently - Psychiatric Psychiatric: Present: A&O x's 3, appropriate affect, intact judgment & insight - Labs CBC & Chem 7: 02/03/20 05:23 02/03/20 05:23 Labs: Abnormal Lab Results - Last 24 Hours (Table) 02/02/20 02/02/20 02/03/20 Range/Units 16:38 20:41 05:23 RBC 3.49 L (4.30-5.90) m/uL Hgb 10.6 L (13.0-17.5) gm/dL Hct 32.3 L (39.0-53.0) % Neutrophils # 9.2 H (1.3-7.7) k/uL Lymphocytes # 0.3 L (1.0-4.8) k/uL Sodium (137-145) mmol/L Potassium (3.5-5.1) mmol/L BUN (9-20) mg/dL Glucose (74-99) mg/dL POC Glucose (mg/dL) 145 H 131 H (75-99) mg/dL Calcium (8.4-10.2) mg/dL 02/03/20 02/03/20 02/03/20 Range/Units 05:23 06:06 11:39 RBC (4.30-5.90) m/uL Hgb (13.0-17.5) gm/dL Hct (39.0-53.0) % Neutrophils # (1.3-7.7) k/uL Lymphocytes # (1.0-4.8) k/uL Sodium 135 L (137-145) mmol/L Potassium 3.0 L (3.5-5.1) mmol/L BUN 37 H (9-20) mg/dL Glucose 121 H (74-99) mg/dL POC Glucose (mg/dL) 128 H 162 H (75-99) mg/dL Calcium 6.7 L (8.4-10.2) mg/dL Microbiology - Last 24 Hours (Table) 01/29/20 20:00 Blood Culture - Preliminary Blood No Growth after 96 hours Assessment and Plan (1) Acute pneumonia Narrative/Plan: Pulmonary and Infectious Disease following for the same. Pt symptoms are much improved post chest tube Current Visit: Yes Status: Acute Priority: High Code(s): J18.9 - PNEUMONI A, UNSPECIFIED ORGANISM SNOMED Code(s): 725939023 (2) Pleural effusion Narrative/Plan: Status post chest tube insertion. Respiratory comfort significantly improved. Cytology negative for malignant cells, reviewed with pt. Pleural fluid cytology 12/11/19 and 02/01/20 negative for malignancy. Current Visit: Yes Status: Acute Code(s): J90 - PLEURAL EFFUSION, NOT ELSEWHERE CLASSIFIED SNOMED Code(s): 80178038 (3) Squamous cell lung cancer Narrative/Plan: Patient just started treatment for the same. Hematologically he tolerated well so far, he received on 4/2. Eliu will be in the next 5 days or so, counts look good so far. Cont to monitor CBC. Plan would be to continue with therapy once pneumonia treated, pleural effusion managed, no more fevers and patient's o xygen is stabilized. Current Visit: Yes Status: Acute Priority: High Code(s): C34.90 - MALIGNA NT NEOPLASM OF UNSP PART OF UNSP BRONCHUS OR LUNG SNOMED Code(s): 160970087 Plan: Doctor attests: I performed a history and physical examination of this patient, developed impression and plan of care, discussed with dictator. I agree with dictators note, documented as a scribe.
[2020-02-03 14:55] LABS: Appearance,BF Bloody; Color,BF Red; Nucleated Cells, Body Fluid 333 /uL; RBC, Body Fluid 556000 /uL
[2020-02-03 14:57] LABS: Mononuclear WBC,Body Fluid 21 %; Polynuclear WBC,Body Fluid 78 %; Total Cells Counted,Body Fluid 100
[2020-02-03] MEDS: VERAPAMIL 80 MG TAB PO SCH ×2 (16:07→20:44)
[2020-02-03 16:40] LABS: Glucose,Whole Blood 95 mg/dL (75-99)
[2020-02-03 20:47] LABS: Glucose,Whole Blood 125 mg/dL (75-99)
--- NOTE | 2020-02-03 21:34 | P.PN ---
Progress Note - Text Progress Note Date: 02/03/20 History of presenting complaint: This is a very pleasant 74-year-old patient of Dr. Mead. Long-standing smoker until recently Chronic stable medical conditions include hyperlipidemia, osteoarthritis, bursitis of the hips and knees, home oxygen 3 L.. Diagnosed with lung cancer stage IV. - non-small cell lung cancer. Received radiation treatment. PET scan that showed metastatic disease. [facility] in [facility] on January 12 had bronchoscopy with further biopsies. Has been getting systemic chemotherapy. Presented with-fever short of breath tired. Initially put on a nonrebreather face hirsch. Also new onset atrial fibrillation with rapid ventricular rate. Admitted with-post obstructive pneumonia affecting the right lower lobe, COVID 19-ruled out, large loculated right pleural effusion, new onset atrial fibrillation with rapid ventricular response, acute hypoxic respiratory carson lure.[email or web address] guided right-sided chest tube was placed. Bloody drainage. COVID-19 ruled out Today-. Remains tired. Laying in bed. Some shortness of breath. Chest tube is still putting out some bloody drainage. 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 Heart is still up to 120s-A. fib. Appetite decreasing Review of systems: Was done for constitutional, cardiovascular, GI, pulmonary. relevant finding as above Active Medications Acetaminophen (Tylenol Tab) 650 mg PO Q6HR PRN PRN Reason: Fever and/ or Pain Hydrocodone Bitart/Acetaminophen ([place] 5-325) 1 each PO Q6HR PRN PRN Reason: Pain Last Admin: 02/01/20 20:39 Dose: 1 each Documented by: Albuterol Sulfate (Ventolin Hfa Inhaler) 2 puff INHALATION RT-QID [facility] Last Admin: 02/03/20 19:36 Dose: 2 puff Documented by: Alprazolam (Xanax) 0.5 mg PO BID PRN PRN Reason: SEVERE Anxiety Last Admin: 02/01/20 22:56 Dose: 0.5 mg Documented by: Apixaban (Eliquis) 5 mg PO BID [facility] Last Admin: 02/03/20 20:43 Dose: 5 mg Documented by: Budesonide/Formoterol Fumarate (Symbicort 160-4.5 Mcg Inhaler) 2 puff INHALATION RT-BID [facility] Last Admin: 02/03/20 19:36 Dose: 2 puff Documented by: Famotidine (Pepcid) 20 mg PO Q12HR [facility] Last Admin: 02/03/20 20:43 Dose: 20 mg Documented by: Guaifenesin/Dextromethorphan (Robitussin Dm) 10 ml PO Q12H PRN PRN Reason: Cough Last Admin: 02/01/20 08:56 Dose: 10 ml Documented by: Hydromorphone HCl (Dilaudid) 1 mg IVP Q4HR PRN PRN Reason: Severe Pain Last Admin: 02/01/20 02:16 Dose: 1 mg Documented by: Piperacillin Sod/Tazobactam (Sod 3.375 gm/ Sodium Chloride) 100 mls @ 25 mls/hr IVPB Q8H [facility] Last Admin: 02/03/20 20:43 Dose: 25 mls/hr Documented by: Insulin Aspart (Novolog) 0 unit SQ ACHS [facility]; Protocol Last Admin: 02/03/20 20:47 Dose: Not Given Documented by: Methylprednisolone Sodium Succinate (Solu-Medrol) 40 mg IV Q12H [facility] Last Admin: 02/03/20 20:43 Dose: 40 mg Documented by: Metoprolol Tartrate (Lopressor) 50 mg PO TID [facility] Last Admin: 02/03/20 20:44 Dose: 50 mg Documented by: Miscellaneous Information (Pneumonia Protocol Utilized) 1 each PO ONCE PRN PRN Reason: Per Protocol Miscellaneous Information (Potassium Per Protocol) 1 each MISCELLANE DAILY PRN; Protocol PRN Reason: Per Protocol Sodium Bicarbonate () 5 ml PO 5XD [facility] Last Admin: 02/03/20 20:43 Dose: 5 ml Documented by: Tiotropium [place] (Spiriva) 1 puff INHALATION RT-DAILY [facility] Last Admin: 02/03/20 07:59 Dose: 1 puff Documented by: Verapamil HCl (Isoptin) 80 mg PO TID [facility] Last Admin: 02/03/20 20:44 Dose: 80 mg Documented by: Physical examination: VITAL SIGNS: 97.9, 63, 16, 113/57, 93% on 5 L GENERAL: Laying in bed, tired EYES: Pupils equal. Conjunctiva normal. HEENT: External appearance of nose and ears normal, oral cavity grossly normal. NECK: JVD not raised; masses not palpable. HEART: Heart sounds irregular; no edema. LUNGS: Respiratory rate increased, decreased breath sounds. CHEST wall: Right-sided pigtail pleural catheter-bloody drainage ABDOMEN: Soft, nontender, liver spleen not palpable, no masses palpable. PSYCH: Alert and oriented x3; mood and affect tired INVESTIGATIONS, reviewed in the clinical context: White count 9.6 hemoglobin 10.6 progression 3 creatinine 0.98 Previous testing: White count 19.2 hemoglobin 12.3 progression 4.9 creatinine 0.92 lactic acid 2.8 Computed tomography scan chest-large loculated pleural effusion on the right, 6 cm cavitary lesion on the right lower lobe, fracture of the right seventh and eighth rib and ninth ribs, from previous, coarse interstitial fibrosis and diffuse emphysema 2-D echocardiogram-moderate concentric LVH, EF 45-50% Sputum culture-respiratory jeff Assessment: -Right-sided postobstructive pneumonia with severe sepsis, POA -Right-sided parapneumonic effusion, status post 1.9 L being drained-with a pigtail catheter -Acute hypoxic respiratory failure from above, slow to respond requiring 6 L of oxygen-slow to respond -New onset atrial fibrillation, rate uncontrolled -Acute COPD exacerbation in a ex-smoker, slow to respond -Stage IV lung cancer non-small cell type/squamous cell-status post radiation, currently on chemotherapy -Hyperlipidemia -Primary osteoarthritis -Lactic acidosis, from sepsis, POA -Coronavirus PCR-not detected Plan: on eliquis, taken off- IV Lasix, IV Solu-Medrol 40 mg every 12, IV Zosyn. Continue current medication treatment plan. Prognosis guarded. Discussed with patient.
--- NOTE | 2020-02-03 23:03 | PN ---
PROGRESS NOTE DATE OF SERVICE: 02/03/2020 REASON FOR FOLLOWUP: Pleural effusion, pneumonia, possibly postobstructive. INTERVAL HISTORY: The patient is currently afebrile, has been breathing comfortably. He denies having any chest pain. He did have some cough. No nausea, no vomiting. No abdominal pain or diarrhea. PHYSICAL EXAMINATION: Blood pressure is 120/69 with a pulse of 100, temperature 97.7. He is 92% on 2 L nasal cannula. General description is an elderly male up in the bed in no distress. RESPIRATORY SYSTEM: Unlabored breathing with decreased breath sounds at the base. No wheeze. HEART: S1, S2. Regular rate and rhythm. ABDOMEN: Soft. No tenderness. LABS: Pleural fluid culture currently pending. Sputum has been negative for resistant pathogen. Blood culture is negative. DIAGNOSTIC IMPRESSION AND PLAN: Patient admitted to hospital with increased shortness of breath and cough in this patient who did have evidence of pleural effusion and possible component of postobstructive pneumonia. The patient is covered with Zosyn, status post thoracocentesis. Pleural fluid culture will be followed and antibiotic adjusted further if needed. Continue with supportive care. MMODL / IJN: [id number] /
[2020-02-04] MEDS: PIPERACILLIN-TAZOBACTAM 3.375 GM in SODIUM CHLORIDE 0.9% 100 ML IVPB SCH ×3 (03:20→19:49)
[2020-02-04 06:08] LABS: Glucose,Whole Blood 112 mg/dL (75-99)
[2020-02-04] MEDS: INSULIN ASPART (NovoLOG) 100 UNIT/ML VIAL SQ SCH ×4 (06:08→20:59)
[2020-02-04] MEDS: SALT AND SODA MOUTHWASH 1,000 ML PO SCH ×4 (06:14→20:59)
[2020-02-04 07:43] LABS: African American GFR (CKD) >90 (>60 ml/min/1.73 sqM); Anion Gap 9 mmol/L; Blood Urea Nitrogen 30 mg/dL (9-20); Calcium 6.6 mg/dL (8.4-10.2); Carbon Dioxide 26 mmol/L (22-30); Chloride 104 mmol/L (98-107); Glucose 107 mg/dL (74-99); Non-African American GFR(CKD) 80 (>60 ml/min/1.73 sqM); Potassium 3.8 mmol/L (3.5-5.1); Sodium 139 mmol/L (137-145)
[2020-02-04] MEDS: ALBUTEROL HFA INHALER INHALATION SCH ×4 (08:08→19:15)
[2020-02-04] MEDS: SYMBICORT 160-4.5 MCG INHALER INHALATION SCH ×2 (08:08→19:16)
[2020-02-04] MEDS: TIOTROPIUM 18 MCG/PUFF INHALER INHALATION SCH (08:09)
[2020-02-04] MEDS: methylPREDNISolone SOD SUCCI 40 MG/ML 1 ML VIAL IV SCH (08:11)
[2020-02-04] MEDS: APIXABAN 5 MG TAB PO SCH ×2 (08:15→19:48)
[2020-02-04] MEDS: FAMOTIDINE 20 MG TAB PO SCH ×2 (08:16→19:48)
[2020-02-04] MEDS: VERAPAMIL 80 MG TAB PO SCH ×3 (08:16→23:02)
[2020-02-04] MEDS: METOPROLOL TARTRATE 50 MG TAB PO SCH ×3 (08:16→23:02)
--- NOTE | 2020-02-04 08:48 | XR ---
EXAMINATION TYPE: XR chest 1V portable DATE OF EXAM: 02/04/2020 COMPARISON: 02/02/2020 INDICATION: Right pleural effusion TECHNIQUE: Single frontal view of the chest is obtained. FINDINGS: The heart size is mildly prominent. The pulmonary vasculature is normal. There is a mild infiltrate in the right infrahilar region. A small right pleural effusion is present. Catheter is present on the right. Previous right pneumothorax is not evident. Some pleural fluid may likely extending along the right pleural margin. IMPRESSION: 1. Small right pleural effusion. 2. No pneumothorax. Couple right-sided chest tube is in position and unchanged from comparison.
[2020-02-04] MEDS ORDERED: BENZOCAINE/MENTHOL LOZENG 1 EACH LOZENGE MUCOUS MEM PRN (09:10)
--- NOTE | 2020-02-04 10:23 | P.PN ---
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 We have been following the patient here primarily for atrial fibrillation with rapid ventricular response. The patient was seen and examined this morning, continues to be in atrial fibrillation this morning, heart rate in the 120 to 1:30 range. Overall he states he feels well but he is complaining of a sore throat this morning. Blood pressure 120/70. Potassium 3.8 today. Objective - Vital Signs Vital signs: Vital Signs Temp 97.6 F 02/04/20 08:00 Pulse 100 02/04/20 08:00 Resp 18 02/04/20 08:00 BP 121/74 02/04/20 08:00 Pulse Ox 93 L 02/04/20 08:09 Intake & Output 02/03/20 02/04/20 02/04/20 18:59 06:59 18:59 Intake Total 460 Output Total 919 552 200 Balance -459 -552 -200 Weight 97.5 kg Intake: Intake, IV Titration 100 Amount Piperacillin-Tazobactam 3 100 .375 gm In Sodium Chloride 0.9% 100 ml @ 25 mls/hr IVPB Q8H [facility] Rx#: [id number] Oral 360 Output: Chest Tube Drainage 74 52 Right Anterior Chest 74 52 Urine 845 500 200 Other: Voiding Method Urinal Urinal # Voids 1 # Bowel Movements 1 - Exam GENERAL EXAM: Alert, active, pleasant 74-year-old gentleman, on 4 L nasal cannula, comfortable in no apparent distress. HEAD: Normocephalic. EYES: Normal reaction of pupils, equal size. NOSE: Clear with pink turbinates. THROAT: No erythema or exudates. NECK: No masses, no JVD. CHEST: No chest wall deformity. LUNGS: There is diminished breath on the right lung base along with some dullness to percussion. Few scattered rhonchi heard bilaterally. CVS: S1 and S2 normal with no audible murmur, regular rhythm. ABDOMEN: No hepatosplenomegaly, normal bowel sounds, no guarding or rigidity. SPINE: No scoliosis or deformity SKIN: No rashes CENTRAL NERVOUS SYSTEM: No focal deficits, tone is normal in all 4 extremities. EXTREMITIES: There is no peripheral edema. No clubbing, no cyanosis. Peripheral pulses are intact. - Labs CBC & Chem 7: 02/03/20 05:23 02/04/20 06:11 Labs: Abnormal Lab Results - Last 24 Hours (Table) 02/03/20 02/03/20 02/04/20 Range/Units 11:39 20:45 06:06 BUN (9-20) mg/dL Glucose (74-99) mg/dL POC Glucose (mg/dL) 162 H 125 H 112 H (75-99) mg/dL Calcium (8.4-10.2) mg/dL 02/04/20 Range/Units 06:11 BUN 30 H (9-20) mg/dL Glucose 107 H (74-99) mg/dL POC Glucose (mg/dL) (75-99) mg/dL Calcium 6.6 L (8.4-10.2) mg/dL Microbiology - Last 24 Hours (Table) 02/03/20 11:58 Gram Stain - Preliminary Pleural Fluid Body Fluid Culture - Preliminary 02/01/20 13:00 Gram Stain - Preliminary Pleural Fluid Body Fluid Culture - Preliminary 01/29/20 20:00 Blood Culture - Preliminary Blood No Growth after 120 hours Assessment and Plan Plan: Assessment and plan 1 acute febrile illness with leukocytosis likely secondary to an underlying infectious cause. 2 metastatic squamous cell carcinoma 3 right lower lobe atelectasis with a mass effect involving the right lower lobe bronchus secondary to an infrahilar tumor. 4 COPD 5 skeletal metastases 6 persistent atrial fibrillation with rapid ventricular response 7 hyperlipidemia 8 osteoarthritis with chronic lumbar disc disease 9 acute hypoxic respiratory failure currently on 6 L nasal cannula Plan We will add Lanoxin 0.25 mg IV every 6 hourly 2 doses to the patient's medication regime. We will also start the patient on some Cepacol further complaints of sore throat today. DNP note has been reviewed, I agree with a documented findings and plan of care. Patient was seen and examined.
[2020-02-04] MEDS ORDERED: FUROSEMIDE 10 MG/ML 2 ML VIAL IV STA (10:42)
--- NOTE | 2020-02-04 11:21 | P.PN ---
Subjective Progress Note Date: 02/04/20 Principal diagnosis: CHF, pleural effusion, Sq cell NSCLC In follow-up today patient is continues to do well, O2 needs at baseline. Denies fevers, oral irritation, chest pain, coughing up copious amounts of brown, thick sputum, chest tube is tolerable, no untreated pain to report, he is moving in the room a bit with assistive device Objective - Vital Signs Vital signs: Vital Signs Temp 97.6 F 02/04/20 08:00 Pulse 100 02/04/20 08:00 Resp 18 02/04/20 08:00 BP 121/74 02/04/20 08:00 Pulse Ox 93 L 02/04/20 08:09 Intake & Output 02/03/20 02/04/20 02/04/20 18:59 06:59 18:59 Intake Total 460 Output Total 919 552 200 Balance -459 -552 -200 Weight 97.5 kg Intake: Intake, IV Titration 100 Amount Piperacillin-Tazobactam 3 100 .375 gm In Sodium Chloride 0.9% 100 ml @ 25 mls/hr IVPB Q8H [facility] Rx#: [id number] Oral 360 Output: Chest Tube Drainage 74 52 Right Anterior Chest 74 52 Urine 845 500 200 Other: Voiding Method Urinal Urinal # Voids 1 # Bowel Movements 1 - Constitutional General appearance: Present: average body habitus, cooperative, no acute distress - EENT Eyes: Present: anicteric sclerae, EOMI ENT: Present: hearing grossly normal, normal oropharynx - Respiratory Respiratory: right: diminished, left: CTA - Cardiovascular Heart sounds: normal: S1, S2 Abnormal Heart Sounds: Absent: systolic murmur, diastolic murmur, rub, S3 Gallop, S4 Gallop, click, other - Peripheral edema leg Peripheral Edema: bilateral: Trace - Gastrointestinal General gastrointestinal: Present: normal bowel sounds, soft - Integumentary Integumentary: Present: normal - Neurologic Neurologic: Present: CNII-XII intact - Musculoskeletal Musculoskeletal: Present: generalized weakness, strength equal bilaterally - Psychiatric Psychiatric: Present: A&O x's 3, appropriate affect, intact judgment & insight - Labs CBC & Chem 7: 02/03/20 05:23 02/04/20 06:11 Labs: Abnormal Lab Results - Last 24 Hours (Table) 02/03/20 02/03/2020 Range/Units 11:39 20:45 06:06 BUN (9-20) mg/dL Glucose (74-99) mg/dL POC Glucose (mg/dL) 162 H 125 H 112 H (75-99) mg/dL Calcium (8.4-10.2) mg/dL 02/04/20 Range/Units 06:11 BUN 30 H (9-20) mg/dL Glucose 107 H (74-99) mg/dL POC Glucose (mg/dL) (75-99) mg/dL Calcium 6.6 L (8.4-10.2) mg/dL Microbiology - Last 24 Hours (Table) 02/03/20 11:58 Gram Stain - Preliminary Pleural Fluid Body Fluid Culture - Preliminary 02/01/20 13:00 Gram Stain - Preliminary Pleural Fluid Body Fluid Culture - Preliminary 01/29/20 20:00 Blood Culture - Preliminary Blood No Growth after 120 hours - Imaging and Cardiology Chest x-ray: report reviewed Assessment and Plan (1) Acute pneumonia Narrative/Plan: Pulmonary and Infectious Disease following for the same. Pt symptoms are much improved post chest tube Current Visit: Yes Status: Acute Priority: High Code(s): J18.9 - PNEUMONIA, UNSPECIFIED ORGANISM SNOMED Code(s): 374552901 (2) Pleural effusion Narrative/Plan: Status post chest tube insertion. Respiratory comfort significantly improved. Pleural fluid cytology 12/11/19 and 02/01/20 negative for malignancy. Current Visit: Yes Status: Acute Code(s): J90 - PLEURAL EFFUSION, NOT ELSEWHERE CLASSIFIED SNOMED Code(s): 44140574 (3) Squamous cell lung cancer Narrative/Plan: Patient just started treatment for the same. Hematologically he tolerated well so far, he received on 01/27. Eliu will be in the next 4 days or so, counts look good so far. Cont to monitor CBC. Plan would be to continue with therapy once pneumonia treated, pleural effusion managed, no more fevers and patient's oxygen is stabilized. Reviewed with patient today that radiation was for symptom management. It would be utilized again if it was felt that it would be beneficial. Explained that there is a maximum dose of radiation tissues can receive. He verbalized understanding. All questions answered to his satisfaction. Current Visit: Yes Status: Acute Priority: High Code(s): C34.90 - MALIGNANT NEOPLASM OF UNSP PART OF UNSP BRONCHUS OR LUNG SNOMED Code(s): 917022107 Plan: Doctor attests: I performed a history and physical examination of this patient, developed impression and plan of care, discussed with dictator. I agree with dictators note, documented as a scribe.
[2020-02-04] MEDS: DIGOXIN 250 MCG/ML 2 ML AMP IVP SCH ×2 (11:29→18:15)
[2020-02-04 12:08] LABS: Glucose,Whole Blood 126 mg/dL (75-99)
--- NOTE | 2020-02-04 12:26 | P.PN ---
Subjective Progress Note Date: 02/04/20 Principal diagnosis: Known history of metastatic small cell carcinoma of the lung was recently started on systemic chemotherapy. 74-year-old male patient with known history of metastatic small cell carcinoma of the lung was recently started on systemic chemotherapy. He was started on systemic chemotherapy 2 days ago and the patient came in yesterday to the emergency department because of feeling short of breath and he also felt that he was hallucinating and feeling quite weak. He felt anxious also. He did feel feverish yet there was no documented temperature at home. ED confirmed that the patient had a temperature of 102.7. For that reason, he was admitted to the [facility] for further workup. Note that he was having chronic shortness of breath and the patient has limited exercise capacity. He was having also increased cough. Upon arrival to the ED, his heart rate was also at 121. He was placed on nonrebreather facemask and later on he was weaned down to 40 to about 2 by nasal cannula. He was found to be in atrial fibrillation which is of a new onset and his heart rate went up to 145. He was started on Cardizem infusion and later on this morning the patient converted back to normal sinus rhythm. Echo is to follow Chest x-ray shows volume loss in the right lower lobe and a right-sided pleural effusion The white cell count was at 19.2 The troponin is at 0.023 and 0.027 ProBNP level is at 970 Covid19 nasal swab has been done and there still pending Previous CAT scan of the chest that was done on 01/15/2020 shows mass in the right infrahilar region consistent with neoplasm in addition to basilar obstructive atelectasis/consolidation and a right-sided pleural effusion. There was also a moderately enlarged subcarinal lymph node measuring 4 x 4.2 cm and multi level splitting of the spine PET scan from 12/19/2019 showed large mass and mediastinal and hilar lymphadenopathy with increased metabolic uptake and there was also abnormal uptake in the soft tissues, the pancreas, the bones involving multiple ribs bilaterally and focus of uptake also was present the L3 vertebral body. 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 Nuclear bone scan on 12/10/2019 showed metastatic lesion at the level of T10 and focal abnormal uptake in the right posterior eighth rib MRI of the brain done on 01/06/2020 showed no evidence of any intracranial metastases. MRI of the lumbar spine showed 1.1 cm metastatic focus involving the posterior inferior L3 body of the vertebral. On 01/31/2020 on seeing the patient for a follow-up. Since yesterday, the patient had a very rough night. The patient became short of breath and hypoxic and he has been placed on 100% nonrebreather facemask. His pH is at 7.48 with a pCO2 of 35 and pO2 of 64 and this was done 80% oxygen. His white cell count remains elevated at 18.5. His Covid 19 evaluation was negative. Coagulation profile is within normal limits. Renal function is also stable. ProBNP level is 3005 60. Pro-Calcitonin was 0.47. I evaluated this patient and this morning. The patient was still having some trouble breathing although he seems to be much more comfortable compared to yesterday evening. He reports some improvement in his shortness of breath. I ordered a repeat CAT scan of the chest that was done without contrast and the CAT scan showed a loculated pleural effusion on the right with a smaller left pleural effusion. A 6 cm cavitary lesion in the right lower lobe was seen representing a primary neoplasm. The right lower lobe bronchus was not seen to be patent. There is a fracture in the posterior aspect of the right seventh and eighth and ninth rib which was stable compared to the previous evaluation. There was diffuse emphysema and coarse interstitial fibrosis. As such, I suspect located parapneumonic effusion on the right, likely postobstructive in nature and the patient is currently on IV Zosyn. The patient was seen today 02/01/2020 for follow-up with Dr. Arreguin. His Covid 19 evaluation was negative. He continues to have episodes of shortness of breath, cough, and oxygen desaturation. Remains afebrile. He is currently on 8 L high flow nasal cannula with oxygen saturation 94%. Computed tomography scan of the chest was completed yesterday demonstrating a loculated pleural effusion on the right and small left pleural effusion with 6 cm cavitary lesion in the right lower lobe representing primary neoplasm. Interventional radiology was consulted for placement of drainage tube. On 02/02/2020 the patient was seen in follow-up with Dr. Arreguin at his bedside. His follow-up Covid 19 testing results were negative. Patient was lethargic today and slow to answer questions. The chest x-ray was compared to previous c hest x-ray which did show some improvements. Chest x-ray results showed right- sided pigtail pleural catheter in place, trace 5 mm right lateral pneumothorax demonstrated and residual small pleural effusion. It also showed prominent adjacent right basilar atelectasis and/or consolidation. Oxygen saturations are 95% on 6 L nasal cannula. Right pleural pigtail catheter with 15 mL output last 24 hours. He remains hemodynamically stable and has been afebrile the last 24 hours. Labs today showed a WBC count 14.8, Hgb 10.7, potassium 3.1, BUN 32, and creatinine 0.96. Pleural fluid showed fluid glucose 64, fluid total protein 3200 and fluid LDH 1006. On 02/03/2020 the patient was seen and examined in follow-up with Dr. Arreguin at his bedside. The patient reports he feels somewhat better today and his mentation is more alert. Denies any complaints of pain or shortness of breath. He is sitting up to the bedside chair on the third floor cardiac stepdown unit. Right chest pigtail catheter remains in place to Pleur-evac and to waterseal. No air leak is present. 140 mL of thin serosanguineous drainage output from the pigtail catheter last 24 hours. No chest x-ray was completed today. The pleural fluid cytology showed reactive mesothelial cells and blood, and there were no malignant cells identified. Oxygen saturations 93% on 3 L nasal cannula. Remains with 0.9% normal saline at 20 mL per hour. He has been afebrile the last 24 hours. Labs today show a trending down of his WBCs which were 9.6, Hgb 10.6, sodium 135, potassium 3.0, BUN 37, and creatinine 0.98. On 02/04/2020 the patient was seen and examined in follow-up with Dr. Arreguin at his bedside. He continues to feel better on a daily basis. Oxygen saturation is 96% on 2 L nasal cannula. He is sitting up on to the bedside chair on the cardiac stepdown unit and is in no acute distress. He remains afebrile the last 24 hours. Right chest pigtail catheter remains in place connected to a Pleur- evac drainage system and is to waterseal. No air leak is present and it is draining thin serosanguineous drainage with 160 mL output in the last 24 hours. Chest x-ray this morning shows a small persistent right pleural effusion. Lab results this morning show a sodium 139, potassium 3.8, BUN 30, creatinine 0.95. Preliminary results from the Gram stain pleural fluid show no growth after 24 hours. Objective - Vital Signs Vital signs: Vital Signs Temp 97.7 F 02/04/20 12:00 Pulse 64 02/04/20 12:00 Resp 16 02/04/20 12:00 BP 143/83 02/04/20 12:00 Pulse Ox 96 02/04/20 12:00 Intake & Output 02/03/20 02/04/20 02/04/20 18:59 06:59 18:59 Intake Total 460 200 Output Total 919 552 480 Balance -459 -552 -280 Weight 97.5 kg Intake: IV 100 .9 100 Intake, IV Titration 100 100 Amount Piperacillin-Tazobactam 3 100 100 .375 gm In Sodium Chloride 0.9% 100 ml @ 25 mls/hr IVPB Q8H [facility] Rx#: [id number] Oral 360 Output: Chest Tube Drainage 74 52 80 Right Anterior Chest 74 52 80 Urine 845 500 400 Other: Voiding Method Urinal Urinal Urinal # Voids 1 # Bowel Movements 1 - Constitutional Constitutional Comment(s): 74-year-old gentleman who is alert and oriented, sitting up to the bedside chair and is in no acute distress. General appearance: Present: average body habitus, cooperative, no acute distress - EENT Eyes: Present: fundus normal, normal appearance. Absent: scleral icterus - Neck Details: Neck is supple. Neck: Absent: lymphadenopathy, stridor - Respiratory Details: Lung sounds diminished to his bilateral bases right greater than left with few scattered crackles. Respirations are symmetrical and nonlabored. Oxygen saturation are 94% on 2 L nasal cannula. Right chest pigtail catheter remains in place connected to Pleur-evac and is on waterseal. No air leak is present. Draining thin serosanguineous drainage. - Cardiovascular Details: Irregular rhythm with a tachycardic rate. S1 and S2 present, negative for S3, g allop or murmur. Remote telemetry showing atrial fibrillation heart rate 104 BPM. - Gastrointestinal Gastrointestinal Comment(s): Abdomen is soft, nontender nondistended. Active bowel sounds present all 4 abdominal quadrants. No guarding or rigidity. No organomegaly appreciated. - Integumentary Integumentary Comment(s): Skin is warm and dry. No clubbing or cyanosis is present. Integumentary: Absent: jaundiced, rash - Neurologic Neurologic: Present: CNII-XII intact - Musculoskeletal Musculoskeletal: Present: gait normal, strength equal bilaterally - Psychiatric Psychiatric: Present: A&O x's 3, appropriate affect, intact judgment & insight - Allied health notes Allied health notes reviewed: nursing - Labs CBC & Chem 7: 02/03/20 05:23 02/04/20 06:11 Labs: Abnormal Lab Results - Last 24 Hours (Table) 02/03/20 02/04/20 02/04/20 Range/Units 20:45 06:06 06:11 BUN 30 H (9-20) mg/dL Glucose 107 H (74-99) mg/dL POC Glucose (mg/dL) 125 H 112 H (75-99) mg/dL Calcium 6.6 L (8.4-10.2) mg/dL Microbiology - Last 24 Hours (Table) 02/03/20 11:58 Gram Stain - Preliminary Pleural Fluid Body Fluid Culture - Preliminary 02/01/20 13:00 Gram Stain - Preliminary Pleural Fluid Body Fluid Culture - Preliminary 01/29/20 20:00 Blood Culture - Preliminary Blood No Growth after 120 hours - Imaging and Cardiology Chest x-ray: report reviewed, image reviewed Assessment and Plan Assessment: 1 acute febrile illness with leukocytosis likely secondary to an underlying infectious cause. Suspect a postobstructive pneumonia involving the right lower lobe. I favor bacterial infection/right lower lobe pneumonia on the postobstructive type. Subsequent evaluation yielded that the patient was a Covid 19 negative and a follow-up CAT scan of the chest showed a large loculated right-sided pleural effusion, lateral loculated in the lateral right chest wall in addition to a right lower lobe atelectasis with some right basilar effusion, obstruction of the right lower lobe bronchus secondary to infrahilar mass in addition to diffuse emphysema and some interstitial fibrosis. Strongly suspect postobstructive pneumonia with a loculated parapneumonic effusion on the right. Right chest pigtail catheter has been placed by interventional radiology. 2 metastatic squamous cell carcinoma discussed above and the patient was started on systemic chemotherapy recently through Dr. Rm 3 right lower lobe atelectasis with a mass effect involving the right lower lobe bronchus secondary to an infrahilar tumor. The patient has atelectasis and right lower lobe effusion and there is an excellent medium for postobstructive pneumonias. The condition is involved and the patient developed a loculated right-sided pleural effusion along the right lateral chest wall. 4 COPD 5 skeletal metastases 6 new onset atrial fibrillation with rapid ventricular response, child and family therapist on the case and the patient was treated with a Cardizem drip. No anticoagulants for now 7 hyperlipidemia 8 osteoarthritis with chronic lumbar disc disease 9 acute hypoxic respiratory failure currently on 6 L nasal cannula 10. Hypokalemia secondary to Lasix Plan: 1. The patient was seen and examined at his bedside with Dr. Arreguin. 2. Covid 19 evaluation was negative, per current protocol keeping the patient on droplet precautions. 3. Continue DuoNeb nebulized treatments around the clock. 4. Discontinue Solu-Medrol. 5. Continue eliquis 5 mg PO BID for new-onset A. fib 6. Continue right pigtail catheter to Pleur-evac and water seal. Fluid for Gram stain analysis results remain pending. 7. Lasix 20 mg IV 1 today, electrolyte replacement per protocol. 8. Chest x-ray in the morning 02/05/2020. 9. Atrial fibrillation management per cardiology recommendations. 10. Medical management and other comorbidities per primary care service. 11. BMP in the am follow electrolytes since we gave Lasix today. 12. Discontinue the Dilaudid. Continue home dose of [place]. 13. More recommendations to follow based on patient's clinical course. The patient was seen and examined with Dr. Arreguin, the plan and assessment were discussed. Time with Patient: Less than 30
[2020-02-04 14:02] VITALS: BMI 26.2
[2020-02-04 17:03] LABS: Glucose,Whole Blood 139 mg/dL (75-99)
--- NOTE | 2020-02-04 17:57 | P.PN ---
Progress Note - Text Progress Note Date: 02/04/20 History of presenting complaint: This is a very pleasant 74-year-old patient of Dr. Mead. Long-standing smoker until recently Chronic stable medical conditions include hyperlipidemia, osteoarthritis, bursitis of the hips and knees, home oxygen 3 L.. Diagnosed with lung cancer stage IV. - non-small cell lung cancer. Received radiation treatment. PET scan that showed metastatic disease. Hernan in [facility] on January 12 had bronchoscopy with further biopsies. Has been getting systemic chemotherapy. Presented with-fever short of breath tired. Initially put on a nonrebreather face hirsch. Also new onset atrial fibrillation with rapid ventricular rate. Admitted with-post obstructive pneumonia affecting the right lower lobe, COVID 19-ruled out, large loculated right pleural effusion, new onset atrial fibrillation with rapid ventricular response, acute hypoxic respiratory carson lure.radiology guided right-sided chest tube was placed. Bloody drainage. COVID-19 ruled out Today-. Sitting upon a chair. Tired. Chest tube in place. Bloody drainage. A. fib has been around 90-110. Eating about 50% Review of systems: Was done for constitutional, cardiovascular, GI, pulmonary. relevant finding as above Active Medications Acetaminophen (Tylenol Tab) 650 mg PO Q6HR PRN PRN Reason: Fever and/ or Pain Hydrocodone Bitart/Acetaminophen ([place] 5-325) 1 each PO Q6HR PRN PRN Reason: Pain Last Admin: 02/01/20 20:39 Dose: 1 each Documented by: Albuterol Sulfate (Ventolin Hfa Inhaler) 2 puff INHALATION RT-QID [facility] Last Admin: 02/04/20 15:39 Dose: 2 puff Documented by: Alprazolam (Xanax) 0.5 mg PO BID PRN PRN Reason: SEVERE Anxiety Last Admin: 02/01/20 22:56 Dose: 0.5 mg Documented by: Apixaban (Eliquis) 5 mg PO BID [facility] Last Admin: 02/04/20 08:15 Dose: 5 mg Documented by: Benzocaine/Menthol (Cepacol Lozenge) 1 each MUCOUS MEM Q4HR PRN PRN Reason: Sore Throat Budesonide/Formoterol Fumarate (Symbicort 160-4.5 Mcg Inhaler) 2 puff INHALATION RT-BID [facility] Last Admin: 02/04/20 08:08 Dose: 2 puff Documented by: Digoxin (Lanoxin) 250 mcg IVP Q6HR [facility] Stop: 02/04/20 18:01 Last Admin: 02/04/20 11:29 Dose: 250 mcg Documented by: Famotidine (Pepcid) 20 mg PO Q12HR [facility] Last Admin: 02/04/20 08:16 Dose: 20 mg Documented by: Guaifenesin/Dextromethorphan (Robitussin Dm) 10 ml PO Q12H PRN PRN Reason: Cough Last Admin: 02/01/20 08:56 Dose: 10 ml Documented by: Piperacillin Sod/Tazobactam (Sod 3.375 gm/ Sodium Chloride) 100 mls @ 25 mls/hr IVPB Q8H [facility] Last Admin: 02/04/20 11:57 Dose: Not Given Documented by: Insulin Aspart (Novolog) 0 unit SQ ACHS [facility]; Protocol Last Admin: 02/04/20 11:58 Dose: Not Given Documented by: Metoprolol Tartrate (Lopressor) 50 mg PO TID [facility] Last Admin: 02/04/20 08:16 Dose: 50 mg Documented by: Miscellaneous Information (Pneumonia Protocol Utilized) 1 each PO ONCE PRN PRN Reason: Per Protocol Miscellaneous Information (Potassium Per Protocol) 1 each MISCELLANE DAILY PRN; Protocol PRN Reason: Per Protocol Sodium Bicarbonate () 5 ml PO 5XD [facility] Last Admin: 02/04/20 11:36 Dose: 5 ml Documented by: Tiotropium [place] (Spiriva) 1 puff INHALATION RT-DAILY [facility] Last Admin: 02/04/20 08:09 Dose: 1 puff Documented by: Verapamil HCl (Isoptin) 80 mg PO TID [facility] Last Admin: 02/04/20 08:16 Dose: 80 mg Documented by: Physical examination: VITAL SIGNS: 97.7, 64, 16, 143/83, 96% on 2 L GENERAL: Sitting upon a chair, tired EYES: Pupils equal. Conjunctiva pale HEENT: External appearance of nose and ears normal, oral cavity grossly normal. NECK: JVD not raised; masses not palpable. HEART: Heart sounds irregular; no edema. LUNGS: Respiratory rate increased, decreased breath sounds. CHEST wall: Right-sided pigtail pleural catheter-bloody drainage ABDOMEN: Soft, nontender, liver spleen not palpable, no masses palpable. PSYCH: Alert and oriented x3; mood and affect tired INVESTIGATIONS, reviewed in the clinical context: Progression 3.8 creatinine 0.95 Previous testing: White count 19.2 hemoglobin 12.3 progression 4.9 creatinine 0.92 lactic acid 2.8 Computed tomography scan chest-large loculated pleural effusion on the right, 6 cm cavitary lesion on the right lower lobe, fracture of the right seventh and eighth rib and ninth ribs, from previous, coarse interstitial fibrosis and diffuse emphysema 2-D echocardiogram-moderate concentric LVH, EF 45-50% Sputum culture-respiratory jeff Assessment: -Right-sided postobstructive pneumonia with severe sepsis, POA -Right-sided parapneumonic effusion, status post 1.9 L being drained-with a pigtail catheter -Acute hypoxic respiratory failure from above, improving to 2L of oxygen- -New onset atrial fibrillation, rate uncontrolled -Acute COPD exacerbation in a ex-smoker, improving -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 Continue current medication treatment plan. Prognosis guarded. Discussed with patient. Started on verapamil yesterday. Did get a dose of IV Lasix today.
[2020-02-04 20:47] LABS: Glucose,Whole Blood 117 mg/dL (75-99)
--- NOTE | 2020-02-04 22:40 | PN ---
PROGRESS NOTE DATE OF SERVICE: 02/04/2020 REASON FOR FOLLOWUP: Right-sided pneumonia with parapneumonic effusion. INTERVAL HISTORY: The patient is currently afebrile, has been breathing comfortably. Denies having any chest pain. Did have a cough; no sputum. No nausea, no vomiting, no abdominal pain or diarrhea. PHYSICAL EXAMINATION: Blood pressure 118/74 with a pulse of 94, temperature 97.8. He is 94% on 2 L nasal cannula. General description is an elderly male lying in bed in no distress. RESPIRATORY SYSTEM: Unlabored breathing with decreased breath sounds at the base. No wheeze. HEART: S1, S2. Regular rate and rhythm. ABDOMEN: Soft. No tenderness. LABS: The pleural fluid culture is so far pending. DIAGNOSTIC IMPRESSION AND PLAN: Patient admitted to hospital with fever and increasing shortness of breath. This patient did have right-sided pleural effusion and some atelectasis in this patient who is status post thoracocentesis. Serology was negative for malignancy. Cultures are currently pending. Patient is covered with Zosyn; to continue and monitor clinical course closely. MMODL / IJN: [id number] / YUE
[2020-02-05] MEDS: SALT AND SODA MOUTHWASH 1,000 ML PO SCH ×3 (01:06→09:58)
[2020-02-05] MEDS: PIPERACILLIN-TAZOBACTAM 3.375 GM in SODIUM CHLORIDE 0.9% 100 ML IVPB SCH (04:01)
[2020-02-05] MEDS: INSULIN ASPART (NovoLOG) 100 UNIT/ML VIAL SQ SCH ×2 (06:05→13:00)
[2020-02-05 06:06] LABS: Glucose,Whole Blood 82 mg/dL (75-99)
[2020-02-05] MEDS: SYMBICORT 160-4.5 MCG INHALER INHALATION SCH (07:38)
[2020-02-05] MEDS: TIOTROPIUM 18 MCG/PUFF INHALER INHALATION SCH (07:38)
[2020-02-05] MEDS: ALBUTEROL HFA INHALER INHALATION SCH ×2 (07:38→11:43)
--- NOTE | 2020-02-05 07:41 | XR ---
EXAMINATION TYPE: XR chest 1V portable DATE OF EXAM: 02/05/2020 CLINICAL HISTORY: Difficulty breathing hand pleural effusion progress study. TECHNIQUE: Single AP portable upright view of the chest is obtained. COMPARISON: Chest x-ray from one day earlier And older studies. FINDINGS: Patient rotated to right on current study makes evaluation slightly suboptimal. Degenerati ve change bilateral shoulders redemonstrated. Cardiac silhouette size is stable and mildly enlarged. Persistent peripheral right basilar pigtail catheter. Background chronic emphysematous change with ri ght basilar opacity. IMPRESSION: Chronic emphysematous change and cardiomegaly with small right pleural fluid collection d espite pigtail catheter placement. Underlying right basilar acute infiltrate and/or atelectasis. No s ignificant change from one day earlier.
[2020-02-05 08:25] LABS: African American GFR (CKD) >90 (>60 ml/min/1.73 sqM); Anion Gap 6 mmol/L; Blood Urea Nitrogen 22 mg/dL (9-20); Calcium 6.9 mg/dL (8.4-10.2); Carbon Dioxide 25 mmol/L (22-30); Chloride 105 mmol/L (98-107); Glucose 80 mg/dL (74-99); Non-African American GFR(CKD) 89 (>60 ml/min/1.73 sqM); Potassium 3.8 mmol/L (3.5-5.1); Sodium 136 mmol/L (137-145)
--- NOTE | 2020-02-05 08:53 | PN ---
PROGRESS NOTE Mr. Daniels has lung cancer, has a chest tube. Cardiac issue appears to be atrial fib. Rate is variable, anywhere from 90 to 120. He is on a fairly good dose of verapamil and beta junior. I would not recommend amiodarone for this patient. Overall prognosis seems to be somewhat guarded. We also gave him some digoxin yesterday. Blood pressure is 130/70, pulse rate is about 96, irregular. JVD 1 cm. No carotid bruit. Tachycardia is evident. Irregular rate and rhythm is evident. Lungs revealed diminished air entry in the bilateral lung chaidez, more so on the right. He is on metoprolol and verapamil. I will add digoxin 0.125 mg p.o. daily and see how he does. Cardiac-baxter other than rate control and anticoagulation, I do not have any other recommendations. We will continue to see the patient as needed. MMODL / IJN: [id number] /
[2020-02-05] MEDS ORDERED: DIGOXIN 125 MCG TAB PO SCH (09:00)
[2020-02-05 09:23] LABS: Basophils % (A) 0 %; Eosinophils # (A) 0.5 k/uL (0-0.7); Eosinophils % (A) 5 %; HCT 34.1 % (39.0-53.0); HGB 11.1 gm/dL (13.0-17.5); Lymphocytes # (A) 0.5 k/uL (1.0-4.8); Lymphocytes % (A) 5 %; MCH 30.5 pg (25.0-35.0); MCHC 32.5 g/dL (31.0-37.0); Monocytes # (A) 0.4 k/uL (0-1.0); Monocytes % (A) 4 %; Neutrophils % (A) 85 %; Platelet Count 158 k/uL (150-450); RBC 3.63 m/uL (4.30-5.90); RDW 14.1 % (11.5-15.5); WBC 9.4 k/uL (3.8-10.6)
[2020-02-05] MEDS ORDERED: FUROSEMIDE 10 MG/ML 4 ML VIAL IV STA (09:52)
[2020-02-05] MEDS: VERAPAMIL 80 MG TAB PO SCH (09:57)
[2020-02-05] MEDS: APIXABAN 5 MG TAB PO SCH (09:57)
[2020-02-05] MEDS: METOPROLOL TARTRATE 50 MG TAB PO SCH (09:57)
[2020-02-05] MEDS: FAMOTIDINE 20 MG TAB PO SCH (09:57)
[2020-02-05] MEDS ORDERED: AMOXIC-POT CLAV 875-125MG 1 EACH TAB PO SCH (10:00)
[2020-02-05] MEDS ORDERED: FOLIC ACID 1 MG TAB PO SCH (10:30)
[2020-02-05 10:34] VITALS: BP 135/68; PULSE 78; RESP 18; TEMP 97.4
--- NOTE | 2020-02-05 10:47 | P.PN ---
Subjective Progress Note Date: 02/05/20 Principal diagnosis: 74-year-old male patient with known history of metastatic small cell carcinoma of the lung was recently started on systemic chemotherapy. He was started on sy stemic chemotherapy 2 days ago and the patient came in yesterday to the emergency department because of feeling short of breath and he also felt that he was hallucinating and feeling quite weak. He felt anxious also. He did feel feverish yet there was no documented temperature at home. ED confirmed that the patient had a temperature of 102.7. For that reason, he was admitted to the hospital for further workup. Note that he was having chronic shortness of breath and the patient has limited exercise capacity. He was having also increased cough. Upon arrival to the ED, his heart rate was also at 121. He was placed on nonrebreather facemask and later on he was weaned down to 40 to about 2 by nasal cannula. He was found to be in atrial fibrillation which is of a new onset and his heart rate went up to 145. He was started on Cardizem infusion and later on this morning the patient converted back to normal sinus rhythm. Echo is to follow Chest x-ray shows volume loss in the right lower lobe and a right-sided pleural effusion The white cell count was at 19.2 The troponin is at 0.023 and 0.027 ProBNP level is at 970 Covid19 nasal swab has been done and there still pending Previous CAT scan of the chest that was done on 01/15/2020 shows mass in the right infrahilar region consistent with neoplasm in addition to basilar obstructive atelectasis/consolidation and a right-sided pleural effusion. There was also a moderately enlarged subcarinal lymph node measuring 4 x 4.2 cm and multi level splitting of the spine PET scan from 12/19/2019 showed large mass and mediastinal and hilar lymphadenopathy with increased metabolic uptake and there was also abnormal uptake in the soft tissues, the pancreas, the bones involving multiple ribs bilaterally and focus of uptake also was present the L3 vertebral body. 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 Nuclear bone scan on 12/10/2019 showed metastatic lesion at the level of T10 and focal abnormal uptake in the right posterior eighth rib MRI of the brain done on 01/06/2020 showed no evidence of any intracranial metastases. MRI of the lumbar spine showed 1.1 cm metastatic focus involving the posterior inferior L3 body of the vertebral. On 01/31/2020 on seeing the patient for a follow-up. Since yesterday, the patient had a very rough night. The patient became short of breath and hypoxic and he has been placed on 100% nonrebreather facemask. His pH is at 7.48 with a pCO2 of 35 and pO2 of 64 and this was done 80% oxygen. His white cell count remains elevated at 18.5. His Covid 19 evaluation was negative. Coagulation profile is within normal limits. Renal function is also stable. ProBNP level is 3005 60. Pro-Calcitonin was 0.47. I evaluated this patient and this morning. The patient was still having some trouble breathing although he seems to be much more comfortable compared to yesterday evening. He reports some improvement in his shortness of breath. I ordered a repeat CAT scan of the chest that was done without contrast and the CAT scan showed a loculated pleural effusion on the right with a smaller left pleural effusion. A 6 cm cavitary lesion in the right lower lobe was seen representing a primary neoplasm. The right lower lobe bronchus was not seen to be patent. There is a fracture in the posterior aspect of the right seventh and eighth and ninth rib which was stable compared to the previous evaluation. There was diffuse emphysema and coarse interstitial fibrosis. As such, I suspect located parapneumonic effusion on the right, likely postobstructive in nature and the patient is currently on IV Zosyn. The patient was seen today 02/01/2020 for follow-up with Dr. Arreguin. His Covid 19 evaluation was negative. He continues to have episodes of shortness of breath, cough, and oxygen desaturation. Remains afebrile. He is currently on 8 L high flow nasal cannula with oxygen saturation 94%. Computed tomography scan of the chest was completed yesterday demonstrating a loculated pleural effusion on the right and small left pleural effusion with 6 cm cavitary lesion in the right lower lobe representing primary neoplasm. Interventional radiology was consulted for placement of drainage tube. On 02/02/2020 the patient was seen in follow-up with Dr. Arreguin at his bedside. His follow-up Covid 19 testing results were negative. Patient was lethargic today and slow to answer questions. The chest x-ray was compared to previous chest x-ray which did show some improvements. Chest x-ray results showed right- sided pigtail pleural catheter in place, trace 5 mm right lateral pneumothorax demonstrated and residual small pleural effusion. It also showed prominent adjacent right basilar atelectasis and/or consolidation. Oxygen saturations are 95% on 6 L nasal cannula. Right pleural pigtail catheter with 15 mL output last 24 hours. He remains hemodynamically stable and has been afebrile the last 24 hours. Labs today showed a WBC count 14.8, Hgb 10.7, potassium 3.1, BUN 32, and creatinine 0.96. Pleural fluid showed fluid glucose 64, fluid total protein 3200 and fluid LDH 1006. On 02/03/2020 the patient was seen and examined in follow-up with Dr. Arreguin at his bedside. The patient reports he feels somewhat better today and his mentation is more alert. Denies any complaints of pain or shortness of breath. He is sitting up to the bedside chair on the third floor cardiac stepdown unit. Right chest pigtail catheter remains in place to Pleur-evac and to waterseal. No air leak is present. 140 mL of thin serosanguineous drainage output from the pigtail catheter last 24 hours. No chest x-ray was completed today. The pl eural fluid cytology showed reactive mesothelial cells and blood, and there were no malignant cells identified. Oxygen saturations 93% on 3 L nasal cannula. Remains with 0.9% normal saline at 20 mL per hour. He has been afebrile the last 24 hours. Labs today show a trending down of his WBCs which were 9.6, Hgb 10.6, sodium 135, potassium 3.0, BUN 37, and creatinine 0.98. On 02/04/2020 the patient was seen and examined in follow-up with Dr. Arreguin at his bedside. He continues to feel better on a daily basis. Oxygen saturation is 96% on 2 L nasal cannula. He is sitting up on to the bedside chair on the cardiac stepdown unit and is in no acute distress. He remains afebrile the last 24 hours. Right chest pigtail catheter remains in place connected to a Pleur- evac drainage system and is to waterseal. No air leak is present and it is draining thin serosanguineous drainage with 160 mL output in the last 24 hours. Chest x-ray this morning shows a small persistent right pleural effusion. Lab results this morning show a sodium 139, potassium 3.8, BUN 30, creatinine 0.95. Preliminary results from the Gram stain pleural fluid show no growth after 24 hours. On 02/01/2020 the patient was seen in follow-up with Dr. Arreguin. Continues to improve on a daily basis. Right-sided pigtail catheter chest tube output 150 mL of thin serosanguineous drainage in the last 24 hours. His oxygen saturation is 93% on 2 L nasal cannula. Remains afebrile. Hemodynamically stable. White blood cell count 9.4. Pleural fluid Gram stain preliminarily negative. Chest x-ray this morning reviewed, chronic emphysematous changes with small right- sided pleural effusion present, no significant change. Objective - Vital Signs Vital signs: Vital Signs Temp 97.4 F L 02/05/20 08:30 Pulse 78 02/05/20 08:30 Resp 18 02/05/20 08:30 BP 135/68 02/05/20 08:30 Pulse Ox 93 L 02/05/20 08:30 Intake & Output 02/04/20 02/05/20 02/05/20 18:59 06:59 18:59 Intake Total 440 120 Output Total 500 340 Balance -60 -340 120 Weight 97.5 kg 114 kg Intake: IV 100 .9 100 Intake, IV Titration 100 Amount Piperacillin-Tazobactam 3 100 .375 gm In Sodium Chloride 0.9% 100 ml @ 25 mls/hr IVPB Q8H [facility] Rx#: [id number] Oral 240 120 Output: Chest Tube Drainage 100 40 Right Anterior Chest 100 40 Urine 400 300 Other: Voiding Method Urinal # Voids 2 0 # Bowel Movements 1 - Constitutional Constitutional Comment(s): Sitting up in bed and appears comfortable - Respiratory Details: Lungs sounds diminished to the right lung base. Respirations even, nonlabored. Currently on 2 L nasal cannula with oxygen saturation 93%. Able to achieve 2500 mL on his incentive spirometry. Right sided pigtail catheter present to waterseal, 150 mL of thin serosanguineous drainage in the last 24 hours, no air leak present. - Cardiovascular Details: S1, S2 present. Irregular rate and rhythm, atrial fibrillation on telemetry. Palpable peripheral pulses bilaterally. No edema present. No calf pain or tenderness noted. - Gastrointestinal Gastrointestinal Comment(s): Abdomen soft, nontender, nondistended. No organomegaly present. Active bowel sounds present 4 quadrants. Tolerating diet. - Genitourinary Genitourinary Comment(s): Continues to void - Integumentary Integumentary Comment(s): Skin is warm and dry with evidence of good perfusion - Neurologic Neurologic: Present: CNII-XII intact - Musculoskeletal Musculoskeletal: Present: gait normal, strength equal bilaterally - Psychiatric Psychiatric: Present: A&O x's 3, appropriate affect, intact judgment & insight - Allied health notes Allied health notes reviewed: nursing - Labs CBC & Chem 7: 02/05/20 07:12 02/05/20 07:12 Labs: Abnormal Lab Results - Last 24 Hours (Table) 02/04/20 02/04/20 02/04/20 Range/Units 11:52 16:43 20:45 RBC (4.30-5.90) m/uL Hgb (13.0-17.5) gm/dL Hct (39.0-53.0) % Neutrophils # (1.3-7.7) k/uL Lymphocytes # (1.0-4.8) k/uL Sodium (137-145) mmol/L BUN (9-20) mg/dL POC Glucose (mg/dL) 126 H 139 H 117 H (75-99) mg/dL Calcium (8.4-10.2) mg/dL 02/05/20 02/05/20 Range/Units 07:12 07:12 RBC 3.63 L (4.30-5.90) m/uL Hgb 11.1 L (13.0-17.5) gm/dL Hct 34.1 L (39.0-53.0) % Neutrophils # 8.0 H (1.3-7.7) k/uL Lymphocytes # 0.5 L (1.0-4.8) k/uL Sodium 136 L (137-145) mmol/L BUN 22 H (9-20) mg/dL POC Glucose (mg/dL) (75-99) mg/dL Calcium 6.9 L (8.4-10.2) mg/dL Microbiology - Last 24 Hours (Table) 02/03/20 11:58 Gram Stain - Preliminary Pleural Fluid Body Fluid Culture - Preliminary 02/01/20 13:00 Gram Stain - Preliminary Pleural Fluid Body Fluid Culture - Preliminary 01/29/20 20:00 Blood Culture - Final Blood No Growth after 144 hours - Imaging and Cardiology Chest x-ray: report reviewed, image reviewed Assessment and Plan Assessment: 1 acute febrile illness with leukocytosis likely secondary to an underlying infectious cause. Suspect a postobstructive pneumonia involving the right lower lobe. The patient has been placed also end up with isolation suspecting Covid 19 infection which was negative. I favor bacterial infection/right lower lobe pneumonia on the postobstructive type. Subsequent evaluation yielded that the patient was a Covid 19 negative and a follow-up CAT scan of the chest showed a large loculated right-sided pleural effusion, lateral loculated in the lateral right chest wall in addition to a right lower lobe atelectasis with some right basilar effusion, obstruction of the right lower lobe bronchus secondary to infrahilar mass in addition to diffuse emphysema and some interstitial fibrosis. Strongly suspect postobstructive pneumonia with a loculated parapneumonic effusion on the right. Right-sided pigtail catheter placed by interventional radiology 2 metastatic squamous cell carcinoma discussed above and the patient was started on systemic chemotherapy recently through Dr. Rm 3 right lower lobe atelectasis with a mass effect involving the right lower lobe bronchus secondary to an infrahilar tumor. The patient has atelectasis and right lower lobe effusion and there is an excellent medium for postobstructive pneumonias. The condition is involved and the patient developed a loculated right-sided pleural effusion along the right lateral chest wall. 4 COPD 5 skeletal metastases 6 new onset atrial fibrillation with rapid ventricular response, health care assistant on the case and the patient was treated with a Cardizem drip. Currently on Eliquis for anticoagulation 7 hyperlipidemia 8 osteoarthritis with chronic lumbar disc disease 9 acute hypoxic respiratory failure, currently on 2 L nasal cannula Plan: Discontinue IV Zosyn, start oral Augmentin Covid 19 evaluation was negative Continue Ventolin, Symbicort, and Spiriva inhalers We'll give Lasix 40 mg IV push 1 today Recommend discharge to home when okay with primary care service I, the cosigning physician, performed a history & physical examination of the patient. Lungs sounds are diminished in the right lung base. Maintaining good O2 saturations in the 90s on 2 L nasal cannula. I discussed the assessment and plan of care with my nurse practitioner, Odilia Grimaldo. I attest to the above note as dictated by her.
[2020-02-05] MEDS: HYDROcodone/APAP 5-325MG 1 EACH TAB PO PRN (10:52)
--- NOTE | 2020-02-05 17:05 | PN ---
PROGRESS NOTE DATE OF SERVICE: 02/05/2020 REASON FOR FOLLOWUP: Possible pneumonia. INTERVAL HISTORY: The patient was seen on rounds this morning. The patient has been afebrile, has been breathing comfortably. The patient's right chest tube has been discontinued. Overall resolution of the effusion and did have some acute infiltrate. The patient denies having any chest pain. Minimal cough. No abdominal pain. No diarrhea. PHYSICAL EXAMINATION: Blood pressure 135/68 with a pulse of 78. Temperature 97.4. He 93% on 2 L nasal cannula. General description is an elderly male up in the chair in no distress. RESPIRATORY SYSTEM: Unlabored breathing with decreased breath sounds at the base. No wheeze. HEART: S1, S2. Regular rate and rhythm. ABDOMEN: Soft. No tenderness. LABS: Hemoglobin 11.1, white count 9.4, BUN of 22, creatinine 0.80. DIAGNOSTIC IMPRESSION AND PLAN: Patient with right-sided pleural effusion, status post chest tube. This has been discontinued. Subsequently culture has been negative for resistant pathogen. Antibiotic has been switched over to a short course of oral Augmentin; to continue and close outpatient followup. MMODL / IJN: [id number] /
--- NOTE | 2020-02-05 18:53 | P.PN ---
Subjective Progress Note Date: 02/05/20 planning discharge today, pigtail catheter remved Objective - Vital Signs Vital signs: Vital Signs Temp 97.8 F 02/05/20 04:00 Pulse 97 02/05/20 04:00 Resp 17 02/05/20 04:00 BP 132/70 02/05/20 04:00 Pulse Ox 93 L 02/05/20 04:00 Intake & Output 02/04/20 02/05/20 02/05/20 18:59 06:59 18:59 Intake Total 440 120 Output Total 500 340 Balance -60 -340 120 Weight 97.5 kg 114 kg Intake: IV 100 .9 100 Intake, IV Titration 100 Amount Piperacillin-Tazobactam 3 100 .375 gm In Sodium Chloride 0.9% 100 ml @ 25 mls/hr IVPB Q8H [facility] Rx#: [id number] Oral 240 120 Output: Chest Tube Drainage 100 40 Right Anterior Chest 100 40 Urine 400 300 Other: Voiding Method Urinal # Voids 2 0 # Bowel Movements 1 - Exam - Constitutional General appearance: Present: average body habitus, cooperative, no acute distress - EENT Eyes: Present: anicteric sclerae, EOMI ENT: Present: hearing grossly normal, normal oropharynx - Respiratory Respiratory: right: diminished, left: CTA, Chest tube in place CDI draining - Cardiovascular Heart sounds: normal: S1, S2 Abnormal Heart Sounds: Absent: systolic murmur, diastolic murmur, rub, S3 Gallop, S4 Gallop, click, other - Peripheral edema leg Peripheral Edema: bilateral: Trace - Gastrointestinal General gastrointestinal: Present: normal bowel sounds, soft - Integumentary Integumentary: Present: normal - Neurologic Neurologic: Present: CNII-XII intact - Musculoskeletal Musculoskeletal: Present: generalized weakness, strength equal bilaterally - Psychiatric Psychiatric: Present: A&O x's 3, appropriate affect, intact judgment & insight - Labs CBC & Chem 7: 02/05/20 07:12 02/05/20 07:12 Labs: Abnormal Lab Results - Last 24 Hours (Table) 02/04/20 02/04/20 02/04/20 Range/Units 11:52 16:43 20:45 RBC (4.30-5.90) m/uL Hgb (13.0-17.5) gm/dL Hct (39.0-53.0) % Neutrophils # (1.3-7.7) k/uL Lymphocytes # (1.0-4.8) k/uL Sodium (137-145) mmol/L BUN (9-20) mg/dL POC Glucose (mg/dL) 126 H 139 H 117 H (75-99) mg/dL Calcium (8.4-10.2) mg/dL 02/05/20 02/05/20 Range/Units 07:12 07:12 RBC 3.63 L (4.30-5.90) m/uL Hgb 11.1 L (13.0-17.5) gm/dL Hct 34.1 L (39.0-53.0) % Neutrophils # 8.0 H (1.3-7.7) k/uL Lymphocytes # 0.5 L (1.0-4.8) k/uL Sodium 136 L (137-145) mmol/L BUN 22 H (9-20) mg/dL POC Glucose (mg/dL) (75-99) mg/dL Calcium 6.9 L (8.4-10.2) mg/dL Microbiology - Last 24 Hours (Table) 02/03/20 11:58 Gram Stain - Preliminary Pleural Fluid Body Fluid Culture - Preliminary 02/01/20 13:00 Gram Stain - Preliminary Pleural Fluid Body Fluid Culture - Preliminary 01/29/20 20:00 Blood Culture - Final Blood No Growth after 144 hours Assessment and Plan Plan: - Imaging and Cardiology Chest x-ray: report reviewed Acute pneumonia - Fevers improved - Post obstructive - Pulmonary and Infectious Disease following for the same. - Pt symptoms are much improved post chest tube Pleural effusion - Status post Right Pigtail with serosang. output insertion. Respiratory comfort significantly improved. Pleural fluid cytology 12/11/19 and 02/01/20 negative for malignancy. Metastatic Squamous cell lung cancer - Status Post Cycle One of Almta, Carboplatin and Keytruda, treatment 01/28/20 - He also received Zometa - Continue Folic Acid - Will plan to continue after patient stabilized and discharged, current treatment on hold - Monitor CBC and CMP, CBC is expected to decrease over the next 3-5 days as he approaches Eliu, and this may be exacerbated with acute situation. Doctor attests: I performed a history and physical examination of this patient, developed impression and plan of care, discussed with dictator. I agree with dictators note, documented as a scribe.
--- NOTE | 2020-02-05 21:47 | P.DS ---
Providers Date of admission: 01/29/20 22:28 Expected date of discharge: 02/05/20 Attending physician: Tuan Guzman Consults: 01/29/20 22:27 Consult Physician Routine Consulting Provider: Gildardo Jaime Consult Reason/Comments: known Do you want consulting provider notified?: Yes Consult Physician Routine Consulting Provider: Brooklyn Mascorro Consult Reason/Comments: fever Do you want consulting provider notified?: Yes Consult Physician Routine Consulting Provider: Halley Kumar Consult Reason/Comments: chf Do you want consulting provider notified?: Yes 01/29/20 22:31 Consult Physician Routine Consulting Provider: Ulises Dixon Consult Reason/Comments: [place] Do you want consulting provider notified?: Yes Primary care physician: [facility] Course: History of presenting complaint: This is a very pleasant 74-year-old patient of Dr. Mead. Long-standing smoker until recently Chronic stable medical conditions include hyperlipidemia, osteoarthritis, bursitis of the hips and knees, home oxygen 3 L.. Diagnosed with lung cancer stage IV. - non-small cell lung cancer. Received radiation treatment. PET scan that showed metastatic disease. Hernan in [facility] on January 12 had bronchoscopy with further biopsies. Has been getting systemic chemotherapy. Presented with-fever short of breath tired. Initially put on a nonrebreather face hirsch. Also new onset atrial fibrillation with rapid ventricular rate. Admitted with-post obstructive pneumonia affecting the right lower lobe, COVID 19-ruled out, large loculated right pleural effusion, new onset atrial fibrillation with rapid ventricular response, acute hypoxic respiratory failure.radiology guided right-sided chest tube was placed. Bloody drainage. COVID-19 ruled out Today-. Heart rate better controlled. Starting on digoxin by cardiology.. Cleared for discharge. Pigtail catheter was pulled out. Cleared by cardiothoracic and pulmonary to go home. Patient is very keen to go home. Breathing much improved. Being discharged on Augmentin. Follow-up discussed. Consultation: Dr. Arreguin from pulmonary Dr. JENIFFER Granados from cardiology Cardiothoracic surgery Dr. Jaime from oncology Physical examination: VITAL SIGNS: 97.4, 78, 18, 135/68, 93% on 2 L GENERAL: Sitting upon a chair, tired EYES: Pupils equal. Conjunctiva pale HEENT: External appearance of nose and ears normal, oral cavity grossly normal. NECK: JVD not raised; masses not palpable. HEART: Heart sounds irregular; no edema. LUNGS: Respiratory rate increased, decreased breath sounds. ABDOMEN: Soft, nontender, liver spleen not palpable, no masses palpable. PSYCH: Alert and oriented x3; mood and affect tired INVESTIGATIONS, reviewed in the clinical context: White count 9.4 hemoglobin 11.1 progression 3.8 Previous testing: White count 19.2 hemoglobin 12.3 progression 4.9 creatinine 0.92 lactic acid 2.8 Computed tomography scan chest-large loculated pleural effusion on the right, 6 cm cavitary lesion on the right lower lobe, fracture of the right seventh and eighth rib and ninth ribs, from previous, coarse interstitial fibrosis and diffuse emphysema 2-D echocardiogram-moderate concentric LVH, EF 45-50% Sputum culture-respiratory jeff Assessment: -Right-sided postobstructive pneumonia with severe sepsis, POA -Right-sided parapneumonic effusion, status post 1.9 L being drained-with a pigtail catheter-not removed -Acute hypoxic respiratory failure from above, improving to 2L of oxygen- -New onset atrial fibrillation, rate uncontrolled, POA -Acute COPD exacerbation in a ex-smoker, improving -Stage IV lung cancer non-small cell type/squamous cell-status post radiation, currently on chemotherapy -Hyperlipidemia -Primary osteoarthritis -Lactic acidosis, from sepsis, POA -Coronavirus PCR-not detected Disposition: Home Patient Condition at Discharge: Stable Plan - Discharge Summary Discharge Rx Participant: No New Discharge Prescriptions: New Amoxic-Pot Clav 875-125Mg [Augmentin 875-125] 1 each PO Q12HR #10 tab Apixaban [Eliquis] 5 mg PO BID #60 tab Folic Acid 1 mg PO DAILY tab Verapamil [Isoptin] 80 mg PO TID #90 tab Digoxin [Lanoxin] 125 mcg PO DAILY #30 tab Famotidine [Pepcid] 20 mg PO Q12HR #60 tab Continue Cyclobenzaprine [Flexeril] 10 mg PO BID PRN PRN Reason: Pain Naproxen Sodium [Aleve] 220 mg PO BID PRN PRN Reason: Pain Aspirin EC [Ecotrin Low Dose] 81 mg PO DAILY Albuterol Inhaler (Bulk) [Ventolin Hfa Inhaler (Bulk)] 2 puff INHALATION RT- Q6H PRN PRN Reason: Shortness Of Breath Niacin 100 mg PO BID Allerest Allergy Tablet 1 tab PO DAILY Ipratropium-Albuterol Nebulize [Duoneb 0.5 mg-3 mg/3 ml Soln] 3 ml INHALATION RT-QID 30 Days #120 ml Budesonide [Pulmicort] 1 mg INHALATION RT-BID 30 Days #30 ml HYDROcodone/APAP 5-325MG [[place] 5-325] 1 tab PO Q6HR PRN PRN Reason: Pain Morphine Sulfate Ir [MSIR] 15 mg PO Q8HR PRN PRN Reason: Moderate To Severe Pain Changed Metoprolol Tartrate [Lopressor] 50 mg PO TID 30 Days #90 tab Discharge Medication List Albuterol Inhaler (Bulk) [Ventolin Hfa Inhaler (Bulk)] 2 puff INHALATION RT-Q6H PRN 12/09/19 [History] Allerest Allergy Tablet 1 tab PO DAILY 12/09/19 [History] Aspirin EC [Ecotrin Low Dose] 81 mg PO DAILY 12/09/19 [History] Cyclobenzaprine [Flexeril] 10 mg PO BID PRN 12/09/19 [History] Naproxen Sodium [Aleve] 220 mg PO BID PRN 12/09/19 [History] Niacin 100 mg PO BID 12/09/19 [History] Budesonide [Pulmicort] 1 mg INHALATION RT-BID 30 Days #30 ml 12/14/19 [Rx] Ipratropium-Albuterol Nebulize [Duoneb 0.5 mg-3 mg/3 ml Soln] 3 ml INHALATION RT-QID 30 Days #120 ml 12/14/19 [Rx] HYDROcodone/APAP 5-325MG [[place] 5-325] 1 tab PO Q6HR PRN 01/15/20 [History] Morphine Sulfate Ir [MSIR] 15 mg PO Q8HR PRN 01/30/20 [History] Amoxic-Pot Clav 875-125Mg [Augmentin 875-125] 1 each PO Q12HR #10 tab 02/05/20 [Rx] Apixaban [Eliquis] 5 mg PO BID #60 tab 02/05/20 [Rx] Digoxin [Lanoxin] 125 mcg PO DAILY #30 tab 02/05/20 [Rx] Famotidine [Pepcid] 20 mg PO Q12HR #60 tab 02/05/20 [Rx] Folic Acid 1 mg PO DAILY tab 02/05/20 [Rx] Metoprolol Tartrate [Lopressor] 50 mg PO TID 30 Days #90 tab 02/05/20 [Rx] Verapamil [Isoptin] 80 mg PO TID #90 tab 02/05/20 [Rx] Follow up Appointment(s)/Referral(s): Tang Granados MD [STAFF PHYSICIAN] - 10 Days Niles Mead MD [Primary Care Provider] - 1-2 days Fuad Ponce DO [Doctor of Osteopathic Medicine] - 02/10/20 [facility], [NON-STAFF] - Romelia Rm MD [STAFF PHYSICIAN] - 02/18/20 11:00 am (THIS IS A CHEMO APPT. PT WILL BE ASSESSED PRIOR TREATMENT) Patient Instructions/Handouts: Pleural Effusion (DC) Activity/Diet/Wound Care/Special Instructions: Patient requires a walker at discharge secondary to lung cancer and unsteady gait Discharge Disposition: HOME SELF-CARE Care Plan Goals (MU): f/u with Dr. Ponce with prev. made appt on 02/05/2020
== END 2020-02-05 15:40 | disposition home or self-care (01) | DRG 871 ==
LOC: EC 20:47 → 3SCARD 22:28
PROVIDERS: ADMIT Hospitalist; ATTEND Hospitalist
PROC: 0W9930Z Drainage of Right Pleural Cavity with Drainage Device, Percutaneous Approach (ICD-10-PCS; principal; 2020-02-01)
DX: A41.9 Sepsis, unspecified organism (principal); J18.9 Pneumonia, unspecified organism; J96.01 Acute respiratory failure with hypoxia; C34.90 Malignant neoplasm of unspecified part of unspecified bronchus or lung; C77.2 Secondary and unspecified malignant neoplasm of intra-abdominal lymph nodes; C78.5 Secondary malignant neoplasm of large intestine and rectum; C79.51 Secondary malignant neoplasm of bone; E87.1 Hypo-osmolality and hyponatremia; E87.2 Acidosis; I48.19 Other persistent atrial fibrillation; J91.0 Malignant pleural effusion; J98.11 Atelectasis; C77.1 Secondary and unspecified malignant neoplasm of intrathoracic lymph nodes; Z87.891 Personal history of nicotine dependence; Z20.828 Contact with and (suspected) exposure to other viral communicable diseases; D64.9 Anemia, unspecified; E78.5 Hyperlipidemia, unspecified; E87.6 Hypokalemia; F41.9 Anxiety disorder, unspecified; G89.29 Other chronic pain; I11.0 Hypertensive heart disease with heart failure; I50.9 Heart failure, unspecified; J43.9 Emphysema, unspecified; M19.91 Primary osteoarthritis, unspecified site; M51.36 Other intervertebral disc degeneration, lumbar region; R65.20 Severe sepsis without septic shock; T45.8X5A Adverse effect of other primarily systemic and hematological agents, initial encounter; D72.829 Elevated white blood cell count, unspecified; T50.1X5A Adverse effect of loop [high-ceiling] diuretics, initial encounter; Z79.01 Long term (current) use of anticoagulants; Z79.82 Long term (current) use of aspirin; Z79.899 Other long term (current) drug therapy; Z80.7 Family history of other malignant neoplasms of lymphoid, hematopoietic and related tissues; Z82.49 Family history of ischemic heart disease and other diseases of the circulatory system; Z85.118 Personal history of other malignant neoplasm of bronchus and lung; Z87.01 Personal history of pneumonia (recurrent); Z92.3 Personal history of irradiation; I48.0 Paroxysmal atrial fibrillation; Z66 Do not resuscitate; Z79.51 Long term (current) use of inhaled steroids; M70.71 Other bursitis of hip, right hip; M70.72 Other bursitis of hip, left hip; M70.51 Other bursitis of knee, right knee
CPT/HCPCS: 32551; 36415; 36600; 71045; 71250; 80048; 80053; 81003; 82550; 82553; 82805; 82945; 83605; 83615; 83735; 83880; 84100; 84145; 84157; 84443; 84484; 85025; 85610; 85730; 87040; 87070; 87205; 87502; 87635; 88108; 88305; 89050; 93005; 93306; 94640; 94760; 96361; 96374; 99291

== ENCOUNTER → 2020-03-03 | Outpatient (CLI) | payer MEDICARE ==
--- NOTE | 2020-03-04 20:18 | CT ---
EXAMINATION TYPE: CT chest w con DATE OF EXAM: 03/03/2020 COMPARISON: 01/31/2020 HISTORY: Lung CA follow up CT DLP: 445.2 mGycm Automated exposure control for dose reduction was used. CONTRAST: CT scan of the chest is performed with IV Contrast, patient injected with 100 mL of Isovue 300. FINDINGS: LUNGS: Large loculated fluid collection is again noted right lower lobe with associated pleural thick ening. Portion of the loculated component superiorly and medially demonstrates a thickened wall with internal foci of air. There is posterior rib destruction noted and soft tissue mass extension. There is right infrahilar mass noted to measure approximately 5.2 x 4.6 cm. Right lower lobe collapse is id entified. There is small left-sided pleural fusion noted with mild pleural thickening seen. Underlyin g fibrotic and emphysematous changes noted. MEDIASTINUM: Subcarinal mass with necrosis measuring 5.2 x 4.8 cm felt to reflect adenopathy. Precari nal adenopathy measuring 1.3 cm. Right tracheobronchial adenopathy measuring 1.4 cm. Thoracic aorta i s of normal caliber. The heart is not enlarged. UPPER ABDOMEN: Renal cystic change in the left kidney. OTHER: No additional significant abnormality is seen. IMPRESSION: 1. Again noted is a large loculated fluid collection right lower lobe with associated pleural thicken ing. A portion of the loculated component superiorly and medially demonstrates thickened wall with in ternal foci of air. Right infrahilar mass as described with a large conglomerate subcarinal adenopath y. Right posterior chest wall mass with rib destruction redemonstrated.
== END | disposition home or self-care (01) ==
LOC: RADCTMAIN 09:00
PROVIDERS: ATTEND Internal Medicine Hematology & Oncology
DX: R22.2 Localized swelling, mass and lump, trunk (principal); C34.31 Malignant neoplasm of lower lobe, right bronchus or lung; Z88.5 Allergy status to narcotic agent; Z88.7 Allergy status to serum and vaccine; Z88.8 Allergy status to other drugs, medicaments and biological substances; Z88.6 Allergy status to analgesic agent
CPT/HCPCS: 71260; Q9967

== ENCOUNTER 2020-03-14 09:38 | Day surgery (SDC) | payer MEDICARE ==
[2020-03-14 10:14] LABS: Mean Platelet Volume 7.5
[2020-03-14 10:23] LABS: Platelet Count 576 k/uL (150-450)
[2020-03-14 10:30] LABS: INR 1.1 (<1.2); Prothrombin Time 11.6 sec (9.0-12.0)
[2020-03-14 10:53] VITALS: BP 128/74; PULSE 88; RESP 18; TEMP 98.1
--- NOTE | 2020-03-14 15:12 | US ---
Discontinued thoracentesis HISTORY: Pleural effusion Ultrasound performed the posterior right chest in preparation for planning of the thoracentesis. Jael elation to CT chest dated 03/03/2020 Multilocular, organized effusion is identified in the posterior right chest, no sizable left effusion . Exam is aborted. IMPRESSION: Multilocular fusion on the right, no thoracentesis attempted.
== END 2020-03-14 11:40 | disposition home or self-care (01) ==
LOC: RADPROMAIN 09:38
PROVIDERS: ATTEND Internal Medicine Hematology & Oncology
DX: J90 Pleural effusion, not elsewhere classified (principal); Z53.09 Procedure and treatment not carried out because of other contraindication; C34.90 Malignant neoplasm of unspecified part of unspecified bronchus or lung; Z11.59 Encounter for screening for other viral diseases
CPT/HCPCS: 36415; 76604; 85049; 85610; 87635

== ENCOUNTER 2020-04-04 19:00 | Emergency (ER) | payer MEDICARE ==
[2020-04-04 19:10] VITALS: TEMP 97.5
[2020-04-04] MEDS ORDERED: MORPHINE SULFATE 4 MG/ML SYRINGE IM STA (19:46)
--- NOTE | 2020-04-04 21:04 | XR ---
EXAMINATION TYPE: XR chest 2V DATE OF EXAM: 04/04/2020 COMPARISON: 02/05/2020 HISTORY: Chest pain TECHNIQUE: FINDINGS: There is blunting right costophrenic angle and moderate right pleural effusion. There is ex tensive interstitial pulmonary infiltrates bilaterally. Heart is slightly enlarged. Thoracic aorta is atheromatous. There is right clavicle fracture that appears subacute. IMPRESSION: Pleural effusion and interstitial pulmonary edema that could be chronic congestive heart failure. Chest appears slightly worse than last exam.
--- NOTE | 2020-04-04 21:05 | XR ---
EXAMINATION TYPE: XR shoulder complete RT DATE OF EXAM: 04/04/2020 COMPARISON: NONE HISTORY: Shoulder pain TECHNIQUE: 3 views FINDINGS: There is fracture of the mid shaft of the right clavicle with 50% inferior displacement of the lateral fragment. Fracture appears to be healing and in retrospect probably present on the old [facility] x-ray of 02/05/2020. IMPRESSION: Healing fracture of the right clavicle. Glenohumeral joint is intact.
--- NOTE | 2020-04-04 21:37 | ED ---
General Adult HPI - General Chief complaint: Extremity Problem,Nontraumatic Stated complaint: post procedure pain Time Seen by Provider: 04/04/20 19:17 Source: patient Mode of arrival: ambulatory Limitations: no limitations - History of Present Illness Initial comments: 74-year-old male patient presents to the emergency department today for evaluation of right shoulder pain. Patient states that he has chronic right shoulder pain related to arthritis and previous dislocation. Patient did have a procedure for thoracentesis last week and has been having severe pain to the right shoulder since. Patient states that he has worsening pain with movement. States certain positions make his pain worse. States taking deep breaths makes his pain worse. States he has been taking his home morphine and [place] for pain relief. Denies numbness, tingling, weakness to the right arm. Denies any radiating pain in the arm. Denies any known injury. Patient denies any headache, neck pain, back pain, chest pain, shortness of breath, dizziness, weakness, abdominal pain, nausea, vomiting, or difficulties with bowel movements or urination. - Related Data Home Medications Medication Instructions Recorded Confirmed Albuterol Inhaler (Mhu) [Ventolin 2 puff INHALATION RT-Q6H PRN 12/09/19 03/09/20 Hfa Inhaler (Mhu)] Allerest Allergy Tablet 1 tab PO DAILY 12/09/19 03/09/20 Aspirin EC [Ecotrin Low Dose] 81 mg PO DAILY 12/09/19 03/09/20 Niacin 100 mg PO BID 12/09/19 03/09/20 HYDROcodone/APAP 5-325MG [[place] 1 tab PO Q6HR PRN 01/15/20 03/09/20 5-325] Morphine Sulfate Ir [MSIR] 15 mg PO Q8HR PRN 01/30/20 03/09/20 Budesonide-Formot 160-4.5 Mcg 2 puff INHALATION BID 03/09/20 03/09/20 [Symbicort 160-4.5 Mcg Inhaler] Calcium Carbonate/Vitamin D3 1 each PO DAILY 03/09/20 03/09/20 [Calcium 500-Vit D3 200 Tablet] Furosemide [Lasix] 40 mg PO DAILY 03/09/20 03/09/20 Ipratropium-Albuterol Nebulize 3 ml INHALATION RT-QID PRN 03/09/20 03/09/20 [Duoneb 0.5 mg-3 mg/3 ml Soln] Metoprolol Tartrate [Lopressor] 25 mg PO BID 03/09/20 03/09/20 Potassium Chloride [Klor-Con 20] 20 meq PO DAILY 03/09/20 03/09/20 Previous Rx's Medication Instructions Recorded Budesonide [Pulmicort] 1 mg INHALATION RT-BID 30 Days #30 12/14/19 ml Apixaban [Eliquis] 5 mg PO BID #60 tab 02/05/20 Digoxin [Lanoxin] 125 mcg PO DAILY #30 tab 02/05/20 Famotidine [Pepcid] 20 mg PO Q12HR #60 tab 02/05/20 Folic Acid 1 mg PO DAILY tab 02/05/20 Allergies Allergy/AdvReac Type Severity Reaction Status Date / Time codeine AdvReac Unknown Verified 04/04/20 19:07 ibuprofen AdvReac Unknown Verified 04/04/20 19:07 mold AdvReac Unknown Verified 04/04/20 19:07 tetanus and diphtheria AdvReac Unknown Verified 04/04/20 19:07 toxoids Review of Systems ROS Statement: Those systems with pertinent positive or pertinent negative responses have been documented in the HPI. ROS Other: All systems not noted in ROS Statement are negative. Past Medical History Past Medical History: Cancer, Hyperlipidemia, Hypertension, Osteoarthritis (OA) Additional Past Medical History / Comment(s): hernia, bursitis in hips and knees. Lung ca stage 4 History of Any Multi-Drug Resistant Organisms: None Reported Past Surgical History: Hernia Repair Additional Past Surgical History / Comment(s): back surgery 2008 replaced L5 disc, Past Anesthesia/Blood Transfusion Reactions: No Reported Reaction Past Psychological History: No Psychological Hx Reported Smoking Status: Former smoker Past Alcohol Use History: Occasional Past Drug Use History: None Reported - Past Family History Father Family Medical History: Cancer Additional Family Medical History / Comment(s): multiple myeloma, hypotension Mother Family Medical History: Cancer, Hypertension, Myocardial Infarction ([place]) Additional Family Medical History / Comment(s): multiple myeloma General Exam Limitations: no limitations General appearance: alert, in no apparent distress, other (This is a well- developed, well-nourished elderly male patient in no acute distress. Vital signs upon presentation are temperature 97.5F, pulse 106, respirations 18, b lood pressure 109/69, pulse ox 97% on room air.) Neck exam: Present: normal inspection, full ROM. Absent: tenderness, meningismus, lymphadenopathy Respiratory exam: Present: normal lung sounds bilaterally. Absent: respiratory distress, wheezes, rales, rhonchi, stridor Cardiovascular Exam: Present: regular rate, normal rhythm, normal heart sounds. Absent: systolic murmur, diastolic murmur, rubs, gallop, clicks Extremities exam: Present: normal inspection, normal capillary refill, other (Skin to the right arm is pink, warm, dry. Cap refills less than 3 seconds. Radial pulses are 2+ and equal bilaterally.). Absent: full ROM (Diminished range of motion due to increased pain with movement), tenderness, pedal edema, joint swelling, calf tenderness Neurological exam: Present: alert, oriented X3, CN II-XII intact Psychiatric exam: Present: normal affect, normal mood Skin exam: Present: warm, dry, intact, normal color. Absent: rash Course Vital Signs 04/04/20 04/04/20 04/04/20 19:07 19:42 21:54 Temperature 97.5 F L Pulse Rate 106 H 96 Respiratory 18 20 18 Rate Blood Pressure 109/69 135/81 O2 Sat by Pulse 97 99 Oximetry Medical Decision Making - Medical Decision Making 74-year-old male patient presents to the emergency department today for evaluation of right shoulder pain worsening over the last week after having a thoracentesis and having been positioned with his arm above his head for the procedure. Physical examination did reveal decreased range of motion due to increased pain. He was neurovascularly intact. X-ray of the right shoulder did reveal a midshaft clavicular fracture with 50% displacement of the lateral fragment. This does appear to be healing. Patient was informed of the result. He denies any known injury or knowledge of how this could have occurred. Patient is placed in a shoulder immobilizing sling. He'll be discharged follow- up with biology specialist for further evaluation as soon as possible. He does have pain medication at home. He is instructed to follow-up with his primary care physician for recheck in 1-2 days. Return parameters were discussed in detail. Patient verbalizes understanding and agrees with this plan. - Radiology Data Radiology results: report reviewed, image reviewed Two-view x-ray of the chest is obtained. Report reviewed in its entirety. Impression by Dr. Powell shows pleural effusion and interstitial pulmonary edema that could be chronic congestive heart failure. Chest appears slightly worsened last exam. 3 views of the right shoulder are obtained. Report is reviewed in its entirety. Impression by Dr. Powell shows healing fracture of the right clavicle. Glenohumeral joint is intact. The mid shaft fracture of the right clavicle is 50% inferior displacement of the lateral fragment. Disposition Clinical Impression: Right clavicle fracture Disposition: HOME SELF-CARE Condition: Good Instructions (If sedation given, give patient instructions): Clavicle Fracture (ED) Additional Instructions: Apply ice to the right collarbone to aid with pain control. Follow-up with biology specialist for further evaluation as soon as possible. Follow up through primary care physician for recheck in 1-2 days. Return to the emergency department immediately for any new, worsening, or concerning symptoms. Is patient prescribed a controlled substance at d/c from ED?: No Referrals: Niles Mead MD [Primary Care Provider] - 1-2 days Seymour Berg MD [STAFF PHYSICIAN] - 1-2 days Time of Disposition: 21:36
[2020-04-04 21:55] VITALS: BP 135/81; PULSE 96; RESP 18
== END 2020-04-04 21:58 | disposition home or self-care (01) ==
LOC: EC 19:00
DX: S42.021A Displaced fracture of shaft of right clavicle, initial encounter for closed fracture (principal); I10 Essential (primary) hypertension; M19.90 Unspecified osteoarthritis, unspecified site; Z79.82 Long term (current) use of aspirin; Z79.899 Other long term (current) drug therapy; Z98.890 Other specified postprocedural states; Z87.891 Personal history of nicotine dependence; Z88.5 Allergy status to narcotic agent; Z88.6 Allergy status to analgesic agent; Z88.8 Allergy status to other drugs, medicaments and biological substances; Z88.7 Allergy status to serum and vaccine; Z85.118 Personal history of other malignant neoplasm of bronchus and lung; X58.XXXA Exposure to other specified factors, initial encounter
CPT/HCPCS: 73030; 71046; 96372; 99283; L1830; J2270

== ENCOUNTER 2020-04-10 21:42 | Observation (INO) | payer MEDICARE ==
[2020-04-10] MEDS ORDERED: SODIUM CHLORIDE 0.9% 1,000 ML IV ONE (22:22)
[2020-04-10] MEDS ORDERED: LIDOCAINE 1% INJ 10MG/ML (20 ML MDV) SQ ONE ×2 (22:49→22:52)
--- NOTE | 2020-04-10 22:49 | CT ---
EXAMINATION TYPE: CT brain cspine wo con DATE OF EXAM: 04/10/2020 COMPARISON: CT brain 12/09/2019 HISTORY: Fall with head injury CT DLP: 1200.6 mGycm Automated exposure control for dose reduction was used. There is cerebral cortical atrophy. There is no mass effect nor midline shift. There is no sign of in tracranial hemorrhage. There is no evidence of cerebral edema. Exam is limited by motion. Cervical vertebra have normal alignment. Disc spaces are fairly normal. There is spurring of the endp lates. Facet joints are intact. The skull base is intact. There is no evidence of a fracture. There i s emphysema and pulmonary fibrosis at the lung apices. IMPRESSION: Mild multilevel cervical spondylotic changes. No fracture. Cerebral atrophy. No acute intracranial abnormality. No change compared to old exam.
--- NOTE | 2020-04-10 22:50 | ED ---
Fall HPI - General Chief Complaint: Fall Stated Complaint: Fall, facial injury Time Seen by Provider: 04/10/20 21:58 Source: patient Mode of arrival: EMS - History of Present Illness Initial Comments: Patient is 74-year-old male with history of stage IV lung cancer presenting to the emergency department with a chief complaint of a fall. Patient currently on eliquis. Patient states she was walking down a vargas, when he lost his footing and fell on the ground. Patient denies loss of consciousness. States this was not a syncopal episode of a called the fall. Patient reports pain is mostly located in the left supraorbital region. Denies any visual changes. States he has a previous right shoulder/clavicle or injury that he is scheduled to see an orthopedic doctor. Patient also reports over the last few days has developed obstructive urinary symptoms. He states he has developed suprapubic abdominal pressure due to his bladder being full. States he has to wake up multiple times to urinate. Denies any hematuria. States he was going to come to the ED tomorrow for his urinary symptoms. - Related Data Home Medications Medication Instructions Recorded Confirmed Aspirin EC [Ecotrin Low Dose] 81 mg PO DAILY 12/09/19 04/11/20 Niacin 100 mg PO Q48H 12/09/19 04/11/20 Morphine Sulfate Ir [MSIR] 15 mg PO Q8HR PRN 01/30/20 04/11/20 Budesonide-Formot 160-4.5 Mcg 2 puff INHALATION RT-BID 03/09/20 04/11/20 [Symbicort 160-4.5 Mcg Inhaler] Calcium Carbonate/Vitamin D3 1 tab PO DAILY 03/09/20 04/11/20 [Calcium 500-Vit D3 200 Tablet] Furosemide [Lasix] 40 mg PO DAILY 03/09/20 04/11/20 Ipratropium-Albuterol Nebulize 3 ml INHALATION RT-QID PRN 03/09/20 04/11/20 [Duoneb 0.5 mg-3 mg/3 ml Soln] Metoprolol Tartrate [Lopressor] 50 mg PO BID 03/09/20 04/11/20 Potassium Chloride [Klor-Con 20] 20 meq PO DAILY 03/09/20 04/11/20 Albuterol Sulfate [Ventolin HFA] 2 puff INHALATION RT-Q8H PRN 04/11/20 04/11/20 Benzonatate [Tessalon Perles] 100 mg PO BID PRN 04/11/20 04/11/20 Budesonide [Pulmicort] 1 mg INHALATION RT-DAILY 04/11/20 04/11/20 Calcium Carb-Vit D 500-400 Uni 1 tab PO DAILY 04/11/20 04/11/20 Cetirizine HCl 10 mg PO DAILY 04/11/20 04/11/20 Famotidine [Pepcid] 20 mg PO BID 04/11/20 04/11/20 HYDROcodone/APAP 10-325MG [[place] 1 tab PO QID PRN 04/11/20 04/11/20 10-325] Magnesium Oxide [Mag-Ox] 400 mg PO DAILY PRN 04/11/20 04/11/20 Multivitamins, Thera [Multivitamin 1 tab PO DAILY 04/11/20 04/11/20 (formulary)] Nystatin 100,000 Unit/gm Powd 1 applic TOPICAL TID PRN 04/11/20 04/11/20 [Mycostatin Powder] Ondansetron [Zofran] 4 mg PO Q4H PRN 04/11/20 04/11/20 Previous Rx's Medication Instructions Recorded Apixaban [Eliquis] 5 mg PO BID #60 tab 02/05/20 Folic Acid 1 mg PO DAILY tab 02/05/20 LORazepam [Ativan] 1 mg PO BID 3 Days #6 tab 04/11/20 Allergies Allergy/AdvReac Type Severity Reaction Status Date / Time codeine AdvReac Unknown Verified 04/10/20 21:51 ibuprofen AdvReac Unknown Verified 04/10/20 21:51 mold AdvReac Unknown Verified 04/10/20 21:51 tetanus and diphtheria AdvReac Unknown Verified 04/10/20 21:51 toxoids Review of Systems ROS Statement: Those systems with pertinent positive or pertinent negative responses have been documented in the HPI. ROS Other: All systems not noted in ROS Statement are negative. Past Medical History Past Medical History: Cancer, Hyperlipidemia, Hypertension, Osteoarthritis (OA) Additional Past Medical History / Comment(s): hernia, bursitis in hips and knees. Lung ca stage 4 History of Any Multi-Drug Resistant Organisms: None Reported Past Surgical History: Hernia Repair Additional Past Surgical History / Comment(s): back surgery 2008 replaced L5 disc, Past Anesthesia/Blood Transfusion Reactions: No Reported Reaction Past Psychological History: No Psychological Hx Reported Smoking Status: Former smoker Past Alcohol Use History: Occasional Past Drug Use History: None Reported - Past Family History Father Family Medical History: Cancer Additional Family Medical History / Comment(s): multiple myeloma, hypotension Mother Family Medical History: Cancer, Hypertension, Myocardial Infarction ([place]) Additional Family Medical History / Comment(s): multiple myeloma General Exam Limitations: no limitations General appearance: alert, in no apparent distress Head exam: Present: atraumatic, normocephalic. Absent: normal inspection (Laceration left supraorbital region measuring approximately 3 cm in length.), other (Negative [place] sign, negative raccoon's, negative hemotympanum.) Eye exam: Present: normal appearance, PERRL, EOMI Pupils: Present: normal accommodation ENT exam: Present: normal exam, normal oropharynx, mucous membranes moist Neck exam: Present: normal inspection, tenderness (Mild neck tenderness in the left paraspinal region.), full ROM Respiratory exam: Present: normal lung sounds bilaterally. Absent: respiratory distress, wheezes, rales Cardiovascular Exam: Present: regular rate, normal rhythm, normal heart sounds GI/Abdominal exam: Present: soft. Absent: distended, tenderness, guarding Extremities exam: Present: normal inspection, tenderness (Tenderness along the right shoulder and [place] clavicle.), normal capillary refill, other (+2 ulnar and radial pulses bilaterally. +2 dorsalis pedis and posterior tibialis bilaterally.). Absent: full ROM (Range of motion in the right upper extremity.) Back exam: Present: normal inspection, full ROM. Absent: tenderness, CVA tenderness (R), CVA tenderness (L) Neurological exam: Present: alert, oriented X3, CN II-XII intact Psychiatric exam: Present: normal affect, normal mood Skin exam: Present: warm, dry, intact, normal color Course Vital Signs 04/10/20 04/10/20 04/11/20 21:45 23:56 01:46 Temperature 97.6 F Pulse Rate 95 99 90 Respiratory 18 18 18 Rate Blood Pressure 127/80 151/73 135/85 O2 Sat by Pulse 99 96 99 Oximetry Procedures - Laceration Laceration #1 Consent Obtained: verbal consent Indication: laceration Site: face Size (cm): 3 Description: linear, clean Depth: simple, single layer Sedation/Analgesia: none Anesthetic Used: lidocaine 1% Anesthesia Technique: local infiltration Amount (mls): 5 Pre-repair: irrigated extensively, deep structures intact Type of Sutures: nylon Size of Sutures: 4-0 Number of Sutures: 3 Technique: simple, interrupted Complications: pain Patient Tolerated Procedure: well, no complications Medical Decision Making - Medical Decision Making Patient is 74-year-old male with history of stage IV lung cancer presenting to the emergency department with a chief complaint of a fall. Patient does have a history of a right clavicular fracture that has yet to form union. On exam patient has pain with abduction of the right upper extremity due to the fracture. Otherwise his strength is 5/5 with sensation intact bilaterally in lower and upper extremities. Patient also has a 3 cm laceration to left supraorbital region which was repaired with 3 sutures. Patient tolerated procedure well. Patient also has some complaints obstructive urinary symptoms. Bueno catheter was inserted and patient was able to drain almost a liter of urine. Patient reported immediate relief. Patient and his decided to leave before I finished my shift. After I left, the patient and his decided they would prefer placement. Patient was admitted for further medical management. Case discussed with Admitting physician is Dr. Voss - Lab Data Result diagrams: 04/10/20 22:44 04/10/20 22:44 Lab Results 04/10/20 04/10/20 04/10/20 Range/Units 22:44 22:44 22:44 WBC 7.2 (3.8-10.6) k/uL RBC 3.36 L (4.30-5.90) m/uL Hgb 10.2 L (13.0-17.5) gm/dL Hct 32.8 L (39.0-53.0) % MCV 97.6 (80.0-100.0) fL MCH 30.4 (25.0-35.0) pg MCHC 31.2 (31.0-37.0) g/dL RDW 15.3 (11.5-15.5) % Plt Count 324 (150-450) k/uL Neutrophils % 72 % Lymphocytes % 6 % Monocytes % 11 % Eosinophils % 8 % Basophils % 1 % Neutrophils # 5.2 (1.3-7.7) k/uL Lymphocytes # 0.4 L (1.0-4.8) k/uL Monocytes # 0.8 (0-1.0) k/uL Eosinophils # 0.6 (0-0.7) k/uL Basophils # 0.0 (0-0.2) k/uL Hypochromasia Marked PT 11.2 (9.0-12.0) sec INR 1.1 (<1.2) APTT 28.2 (22.0-30.0) sec Sodium 135 L (137-145) mmol/L Potassium 4.4 (3.5-5.1) mmol/L Chloride 101 (98-107) mmol/L Carbon Dioxide 28 (22-30) mmol/L Anion Gap 6 mmol/L BUN 7 L (9-20) mg/dL Creatinine 0.76 (0.66-1.25) mg/dL Est GFR (CKD-EPI)AfAm >90 (>60 ml/min/1.73 sqM) Est GFR (CKD-EPI)NonAf >90 (>60 ml/min/1.73 sqM) Glucose 102 H (74-99) mg/dL Calcium 8.9 (8.4-10.2) mg/dL Total Bilirubin 0.3 (0.2-1.3) mg/dL AST 23 (17-59) U/L ALT 13 (4-49) U/L Alkaline Phosphatase 144 H (38-126) U/L Total Protein 7.7 (6.3-8.2) g/dL Albumin 3.4 L (3.5-5.0) g/dL Urine Color Urine Appearance (Clear) Urine pH (5.0-8.0) Ur Specific [place] (1.001-1.035) Urine Protein (Negative) Urine Glucose (UA) (Negative) Urine Ketones (Negative) Urine Blood (Negative) Urine Nitrite (Negative) Urine Bilirubin (Negative) Urine Urobilinogen (<2.0) mg/dL Ur Leukocyte Esterase (Negative) 04/10/20 Range/Units 23:46 WBC (3.8-10.6) k/uL RBC (4.30-5.90) m/uL Hgb (13.0-17.5) gm/dL Hct (39.0-53.0) % MCV (80.0-100.0) fL MCH (25.0-35.0) pg MCHC (31.0-37.0) g/dL RDW (11.5-15.5) % Plt Count (150-450) k/uL Neutrophils % % Lymphocytes % % Monocytes % % Eosinophils % % Basophils % % Neutrophils # (1.3-7.7) k/uL Lymphocytes # (1.0-4.8) k/uL Monocytes # (0-1.0) k/uL Eosinophils # (0-0.7) k/uL Basophils # (0-0.2) k/uL Hypochromasia PT (9.0-12.0) sec INR (<1.2) APTT (22.0-30.0) sec Sodium (137-145) mmol/L Potassium (3.5-5.1) mmol/L Chloride (98-107) mmol/L Carbon Dioxide (22-30) mmol/L Anion Gap mmol/L BUN (9-20) mg/dL Creatinine (0.66-1.25) mg/dL Est GFR (CKD-EPI)AfAm (>60 ml/min/1.73 sqM) Est GFR (CKD-EPI)NonAf (>60 ml/min/1.73 sqM) Glucose (74-99) mg/dL Calcium (8.4-10.2) mg/dL Total Bilirubin (0.2-1.3) mg/dL AST (17-59) U/L ALT (4-49) U/L Alkaline Phosphatase (38-126) U/L Total Protein (6.3-8.2) g/dL Albumin (3.5-5.0) g/dL Urine Color Light Yellow Urine Appearance Clear (Clear) Urine pH 6.5 (5.0-8.0) Ur Specific [place] 1.006 (1.001-1.035) Urine Protein Negative (Negative) Urine Glucose (UA) Negative (Negative) Urine Ketones Negative (Negative) Urine Blood Negative (Negative) Urine Nitrite Negative (Negative) Urine Bilirubin Negative (Negative) Urine Urobilinogen <2.0 (<2.0) mg/dL Ur Leukocyte Esterase Negative (Negative) Disposition Clinical Impression: Fall, Laceration, Urinary obstruction Disposition: ADMITTED IP TO THIS HOSP Condition: Fair Is patient prescribed a controlled substance at d/c from ED?: No Time of Disposition: 00:43
[2020-04-10] MEDS ORDERED: MORPHINE SULFATE 4 MG/ML SYRINGE IVP STA (22:52)
--- NOTE | 2020-04-10 22:58 | CT ---
EXAMINATION TYPE: CT facial bones wo con DATE OF EXAM: 04/10/2020 COMPARISON: None HISTORY: Fall with head injury CT DLP: 1200.6 mGycm Automated exposure control for dose reduction was used. The mandibular ring is intact. There is some motion artifact at the temporomandibular joints. The max illa is intact. There is fairly normal aeration of the paranasal sinuses. Zygomatic arches appear nor mal. There is significant motion artifact degrading images. The orbits are not well evaluated due to motion. There is no sign of nasal bone fracture. IMPRESSION: Limited exam fails to demonstrate any evidence of a fracture. No evidence of sinusitis.
[2020-04-10] MEDS ORDERED: MORPHINE SULFATE 2 MG/ML SYRINGE IVP STA (22:59)
--- NOTE | 2020-04-10 23:01 | XR ---
EXAMINATION TYPE: XR chest 2V DATE OF EXAM: 04/10/2020 COMPARISON: 04/04/2020 HISTORY: Fall. Chest pain. Lung cancer. TECHNIQUE: 2 views FINDINGS: There is pleural thickening and infiltrate right lower lobe. Heart size is normal. There is coarse interstitial density in the left lung. There is some pleural thickening on the right lateral chest wall extending to the lung apex. I see no displaced rib fracture. There is mid shaft fracture o f the right clavicle. IMPRESSION: There is pleural thickening and infiltrate in the right side consistent with malignancy u nchanged. No heart failure seen. There is probably pulmonary fibrosis. No pneumothorax. Mid shaft right clavicle fracture unchanged compared to old exam.
[2020-04-10 23:25] LABS: INR 1.1 (<1.2); Partial Thromboplastin Time 28.2 sec (22.0-30.0); Prothrombin Time 11.2 sec (9.0-12.0)
[2020-04-10 23:26] LABS: ALT 13 U/L (4-49); AST 23 U/L (17-59); African American GFR (CKD) >90 (>60 ml/min/1.73 sqM); Albumin 3.4 g/dL (3.5-5.0); Alkaline Phosphatase 144 U/L (38-126); Anion Gap 6 mmol/L; Basophils % (A) 1 %; Blood Urea Nitrogen 7 mg/dL (9-20); Calcium 8.9 mg/dL (8.4-10.2); Carbon Dioxide 28 mmol/L (22-30); Chloride 101 mmol/L (98-107); Eosinophils # (A) 0.6 k/uL (0-0.7); Eosinophils % (A) 8 %; Glucose 102 mg/dL (74-99); HCT 32.8 % (39.0-53.0); HGB 10.2 gm/dL (13.0-17.5); Hypochromasia Marked; Lymphocytes # (A) 0.4 k/uL (1.0-4.8); Lymphocytes % (A) 6 %; MCH 30.4 pg (25.0-35.0); MCHC 31.2 g/dL (31.0-37.0); MCV 97.6 fL (80.0-100.0); Mean Platelet Volume 7.4; Monocytes # (A) 0.8 k/uL (0-1.0); Monocytes % (A) 11 %; Neutrophils # (A) 5.2 k/uL (1.3-7.7); Neutrophils % (A) 72 %; Non-African American GFR(CKD) >90 (>60 ml/min/1.73 sqM); Platelet Count 324 k/uL (150-450); Potassium 4.4 mmol/L (3.5-5.1); RBC 3.36 m/uL (4.30-5.90); RDW 15.3 % (11.5-15.5); Sodium 135 mmol/L (137-145); Total Bilirubin 0.3 mg/dL (0.2-1.3); Total Protein 7.7 g/dL (6.3-8.2); WBC 7.2 k/uL (3.8-10.6)
[2020-04-11] MEDS ORDERED: MORPHINE SULFATE 2 MG/ML SYRINGE IVP ONE (00:09)
[2020-04-11 00:23] LABS: Appearance,Urine Clear (Clear); Bilirubin,Urine Negative (Negative); Blood,Urine Negative (Negative); Color,Urine Light Yellow; Glucose,Urine (UA) Negative (Negative); Ketones,Urine Negative (Negative); Leukocyte Esterase,Urine Negative (Negative); Nitrite,Urine Negative (Negative); PH, Urine 6.5 (5.0-8.0); Protein,Urine Negative (Negative); Specific Gravity,Urine 1.006 (1.001-1.035); Urobilinogen,Urine <2.0 mg/dL (<2.0)
[2020-04-11] MEDS ORDERED: LORazepam 1 MG TAB PO STA (01:10)
[2020-04-11] MEDS ORDERED: NALOXONE 0.4 MG/ML 1 ML VIAL IV PRN (01:22)
[2020-04-11] MEDS ORDERED: traMADol 50 MG TAB PO STA (01:28)
[2020-04-11] MEDS ORDERED: BENZONATATE 100 MG CAP PO PRN (12:10)
[2020-04-11] MEDS ORDERED: MAGNESIUM OXIDE 400 MG TAB PO PRN (12:10)
[2020-04-11] MEDS ORDERED: ALBUTEROL NEBULIZED 2.5 MG/3 ML INHALATION PRN (12:10)
[2020-04-11] MEDS ORDERED: NYSTATIN 100,000 UNIT/GM POWD 15 GM TOPICAL PRN (12:10)
[2020-04-11] MEDS ORDERED: MORPHINE SULFATE IR 15 MG TABLET PO PRN (12:13)
[2020-04-11] MEDS ORDERED: polyethylene glycoL 3350 17 GM POWD.PACK PO PRN (12:14)
--- NOTE | 2020-04-11 12:46 | P.HPIM ---
History of Present Illness Patient is a pleasant 71-year-old gentleman with a known history of stage IV lung cancer is concerned carcinoma came in after falling appears to have mechanical fall. Denied any syncopal episode although patient is complaining of some lightheadedness today. Patient is having severe pain because of which patient is on morphine and [place] patient has a what appears like pathological fraction the clavicle which is old and is complaining of pain in that area. Unfortunately I cannot use any nonsteroidal anti-inflammatory cells he appears to be ALLERGIC to ibuprofen. Patient also had urinary retention because of which patient has a Bueno cath at this time. Patient denied any fever chills nausea vomiting abdominal pain. Regarding his cancer patient did not tolerate chemotherapy and completed radiation therapy in the past, presently on immunotherapy for palliative purposes. CT of the head, and cervical spine CT did not show any dislocation or fracture Review of Systems REVIEW OF SYSTEMS: CONSTITUTIONAL: No fever, no malaise, no fatigue. HEENT: No recent visual problems or hearing problems. Denied any sore throat. CARDIOVASCULAR: No chest pain, orthopnea, PND, no palpitations, no syncope. PULMONARY: No shortness of breath, no cough, no hemoptysis. GASTROINTESTINAL: No diarrhea, no nausea, no vomiting, no abdominal pain. NEUROLOGICAL: No headaches, no weakness, no numbness. HEMATOLOGICAL: Denies any bleeding or petechiae. GENITOURINARY: Denies any burning micturition, frequency, or urgency. MUSCULOSKELETAL/RHEUMATOLOGICAL: As mentioned in HPI ENDOCRINE: Denies any polyuria or polydipsia. The rest of the 14-point review of systems is negative. Past Medical History Past Medical History: Cancer, Hyperlipidemia, Hypertension, Osteoarthritis (OA) Additional Past Medical History / Comment(s): hernia, bursitis in hips and knees. Lung ca stage 4 History of Any Multi-Drug Resistant Organisms: None Reported Past Surgical History: Hernia Repair Additional Past Surgical History / Comment(s): back surgery 2008 replaced L5 disc, Past Anesthesia/Blood Transfusion Reactions: No Reported Reaction Past Psychological History: No Psychological Hx Reported Smoking Status: Former smoker Past Alcohol Use History: Occasional Past Drug Use History: None Reported - Past Family History Father Family Medical History: Cancer Additional Family Medical History / Comment(s): multiple myeloma, hypotension Mother Family Medical History: Cancer, Hypertension, Myocardial Infarction ([place]) Additional Family Medical History / Comment(s): multiple myeloma Medications and Allergies Home Medications Medication Instructions Recorded Confirmed Type Aspirin EC [Ecotrin Low Dose] 81 mg PO DAILY 12/09/19 04/11/20 History Niacin 100 mg PO Q48H 12/09/19 04/11/20 History Morphine Sulfate Ir [MSIR] 15 mg PO Q8HR PRN 01/30/20 04/11/20 History Apixaban [Eliquis] 5 mg PO BID #60 tab 02/05/20 04/11/20 Rx Folic Acid 1 mg PO DAILY tab 02/05/20 04/11/20 Rx Budesonide-Formot 160-4.5 Mcg 2 puff INHALATION RT-BID 03/09/20 04/11/20 History [Symbicort 160-4.5 Mcg Inhaler] Calcium Carbonate/Vitamin D3 1 tab PO DAILY 03/09/20 04/11/20 History [Calcium 500-Vit D3 200 Tablet] Furosemide [Lasix] 40 mg PO DAILY 03/09/20 04/11/20 History Ipratropium-Albuterol Nebulize 3 ml INHALATION RT-QID PRN 03/09/20 04/11/20 History [Duoneb 0.5 mg-3 mg/3 ml Soln] Metoprolol Tartrate [Lopressor] 50 mg PO BID 03/09/20 04/11/20 History Potassium Chloride [Klor-Con 20] 20 meq PO DAILY 03/09/20 04/11/20 History Albuterol Sulfate [Ventolin HFA] 2 puff INHALATION RT-Q8H PRN 04/11/20 04/11/20 History Benzonatate [Tessalon Perles] 100 mg PO BID PRN 04/11/20 04/11/20 History Budesonide [Pulmicort] 1 mg INHALATION RT-DAILY 04/11/20 04/11/20 History Calcium Carb-Vit D 500-400 Uni 1 tab PO DAILY 04/11/20 04/11/20 History Cetirizine HCl 10 mg PO DAILY 04/11/20 04/11/20 History Famotidine [Pepcid] 20 mg PO BID 04/11/20 04/11/20 History HYDROcodone/APAP 10-325MG [[place] 1 tab PO QID PRN 04/11/20 04/11/20 History 10-325] LORazepam [Ativan] 1 mg PO BID 3 Days #6 tab 04/11/20 Rx Magnesium Oxide [Mag-Ox] 400 mg PO DAILY PRN 04/11/20 04/11/20 History Multivitamins, Thera [Multivitamin 1 tab PO DAILY 04/11/20 04/11/20 History (formulary)] Nystatin 100,000 Unit/gm Powd 1 applic TOPICAL TID PRN 04/11/20 04/11/20 History [Mycostatin Powder] Ondansetron [Zofran] 4 mg PO Q4H PRN 04/11/20 04/11/20 History Allergies Allergy/AdvReac Type Severity Reaction Status Date / Time codeine AdvReac Unknown Verified 04/10/20 21:51 ibuprofen AdvReac Unknown Verified 04/10/20 21:51 mold AdvReac Unknown Verified 04/10/20 21:51 tetanus and diphtheria AdvReac Unknown Verified 04/10/20 21:51 toxoids Physical Exam Vitals: Vital Signs Temp Pulse Pulse Resp BP BP Pulse Ox 04/11/20 05:00 97.4 F L 104 H 22 143/73 95 04/11/20 02:55 97.9 F 103 H 16 161/72 95 04/11/20 01:46 90 18 135/85 99 04/10/20 23:56 99 18 151/73 96 04/10/20 21:45 97.6 F 95 18 127/80 99 Intake and Output 04/10/20 04/11/20 04/11/20 22:59 06:59 14:59 Intake Total 150 Output Total 150 Balance 0 Intake: Oral 150 Output: Urine 150 Other: Voiding Method Indwelling Catheter Weight 88.451 kg 88.451 kg PHYSICAL EXAMINATION: GENERAL: The patient is alert and oriented x3, not in any acute distress. Well developed, well nourished. HEENT: Pupils are round and equally reacting to light. EOMI. No scleral icterus. No conjunctival pallor. Normocephalic, atraumatic. No pharyngeal erythema. No thyromegaly. CARDIOVASCULAR: S1 and S2 present. No murmurs, rubs, or gallops. PULMONARY: Chest is clear to auscultation, no wheezing or crackles. ABDOMEN: Soft, nontender, nondistended, normoactive bowel sounds. No palpable organomegaly. MUSCULOSKELETAL: No joint swelling or deformity. EXTREMITIES: No cyanosis, clubbing, or pedal edema. NEUROLOGICAL: Gross neurological examination did not reveal any focal deficits. She does appear to have generalized weakness SKIN: No rashes. Results CBC & Chem 7: 04/10/20 22:44 04/10/20 22:44 Labs: Abnormal Lab Results - Last 24 Hours (Table) 04/10/20 04/10/20 Range/Units 22:44 22:44 RBC 3.36 L (4.30-5.90) m/uL Hgb 10.2 L (13.0-17.5) gm/dL Hct 32.8 L (39.0-53.0) % Lymphocytes # 0.4 L (1.0-4.8) k/uL Sodium 135 L (137-145) mmol/L BUN 7 L (9-20) mg/dL Glucose 102 H (74-99) mg/dL Alkaline Phosphatase 144 H (38-126) U/L Albumin 3.4 L (3.5-5.0) g/dL Thrombosis Risk Factor Assmnt - Choose All That Apply Each Factor Represents 1 point: Serious lung disease incl. pneumonia (< 1month) Each Risk Factor Represents 2 Points: Age 61-74 years, Malignancy Other congenital or acquired thrombophilia - If yes, enter type in comment: No Thrombosis Risk Factor Assessment Total Risk Factor Score: 5 Thrombosis Risk Factor Assessment Level: High Risk Assessment and Plan Plan: -Fall generalized weakness, secondary to deconditioning secondary to cancer: Patient will require subacute rehabilitation. -Urinary retention secondary to morphine and the [place] he was receiving at home patient will be started on Flomax and this can you for the catheter will monitor for any more urinary retention is so patient will need straight catheterization at that time. Unfortunately there are no many of the choices for his pain management -Pain, musculoskeletal in secondary to lung cancer continue with home medications for pain. Use MiraLAX for constipation. -Hyperlipidemia -Hypertension -Lung cancer receiving immunotherapy for palliative purposes, patient has stage IV metastatic lung cancer -Atrial fibrillation proximal presently rate controlled on anticoagulation at [facility] which will be continued
[2020-04-11] MEDS: HYDROcodone/APAP 10-325MG 1 EACH TAB PO PRN ×2 (12:51→20:04)
[2020-04-11] MEDS: TAMSULOSIN 0.4 MG CAP.ER.24H PO SCH (12:52)
[2020-04-11 14:22] VITALS: BMI 23.7
--- NOTE | 2020-04-11 15:39 | P.CONS ---
History of Present Illness - Reason for Consult Consult date: 04/11/20 Metastatic Squamous Cell Carcinoma Requesting physician: Adria Voss - Chief Complaint Fall with Trauma to head - History of Present Illness Mr. Daniels follows with Dr. Rm for his known history of stage IV squamous cell carcinoma. He presented to [facility] Emergency after suffering a fall and apparently hitting head. He admits to feeling light-headed, but denies syncopal episode. He was recently treated with chemotherapy and immune therapy until he was admitted with pneumonia and increasing symptomatic loculated pleural effusion. A pigtail catheter was placed and he completed IV abx. After discharge he continued to have increasing back pain and dyspnea, therefore further evaluation by Dr. Boles, radaition Oncology was performed. On 03/16/20 Dr. Boles initiated Palliate radiation to right hilar region as his RLL lung mass shows to be progressing not only posteriorly, but also superiorly and lateral. This is resulting in narrowing of the RLL bronchus and invasion in his rib is the likely cause of his intractable pain, he recently completed the course of palliative radiation and the recommendation from Dr. Rm was to be further evaluated for VATS procedure with Dr. Zaidi. When patient was evaluated at the end of January he was tolerating chemotherapy and immunotherapy poorly. At that time we did discuss palliative treatment versus more aggressive treatment versus hospice care. He had a discussion with his family and chose to continue treatment. An MRI of the brain was recommended with his recent extensive progression, it was deferred at that time with focus of palliation of enlarging lung mass. We will evaluate with Brain MRI for p rogressive disease to brain, in light of recent falls and progressive disease. Past Medical History Past Medical History: Cancer, Hyperlipidemia, Hypertension, Osteoarthritis (OA) Additional Past Medical History / Comment(s): hernia, bursitis in hips and knees. Lung ca stage 4 History of Any Multi-Drug Resistant Organisms: None Reported Past Surgical History: Hernia Repair Additional Past Surgical History / Comment(s): back surgery 2008 replaced L5 disc, Past Anesthesia/Blood Transfusion Reactions: No Reported Reaction Past Psychological History: No Psychological Hx Reported Smoking Status: Former smoker Past Alcohol Use History: Occasional Past Drug Use History: None Reported - Past Family History Father Family Medical History: Cancer Additional Family Medical History / Comment(s): multiple myeloma, hypotension Mother Family Medical History: Cancer, Hypertension, Myocardial Infarction ([place]) Additional Family Medical History / Comment(s): multiple myeloma Medications and Allergies Home Medications Medication Instructions Recorded Confirmed Type Aspirin EC [Ecotrin Low Dose] 81 mg PO DAILY 12/09/19 04/11/20 History Niacin 100 mg PO Q48H 12/09/19 04/11/20 History Morphine Sulfate Ir [MSIR] 15 mg PO Q8HR PRN 01/30/20 04/11/20 History Apixaban [Eliquis] 5 mg PO BID #60 tab 02/05/20 04/11/20 Rx Folic Acid 1 mg PO DAILY tab 02/05/20 04/11/20 Rx Budesonide-Formot 160-4.5 Mcg 2 puff INHALATION RT-BID 03/09/20 04/11/20 History [Symbicort 160-4.5 Mcg Inhaler] Calcium Carbonate/Vitamin D3 1 tab PO DAILY 03/09/20 04/11/20 History [Calcium 500-Vit D3 200 Tablet] Furosemide [Lasix] 40 mg PO DAILY 03/09/20 04/11/20 History Ipratropium-Albuterol Nebulize 3 ml INHALATION RT-QID PRN 03/09/20 04/11/20 History [Duoneb 0.5 mg-3 mg/3 ml Soln] Metoprolol Tartrate [Lopressor] 50 mg PO BID 03/09/20 04/11/20 History Potassium Chloride [Klor-Con 20] 20 meq PO DAILY 03/09/20 04/11/20 History Albuterol Sulfate [Ventolin HFA] 2 puff INHALATION RT-Q8H PRN 04/11/20 04/11/20 History Benzonatate [Tessalon Perles] 100 mg PO BID PRN 04/11/20 04/11/20 History Budesonide [Pulmicort] 1 mg INHALATION RT-DAILY 04/11/20 04/11/20 History Calcium Carb-Vit D 500-400 Uni 1 tab PO DAILY 04/11/20 04/11/20 History Cetirizine HCl 10 mg PO DAILY 04/11/20 04/11/20 History Famotidine [Pepcid] 20 mg PO BID 04/11/20 04/11/20 History HYDROcodone/APAP 10-325MG [[place] 1 tab PO QID PRN 04/11/20 04/11/20 History 10-325] LORazepam [Ativan] 1 mg PO BID 3 Days #6 tab 04/11/20 Rx Magnesium Oxide [Mag-Ox] 400 mg PO DAILY PRN 04/11/20 04/11/20 History Multivitamins, Thera [Multivitamin 1 tab PO DAILY 04/11/20 04/11/20 History (formulary)] Nystatin 100,000 Unit/gm Powd 1 applic TOPICAL TID PRN 04/11/20 04/11/20 History [Mycostatin Powder] Ondansetron [Zofran] 4 mg PO Q4H PRN 04/11/20 04/11/20 History Allergies Allergy/AdvReac Type Severity Reaction Status Date / Time codeine AdvReac Unknown Verified 04/10/20 21:51 ibuprofen AdvReac Unknown Verified 04/10/20 21:51 mold AdvReac Unknown Verified 04/10/20 21:51 tetanus and diphtheria AdvReac Unknown Verified 04/10/20 21:51 toxoids Physical Exam Vitals: Vital Signs Temp Pulse Pulse Resp BP BP Pulse Ox 04/11/20 13:00 97.8 F 108 H 17 122/74 98 04/11/20 05:00 97.4 F L 104 H 22 143/73 95 04/11/20 02:55 97.9 F 103 H 16 161/72 95 04/11/20 01:46 90 18 135/85 99 04/10/20 23:56 99 18 151/73 96 04/10/20 21:45 97.6 F 95 18 127/80 99 Intake and Output 04/10/20 04/11/20 04/11/20 22:59 06:59 14:59 Intake Total 150 Output Total 150 Balance 0 Intake: Oral 150 Output: Urine 150 Other: Voiding Method Indwelling Catheter Weight 88.451 kg 88.451 kg - Constitutional General appearance: Present: average body habitus, cooperative, no acute distress - EENT Eyes: Present: anicteric sclerae, EOMI ENT: Present: hearing grossly normal, normal oropharynx - Respiratory Respiratory: right: diminished, left: CTA, Chest tube in place CDI draining - Cardiovascular Heart sounds: normal: S1, S2 Abnormal Heart Sounds: Absent: systolic murmur, diastolic murmur, rub, S3 Gallop, S4 Gallop, click, other - Peripheral edema leg Peripheral Edema: bilateral: Trace - Gastrointestinal General gastrointestinal: Present: normal bowel sounds, soft - Integumentary Integumentary: Present: normal - Neurologic Neurologic: Present: CNII-XII intact - Musculoskeletal Musculoskeletal: Present: generalized weakness, strength equal bilaterally - Psychiatric Psychiatric: Present: A&O x's 3, appropriate affect, intact judgment & insight Results CBC & Chem 7: 04/10/20 22:44 04/10/20 22:44 Labs: Abnormal Lab Results - Last 24 Hours (Table) 04/10/20 04/10/20 Range/Units 22:44 22:44 RBC 3.36 L (4.30-5.90) m/uL Hgb 10.2 L (13.0-17.5) gm/dL Hct 32.8 L (39.0-53.0) % Lymphocytes # 0.4 L (1.0-4.8) k/uL Sodium 135 L (137-145) mmol/L BUN 7 L (9-20) mg/dL Glucose 102 H (74-99) mg/dL Alkaline Phosphatase 144 H (38-126) U/L Albumin 3.4 L (3.5-5.0) g/dL Comments: Head, Cervical neck, Face, and Chest Xray reviewed. Clavical fracture not new. No other new or acute fractures seen from fall. Assessment and Plan Plan: Fall with Facial/Head Trauma: - Xrays do not reveal any new Fractures Recent hospitalizations for pneumonia - Treatment with pleural effusions/and pigtail drainage - Cytology 12/11 and 02/01/20 - Negative for malignancy - Treated at last admission Metastatic Squamous cell lung cancer - Status Post Cycle One of Almta, Carboplatin and Keytruda, He also received Zometa - Last treatment in January 2020 - Currently Chemotherapy is on hold (very poor toleration) and plan was to complete palliative radiation and be evaluated at outside hospital for potential VATs procedure. - MRI of the brain is needed for evaluation of brain mets.
[2020-04-11] MEDS: IPRATROPIUM-ALBUTEROL 3 ML NEB INHALATION PRN ×2 (16:36→19:29)
[2020-04-11] MEDS: SYMBICORT 160-4.5 MCG INHALER INHALATION SCH (19:29)
[2020-04-11] MEDS: APIXABAN 5 MG TAB PO SCH (20:04)
[2020-04-11] MEDS: FAMOTIDINE 20 MG TAB PO SCH (20:04)
[2020-04-11] MEDS: METOPROLOL TARTRATE 50 MG TAB PO SCH (20:04)
[2020-04-12] MEDS: IPRATROPIUM-ALBUTEROL 3 ML NEB INHALATION PRN ×2 (07:05→10:50)
[2020-04-12] MEDS: SYMBICORT 160-4.5 MCG INHALER INHALATION SCH ×2 (07:05→20:01)
[2020-04-12] MEDS: FAMOTIDINE 20 MG TAB PO SCH ×2 (09:27→20:23)
[2020-04-12] MEDS: TAMSULOSIN 0.4 MG CAP.ER.24H PO SCH (09:27)
[2020-04-12] MEDS: ASPIRIN 81 MG PO SCH (09:27)
[2020-04-12] MEDS: APIXABAN 5 MG TAB PO SCH ×2 (09:27→20:23)
[2020-04-12] MEDS: METOPROLOL TARTRATE 50 MG TAB PO SCH ×2 (09:28→20:23)
[2020-04-12] MEDS: LORATADINE 10 MG TAB PO SCH (09:28)
[2020-04-12] MEDS: HYDROcodone/APAP 10-325MG 1 EACH TAB PO PRN ×2 (09:31→20:26)
--- NOTE | 2020-04-12 12:35 | MR ---
EXAMINATION TYPE: MR brain wo/w con DATE OF EXAM: 04/12/2020 11:49 AM COMPARISON: 01/06/2020 HISTORY: Concern for metastatic disease with lung CA, fell and hit head, laceration above left orbit CONTRAST: Patient received 9 mL intravenous Gadavist gadolinium contrast. Multiplanar and multispin-echo imaging of the brain was performed . Pre and post contrast enhanced i mages are obtained. The ventricles, basal cisterns and sulci overlying the cerebral convexities are moderately enlarged. There is evidence of moderate periventricular white matter ischemic demyelination. Remote deep white matter insults are also noted. No acute edema is seen on diffusion weighted imaging. There is no evidence for midline shift or mass effect. Acute intracranial hemorrhage or extra-axial collection is not evident. No enhancing lesions are seen. The paranasal sinuses and mastoid air cells are well-aerated. Left frontal scalp hematoma. IMPRESSION: Age-related atrophic and chronic small vessel ischemic change. No acute intracranial process at this time. No enhancing lesions are seen.
[2020-04-12 13:12] LABS: ALT 13 U/L (4-49); AST 23 U/L (17-59); African American GFR (CKD) >90 (>60 ml/min/1.73 sqM); Albumin 3.2 g/dL (3.5-5.0); Alkaline Phosphatase 121 U/L (38-126); Anion Gap 8 mmol/L; Blood Urea Nitrogen 11 mg/dL (9-20); Carbon Dioxide 28 mmol/L (22-30); Chloride 102 mmol/L (98-107); Glucose 106 mg/dL (74-99); Non-African American GFR(CKD) 90 (>60 ml/min/1.73 sqM); Potassium 4.6 mmol/L (3.5-5.1); Sodium 138 mmol/L (137-145); Total Bilirubin 0.2 mg/dL (0.2-1.3); Total Protein 7.5 g/dL (6.3-8.2)
[2020-04-12 13:18] LABS: Basophils # (A) 0.1 k/uL (0-0.2); Basophils % (A) 1 %; Eosinophils # (A) 0.5 k/uL (0-0.7); Eosinophils % (A) 6 %; HCT 33.7 % (39.0-53.0); Hypochromasia Marked; Lymphocytes # (A) 0.4 k/uL (1.0-4.8); Lymphocytes % (A) 5 %; MCH 29.5 pg (25.0-35.0); MCHC 29.8 g/dL (31.0-37.0); MCV 99.1 fL (80.0-100.0); Macrocytosis Slight; Mean Platelet Volume 7.3; Monocytes # (A) 0.7 k/uL (0-1.0); Monocytes % (A) 8 %; Neutrophils # (A) 6.9 k/uL (1.3-7.7); Neutrophils % (A) 79 %; Platelet Count 306 k/uL (150-450); RDW 15.5 % (11.5-15.5); WBC 8.8 k/uL (3.8-10.6)
--- NOTE | 2020-04-12 14:28 | P.PN ---
Subjective Progress Note Date: 04/12/20 Principal diagnosis: Patient is a pleasant 71-year-old gentleman with a known history of stage IV lung cancer is concerned carcinoma came in after falling appears to have mechanical fall. Denied any syncopal episode although patient is complaining of some lightheadedness today. Patient is having severe pain because of which patient is on morphine and [place] patient has a what appears like pathological fraction the clavicle which is old and is complaining of pain in that area. Unfortunately I cannot use any nonsteroidal anti-inflammatory cells he appears to be ALLERGIC to ibuprofen. Patient also had urinary retention because of which patient has a Bueno cath at this time. Patient denied any fever chills nausea vomiting abdominal pain. Regarding his cancer patient did not tolerate chemotherapy and completed radiation therapy in the past, presently on immunotherapy for palliative purposes. CT of the head, and cervical spine CT did not show any dislocation or fracture 04/12/2020 Patient is seen and evaluated and follow-up currently sitting up in the chair and appears to be in no acute distress. Patient being followed by physical therapy recommending subacute rehab for continued PT/OT therapy as he continues to be quite weak. Oncology also following as patient has been receiving immunotherapy for lung cancer. Patient and family are concerned as he has been retaining urine requiring a Bueno catheter and has continued pain in the clavicle area from a recent fracture. Urology and orthopedic surgery consulted. Case management and social work also following as patient will be going to [facility] for continued PT/OT therapy once stabilized and discharged. During rehab immunotherapy will be on hold and patient is aware. Currently no reports of chest pain, shortness of breath, or palpitations. Patient is afebrile. No reports of nausea or vomiting and patient is tolerating diet. Objective - Vital Signs Vital signs: Vital Signs Temp 98.2 F 04/12/20 12:14 Pulse 91 04/12/20 12:14 Resp 16 04/12/20 12:14 BP 101/67 04/12/20 12:14 Pulse Ox 99 04/12/20 12:14 Intake & Output 04/11/20 04/12/20 04/12/20 18:59 06:59 18:59 Intake Total 2040 410 240 Output Total 150 1800 Balance 1890 -1390 240 Weight 88.451 kg Intake: Oral 2040 410 240 Output: Urine 150 1800 Other: Voiding Method Indwelling Catheter Indwelling Catheter Indwelling Catheter # Voids 4 # Bowel Movements 1 - Exam GENERAL: The patient is alert and oriented x3, not in any acute distress. Well developed, well nourished. HEENT: Pupils are round and equally reacting to light. EOMI. No scleral icterus. No conjunctival pallor. Normocephalic, atraumatic. No pharyngeal erythema. No thyromegaly. CARDIOVASCULAR: S1 and S2 present. No murmurs, rubs, or gallops. PULMONARY: Chest is clear to auscultation, no wheezing or crackles. ABDOMEN: Soft, nontender, nondistended, normoactive bowel sounds. No palpable organomegaly. MUSCULOSKELETAL: No joint swelling or deformity. EXTREMITIES: No cyanosis, clubbing, or pedal edema. NEUROLOGICAL: Gross neurological examination did not reveal any focal deficits. generalized weakness SKIN: No rashes. - Labs CBC & Chem 7: 04/12/20 12:41 04/12/20 12:41 Labs: Abnormal Lab Results - Last 24 Hours (Table) 04/12/20 04/12/20 Range/Units 12:41 12:41 RBC 3.40 L (4.30-5.90) m/uL Hgb 10.0 L (13.0-17.5) gm/dL Hct 33.7 L (39.0-53.0) % MCHC 29.8 L (31.0-37.0) g/dL Lymphocytes # 0.4 L (1.0-4.8) k/uL Glucose 106 H (74-99) mg/dL Albumin 3.2 L (3.5-5.0) g/dL Assessment and Plan Assessment: -Fall generalized weakness, secondary to deconditioning secondary to cancer: Patient awaiting to go to [facility] for continued PT/OT therapy. -Urinary retention secondary to morphine and the [place] he was receiving at home patient: Patient has indwelling Bueno catheter and currently remains on Flomax. Urology consulted for urinary retention and pending at this time -Pain, musculoskeletal secondary to lung cancer continue with home medications for pain. Use MiraLAX for constipation. -Hyperlipidemia -Hypertension -Lung cancer receiving immunotherapy for palliative purposes, patient has stage IV metastatic lung cancer -Atrial fibrillation paroxysmal, presently rate controlled on anticoagulation at [facility] which will be continued Plan: Continue current medications, management, and symptomatic treatment. Urology and orthopedic surgery consulted and pending at this time as patient is concerned that he continues to retain urine requiring a Bueno catheter. Patient also has a midshaft right clavicle fracture that is old although still causing extreme pain and orthopedic surgery consulted. Social work following as patient will likely have to be placing hold on immunotherapy during rehab as he continues to be quite weak requiring PT/OT. Further recommendations to follow. Possible discharge in 24-48 hours.
--- NOTE | 2020-04-12 21:55 | P.PN ---
Subjective Progress Note Date: 04/12/20 Principal diagnosis: Status post fall Patient has bandage on front of head otherwise appears to be doing well. He has been experiencing urinary urgency recently per (at bedside) the past two weeks, which is what lead to the fall. He was attempting to go to the bathroom "quickly". He had residual urine in bladder on admission so there is a fairchild catheter in place. We also discussed pain management as he is taking 10/325 norco every 4-5 hours to control at home. He does experience intermittent confusion though. we discussed a low dose MS contin especially if he is going to be at rehab facility ([facility]). Patient and are agreeable, discussed narcotic induced constipation as well. His pain in right arm/shoulder/clavicle is very painful still and he is unable to move well. Objective - Vital Signs Vital signs: Vital Signs Temp 98.6 F 04/12/20 21:00 Pulse 95 04/12/20 21:00 Resp 20 04/12/20 21:00 BP 110/67 04/12/20 21:00 Pulse Ox 98 04/12/20 21:00 Intake & Output 04/12/20 04/12/20 04/13/20 06:59 18:59 06:59 Intake Total 410 480 Output Total 1800 125 Balance -1390 355 Intake: Oral 410 480 Output: Drainage 125 Right Chest 125 Urine 1800 Other: Voiding Method Indwelling Catheter Indwelling Catheter # Voids 250 # Bowel Movements 1 - Exam - Constitutional General appearance: Present: average body habitus, cooperative, no acute distress - EENT Eyes: Present: anicteric sclerae, EOMI ENT: Present: hearing grossly normal, normal oropharynx - Respiratory Respiratory: right: diminished, left: CTA, Chest tube in place CDI draining - Cardiovascular Heart sounds: normal: S1, S2 Abnormal Heart Sounds: Absent: systolic murmur, diastolic murmur, rub, S3 Gallop , S4 Gallop, click, other - Peripheral edema leg Peripheral Edema: bilateral: Trace - Gastrointestinal General gastrointestinal: Present: normal bowel sounds, soft - Integumentary Integumentary: Present: normal - Neurologic Neurologic: Present: CNII-XII intact - Musculoskeletal Musculoskeletal: Present: generalized weakness, strength equal bilaterally - Psychiatric Psychiatric: Present: A&O x's 3, appropriate affect, intact judgment & insight - Labs CBC & Chem 7: 06/16/20 12:41 04/12/20 12:41 Labs: Abnormal Lab Results - Last 24 Hours (Table) 04/12/20 04/12/20 Range/Units 12:41 12:41 RBC 3.40 L (4.30-5.90) m/uL Hgb 10.0 L (13.0-17.5) gm/dL Hct 33.7 L (39.0-53.0) % MCHC 29.8 L (31.0-37.0) g/dL Lymphocytes # 0.4 L (1.0-4.8) k/uL Glucose 106 H (74-99) mg/dL Albumin 3.2 L (3.5-5.0) g/dL Assessment and Plan Plan: Fall with Facial/Head Trauma: - Xrays do not reveal any new Fractures Recent hospitalizations for pneumonia - Treatment with pleural effusions/and pigtail drainage - Cytology 12/11 and 02/01/20 - Negative for malignancy - Treated at last admission Metastatic Squamous cell lung cancer - Status Post Cycle One of Almta, Carboplatin and Keytruda, He also received Zometa - Last treatment in January 2020 - Currently Chemotherapy is on hold (very poor toleration) and plan was to complete palliative radiation and be evaluated at outside hospital for potential VATs procedure. 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
[2020-04-13] MEDS: IPRATROPIUM-ALBUTEROL 3 ML NEB INHALATION PRN ×3 (07:12→15:28)
[2020-04-13] MEDS: SYMBICORT 160-4.5 MCG INHALER INHALATION SCH (07:13)
[2020-04-13] MEDS: APIXABAN 5 MG TAB PO SCH (07:38)
[2020-04-13] MEDS: FAMOTIDINE 20 MG TAB PO SCH (07:38)
[2020-04-13] MEDS: TAMSULOSIN 0.4 MG CAP.ER.24H PO SCH (07:38)
[2020-04-13] MEDS: ASPIRIN 81 MG PO SCH (07:38)
[2020-04-13] MEDS: HYDROcodone/APAP 10-325MG 1 EACH TAB PO PRN (07:38)
[2020-04-13] MEDS: METOPROLOL TARTRATE 50 MG TAB PO SCH (07:39)
[2020-04-13] MEDS: LORATADINE 10 MG TAB PO SCH (07:39)
[2020-04-13] MEDS ORDERED: SENNOSIDES-DOCUSATE SODIUM 1 EACH TAB PO SCH (09:00)
--- NOTE | 2020-04-13 09:09 | P.GSCN ---
History of Present Illness Consult date: 04/13/20 Reason for Consult: Urinary retention Requesting physician: Dia Mcclendon History of present illness: Patient is a 71-year-old white male with stage IV lung cancer admitted following a fall. He denied any syncopal episode. when evaluated in the emergency room on April 10, he was found to be in urinary retention. Almost 1 L of urine was obtained upon Bueno catheter placement. The patient states that he has experi enced voiding difficulty for approximately 10 days prior to admission. He has had no prior treatment for BPH. Regarding his lung cancer, he did not tolerate chemotherapy and completed radiation therapy. He might receive immunotherapy for palliative purposes. Review of Systems - Genitourinary Reports urinary hesitancy Past Medical History Past Medical History: Cancer, Hyperlipidemia, Hypertension, Osteoarthritis (OA) Additional Past Medical History / Comment(s): hernia, bursitis in hips and knees. Lung ca stage 4 History of Any Multi-Drug Resistant Organisms: None Reported Past Surgical History: Hernia Repair Additional Past Surgical History / Comment(s): back surgery 2008 replaced L5 disc, Past Anesthesia/Blood Transfusion Reactions: No Reported Reaction Past Psychological History: No Psychological Hx Reported Smoking Status: Former smoker Past Alcohol Use History: Occasional Past Drug Use History: None Reported - Past Family History Father Family Medical History: Cancer Additional Family Medical History / Comment(s): multiple myeloma, hypotension Mother Family Medical History: Cancer, Hypertension, Myocardial Infarction ([place]) Additional Family Medical History / Comment(s): multiple myeloma Medications and Allergies Home Medications Medication Instructions Recorded Confirmed Type Aspirin EC [Ecotrin Low Dose] 81 mg PO DAILY 12/09/19 04/11/20 History Niacin 100 mg PO Q48H 12/09/19 04/11/20 History Morphine Sulfate Ir [MSIR] 15 mg PO Q8HR PRN 01/30/20 04/11/20 History Apixaban [Eliquis] 5 mg PO BID #60 tab 02/05/20 04/11/20 Rx Folic Acid 1 mg PO DAILY tab 02/05/20 04/11/20 Rx Budesonide-Formot 160-4.5 Mcg 2 puff INHALATION RT-BID 03/09/20 04/11/20 History [Symbicort 160-4.5 Mcg Inhaler] Calcium Carbonate/Vitamin D3 1 tab PO DAILY 03/09/20 04/11/20 History [Calcium 500-Vit D3 200 Tablet] Furosemide [Lasix] 40 mg PO DAILY 03/09/20 04/11/20 History Ipratropium-Albuterol Nebulize 3 ml INHALATION RT-QID PRN 03/09/20 04/11/20 History [Duoneb 0.5 mg-3 mg/3 ml Soln] Metoprolol Tartrate [Lopressor] 50 mg PO BID 03/09/20 04/11/20 History Potassium Chloride [Klor-Con 20] 20 meq PO DAILY 03/09/20 04/11/20 History Albuterol Sulfate [Ventolin HFA] 2 puff INHALATION RT-Q8H PRN 04/11/20 04/11/20 History Benzonatate [Tessalon Perles] 100 mg PO BID PRN 04/11/20 04/11/20 History Budesonide [Pulmicort] 1 mg INHALATION RT-DAILY 04/11/20 04/11/20 History Calcium Carb-Vit D 500-400 Uni 1 tab PO DAILY 04/11/20 04/11/20 History Cetirizine HCl 10 mg PO DAILY 04/11/20 04/11/20 History Famotidine [Pepcid] 20 mg PO BID 04/11/20 04/11/20 History HYDROcodone/APAP 10-325MG [[place] 1 tab PO QID PRN 04/11/20 04/11/20 History 10-325] LORazepam [Ativan] 1 mg PO BID 3 Days #6 tab 04/11/20 Rx Magnesium Oxide [Mag-Ox] 400 mg PO DAILY PRN 04/11/20 04/11/20 History Multivitamins, Thera [Multivitamin 1 tab PO DAILY 04/11/20 04/11/20 History (formulary)] Nystatin 100,000 Unit/gm Powd 1 applic TOPICAL TID PRN 04/11/20 04/11/20 History [Mycostatin Powder] Ondansetron [Zofran] 4 mg PO Q4H PRN 04/11/20 04/11/20 History Allergies Allergy/AdvReac Type Severity Reaction Status Date / Time codeine AdvReac Unknown Verified 04/10/20 21:51 ibuprofen AdvReac Unknown Verified 04/10/20 21:51 mold AdvReac Unknown Verified 04/10/20 21:51 tetanus and diphtheria AdvReac Unknown Verified 04/10/20 21:51 toxoids Surgical - Exam Vital Signs Temp Pulse Resp BP Pulse Ox 97.6 F 95 18 127/80 99 04/10/20 21:45 04/10/20 21:45 04/10/20 21:45 04/10/20 21:45 04/10/20 21:45 - General well developed, well nourished, no distress - Respiratory normal respiratory effort - Abdomen Abdomen: soft, non tender, no guarding, no rigid, no rebound - Genitourinary normal penis with no external lesions, testicles non-tender - Psychiatric oriented to time, oriented to person, oriented to place, speech is normal, memory intact Results - Labs 04/12/20 12:41 04/12/20 12:41 Abnormal Lab Results - Last 24 Hours (Table) 04/12/20 04/12/20 Range/Units 12:41 12:41 RBC 3.40 L (4.30-5.90) m/uL Hgb 10.0 L (13.0-17.5) gm/dL Hct 33.7 L (39.0-53.0) % MCHC 29.8 L (31.0-37.0) g/dL Lymphocytes # 0.4 L (1.0-4.8) k/uL Glucose 106 H (74-99) mg/dL Albumin 3.2 L (3.5-5.0) g/dL Diabetes panel 04/12/20 Range/Units 12:41 Sodium 138 (137-145) mmol/L Potassium 4.6 (3.5-5.1) mmol/L Chloride 102 (98-107) mmol/L Carbon Dioxide 28 (22-30) mmol/L BUN 11 (9-20) mg/dL Creatinine 0.78 (0.66-1.25) mg/dL Glucose 106 H (74-99) mg/dL Calcium 9.0 (8.4-10.2) mg/dL AST 23 (17-59) U/L ALT 13 (4-49) U/L Alkaline Phosphatase 121 (38-126) U/L Total Protein 7.5 (6.3-8.2) g/dL Albumin 3.2 L (3.5-5.0) g/dL Calcium panel 04/12/20 Range/Units 12:41 Calcium 9.0 (8.4-10.2) mg/dL Albumin 3.2 L (3.5-5.0) g/dL Pituitary panel 04/12/20 Range/Units 12:41 Sodium 138 (137-145) mmol/L Potassium 4.6 (3.5-5.1) mmol/L Chloride 102 (98-107) mmol/L Carbon Dioxide 28 (22-30) mmol/L BUN 11 (9-20) mg/dL Creatinine 0.78 (0.66-1.25) mg/dL Glucose 106 H (74-99) mg/dL Calcium 9.0 (8.4-10.2) mg/dL Adrenal panel 04/12/20 Range/Units 12:41 Sodium 138 (137-145) mmol/L Potassium 4.6 (3.5-5.1) mmol/L Chloride 102 (98-107) mmol/L Carbon Dioxide 28 (22-30) mmol/L BUN 11 (9-20) mg/dL Creatinine 0.78 (0.66-1.25) mg/dL Glucose 106 H (74-99) mg/dL Calcium 9.0 (8.4-10.2) mg/dL Total Bilirubin 0.2 (0.2-1.3) mg/dL AST 23 (17-59) U/L ALT 13 (4-49) U/L Alkaline Phosphatase 121 (38-126) U/L Total Protein 7.5 (6.3-8.2) g/dL Albumin 3.2 L (3.5-5.0) g/dL Assessment and Plan (1) Retention of urine, unspecified Current Visit: Yes Status: Acute Code(s): R33.9 - RETENTION OF URINE, UNSPECIFIED SNOMED Code(s): 700235730 Plan: the Bueno catheter has been in place since the time of admission. The catheter is draining clear yellow urine. He is receiving tamsulosin. He is due to be transferred to [facility] on the [address], perhaps later today. The catheter will be removed for a voiding trial. If he fails the voiding trial, he may be transferred to [facility] with a catheter and follow up with me as an outpatient.
--- NOTE | 2020-04-13 09:58 | P.CNOR ---
History of Present Illness - [facility] Consult date: 04/13/20 Consult reason: fracture History of present illness: Patient is 74-year-old male seen at bedside this am in consultation for right clavicle fracture. He has a history of stage IV lung cancer and presented to the emergency department on 04/10/2020 with a chief complaint of a fall. Patient currently on eliquis. He states that he has a known previous right shoulder/clavicle injury and that he was scheduled to see us in office for followup. He continues to have pain with ROM and activity with the right shoulder. He has not worn a sling. He denies numbness or tingling down the right upper extremity or hand. Review of Systems All systems: negative Constitutional: Denies chills, Denies fever Eyes: denies blurred vision, denies pain Ears, nose, mouth and throat: Denies headache, Denies sore throat Cardiovascular: Denies chest pain, Denies shortness of breath Respiratory: Denies cough Gastrointestinal: Denies abdominal pain, Denies diarrhea, Denies nausea, Denies vomiting Musculoskeletal: Denies myalgias Integumentary: Denies pruritus, Denies rash Neurological: Denies numbness, Denies weakness Psychiatric: Denies anxiety, Denies depression Endocrine: Denies fatigue, Denies weight change Past Medical History Past Medical History: Cancer, Hyperlipidemia, Hypertension, Osteoarthritis (OA) Additional Past Medical History / Comment(s): hernia, bursitis in hips and knees. Lung ca stage 4 History of Any Multi-Drug Resistant Organisms: None Reported Past Surgical History: Hernia Repair Additional Past Surgical History / Comment(s): back surgery 2008 replaced L5 disc, Past Anesthesia/Blood Transfusion Reactions: No Reported Reaction Past Psychological History: No Psychological Hx Reported Smoking Status: Former smoker Past Alcohol Use History: Occasional Past Drug Use History: None Reported - Past Family History Father Family Medical History: Cancer Additional Family Medical History / Comment(s): multiple myeloma, hypotension Mother Family Medical History: Cancer, Hypertension, Myocardial Infarction ([place]) Additional Family Medical History / Comment(s): multiple myeloma Medications and Allergies Home Medications Medication Instructions Recorded Confirmed Type Aspirin EC [Ecotrin Low Dose] 81 mg PO DAILY 12/09/19 04/11/20 History Niacin 100 mg PO Q48H 12/09/19 04/11/20 History Morphine Sulfate Ir [MSIR] 15 mg PO Q8HR PRN 01/30/20 04/11/20 History Apixaban [Eliquis] 5 mg PO BID #60 tab 02/05/20 04/11/20 Rx Folic Acid 1 mg PO DAILY tab 02/05/20 04/11/20 Rx Budesonide-Formot 160-4.5 Mcg 2 puff INHALATION RT-BID 03/09/20 04/11/20 History [Symbicort 160-4.5 Mcg Inhaler] Calcium Carbonate/Vitamin D3 1 tab PO DAILY 03/09/20 04/11/20 History [Calcium 500-Vit D3 200 Tablet] Furosemide [Lasix] 40 mg PO DAILY 03/09/20 04/11/20 History Ipratropium-Albuterol Nebulize 3 ml INHALATION RT-QID PRN 03/09/20 04/11/20 History [Duoneb 0.5 mg-3 mg/3 ml Soln] Metoprolol Tartrate [Lopressor] 50 mg PO BID 03/09/20 04/11/20 History Potassium Chloride [Klor-Con 20] 20 meq PO DAILY 03/09/20 04/11/20 History Albuterol Sulfate [Ventolin HFA] 2 puff INHALATION RT-Q8H PRN 04/11/20 04/11/20 History Benzonatate [Tessalon Perles] 100 mg PO BID PRN 04/11/20 04/11/20 History Budesonide [Pulmicort] 1 mg INHALATION RT-DAILY 04/11/20 04/11/20 History Calcium Carb-Vit D 500-400 Uni 1 tab PO DAILY 04/11/20 04/11/20 History Cetirizine HCl 10 mg PO DAILY 04/11/20 04/11/20 History Famotidine [Pepcid] 20 mg PO BID 04/11/20 04/11/20 History HYDROcodone/APAP 10-325MG [[place] 1 tab PO QID PRN 04/11/20 04/11/20 History 10-325] LORazepam [Ativan] 1 mg PO BID 3 Days #6 tab 04/11/20 Rx Magnesium Oxide [Mag-Ox] 400 mg PO DAILY PRN 04/11/20 04/11/20 History Multivitamins, Thera [Multivitamin 1 tab PO DAILY 04/11/20 04/11/20 History (formulary)] Nystatin 100,000 Unit/gm Powd 1 applic TOPICAL TID PRN 04/11/20 04/11/20 History [Mycostatin Powder] Ondansetron [Zofran] 4 mg PO Q4H PRN 04/11/20 04/11/20 History Allergies Allergy/AdvReac Type Severity Reaction Status Date / Time codeine AdvReac Unknown Verified 04/10/20 21:51 ibuprofen AdvReac Unknown Verified 04/10/20 21:51 mold AdvReac Unknown Verified 04/10/20 21:51 tetanus and diphtheria AdvReac Unknown Verified 04/10/20 21:51 toxoids Physical Examination Inspection of right clavicle and shoulder shows no erythema, echymoses or wounds. There is no skin tenting. There is mild tenderness at mid clavicle. ROM of right shoulder not tested due fracture and limited due to pain. Neurovascular status is intact throughout the right upper extremity with motor and sensation. 2+ radial pulse is present and less than 2 sec cap refill present. Results Chest xray from 04/10 and shoulder xray from 04/04 are reviewed. There is a displaced mid shaft clavicle fracture that appears minimally changed from previous xrays. - Labs Labs: Abnormal Lab Results - Last 24 Hours (Table) 04/12/20 04/12/20 Range/Units 12:41 12:41 RBC 3.40 L (4.30-5.90) m/uL Hgb 10.0 L (13.0-17.5) gm/dL Hct 33.7 L (39.0-53.0) % MCHC 29.8 L (31.0-37.0) g/dL Lymphocytes # 0.4 L (1.0-4.8) k/uL Glucose 106 H (74-99) mg/dL Albumin 3.2 L (3.5-5.0) g/dL H & H 04/10/20 04/12/20 Range/Units 22:44 12:41 Hgb 10.2 L 10.0 L (13.0-17.5) gm/dL Hct 32.8 L 33.7 L (39.0-53.0) % Coagulation 04/10/20 Range/Units 22:44 INR 1.1 (<1.2) Result Diagrams: 04/12/20 12:41 04/12/20 12:41 Assessment and Plan (1) Right clavicle fracture Narrative/Plan: We will order sling for comfort. No immediate plans for surgical intervention. He is to be nonweightbearing with right upper extremity. He may use for ADLs as tolerated. He may f/u as an outpatient in office. Pain management per primary team. Current Visit: No Status: Acute Priority: Medium Code(s): S42.001A - FRACTURE OF UNSP PART OF RIGHT CLAVICLE, INIT FOR CLOS FX SNOMED Code(s): 86525432 Time with Patient: Less than 30
--- NOTE | 2020-04-13 12:14 | P.DS ---
Providers Date of admission: 04/11/20 13:27 Expected date of discharge: 04/13/20 Attending physician: Karoline Small Consults: 04/11/20 12:43 Consult Physician Routine Consulting Provider: Gildardo Jaime Consult Reason/Comments: Lung cancer Do you want consulting provider notified?: Yes 04/12/20 14:13 Consult Physician Urgent Consulting Provider: Prakash Baldwin Consult Reason/Comments: old clavicle fracture/ continued pain Do you want consulting provider notified?: Yes Consult Physician Urgent Consulting Provider: Ovi Way Consult Reason/Comments: urinary retention Do you want consulting provider notified?: Yes Primary care physician: [facility] Course: Final diagnosis -Fall generalized weakness, secondary to deconditioning secondary to cancer -Urinary retention secondary to morphine and the [place] he was receiving at home -Pain, musculoskeletal secondary to lung cancer -Hyperlipidemia -Hypertension -Lung cancer receiving immunotherapy for palliative purposes, patient has stage IV metastatic lung cancer -Atrial fibrillation paroxysmal, presently rate controlled on anticoagulation Discharge disposition Patient is being discharged in a stable condition with guarded prognosis to [facility] for continued PT/OT therapy. Patient will follow-up with multiple medical consultations upon discharge. Total time taken is 35 minutes. History of present illness This is a 74-year-old male who was recently admitted after falling and is being closely monitored. Patient has a history of stage IV lung cancer and has been recently receiving therapy and did not tolerate very well and patient is quite weak. Patient discussing with oncology about immunotherapy although they feel rehab to strengthen with continued PT/OT therapy will benefit prior to the start of immunotherapy. Patient has a history of a recent clavicle fracture on the right side and is having some discomfort and was evaluated by orthopedic surgery. Patient was to follow-up with them in the outpatient setting although came here and was admitted. Patient will continue with medication management for pain and discomfort and also will be provided with an arm sling. Patient is to continue being nonweightbearing of the right upper extremity and continue with the sling. Once discharged from rehab patient may follow-up with orthopedic surgery as needed. No plans for surgical intervention at this time. Patient also is having some urinary retention requiring Bueno catheterization and was evaluated by urology. Patient will trial removal the Bueno today and was initiated on Flomax and if patient continues to retain may go to rehab with an indwelling Bueno catheter and follow-up outpatient with urology. Patient is to continue Flomax at this time. Currently no reports of chest pain, shortness of breath, or palpitations. Patient is afebrile. No reports of nausea or vomiting and patient is tolerating diet. Patient will be transferred to [facility] today. On exam vital signs are stable. Temp is 97.9F, pulse is 88, respirations are 18, blood pressure is 121/69, oxygen saturation is 95% on 2 L via nasal cannula. Cardio S1, S2 are present. Respiratory system shows clear to auscultation. Abdomen is soft and nontender. Nervous system shows mild diffuse weakness. Please refer to medication reconciliation sheet for a list of medications Patient Condition at Discharge: Stable Plan - Discharge Summary Discharge Rx Participant: No New Discharge Prescriptions: New LORazepam [Ativan] 1 mg PO BID 3 Days #6 tab Tamsulosin [Flomax] 0.4 mg PO PC-BRKFST #0 cap.er.24h Polyethylene Glycol 3350 [Miralax] 17 gm PO DAILY PRN powd.pack PRN Reason: Constipation Sennosides-Docusate Sodium [Senokot-S] 1 each PO BID tab Continue Aspirin EC [Ecotrin Low Dose] 81 mg PO DAILY Niacin 100 mg PO Q48H Apixaban [Eliquis] 5 mg PO BID #60 tab Folic Acid 1 mg PO DAILY tab Metoprolol Tartrate [Lopressor] 50 mg PO BID Ipratropium-Albuterol Nebulize [Duoneb 0.5 mg-3 mg/3 ml Soln] 3 ml INHALATION RT-QID PRN PRN Reason: Shortness Of Breath Budesonide-Formot 160-4.5 Mcg [Symbicort 160-4.5 Mcg Inhaler] 2 puff INHALATION RT-BID Calcium Carbonate/Vitamin D3 [Calcium 500-Vit D3 200 Tablet] 1 tab PO DAILY Calcium Carb-Vit D 500-400 Uni 1 tab PO DAILY Albuterol Sulfate [Ventolin HFA] 2 puff INHALATION RT-Q8H PRN PRN Reason: Shortness Of Breath Budesonide [Pulmicort] 1 mg INHALATION RT-DAILY Cetirizine HCl 10 mg PO DAILY Famotidine [Pepcid] 20 mg PO BID Ondansetron [Zofran] 4 mg PO Q4H PRN PRN Reason: Nausea Nystatin 100,000 Unit/gm Powd [Mycostatin Powder] 1 applic TOPICAL TID PRN PRN Reason: Rash Benzonatate [Tessalon Perles] 100 mg PO BID PRN PRN Reason: Cough Multivitamins, Thera [Multivitamin (formulary)] 1 tab PO DAILY Magnesium Oxide [Mag-Ox] 400 mg PO DAILY PRN PRN Reason: MUSCLE CRAMPS Morphine Sulfate Ir [MSIR] 15 mg PO Q8HR PRN #6 tab PRN Reason: Moderate To Severe Pain HYDROcodone/APAP 10-325MG [[place] 10-325] 1 tab PO QID PRN #12 tab PRN Reason: Pain Discontinued Potassium Chloride [Klor-Con 20] 20 meq PO DAILY Furosemide [Lasix] 40 mg PO DAILY Discharge Medication List Aspirin EC [Ecotrin Low Dose] 81 mg PO DAILY 12/09/19 [History] Niacin 100 mg PO Q48H 12/09/19 [History] Apixaban [Eliquis] 5 mg PO BID #60 tab 02/05/20 [Rx] Folic Acid 1 mg PO DAILY tab 02/05/20 [Rx] Budesonide-Formot 160-4.5 Mcg [Symbicort 160-4.5 Mcg Inhaler] 2 puff INHALATION RT-BID 03/09/20 [History] Calcium Carbonate/Vitamin D3 [Calcium 500-Vit D3 200 Tablet] 1 tab PO DAILY 03/09/20 [History] Ipratropium-Albuterol Nebulize [Duoneb 0.5 mg-3 mg/3 ml Soln] 3 ml INHALATION RT-QID PRN 03/09/20 [History] Metoprolol Tartrate [Lopressor] 50 mg PO BID 03/09/20 [History] Albuterol Sulfate [Ventolin HFA] 2 puff INHALATION RT-Q8H PRN 04/11/20 [History] Benzonatate [Tessalon Perles] 100 mg PO BID PRN 04/11/20 [History] Budesonide [Pulmicort] 1 mg INHALATION RT-DAILY 04/11/20 [History] Calcium Carb-Vit D 500-400 Uni 1 tab PO DAILY 04/11/20 [History] Cetirizine HCl 10 mg PO DAILY 04/11/20 [History] Famotidine [Pepcid] 20 mg PO BID 04/11/20 [History] LORazepam [Ativan] 1 mg PO BID 3 Days #6 tab 04/11/20 [Rx] Magnesium Oxide [Mag-Ox] 400 mg PO DAILY PRN 04/11/20 [History] Multivitamins, Thera [Multivitamin (formulary)] 1 tab PO DAILY 04/11/20 [History] Nystatin 100,000 Unit/gm Powd [Mycostatin Powder] 1 applic TOPICAL TID PRN 04/11/20 [History] Ondansetron [Zofran] 4 mg PO Q4H PRN 04/11/20 [History] HYDROcodone/APAP 10-325MG [[place] 10-325] 1 tab PO QID PRN #12 tab 04/13/20 [Rx] Morphine Sulfate Ir [MSIR] 15 mg PO Q8HR PRN #6 tab 04/13/20 [Rx] Polyethylene Glycol 3350 [Miralax] 17 gm PO DAILY PRN powd.pack 04/13/20 [Rx] Sennosides-Docusate Sodium [Senokot-S] 1 each PO BID tab 04/13/20 [Rx] Tamsulosin [Flomax] 0.4 mg PO PC-BRKFST #0 cap.er.24h 04/13/20 [Rx] Follow up Appointment(s)/Referral(s): Ovi Way MD [STAFF PHYSICIAN] - 1-2 days Niles Mead MD [Primary Care Provider] - 1-2 days Prakash Baldwin MD [STAFF PHYSICIAN] - 1 Week Patient Instructions/Handouts: Care For Your Stitches (DC), Laceration (DC), Bueno Catheter Placement and Care (ED) Activity/Diet/Wound Care/Special Instructions: Patient is going to [facility] Take prescribed medication as directed. Follow-up with urologist. Return to emergency department if symptoms worsen. Non weightbearing right upper extremity F/U with Dr. Baldwin in office Activity as tolerated Continue current diet Continue working with physical therapy Discuss with [facility] physician in regards to suture removal of the left forehead. Sutures were placed on 04/10/2020 Discharge Disposition: TRANSFER TO SNF/ECF
[2020-04-13 12:24] VITALS: BP 96/61; RESP 16; TEMP 97.8
[2020-04-13 15:39] VITALS: PULSE 80
--- NOTE | 2020-04-14 10:41 | CDI ---
Documentation Clarification Form Date: 04/14/20 From: Ofelia Cantu CCS Phone: If you have a question about this query, please contact Mili Wright, Claim Administrator at [phone] between 8am and 5pm. Admit Date: 04/11/20 Discharge Date:04/13/20 Patient Name: Maynor Daniels Visit Number: [id number] ATTENTION: The Clinical Documentation Specialists (CDI) and [facility] Coding Staff appreciate your assistance in clarifying documentation. Please respond to the clarification below the line at the bottom and electronically sign. The CDI & [facility] Coding staff will review the response and follow-up if needed. Please note: Queries are made part of the Legal Health Record. If you have any questions, please contact the author of this message via ITS. Dear Dr. Small, Wound care and Dietitian Consults document pressure ulcer stage II buttock POA. History/Risk Factors: Stage IV lung CA, AFIB, Critical illness myopathy Clinical Indicators: Stage II pressure ulcer buttock Treatment: Wound care In your professional opinion, can you please clarify the diagnosis for they wound if known? Pressure ulcer stage II buttock, POA Pressure ulcer buttock stage Other, please specify Unable to determine Pressure ulcer stage II buttock, POA MTDD
--- NOTE | 2020-04-14 10:50 | CDI ---
Documentation Clarification Form Date: 04/14/20 From: Ofelia Cantu CCS Phone: If you have a question about this query, please contact Mili Wright, Log Hauler at [phone] between 8am and 5pm. Admit Date: 04/11/20 Discharge Date:04/13/20 Patient Name: Maynor Daniels Visit Number: [id number] ATTENTION: The Clinical Documentation Specialists (CDI) and [facility] Coding Staff appreciate your assistance in clarifying documentation. Please respond to the clarification below the line at the bottom and electronically sign. The CDI & [facility] Coding staff will review the response and follow-up if needed. Please note: Queries are made part of the Legal Health Record. If you have any questions, please contact the author of this message via ITS. Dear Dr. Small, Nutrition diagnosis of severe protein-calorie malnutrition in the context of chronic illness has been documented in the Dietitian Consult. History/Risk Factors: Stage IV lung CA, Repeated falls, Critical illness myopathy Clinical Indicators: Inadequate protein energy intake Lab findings: Albumin 3.4, 3.2 BMI: 23.7 Treatment: Ensure Enlive BID, high calorie/protein foods, nutritional supplement PRN In your professional opinion, can you please clarify if you agree with the diagnosis of severe protein calorie malnutrition? Severe protein calorie malnutrition Moderate malnutrition Mild nutrition Other, please specify Unable to determine Mild malnutrition MTDD
--- NOTE | 2020-04-14 11:54 | CDI ---
Documentation Clarification Form Date: 04/14/20 From: Ofelia Cantu CCS Phone: If you have a question about this query, please contact Mili Wright, Telecommunications Field Technician at [phone] between 8am and 5pm. Admit Date: 04/11/20 Discharge Date: 04/13/20 Patient Name: Maynor Daniels Visit Number: [id number] ATTENTION: The Clinical Documentation Specialists (CDI) and [facility] Coding Staff appreciate your assistance in clarifying documentation. Please respond to the clarification below the line at the bottom and electronically sign. The CDI & [facility] Coding staff will review the response and follow-up if needed. Please note: Queries are made part of the Legal Health Record. If you have any questions, please contact the author of this message via ITS. Dear Dr. Small, The patients principal diagnosis has not been clearly identified and requires clarification. DS documents: -Fall generalized weakness, secondary to deconditioning secondary to cancer PN 04/12 documents: Chronic Illness Myopathy: Atrophy from sickness: - Rehab at discharge for increased performance. Critical illness myopathy has been defined as: The development of critical patient related generalized neuromuscular weakness History/Risk factors: Stage IV lung CA, HTN, AFIB, Neoplasm related pain, Repeated falls Clinical Indicators: Weakness secondary to cancer Treatment: PT, OT Other tx: Discharge to SNF In your professional opinion, can you please clarify which diagnosis, after study, accounted for the patients presenting symptoms and was the reason chiefly responsible for the admission? Generalized weakness secondary to cancer Critical illness myopathy Other Unable to determine Generalized weakness secondary to cancer MTDD
== END 2020-04-13 16:29 ==
LOC: EC 21:42 → 5NMEDONC 04-11 01:22 → OBSVTOIN 04-11 13:27 → INTOOBSV 04-11 13:27 → UNDODISIN 04-13 16:29
PROVIDERS: ADMIT Hospitalist; ATTEND Hospitalist
DX: S01.81XA Laceration without foreign body of other part of head, initial encounter (principal); G72.81 Critical illness myopathy; C34.31 Malignant neoplasm of lower lobe, right bronchus or lung; C79.51 Secondary malignant neoplasm of bone; E44.1 Mild protein-calorie malnutrition; L89.302 Pressure ulcer of unspecified buttock, stage 2; I48.0 Paroxysmal atrial fibrillation; E78.5 Hyperlipidemia, unspecified; M19.90 Unspecified osteoarthritis, unspecified site; M70.71 Other bursitis of hip, right hip; M70.72 Other bursitis of hip, left hip; M70.52 Other bursitis of knee, left knee; M70.51 Other bursitis of knee, right knee; S10.81XA Abrasion of other specified part of neck, initial encounter; R33.8 Other retention of urine; G89.3 Neoplasm related pain (acute) (chronic); S42.021D Displaced fracture of shaft of right clavicle, subsequent encounter for fracture with routine healing; K59.03 Drug induced constipation; R29.6 Repeated falls; R39.15 Urgency of urination; T40.2X5A Adverse effect of other opioids, initial encounter; Z03.818 Encounter for observation for suspected exposure to other biological agents ruled out; W01.0XXA Fall on same level from slipping, tripping and stumbling without subsequent striking against object, initial encounter; Z68.23 Body mass index [BMI] 23.0-23.9, adult; Z79.01 Long term (current) use of anticoagulants; Z79.82 Long term (current) use of aspirin; Z79.51 Long term (current) use of inhaled steroids; Z79.899 Other long term (current) drug therapy; Z87.891 Personal history of nicotine dependence; Z92.3 Personal history of irradiation; Z88.5 Allergy status to narcotic agent; Z88.7 Allergy status to serum and vaccine; Z88.8 Allergy status to other drugs, medicaments and biological substances; Z80.7 Family history of other malignant neoplasms of lymphoid, hematopoietic and related tissues; Z82.49 Family history of ischemic heart disease and other diseases of the circulatory system
CPT/HCPCS: 96376; 12013; 96361; 96374; 99285; 51702; 36415; 94640 ×6; 94760; 97530 ×2; 97162; 97535; 97166; 80053 ×2; 85025 ×2; 85610; 85730; 81003 ×2; 87086; 71046; 72125; 70486; 70450; 70553; G0378 ×3; U0003; J2001; J2270 ×2; A9585

== ENCOUNTER → 2020-05-16 | Outpatient (CLI) | payer MEDICARE ==
--- NOTE | 2020-05-16 13:51 | XR ---
EXAMINATION TYPE: XR chest 2V DATE OF EXAM: 05/16/2020 COMPARISON: Prior chest x-ray 04/10/2020 HISTORY: Lung cancer, shortness of breath and weakness TECHNIQUE: Frontal and lateral views of the chest are obtained. FINDINGS: Asymmetric opacity within the right hemithorax is again noted, there is pleural catheter o n the right, pleural thickening and prominence of interstitium. No pneumothorax. Heart size is stable . Question a sclerotic density involving the proximal left humerus. There is arthropathy within the s houlders. There is a mid diaphyseal right clavicular fracture with a nonunited appearance. IMPRESSION: Findings consistent with patient's history of lung cancer. Correlate for possible metast atic disease, pathologic fracture.
== END | disposition home or self-care (01) ==
LOC: RADXRMAIN 12:20
PROVIDERS: ATTEND Thoracic Surgery (Cardiothoracic Vascular Surgery)
DX: C34.31 Malignant neoplasm of lower lobe, right bronchus or lung (principal); C34.01 Malignant neoplasm of right main bronchus
CPT/HCPCS: 71046

== ENCOUNTER 2020-06-27 15:03 | Inpatient (IN) | payer MEDICARE ==
[2020-06-27] MEDS ORDERED: PANTOPRAZOLE 40 MG/10 ML VIAL IVP STA (15:29)
[2020-06-27] MEDS ORDERED: SODIUM CHLORIDE 0.9% 1,000 ML IV STA ×2 (15:29→15:34)
--- NOTE | 2020-06-27 15:34 | ED ---
General Adult HPI - General Chief complaint: Fever Stated complaint: Fever, dark stools Time Seen by Provider: 06/27/20 15:14 Source: patient, RN notes reviewed Mode of arrival: ambulatory Limitations: no limitations - History of Present Illness Initial comments: Patient is a pleasant 74-year-old male presenting to the emergency department with spouse with complaints of intermittent fevers up the past week. Patient did talk to his oncologist office and was advised to be tested. Patient has no other symptoms except for fever. No cough. No dyspnea. Patient is ktruda, last dose on June 20. Patient also is getting radiation therapy to his spine. Patient gets fatigued at times however is unclear if this is any worse than normal. Patient did have recent GI bleed with hemoglobin in the fives and did need to units of blood. Patient has had dark stool last few days since restarting Eliquis. Patient did not have his Eliquis dose last night and today was not a dark stool. - Related Data Home Medications Medication Instructions Recorded Confirmed Aspirin EC [Ecotrin Low Dose] 81 mg PO DAILY 12/09/19 05/31/20 Niacin 100 mg PO Q48H 12/09/19 05/31/20 Budesonide-Formot 160-4.5 Mcg 2 puff INHALATION RT-BID 03/09/20 05/31/20 [Symbicort 160-4.5 Mcg Inhaler] Calcium Carbonate/Vitamin D3 1 tab PO DAILY 03/09/20 05/31/20 [Calcium 500-Vit D3 200 Tablet] Ipratropium-Albuterol Nebulize 3 ml INHALATION RT-QID PRN 03/09/20 05/31/20 [Duoneb 0.5 mg-3 mg/3 ml Soln] Metoprolol Tartrate [Lopressor] 25 mg PO DAILY 03/09/20 05/31/20 Albuterol Sulfate [Ventolin HFA] 2 puff INHALATION RT-Q8H PRN 04/11/20 05/31/20 Benzonatate [Tessalon Perles] 100 mg PO BID PRN 04/11/20 05/31/20 Budesonide [Pulmicort] 1 mg INHALATION RT-DAILY 04/11/20 05/31/20 Calcium Carb-Vit D 500-400 Uni 1 tab PO DAILY 04/11/20 05/31/20 Cetirizine HCl 10 mg PO DAILY 04/11/20 05/31/20 Famotidine [Pepcid] 20 mg PO BID 04/11/20 05/31/20 Magnesium Oxide [Mag-Ox] 400 mg PO DAILY PRN 04/11/20 05/31/20 Multivitamins, Thera [Multivitamin 1 tab PO DAILY 04/11/20 05/31/20 (formulary)] Nystatin 100,000 Unit/gm Powd 1 applic TOPICAL TID PRN 04/11/20 05/31/20 [Mycostatin Powder] Ondansetron [Zofran] 4 mg PO Q4H PRN 04/11/20 05/31/20 Previous Rx's Medication Instructions Recorded Folic Acid 1 mg PO DAILY tab 02/05/20 LORazepam [Ativan] 1 mg PO BID 3 Days #6 tab 04/11/20 HYDROcodone/APAP 10-325MG [[place] 1 tab PO QID PRN #12 tab 04/13/20 10-325] Morphine Sulfate Ir [MSIR] 15 mg PO Q8HR PRN #6 tab 04/13/20 Sennosides-Docusate Sodium 1 each PO BID tab 04/13/20 [Senokot-S] Tamsulosin [Flomax] 0.4 mg PO PC-BRKFST #0 cap.er.24h 04/13/20 polyethylene glycoL 3350 [Miralax] 17 gm PO DAILY PRN powd.pack 04/13/20 Allergies Allergy/AdvReac Type Severity Reaction Status Date / Time codeine AdvReac Unknown Verified 06/27/20 15:04 ibuprofen AdvReac Unknown Verified 06/27/20 15:04 mold AdvReac Unknown Verified 06/27/20 15:04 tetanus and diphtheria AdvReac Unknown Verified 06/27/20 15:04 toxoids Review of Systems ROS Statement: Those systems with pertinent positive or pertinent negative responses have been documented in the HPI. ROS Other: All systems not noted in ROS Statement are negative. Constitutional: Reports: as per HPI, fever. Denies: chills Eyes: Denies: eye pain ENT: Denies: ear pain Respiratory: Denies: cough, dyspnea Cardiovascular: Denies: chest pain Endocrine: Reports: fatigue Gastrointestinal: Denies: abdominal pain, nausea, vomiting Genitourinary: Denies: dysuria Musculoskeletal: Denies: back pain Skin: Denies: rash Neurological: Denies: weakness Past Medical History Past Medical History: Cancer, Hyperlipidemia, Hypertension, Osteoarthritis (OA) Additional Past Medical History / Comment(s): hernia, bursitis in hips and knees. Lung ca stage 4 History of Any Multi-Drug Resistant Organisms: None Reported Past Surgical History: Hernia Repair Additional Past Surgical History / Comment(s): back surgery 2008 replaced L5 disc, Past Anesthesia/Blood Transfusion Reactions: No Reported Reaction Past Psychological History: No Psychological Hx Reported Smoking Status: Former smoker Past Alcohol Use History: Occasional Past Drug Use History: None Reported - Past Family History Father Family Medical History: Cancer Additional Family Medical History / Comment(s): multiple myeloma, hypotension Mother Family Medical History: Cancer, Hypertension, Myocardial Infarction ([place]) Additional Family Medical History / Comment(s): multiple myeloma General Exam Limitations: no limitations General appearance: alert, in no apparent distress Head exam: Present: normocephalic Eye exam: Present: normal appearance ENT exam: Present: normal oropharynx Neck exam: Present: normal inspection Respiratory exam: Present: normal lung sounds bilaterally Cardiovascular Exam: Present: regular rate, normal rhythm GI/Abdominal exam: Present: soft. Absent: tenderness Extremities exam: Present: normal inspection Neurological exam: Present: alert Psychiatric exam: Present: normal affect, normal mood Skin exam: Present: normal color Course Vital Signs 06/27/20 06/27/20 15:04 16:09 Temperature 97.8 F Pulse Rate 47 L 85 Respiratory 16 18 Rate Blood Pressure 91/66 105/85 O2 Sat by Pulse 91 L 93 L Oximetry - Reevaluation(s) Reevaluation #1: 06/27/20 17:39 Patient will be started on Zosyn secondary to risk with stage IV lung cancer. Patient does not meet sepsis criteria at this time. EKG Findings - EKG Comments: EKG Findings:: Sinus rhythm at 83. Frequent PVCs. KS 156. QRS 90. QT 390. QTC 458. Normal axis. Normal QRS. No acute ST change. Medical Decision Making - Medical Decision Making Patient reevaluated. Patient and family updated. Case was discussed in detail with Dr. Rm who is familiar with this patient. He does request cultures, Zosyn, GI consult and lumbar spine MRI. Case also discussed with Dr. Guzman, who will admit coming from Dr. Mead. - Lab Data Result diagrams: 06/27/20 16:02 06/27/20 16:02 Lab Results 06/27/20 06/27/20 06/27/20 Range/Units 16:02 16:02 16:02 WBC 15.0 H (3.8-10.6) k/uL RBC 3.28 L (4.30-5.90) m/uL Hgb 9.5 L (13.0-17.5) gm/dL Hct 30.9 L (39.0-53.0) % MCV 94.3 (80.0-100.0) fL MCH 28.8 (25.0-35.0) pg MCHC 30.6 L (31.0-37.0) g/dL RDW 17.1 H (11.5-15.5) % Plt Count 419 (150-450) k/uL Neutrophils % 86 % Lymphocytes % 3 % Monocytes % 5 % Eosinophils % 4 % Basophils % 0 % Neutrophils # 12.9 H (1.3-7.7) k/uL Lymphocytes # 0.5 L (1.0-4.8) k/uL Monocytes # 0.8 (0-1.0) k/uL Eosinophils # 0.5 (0-0.7) k/uL Basophils # 0.1 (0-0.2) k/uL Hypochromasia Marked Anisocytosis Slight PT 10.5 (9.0-12.0) sec INR 1.0 (<1.2) APTT 30.3 H (22.0-30.0) sec Sodium 137 (137-145) mmol/L Potassium 4.8 (3.5-5.1) mmol/L Chloride 103 (98-107) mmol/L Carbon Dioxide 22 (22-30) mmol/L Anion Gap 12 mmol/L BUN 17 (9-20) mg/dL Creatinine 0.83 (0.66-1.25) mg/dL Est GFR (CKD-EPI)AfAm >90 (>60 ml/min/1.73 sqM) Est GFR (CKD-EPI)NonAf 87 (>60 ml/min/1.73 sqM) Glucose 91 (74-99) mg/dL Calcium 8.8 (8.4-10.2) mg/dL Total Bilirubin 0.4 (0.2-1.3) mg/dL AST 56 (17-59) U/L ALT 61 H (4-49) U/L Alkaline Phosphatase 133 H (38-126) U/L Total Protein 7.1 (6.3-8.2) g/dL Albumin 3.4 L (3.5-5.0) g/dL Urine Color Urine Appearance (Clear) Urine pH (5.0-8.0) Ur Specific [place] (1.001-1.035) Urine Protein (Negative) Urine Glucose (UA) (Negative) Urine Ketones (Negative) Urine Blood (Negative) Urine Nitrite (Negative) Urine Bilirubin (Negative) Urine Urobilinogen (<2.0) mg/dL Ur Leukocyte Esterase (Negative) Urine RBC (0-5) /hpf Urine WBC (0-5) /hpf Hyaline Casts (0-2) /lpf Urine Mucus (None) /hpf 06/27/20 Range/Units 16:02 WBC (3.8-10.6) k/uL RBC (4.30-5.90) m/uL Hgb (13.0-17.5) gm/dL Hct (39.0-53.0) % MCV (80.0-100.0) fL MCH (25.0-35.0) pg MCHC (31.0-37.0) g/dL RDW (11.5-15.5) % Plt Count (150-450) k/uL Neutrophils % % Lymphocytes % % Monocytes % % Eosinophils % % Basophils % % Neutrophils # (1.3-7.7) k/uL Lymphocytes # (1.0-4.8) k/uL Monocytes # (0-1.0) k/uL Eosinophils # (0-0.7) k/uL Basophils # (0-0.2) k/uL Hypochromasia Anisocytosis PT (9.0-12.0) sec INR (<1.2) APTT (22.0-30.0) sec Sodium (137-145) mmol/L Potassium (3.5-5.1) mmol/L Chloride (98-107) mmol/L Carbon Dioxide (22-30) mmol/L Anion Gap mmol/L BUN (9-20) mg/dL Creatinine (0.66-1.25) mg/dL Est GFR (CKD-EPI)AfAm (>60 ml/min/1.73 sqM) Est GFR (CKD-EPI)NonAf (>60 ml/min/1.73 sqM) Glucose (74-99) mg/dL Calcium (8.4-10.2) mg/dL Total Bilirubin (0.2-1.3) mg/dL AST (17-59) U/L ALT (4-49) U/L Alkaline Phosphatase (38-126) U/L Total Protein (6.3-8.2) g/dL Albumin (3.5-5.0) g/dL Urine Color Yellow Urine Appearance Clear (Clear) Urine pH 5.5 (5.0-8.0) Ur Specific [place] 1.024 (1.001-1.035) Urine Protein 1+ H (Negative) Urine Glucose (UA) Negative (Negative) Urine Ketones Negative (Negative) Urine Blood Negative (Negative) Urine Nitrite Negative (Negative) Urine Bilirubin Negative (Negative) Urine Urobilinogen <2.0 (<2.0) mg/dL Ur Leukocyte Esterase Negative (Negative) Urine RBC 1 (0-5) /hpf Urine WBC 3 (0-5) /hpf Hyaline Casts 4 H (0-2) /lpf Urine Mucus Many H (None) /hpf - Radiology Data Radiology results: image reviewed (Chest x-ray shows right-sided opacity, unchanged) Disposition Clinical Impression: Fever, Lower GI hemorrhage Disposition: ADMITTED IP TO THIS HOSP Is patient prescribed a controlled substance at d/c from ED?: No Referrals: Niles Mead MD [Primary Care Provider] - 1-2 days Decision Time: 17:39
[2020-06-27 16:16] LABS: Anisocytosis Slight; Basophils # (A) 0.1 k/uL (0-0.2); Basophils % (A) 0 %; Eosinophils # (A) 0.5 k/uL (0-0.7); Eosinophils % (A) 4 %; HCT 30.9 % (39.0-53.0); HGB 9.5 gm/dL (13.0-17.5); Hypochromasia Marked; Lymphocytes # (A) 0.5 k/uL (1.0-4.8); Lymphocytes % (A) 3 %; MCH 28.8 pg (25.0-35.0); MCHC 30.6 g/dL (31.0-37.0); MCV 94.3 fL (80.0-100.0); Mean Platelet Volume 7.7; Monocytes # (A) 0.8 k/uL (0-1.0); Monocytes % (A) 5 %; Neutrophils # (A) 12.9 k/uL (1.3-7.7); Neutrophils % (A) 86 %; Platelet Count 419 k/uL (150-450); RBC 3.28 m/uL (4.30-5.90); RDW 17.1 % (11.5-15.5)
[2020-06-27 16:25] LABS: ALT 61 U/L (4-49); AST 56 U/L (17-59); African American GFR (CKD) >90 (>60 ml/min/1.73 sqM); Albumin 3.4 g/dL (3.5-5.0); Alkaline Phosphatase 133 U/L (38-126); Anion Gap 12 mmol/L; Blood Urea Nitrogen 17 mg/dL (9-20); Calcium 8.8 mg/dL (8.4-10.2); Carbon Dioxide 22 mmol/L (22-30); Chloride 103 mmol/L (98-107); Glucose 91 mg/dL (74-99); Non-African American GFR(CKD) 87 (>60 ml/min/1.73 sqM); Potassium 4.8 mmol/L (3.5-5.1); Sodium 137 mmol/L (137-145); Total Bilirubin 0.4 mg/dL (0.2-1.3); Total Protein 7.1 g/dL (6.3-8.2)
[2020-06-27 16:29] LABS: Partial Thromboplastin Time 30.3 sec (22.0-30.0); Prothrombin Time 10.5 sec (9.0-12.0)
[2020-06-27 16:38] LABS: Appearance,Urine Clear (Clear); Bilirubin,Urine Negative (Negative); Blood,Urine Negative (Negative); Color,Urine Yellow; Glucose,Urine (UA) Negative (Negative); Hyaline Casts,Urine 4 /lpf (0-2); Ketones,Urine Negative (Negative); Leukocyte Esterase,Urine Negative (Negative); Mucus,Urine Many /hpf; Nitrite,Urine Negative (Negative); PH, Urine 5.5 (5.0-8.0); Protein,Urine 1+ (Negative); RBC,Urine 1 /hpf (0-5); Specific Gravity,Urine 1.024 (1.001-1.035); Urobilinogen,Urine <2.0 mg/dL (<2.0); WBC,Urine 3 /hpf (0-5)
--- NOTE | 2020-06-27 16:38 | XR ---
EXAMINATION TYPE: XR chest 2V DATE OF EXAM: 06/27/2020 COMPARISON: Chest x-ray 05/16/2020 HISTORY: Fever TECHNIQUE: Frontal and lateral views of the chest are obtained. FINDINGS: Pleural parenchymal changes within the right hemithorax show a similar appearance accounti ng for differences in technique, there is abnormal pleural thickening and associated bandlike areas o f increased attenuation with possible associated airspace disease. No evident pneumothorax. There is some blunting of the left costophrenic angle. Some minimal patchy density present at the left lung ba se. Heart is likely stable, right hilar region is prominent. IMPRESSION: There is not a significant interval change. Findings are consistent with patient's histo ry of lung carcinoma. Difficult to exclude a superimposed pneumonia. There is underlying emphysema.
[2020-06-27] MEDS ORDERED: HYDROcodone/APAP 10-325MG 1 EACH TAB PO ONE (16:40)
[2020-06-27] MEDS ORDERED: NALOXONE 0.4 MG/ML 1 ML VIAL IV PRN (17:40)
[2020-06-27] MEDS: SODIUM CHLORIDE 0.9% 1,000 ML IV SCH (17:45)
[2020-06-27] MEDS ORDERED: PIPERACILLIN-TAZOBACTAM 3.375 GM in SODIUM CHLORIDE 0.9% 100 ML IVPB STA (18:01)
[2020-06-27] MEDS: PANTOPRAZOLE 40 MG/10 ML VIAL IV SCH (18:17)
[2020-06-27] MEDS ORDERED: polyethylene glycoL 3350 17 GM POWD.PACK PO PRN (20:48)
[2020-06-27] MEDS ORDERED: SENNOSIDES-DOCUSATE SODIUM 1 EACH TAB PO PRN (20:48)
[2020-06-27] MEDS ORDERED: ALBUTEROL HFA INHALER INHALATION PRN (20:48)
[2020-06-27] MEDS ORDERED: BENZONATATE 100 MG CAP PO PRN (20:48)
[2020-06-27] MEDS ORDERED: MORPHINE SULFATE IR 15 MG TABLET PO PRN (20:48)
[2020-06-27] MEDS ORDERED: BUDESONIDE 1 MG/2 ML NEBU INHALATION PRN (20:48)
[2020-06-27] MEDS ORDERED: MAGNESIUM OXIDE 400 MG TAB PO PRN (20:48)
[2020-06-27] MEDS ORDERED: NYSTATIN 100,000 UNIT/GM POWD 15 GM TOPICAL PRN (20:48)
[2020-06-27] MEDS ORDERED: ONDANSETRON 4 MG TAB PO PRN (20:48)
[2020-06-27] MEDS ORDERED: ACETAMINOPHEN TAB 325 MG TAB PO PRN (20:54)
[2020-06-27] MEDS: APIXABAN 2.5 MG TABLET PO SCH (21:19)
[2020-06-27] MEDS: FAMOTIDINE 20 MG TAB PO SCH (21:22)
[2020-06-27] MEDS: NIACIN TR 250 MG CAPSULE.ER PO SCH (21:47)
[2020-06-27] MEDS: IPRATROPIUM-ALBUTEROL 3 ML NEB INHALATION PRN (21:49)
--- NOTE | 2020-06-27 22:12 | XR ---
EXAMINATION TYPE: XR chest 1V portable DATE OF EXAM: 06/27/2020 COMPARISON: 06/27/2020 HISTORY: Short of breath TECHNIQUE: FINDINGS: There is extensive airspace consolidation in the right lower lobe. There is blunting right costophrenic angle. There is diffuse interstitial infiltrate in the left lung. Heart is slightly enla rged. There are chest leads. IMPRESSION: Increasing pulmonary infiltrates compared to exam 6 hours ago and could be worsening RDS. Congestive heart failure is possible.
[2020-06-27] MEDS: PIPERACILLIN-TAZOBACTAM 3.375 GM in SODIUM CHLORIDE 0.9% 100 ML IVPB SCH (22:52)
--- NOTE | 2020-06-27 23:03 | P.HPIM ---
History of Present Illness H&P Date: 06/27/20 Chief Complaint: Short of breath History of presenting complaint: This is a very pleasant 74-year-old patient of Dr. Mead. Long-standing smoker until recently Chronic stable medical conditions include hyperlipidemia, osteoarthritis, bursitis of the hips and knees, home oxygen 3 L.. Diagnosed with lung cancer stage IV. - non-small cell lung cancer. Received radiation tr eatment. PET scan that showed metastatic disease. [facility]an in [facility] on January 12 had bronchoscopy with further biopsies. Received systemic chemotherapy. Because of transient patient also had right lower lobe collapse right pleural effusion. Also had drainage of the right pleural effusion. Patient received palliated radiation by Dr. Jac Boles. Also getting immunotherapy. Be followed by Dr. Ordaz from oncology. Patient has been doing well at home. At a fair appetite. Up is a former smoker. No weight loss. Patient is supposed of a PET scan at something went wrong is could not get it done. Patient brought into the ER Center by Dr. Ordaz's office. Has been having fevers. Some shortness of breath. No cough. After presenting to the ER patient became more short of breath. Had to put on a BiPAP. Up to 2 months ago patient's lung cancer has been progressive. Review of systems: GEN.: Tired, fever EYES: None HEENT: None NECK: None RESPIRATORY: As above CARDIOVASCULAR: None GASTROINTESTINAL: None GENITOURINARY: None MUSCULOSKELETAL: None LYMPHATICS: None HEMATOLOGICAL: None PSYCHIATRY: None NEUROLOGICAL: None Past medical history to include: Atrial fibrillation, COPD, stage IV lung cancer non-small cell, cell, hyperlipidemia, osteoarthritis Social history: This smoke in the past. Lives with his . Alcohol occasionally. Physical examination: VITAL SIGNS: 97.8, 85, 18, 105/85, 93% on 2 L upon presentation. Currently on a BiPAP GENERAL: BMI 24.5, sitting up, short of breath at rest,. EYES: Pupils equal. Conjunctiva normal. HEENT: External appearance of nose and ears normal, oral cavity grossly normal. NECK: JVD unable to assess; masses not palpable. HEART: First and second heart sounds are normal; no edema. LUNGS: Respiratory rate increased, diminished breath sounds on expiration, excessive muscles are working, not able to speak in full sentences. ABDOMEN: Soft, nontender, liver spleen not palpable, no masses palpable. PSYCH: [Alert and oriented x3; mood and affect anxious l. NEUROLOGICAL: Cranial nerves grossly intact; no facial asymmetry, power and sensation grossly intact. LYMPHATICS: No lymph nodes palpable in the axilla and neck INVESTIGATIONS, reviewed in the clinical context: White count 15 hemoglobin 9.5 platelets 419 potassium 4.8 creatinine 0.83 Chest x-ray film personally reviewed by me-shows decreased lung volume on the right site some progression from the previous text x-ray. 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 -Hyperlipidemia -Primary osteoarthritis -DO NOT RESUSCITATE Plan: Patient currently on the BiPAP. Started on Zosyn the ER. Home medications resumed. He was discussed with the patient. He was to be a DO NOT RESUSCITATE. Consultation being made to Dr. Bateman from pulmonary, oncology, Dr. Boles from radiation oncology. Prognosis guarded. Past Medical History Past Medical History: Cancer, Hyperlipidemia, Hypertension, Osteoarthritis (OA) Additional Past Medical History / Comment(s): hernia, bursitis in hips and knees. Lung ca stage 4 History of Any Multi-Drug Resistant Organisms: None Reported Past Surgical History: Hernia Repair Additional Past Surgical History / Comment(s): back surgery 2008 replaced L5 disc, Past Anesthesia/Blood Transfusion Reactions: No Reported Reaction Past Psychological History: No Psychological Hx Reported Smoking Status: Former smoker Past Alcohol Use History: Occasional Past Drug Use History: None Reported - Past Family History Father Family Medical History: Cancer Additional Family Medical History / Comment(s): multiple myeloma, hypotension Mother Family Medical History: Cancer, Hypertension, Myocardial Infarction ([place]) Additional Family Medical History / Comment(s): multiple myeloma Medications and Allergies Home Medications Medication Instructions Recorded Confirmed Type Aspirin EC [Ecotrin Low Dose] 81 mg PO DAILY 12/09/19 06/27/20 History Niacin 100 mg PO Q48H 12/09/19 06/27/20 History Folic Acid 1 mg PO DAILY tab 02/05/20 06/27/20 Rx Budesonide-Formot 160-4.5 Mcg 2 puff INHALATION RT-BID 03/09/20 06/27/20 History [Symbicort 160-4.5 Mcg Inhaler] Calcium Carbonate/Vitamin D3 1 tab PO DAILY 03/09/20 06/27/20 History [Calcium 500-Vit D3 200 Tablet] Ipratropium-Albuterol Nebulize 3 ml INHALATION RT-QID PRN 03/09/20 06/27/20 History [Duoneb 0.5 mg-3 mg/3 ml Soln] Metoprolol Tartrate [Lopressor] 25 mg PO DAILY 03/09/20 06/27/20 History Albuterol Sulfate [Ventolin HFA] 2 puff INHALATION RT-Q8H PRN 04/11/20 06/27/20 History Benzonatate [Tessalon Perles] 100 mg PO BID PRN 04/11/20 06/27/20 History Budesonide [Pulmicort] 1 mg INHALATION RT-DAILY PRN 04/11/20 06/27/20 History Cetirizine HCl 10 mg PO DAILY 04/11/20 06/27/20 History Famotidine [Pepcid] 20 mg PO BID 04/11/20 06/27/20 History Magnesium Oxide [Mag-Ox] 400 mg PO DAILY PRN 04/11/20 06/27/20 History Multivitamins, Thera [Multivitamin 1 tab PO DAILY 04/11/20 06/27/20 History (formulary)] Nystatin 100,000 Unit/gm Powd 1 applic TOPICAL TID PRN 04/11/20 06/27/20 History [Mycostatin Powder] Ondansetron [Zofran] 4 mg PO Q4H PRN 04/11/20 06/27/20 History HYDROcodone/APAP 10-325MG [[place] 1 tab PO QID PRN #12 tab 04/13/20 06/27/20 Rx 10-325] Morphine Sulfate Ir [MSIR] 15 mg PO Q8HR PRN #6 tab 04/13/20 06/27/20 Rx Tamsulosin [Flomax] 0.4 mg PO PC-BRKFST #0 cap.er.24h 04/13/20 06/27/20 Rx polyethylene glycoL 3350 [Miralax] 17 gm PO DAILY PRN powd.pack 04/13/20 06/27/20 Rx Apixaban [Eliquis] 2.5 mg PO BID 06/27/20 06/27/20 History Sennosides-Docusate Sodium 1 each PO BID PRN 06/27/20 06/27/20 History [Senokot-S] Allergies Allergy/AdvReac Type Severity Reaction Status Date / Time codeine AdvReac Unknown Verified 06/27/20 19:48 ibuprofen AdvReac Unknown Verified 06/27/20 19:48 mold AdvReac Unknown Verified 06/27/20 19:48 tetanus and diphtheria AdvReac Unknown Verified 06/27/20 19:48 toxoids Physical Exam Vitals: Vital Signs Temp Pulse Pulse Resp BP BP Pulse Ox 06/27/20 22:46 98.9 F 127 H 36 H 108/65 98 06/27/20 22:10 99.0 F 125 H 30 H 139/78 100 06/27/20 22:00 133 H 06/27/20 21:52 126 H 06/27/20 20:00 98.2 F 86 20 106/57 96 06/27/20 18:00 80 18 115/75 95 06/27/20 17:00 18 95 06/27/20 16:09 85 18 105/85 93 L 06/27/20 15:04 97.8 F 47 L 16 91/66 91 L Intake and Output 06/27/20 06/27/20 06/27/20 06:59 14:59 22:59 Output Total 100 Balance -100 Output: Urine 100 Other: Weight 91.172 kg Results CBC & Chem 7: 06/27/20 16:02 06/27/20 16:02 Labs: Abnormal Lab Results - Last 24 Hours (Table) 06/27/20 06/27/20 06/27/20 Range/Units 16:02 16:02 16:02 WBC 15.0 H (3.8-10.6) k/uL RBC 3.28 L (4.30-5.90) m/uL Hgb 9.5 L (13.0-17.5) gm/dL Hct 30.9 L (39.0-53.0) % MCHC 30.6 L (31.0-37.0) g/dL RDW 17.1 H (11.5-15.5) % Neutrophils # 12.9 H (1.3-7.7) k/uL Lymphocytes # 0.5 L (1.0-4.8) k/uL APTT 30.3 H (22.0-30.0) sec ALT 61 H (4-49) U/L Alkaline Phosphatase 133 H (38-126) U/L Albumin 3.4 L (3.5-5.0) g/dL Urine Protein (Negative) Hyaline Casts (0-2) /lpf Urine Mucus (None) /hpf 06/27/20 Range/Units 16:02 WBC (3.8-10.6) k/uL RBC (4.30-5.90) m/uL Hgb (13.0-17.5) gm/dL Hct (39.0-53.0) % MCHC (31.0-37.0) g/dL RDW (11.5-15.5) % Neutrophils # (1.3-7.7) k/uL Lymphocytes # (1.0-4.8) k/uL APTT (22.0-30.0) sec ALT (4-49) U/L Alkaline Phosphatase (38-126) U/L Albumin (3.5-5.0) g/dL Urine Protein 1+ H (Negative) Hyaline Casts 4 H (0-2) /lpf Urine Mucus Many H (None) /hpf Thrombosis Risk Factor Assmnt - Choose All That Apply Each Risk Factor Represents 2 Points: Age 61-74 years Thrombosis Risk Factor Assessment Total Risk Factor Score: 2 Thrombosis Risk Factor Assessment Level: Low Risk
[2020-06-27] MEDS ORDERED: CALCIUM CARBONATE 500 MG CHEWABLE PO PRN (23:04)
[2020-06-27] MEDS ORDERED: ALPRAZolam 0.25 MG TAB PO PRN (23:04)
[2020-06-27] MEDS ORDERED: MAG HYDROX/AL HYDROX/SIMETH 30 ML CUP PO PRN (23:04)
[2020-06-27] MEDS ORDERED: LACTULOSE 20 GM/30 ML CUP PO PRN (23:04)
[2020-06-27] MEDS ORDERED: MELATONIN 3 MG TABLET PO PRN (23:04)
[2020-06-27] MEDS ORDERED: MAGNESIUM HYDROXIDE 2,400 MG/10 ML CUP PO PRN (23:04)
[2020-06-28] MEDS: LACTATED RINGERS 1,000 ML IV SCH ×2 (00:35→18:46)
[2020-06-28] MEDS: IPRATROPIUM-ALBUTEROL 3 ML NEB INHALATION PRN ×2 (07:57→11:20)
[2020-06-28] MEDS: SYMBICORT 160-4.5 MCG INHALER INHALATION SCH ×2 (07:57→20:00)
[2020-06-28] MEDS: HYDROcodone/APAP 10-325MG 1 EACH TAB PO PRN (08:13)
[2020-06-28] MEDS: PIPERACILLIN-TAZOBACTAM 3.375 GM in SODIUM CHLORIDE 0.9% 100 ML IVPB SCH ×2 (08:15→16:43)
[2020-06-28] MEDS: PANTOPRAZOLE 40 MG/10 ML VIAL IV SCH (09:47)
[2020-06-28] MEDS: ASPIRIN 81 MG PO SCH (09:57)
[2020-06-28] MEDS: FOLIC ACID 1 MG TAB PO SCH (09:57)
[2020-06-28] MEDS: MULTIVITAMINS, THERA 1 EACH TAB PO SCH (09:57)
[2020-06-28] MEDS: FAMOTIDINE 20 MG TAB PO SCH ×2 (09:57→20:08)
[2020-06-28] MEDS: METOPROLOL TARTRATE 25 MG TAB PO SCH (09:57)
[2020-06-28] MEDS: TAMSULOSIN 0.4 MG CAP.ER.24H PO SCH (09:58)
[2020-06-28] MEDS: APIXABAN 2.5 MG TABLET PO SCH ×2 (09:58→20:08)
[2020-06-28] MEDS: SODIUM CHLORIDE 0.9% 1,000 ML IV SCH ×2 (09:59→20:11)
[2020-06-28] MEDS ORDERED: FUROSEMIDE 10 MG/ML 4 ML VIAL IV STA (10:13)
[2020-06-28 10:42] VITALS: BMI 24.4
[2020-06-28 10:48] LABS: Anisocytosis Slight; Basophils % (A) 0 %; Eosinophils # (A) 0.3 k/uL (0-0.7); Eosinophils % (A) 2 %; HCT 28.5 % (39.0-53.0); HGB 8.5 gm/dL (13.0-17.5); Hypochromasia Marked; Lymphocytes # (A) 0.2 k/uL (1.0-4.8); Lymphocytes % (A) 1 %; MCH 28.5 pg (25.0-35.0); MCHC 29.8 g/dL (31.0-37.0); MCV 95.6 fL (80.0-100.0); Mean Platelet Volume 7.5; Monocytes # (A) 0.5 k/uL (0-1.0); Monocytes % (A) 3 %; Neutrophils # (A) 14.5 k/uL (1.3-7.7); Neutrophils % (A) 93 %; Platelet Count 409 k/uL (150-450); RBC 2.98 m/uL (4.30-5.90); RDW 17.1 % (11.5-15.5); WBC 15.6 k/uL (3.8-10.6)
[2020-06-28 10:49] LABS: Calcium 7.8 mg/dL (8.4-10.2); Potassium 3.9 mmol/L (3.5-5.1)
[2020-06-28] MEDS: DEXAMETHASONE SOD PHOSPHATE 4 MG/ML 1 ML VIAL IV SCH ×3 (11:04→23:05)
[2020-06-28] MEDS ORDERED: RX INFO: IV CONTRAST WAS GIVEN 1 EACH MISC MISCELLANE PRN (11:44)
[2020-06-28] MEDS ORDERED: IPRATROPIUM-ALBUTEROL 3 ML NEB INHALATION PRN (11:50)
--- NOTE | 2020-06-28 13:23 | P.CNPUL ---
History of Present Illness Consult date: 06/28/20 Requesting physician: Tuan Guzman Reason for consult: dyspnea Chief complaint: Dyspnea, weakness, fatigue, cough, chills and fever History of present illness: 74-year-old patient of Dr. Mead, with known history of metastatic squamous cell lung cancer, with metastasis to the spine, and patient is currently on Ktruda immunotherapy, and radiation therapy to his spine. Patient presented to the hospital on 06/27/2020 with complaints of increased shortness of breath, feeling quite exhausted, experiencing shaking chills, and cough, with no phlegm production, last dose of immunotherapy was on June 20. Patient had a history of recent GI bleeding with hemoglobin around 5 requiring transfusion with 2 units of packed red blood cells. Patient is on Eliquis for history of paroxysmal atrial fibrillation, currently in sinus mechanism and patient was recently restarted on Eliquis. Chest x-ray showed airspace disease with pleural parenchymal changes within the right lung, no evident pneumothorax, some blunting of the left costophrenic angle, and minimal patchy density at the left lung base. There is a prominence of the right hilar region, findings and the right lung consistent with patient's history of lung carcinoma with the possibility of superimposed pneumonia. White blood cell count was elevated at 15, hemoglobin was 9.5, platelet count is 419, INR is 1.0, elective choice and renal profile were well within normal limits, AST was 56, ALT was 61, alkaline phosphatase was 133, urinalysis showed 1+ protein, but no evidence of infection. Patient was started IV Zosyn, he was gently rehydrated overnight, with 0.9 normal saline at a rate of 1:30 ML per hour, currently down to 75 ML per hour, he is on breathing treatments, he did require BiPAP support overnight, currently has been switched over to high flow nasal cannula at 15 L, pulse ox is 90%, hemodynamically patient is stable, his been afebrile, denies any chills on today's exam, no altered mentation, he is providing history of his present illness. No nausea vomiting or diarrhea, follow-up chest x-ray was obtained t andrei showing increasing pulmonary infiltrates compared to previous exam 6 hours prior, with the consideration of CHF, and patient was given a dose of IV Lasix this morning. Review of Systems All systems: negative Constitutional: Reports malaise, Reports weakness, Denies chills, Denies fever Eyes: denies blurred vision, denies pain Ears, nose, mouth and throat: Denies headache, Denies sore throat Cardiovascular: Denies chest pain, Denies shortness of breath Respiratory: Reports dyspnea, Reports respiratory infections, Denies cough Gastrointestinal: Denies abdominal pain, Denies diarrhea, Denies nausea, Denies vomiting Musculoskeletal: Denies myalgias Integumentary: Denies pruritus, Denies rash Neurological: Denies numbness, Denies weakness Psychiatric: Denies anxiety, Denies depression Endocrine: Denies fatigue, Denies weight change Past Medical History Past Medical History: Cancer, Hyperlipidemia, Hypertension, Osteoarthritis (OA) Additional Past Medical History / Comment(s): hernia, bursitis in hips and knees. Lung ca stage 4 History of Any Multi-Drug Resistant Organisms: None Reported Past Surgical History: Hernia Repair Additional Past Surgical History / Comment(s): back surgery 2008 replaced L5 disc, Past Anesthesia/Blood Transfusion Reactions: No Reported Reaction Past Psychological History: No Psychological Hx Reported Smoking Status: Former smoker Past Alcohol Use History: Occasional Past Drug Use History: None Reported - Past Family History Father Family Medical History: Cancer Additional Family Medical History / Comment(s): multiple myeloma, hypotension Mother Family Medical History: Cancer, Hypertension, Myocardial Infarction ([place]) Additional Family Medical History / Comment(s): multiple myeloma Medications and Allergies Home Medications Medication Instructions Recorded Confirmed Type Aspirin EC [Ecotrin Low Dose] 81 mg PO DAILY 12/09/19 06/27/20 History Niacin 100 mg PO Q48H 12/09/19 06/27/20 History Folic Acid 1 mg PO DAILY tab 02/05/20 06/27/20 Rx Budesonide-Formot 160-4.5 Mcg 2 puff INHALATION RT-BID 03/09/20 06/27/20 History [Symbicort 160-4.5 Mcg Inhaler] Calcium Carbonate/Vitamin D3 1 tab PO DAILY 03/09/20 06/27/20 History [Calcium 500-Vit D3 200 Tablet] Ipratropium-Albuterol Nebulize 3 ml INHALATION RT-QID PRN 03/09/20 06/27/20 History [Duoneb 0.5 mg-3 mg/3 ml Soln] Metoprolol Tartrate [Lopressor] 25 mg PO DAILY 03/09/20 06/27/20 History Albuterol Sulfate [Ventolin HFA] 2 puff INHALATION RT-Q8H PRN 04/11/20 06/27/20 History Benzonatate [Tessalon Perles] 100 mg PO BID PRN 04/11/20 06/27/20 History Budesonide [Pulmicort] 1 mg INHALATION RT-DAILY PRN 04/11/20 06/27/20 History Cetirizine HCl 10 mg PO DAILY 04/11/20 06/27/20 History Famotidine [Pepcid] 20 mg PO BID 04/11/20 06/27/20 History Magnesium Oxide [Mag-Ox] 400 mg PO DAILY PRN 04/11/20 06/27/20 History Multivitamins, Thera [Multivitamin 1 tab PO DAILY 04/11/20 06/27/20 History (formulary)] Nystatin 100,000 Unit/gm Powd 1 applic TOPICAL TID PRN 04/11/20 06/27/20 History [Mycostatin Powder] Ondansetron [Zofran] 4 mg PO Q4H PRN 04/11/20 06/27/20 History HYDROcodone/APAP 10-325MG [Anna 1 tab PO QID PRN #12 tab 04/13/20 06/27/20 Rx 10-325] Morphine Sulfate Ir [MSIR] 15 mg PO Q8HR PRN #6 tab 04/13/20 06/27/20 Rx Tamsulosin [Flomax] 0.4 mg PO PC-BRKFST #0 cap.er.24h 04/13/20 06/27/20 Rx polyethylene glycoL 3350 [Miralax] 17 gm PO DAILY PRN powd.pack 04/13/20 06/27/20 Rx Apixaban [Eliquis] 2.5 mg PO BID 06/27/20 06/27/20 History Sennosides-Docusate Sodium 1 each PO BID PRN 06/27/20 06/27/20 History [Senokot-S] Allergies Allergy/AdvReac Type Severity Reaction Status Date / Time codeine AdvReac Unknown Verified 06/27/20 19:48 ibuprofen AdvReac Unknown Verified 06/27/20 19:48 mold AdvReac Unknown Verified 06/27/20 19:48 tetanus and diphtheria AdvReac Unknown Verified 06/27/20 19:48 toxoids Physical Exam Vitals: Vital Signs Temp Pulse Pulse Resp BP BP Pulse Ox 06/28/20 12:06 98.4 F 63 16 91/45 99 06/28/20 11:38 95 06/28/20 11:21 95 06/28/20 08:25 96 22 06/28/20 08:20 98.4 F 96 20 131/72 100 06/28/20 08:16 110 H 06/28/20 08:00 110 H 100 06/27/20 22:46 98.9 F 127 H 36 H 108/65 98 06/27/20 22:10 99.0 F 125 H 30 H 139/78 100 06/27/20 22:00 133 H 06/27/20 21:52 126 H 06/27/20 20:00 98.2 F 86 20 106/57 96 06/27/20 18:00 80 18 115/75 95 06/27/20 17:00 18 95 06/27/20 16:09 85 18 105/85 93 L 06/27/20 15:04 97.8 F 47 L 16 91/66 91 L Intake and Output 06/27/20 06/28/20 06/28/20 22:59 06:59 14:59 Intake Total 200 Output Total 100 Balance -100 200 Intake: Oral 200 Output: Urine 100 Other: Voiding Method Urinal Urinal # Voids 1 Weight 91.172 kg 91.172 kg GENERAL EXAM: Alert, very pleasant, 74-year-old white male, currently on 15 L per high flow nasal cannula with pulse ox of 99%, did require BiPAP support overnight , he is awake and alert, oriented 3, no altered mentation, providing history of present illness HEAD: Normocephalic/atraumatic. EYES: Normal reaction of pupils, equal size. Conjunctiva pink, sclera white. NOSE: Clear with pink turbinates. THROAT: No erythema or exudates. NECK: No masses, no JVD, no thyroid enlargement, no adenopathy. CHEST: No chest wall deformity. Symmetrical expansion. LUNGS: Equal air entry with no crackles, wheeze, rhonchi or dullness. CVS: Regular rate and rhythm, normal S1 and S2, no gallops, no murmurs, no rubs ABDOMEN: Soft, nontender. No hepatosplenomegaly, normal bowel sounds, no guarding or rigidity. EXTREMITIES: No clubbing, no edema, no cyanosis, 2+ pulses and upper and lower extremities. MUSCULOSKELETAL: Muscle strength and tone normal. SPINE: No scoliosis or deformity SKIN: No rashes CENTRAL NERVOUS SYSTEM: Alert and oriented -3. No focal deficits, tone is normal in all 4 extremities. PSYCHIATRIC: Alert and oriented -3. Appropriate affect. Intact judgment and insight. Results - Laboratory Findings CBC and BMP: 06/28/20 10:02 06/28/20 10:02 PT/INR, D-dimer PT 10.5 sec (9.0-12.0) 06/27/20 16:02 INR 1.0 (<1.2) 06/27/20 16:02 Abnormal lab findings: Abnormal Labs 06/27/20 06/27/20 06/27/20 16:02 16:02 16:02 WBC 15.0 H RBC 3.28 L Hgb 9.5 L Hct 30.9 L MCHC 30.6 L RDW 17.1 H Neutrophils # 12.9 H Lymphocytes # 0.5 L APTT 30.3 H Sodium Carbon Dioxide Glucose Calcium ALT 61 H Alkaline Phosphatase 133 H Albumin 3.4 L Urine Protein Hyaline Casts Urine Mucus 06/27/20 06/28/20 06/28/20 16:02 10:02 10:02 WBC 15.6 H RBC 2.98 L Hgb 8.5 L Hct 28.5 L MCHC 29.8 L RDW 17.1 H Neutrophils # 14.5 H Lymphocytes # 0.2 L APTT Sodium 136 L Carbon Dioxide 21 L Glucose 105 H Calcium 7.8 L ALT Alkaline Phosphatase Albumin Urine Protein 1+ H Hyaline Casts 4 H Urine Mucus Many H - Diagnostic Findings Chest x-ray: report reviewed, image reviewed Assessment and Plan Plan: Assessment: #1. Acute hypoxic rest or a failure related to possibility of pneumonia, rule out COVID 19 #2. Rule out possibility of congestive heart failure, unspecified #3. Metastatic squamous cell lung carcinoma diagnosed in November 2019 with right infrahilar mass, and moderate to large pleural effusion and postobstructive pneumonia in the right lower lobe, stage IV, receiving immunotherapy in the form of Keytruda, and radiation therapy to his spine. #4. Iron deficiency anemia, recent history of GI bleed, on Eliquis, which was held, patient did require blood transfusion with 2 units of pack red blood cells, patient had since been resumed on Eliquis #5. Hypertension #6. Hyperlipidemia #7. Osteoarthritis #8. Former smoker, currently in remission #9. COPD Plan: Continue with the same antibiotics, patient is currently on Zosyn, patient was given a dose of IV Lasix per possibility of fluid overload, congestive heart failure, off BiPAP, on nasal cannula, continue weaning FiO2, use BiPAP as needed, Covid 19 PCR is pending, we will add IV Decadron 4 mg every 6 hours, con tinue nebulized bronchodilators, we'll decrease the fluids to KVO. GI and DVT prophylaxis, nevertheless bronchodilators, and is refusing his Eliquis, no active bleeding at this time, hemodynamically appears to be stable, coarse status was discussed with the patient, he is currently receiving palliative XRT to his spine, and he is on immunotherapy. He is certain he doesn't want to be on the ventilator, however wants to discuss it further with his children and his significant other. We'll continue with supportive treatment. Oncology consultation has been requested, we'll continue to follow I performed a history & physical examination of the patient and discussed their management with my nurse practitioner, Ginna Sanchez. I reviewed the nurse practitioner's note and agree with the documented findings and plan of care. Lung sounds are positive for diminished breath sounds. The findings and the impression was discussed with the patient. I attest to the documentation by the nurse practitioner. Time with Patient: Greater than 30
[2020-06-28] MEDS: IPRATROPIUM-ALBUTEROL 3 ML NEB INHALATION SCH ×2 (16:19→20:00)
--- NOTE | 2020-06-28 16:31 | CT ---
EXAMINATION TYPE: CT chest w con DATE OF EXAM: 06/28/2020 COMPARISON: 03/03/2020 and radiograph 06/27/2020 HISTORY: 74-year-old male non-small cell lung cancer, cough, Shortness of breath with history of lung cancer TECHNIQUE: Contiguous axial scanning of the chest after the administration of 100 mL of Isovue 300. Coronal/sagittal reconstructions performed. CT DLP: 402.2mGycm. Automatic exposure control utilized for a dose reduction. FINDINGS: Heart upper limits of normal in size without pericardial effusion. Mild aortic valvular calcification s and mild circumflex artery calcifications. LCA calcifications also noted. Aorta normal caliber with mild prostatic calcifications and conventional arch vessel branching anatom y. Borderline to mildly enlarged caliber to the main right and left pulmonary arteries measuring up to 2 .7 cm suggesting underlying pulmonary arterial hypertension. Scattered nonenlarged and borderline enlarged mediastinal lymph nodes are redemonstrated. Most of the se are stable. However, lower right paratracheal lymph node has increased in size at 1.8 cm. While overall bulk of the subcarinal and contiguous right infrahilar mass has decreased, there is res idual enhancing soft tissue here measuring 5.2 cm wide by 3.4 cm thick versus over 7.8 cm wide and 4. 8 cm thick, previously. Rounded posterior right midlung density measuring 6.3 x 4.0 cm. Unable to exclude residual mass here. This continues to abut the right posterior seventh, eighth, ninth ribs that again demonstrate pathol ogic fractures and patchy sclerosis. No mateo progression and osseous destruction. Improvement in the previous loculated pleural effusions. A complex small right pleural effusion remai ns with thickened pleural rind and associated pleural nodularity measuring up to 2.5 cm, refer to axi al image 50 and 54. Extensive groundglass changes throughout the right mid and lower lung with patchy consolidation. Less er degree of groundglass changes at the left base and medial posterior left midlung. Moderate to advanced centrilobular emphysema. Visualized upper abdomen shows renal cysts measuring up to 3.6 cm. Enlarging hypodense lesion anterio r spleen measuring 2.3 cm versus 1.1 cm, previously. Bones: There is new deformity and heterogeneous density of the sternomanubrium. New lytic lesion of t he left lateral fifth rib. New right mid clavicular shaft fracture deformity. IMPRESSION: 1. Overall bulk of disease especially in the subcarinal and contiguous right infrahilar region has di minished compared to the 03/03/2020 exam. However, subcarinal soft tissue measuring 5.2 x 3.4 cm remain s and is suspicious for residual or recurrent neoplasm. A low right paratracheal lymph node is also n ew at 1.8 cm compatible with disease recurrence. 2. Rounded soft tissue density posterior right midlung persists measuring 6.3 x 4.0 cm. This abuts th e posterior right seventh, eighth, and ninth ribs where pathologic fractures are redemonstrated and w ere present on 03/03/2020. 3. Interval new osseous metastatic disease involves the sternal manubrium and left lateral fifth rib. There is also a new right clavicular mid shaft fracture that could be pathologic. 4. The previous large right-sided loculated effusions show considerable improvement though a small co mplex effusion with thickened pleural rind remains. Given the pleural thickening and nodularity, a ma lignant effusion with pleural involvement is suggested. 5. Extensive new airspace disease right mid and lower lung and to a lesser extent in the left lower l rocio. This could represent any combination of pneumonia, drug reaction, or post therapy changes. Follo w-up recommended. 6. Moderate to advanced COPD/emphysema. 7. Enlarging 2.3 cm hypodense lesion anterior spleen (versus 1.1 cm, previously). Splenic parenchymal metastasis is not excluded.
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
--- NOTE | 2020-06-28 20:56 | CONS ---
CONSULTATION DATE OF DICTATION: 06/28/2020 REASON FOR CONSULTATION: Melena. HISTORY OF PRESENT ILLNESS: The patient is a 74-year-old pleasant white male who was diagnosed with stage IV non- small-cell lung cancer in November of this year, currently undergoing radiation therapy and on Keytruda. About 6 or 8 weeks ago he was started on Eliquis because of atrial fibrillation. About 2 days ago he noted black tarry stools. He became concerned. He stopped Eliquis and the bleeding and black tarry stools subsided. He went to see Dr. Rm in his office and he was advised to go to the emergency room and was subsequently admitted for further evaluation. Currently the Eliquis is on hold and he is feeling better. The patient states that about 4 weeks ago he had an episode of black tarry stools and he stopped Eliquis for 3 days and symptoms resolved. Then he resumed the Eliquis. Currently he denies any abdominal pain. No nausea, vomiting. He does have some occasional indigestion or a sensation of indigestion. He was diagnosed with peptic ulcer disease at age 19. He denies any recent NSAID use. PAST MEDICAL HISTORY: His past medical history is significant for atrial fibrillation, on Eliquis, currently on hold for 3 days, history of stage IV lung cancer diagnosed in November of this year, undergoing radiation therapy, status post chemotherapy, presently on Keytruda, hypertension, hyperlipidemia, degenerative joint disease. HOME MEDICATIONS: Medications at home include Eliquis, MiraLAX, Flomax, Senokot, morphine sulfate, [place], Zofran, Mycostatin powder, Niacin, multivitamin, Lopressor, magnesium oxide, DuoNeb, albuterol, aspirin, Pulmicort, calcium carbonate, cetirizine, Pepcid, folic acid. ALLERGIES: CODEINE, IBUPROFEN, TETANUS. SOCIAL HISTORY: Remote history of smoking. No alcohol use. PAST SURGICAL HISTORY: Hernia repair, back surgery, lung biopsy. FAMILY HISTORY: Father had multiple myeloma. Mother had coronary artery disease, hypertension and multiple myeloma. REVIEW OF SYSTEMS: CARDIOPULMONARY: No chest pain or shortness of breath. GENITOURINARY: No dysuria or hematuria. MUSCULOSKELETAL: Unremarkable. SKIN: Unremarkable. ENDOCRINE: Unremarkable. PSYCHIATRIC: Unremarkable. NEUROLOGY: Unremarkable. ENT/VISION: Unremarkable. CONSTITUTIONAL: Weight loss of 20 pounds. No fever, chills, night sweats. HEMATOLOGY: As mentioned above. GI: As mentioned above. PHYSICAL EXAMINATION: He appears comfortable. No apparent distress. Vital signs are stable. Blood pressure is 103/55, pulse rate 82, temperature 98.2. HEENT examination unremarkable. Conjunctivae pink. Sclerae anicteric. Oral cavity no lesions. NECK: No JVD or lymph node enlargement. CHEST: Clear to auscultation. HEART: Regular rate and rhythm. ABDOMEN: Soft. Bowel sounds are positive. No organomegaly. NEUROLOGIC: Alert and oriented x3. No focal deficits. LABS/IMAGING: Yesterday WBC was 15, hemoglobin 9.5. Today hemoglobin is 8.5, platelets normal. PT and INR within normal limits. BUN was 18, creatinine 1.07. AST and ALT are 56 and 61, respectively. Alkaline phosphatase 133. CT of the chest done this afternoon showed overall bulk of disease, especially in the subcarinal and contiguous right infrahilar region, diminished compared to the prior CT scan from February of 2020. Subcarinal soft tissue mass measures 5.2 x 3.4 cm in size. Soft tissue density, posterior right midline measuring 6.4 cm in size. New osseous metastasis in the sternum and left lateral fifth rib noted. Moderate COPD. IMPRESSION: 1. Stage IV lung cancer diagnosed in November of 2019, status post chemotherapy, currently undergoing radiation therapy and on Keytruda. 2. Black tarry stools of 2 days' duration. Patient on Eliquis for atrial fibrillation, currently on hold. Bleeding subsided. Hemoglobin down to 8.5 g/dL. We are possibly dealing with an upper GI source of bleeding. 3. History of atrial fibrillation; currently Eliquis on hold. 4. Hypertension. 5. Hyperlipidemia. RECOMMENDATIONS: 1. Start Protonix 40 mg daily. 2. Continue to hold Eliquis. 3. Will proceed with an upper endoscopy tomorrow. Discussed with him risks, benefits and complications of the procedure, and he is agreeable to it. 4. Repeat CBC in the morning. 5. Will follow with you closely. Thank you for this consultation. MMODL / IJN: [id number] /
--- NOTE | 2020-06-28 22:31 | P.PN ---
Progress Note - Text Progress Note Date: 06/28/20 Chief Complaint: Short of breath History of presenting complaint: This is a very pleasant 74-year-old patient of Dr. Mead. Long-standing smoker until recently Chronic stable medical conditions include hyperlipidemia, osteoarthritis, bursitis of the hips and knees, home oxygen 3 L.. Diagnosed with lung cancer stage IV. - non-small cell lung cancer. Received radiation treatment. PET scan that showed metastatic disease. Hernan in [facility] on January 12 had bronchoscopy with further biopsies. Received systemic chemotherapy. Because of transient patient also had right lower lobe collapse right pleural effusion. Also had drainage of the right pleural effusion. Patient received palliated radiation by Dr. Jac Boles. Also getting immunotherapy. Be followed by Dr. Ordaz from oncology. Patient has been doing well at home. At a fair appetite. Up is a former smoker. No weight loss. Patient is supposed of a PET scan at something went wrong is could not get it done. Patient brought into the ER Center by Dr. Ordaz's office. Has been having fevers. Some shortness of breath. No cough. After presenting to the ER patient became more short of breath. Had to put on a BiPAP. Up to 2 months ago patient's lung cancer has been progressive. admitted with-pneumonia, acute hypoxic respiratory failure,.put on a BiPAP IV Zosyn. Today-breathing a bit better. Able to talk about better. Did eat some food. Laying in bed. Tired. Cough. Did state that it brought up a large blob of sputum. Clear. Review of systems: Was done for constitutional, cardiovascular, GI, pulmonary. relevant finding as above Active Medications Acetaminophen (Tylenol Tab) 650 mg PO Q6HR PRN PRN Reason: Fever and/ or Pain Last Admin: 06/27/20 21:22 Dose: 650 mg Documented by: Hydrocodone Bitart/Acetaminophen (Odd 10) 1 each PO QID PRN PRN Reason: Pain Last Admin: 06/28/20 08:13 Dose: 1 each Documented by: Al Hydroxide/Mg Hydroxide (Maalox) 15 ml PO Q6HR PRN PRN Reason: Indigestion Albuterol/Ipratropium (Duoneb 0.5 Mg-3 Mg/3 Ml Soln) 3 ml INHALATION RT-QID SANDRINE Last Admin: 06/28/20 20:00 Dose: 3 ml Documented by: Albuterol/Ipratropium (Duoneb 0.5 Mg-3 Mg/3 Ml Soln) 3 ml INHALATION RT-Q2H PRN PRN Reason: Shortness Of Breath Or Wheezing Alprazolam (Xanax) 0.25 mg PO Q6HR PRN PRN Reason: Anxiety Last Admin: 06/28/20 09:23 Dose: 0.25 mg Documented by: Apixaban (Eliquis) 2.5 mg PO BID [facility] Last Admin: 06/28/20 20:08 Dose: 2.5 mg Documented by: Aspirin (Aspirin) 81 mg PO DAILY [facility] Last Admin: 06/28/20 09:57 Dose: 81 mg Documented by: Benzonatate (Tessalon Perles) 100 mg PO BID PRN PRN Reason: Cough Budesonide (Pulmicort) 1 mg INHALATION RT-DAILY PRN PRN Reason: Shortness Of Breath Budesonide/Formoterol Fumarate (Symbicort 160-4.5 Mcg Inhaler) 2 puff INHALATION RT-BID [facility] Last Admin: 06/28/20 20:00 Dose: 2 puff Documented by: Calcium Carbonate/Glycine (Tums) 1,000 mg PO Q4HR PRN PRN Reason: Dyspepsia Dexamethasone Sodium Phosphate (Decadron) 4 mg IV Q6HR [facility] Last Admin: 06/28/20 18:44 Dose: 4 mg Documented by: Famotidine (Pepcid) 20 mg PO BID [facility] Last Admin: 06/28/20 20:08 Dose: 20 mg Documented by: Folic Acid (Folic Acid) 1 mg PO DAILY [facility] Last Admin: 06/28/20 09:57 Dose: 1 mg Documented by: Piperacillin Sod/Tazobactam (Sod 3.375 gm/ Sodium Chloride) 100 mls @ 25 mls/hr IVPB Q8HR [facility] Last Admin: 06/28/20 16:43 Dose: 25 mls/hr Documented by: Sodium Chloride (Saline 0.9%) 1,000 mls @ 20 mls/hr IV .Q24H [facility] Last Admin: 06/28/20 20:11 Dose: Not Given Documented by: Lactulose (Cephulac) 20 gm PO DAILY PRN PRN Reason: Constipation Magnesium Hydroxide (Milk Of Magnesia) 2,400 mg PO DAILY PRN PRN Reason: Constipation Magnesium Oxide (Mag-Ox) 400 mg PO DAILY PRN PRN Reason: MUSCLE CRAMPS Melatonin (Melatonin) 3 mg PO HS PRN PRN Reason: Insomnia Metoprolol Tartrate (Lopressor) 25 mg PO DAILY [facility] Last Admin: 06/28/20 09:57 Dose: 25 mg Documented by: Miscellaneous Information (Rx Info: Iv Contrast Was Given) 1 each MISCELLANE DAILY PRN PRN Reason: Per Protocol Stop: 06/30/20 11:45 Morphine Sulfate (Msir) 15 mg PO Q8HR PRN PRN Reason: Moderate to Severe Pain Multivitamins (Theragran) 1 each PO DAILY [facility] Last Admin: 06/28/20 09:57 Dose: 1 each Documented by: Naloxone HCl (Narcan) 0.2 mg IV Q2M PRN PRN Reason: Opioid Reversal Niacin (Niacin Tr) 250 mg PO Q48H [facility] Last Admin: 06/27/20 21:47 Dose: 250 mg Documented by: Nystatin (Mycostatin Powder) 1 applic TOPICAL TID PRN PRN Reason: Rash Ondansetron HCl (Zofran) 4 mg PO Q4H PRN PRN Reason: Nausea Pantoprazole Sodium (Protonix) 40 mg IV DAILY [facility] Last Admin: 06/28/20 09:47 Dose: 40 mg Documented by: Polyethylene Glycol (Miralax) 17 gm PO DAILY PRN PRN Reason: Constipation Senna/Docusate Sodium (Senokot-S) 1 each PO BID PRN PRN Reason: Constipation Tamsulosin HCl (Flomax) 0.4 mg PO -BRKFST [facility] Last Admin: 06/28/20 09:58 Dose: 0.4 mg Documented by: Physical examination: VITAL SIGNS: 98.4, 63, 16, 31/45, 99% on 15 L high flow oxygen GENERAL: BMI 24.5,, she is brought. EYES: Pupils equal. Conjunctiva normal. HEENT: External appearance of nose and ears normal, oral cavity grossly normal. NECK: JVD unable to assess; masses not palpable. HEART: First and second heart sounds are normal; no edema. LUNGS: Respiratory rate increased, diminished breath sounds on expiration, problem expiration ABDOMEN: Soft, nontender, liver spleen not palpable, no masses palpable. PSYCH: Alert and oriented x3; mood and affect anxious INVESTIGATIONS, reviewed in the clinical context: computed tomography scan of the chest-showing some improvement in the tumor mass. Destructive lesions of multiple bones, multilobar infiltrates Previous testing White count 15 hemoglobin 9.5 platelets 419 potassium 4.8 creatinine 0.83 Chest x-ray film personally reviewed by me-shows decreased lung volume on the right site some progression from the previous text x-ray. 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 -Hyperlipidemia -Primary osteoarthritis -DO NOT RESUSCITATE Plan: continue with high flow oxygen. change antibiotics to and IV cefepime. Other medications to continue..prognosis guarded. Follow-up with pulmonary. Doubt fluid overload.
[2020-06-29] MEDS: DEXAMETHASONE SOD PHOSPHATE 4 MG/ML 1 ML VIAL IV SCH ×2 (05:23→21:21)
[2020-06-29] MEDS: IPRATROPIUM-ALBUTEROL 3 ML NEB INHALATION SCH ×4 (07:13→19:40)
[2020-06-29] MEDS: SYMBICORT 160-4.5 MCG INHALER INHALATION SCH ×2 (07:14→19:40)
[2020-06-29] MEDS: METOPROLOL TARTRATE 25 MG TAB PO SCH (09:27)
[2020-06-29] MEDS: PANTOPRAZOLE 40 MG/10 ML VIAL IV SCH (09:27)
[2020-06-29] MEDS: CEFEPIME 2 GM in SODIUM CHLORIDE 0.9% 100 ML IVPB SCH ×2 (09:28→21:21)
[2020-06-29] MEDS: FAMOTIDINE 20 MG TAB PO SCH ×2 (09:35→21:20)
[2020-06-29] MEDS: TAMSULOSIN 0.4 MG CAP.ER.24H PO SCH (09:35)
[2020-06-29] MEDS: FOLIC ACID 1 MG TAB PO SCH (09:35)
[2020-06-29] MEDS: MULTIVITAMINS, THERA 1 EACH TAB PO SCH (09:35)
[2020-06-29] MEDS: ASPIRIN 81 MG PO SCH (09:35)
--- NOTE | 2020-06-29 10:26 | P.PN ---
Subjective Progress Note Date: 06/29/20 Principal diagnosis: Fever, RITA In f/u today pt looks much better, he is "sweating it out", no further rigors, he feels pretty good. Breathing comfortably at rest. No other c/o Objective - Vital Signs Vital signs: Vital Signs Temp 98.2 F 06/29/20 07:01 Pulse 83 06/29/20 08:10 Resp 16 06/29/20 08:10 BP 120/68 06/29/20 07:01 Pulse Ox 91 L 06/29/20 07:01 Intake & Output 06/28/20 06/29/20 06/29/20 18:59 06:59 18:59 Intake Total 1100 200 Output Total 300 500 Balance 800 -300 Weight 91.172 kg Intake: Intake, IV Titration 700 Amount Piperacillin-Tazobactam 3 100 .375 gm In Sodium Chloride 0.9% 100 ml @ 25 mls/hr IVPB Q8HR [facility] Rx# :[id number] Sodium Chloride 0.9% 1, 600 000 ml @ 75 mls/hr IV . [id number] [facility] Rx#:[id number] Oral 400 200 Output: Urine 300 500 Other: Voiding Method Urinal Urinal # Voids 1 2 # Bowel Movements 800 - Constitutional General appearance: Present: average body habitus, cooperative, no acute distress - EENT Eyes: Present: anicteric sclerae, EOMI, poor dentition ENT: Present: hearing grossly normal, normal oropharynx - Respiratory Respiratory: bilateral: CTA, diminished - Cardiovascular Heart sounds: normal: S1, S2 - Peripheral edema leg Peripheral Edema: bilateral: None - Gastrointestinal General gastrointestinal: Present: normal bowel sounds, soft - Integumentary Integumentary: Present: normal - Neurologic Neurologic: Present: CNII-XII intact - Musculoskeletal Musculoskeletal: Present: strength equal bilaterally - Psychiatric Psychiatric: Present: A&O x's 3, appropriate affect, intact judgment & insight - Labs CBC & Chem 7: 06/28/20 10:02 06/28/20 10:02 Labs: Abnormal Lab Results - Last 24 Hours (Table) 06/28/20 06/28/20 06/28/20 Range/Units 10:02 10:02 10:02 WBC 15.6 H (3.8-10.6) k/uL RBC 2.98 L (4.30-5.90) m/uL Hgb 8.5 L (13.0-17.5) gm/dL Hct 28.5 L (39.0-53.0) % MCHC 29.8 L (31.0-37.0) g/dL RDW 17.1 H (11.5-15.5) % Neutrophils # 14.5 H (1.3-7.7) k/uL Lymphocytes # 0.2 L (1.0-4.8) k/uL Sodium 136 L (137-145) mmol/L Carbon Dioxide 21 L (22-30) mmol/L Glucose 105 H (74-99) mg/dL Calcium 7.8 L (8.4-10.2) mg/dL Procalcitonin 1.77 H (0.02-0.09) ng/mL Microbiology - Last 24 Hours (Table) 06/27/20 17:41 Urine Culture - Final Urine,Voided 06/27/20 16:02 Blood Culture - Preliminary Blood No Growth after 24 hours - Imaging and Cardiology CT scan - chest: report reviewed Assessment and Plan (1) Rigor Current Visit: Yes Status: Resolved Priority: High Code(s): R68.89 - OTHER GENERAL SYMPTOMS AND SIGNS SNOMED Code(s): 22202891 (2) Lung cancer Current Visit: Yes Status: Chronic Priority: Medium Code(s): C34.90 - MALIGNANT NEOPLASM OF UNSP PART OF UNSP BRONCHUS OR LUNG SNOMED Code(s): 712506420 (3) Anemia, iron deficiency Narrative/Plan: Pending endo today Pt received parenteral iron 2 weeks ago, no further supplementation at this time. Iron studies to be rechecked in 2 weeks Cardiology rec re: anticoagulation Current Visit: Yes Status: Chronic Priority: Medium Code(s): D50.9 - IRON DEFICIENCY ANEMIA, UNSPECIFIED SNOMED Code(s): 61838016 Plan: Pancultures are pending finalization. Empiric antibiotics are ordered. Pulmonary following patient. Patient is on immunotherapy. CT chest report reviewed. Some areas of improvement, some new areas, pt has known bone mets. This type of scan can occur with immunotherapy. Areas that were previously too small to characterize or small clusters of cancers cells can become apparent due to the influx of immunotherapy into the areas. Clinically, pt is improving on abx. Agree with current Pulmonary plan. CT has been routed to Primary Oncologist. Radiation Oncology consulted as patient just completed treatment to back.
[2020-06-29 11:20] LABS: Anisocytosis Slight; Basophils % (A) 0 %; Eosinophils % (A) 0 %; HCT 26.7 % (39.0-53.0); HGB 7.8 gm/dL (13.0-17.5); Hypochromasia Marked; Lymphocytes # (A) 0.2 k/uL (1.0-4.8); Lymphocytes % (A) 2 %; MCH 27.8 pg (25.0-35.0); MCHC 29.3 g/dL (31.0-37.0); MCV 94.9 fL (80.0-100.0); Mean Platelet Volume 7.6; Monocytes # (A) 0.2 k/uL (0-1.0); Monocytes % (A) 2 %; Neutrophils % (A) 96 %; Platelet Count 387 k/uL (150-450); RBC 2.82 m/uL (4.30-5.90); RDW 17.6 % (11.5-15.5); WBC 10.4 k/uL (3.8-10.6)
[2020-06-29] MEDS ORDERED: LIDOCAINE 1% INJ 10MG/ML (20 ML MDV) ONE (11:49)
[2020-06-29] MEDS ORDERED: PROPOFOL 10 MG/ML 20 ML VIAL IV ONE (11:49)
[2020-06-29] MEDS ORDERED: IV FLUID CONTINUATION 1,000 ML IV ONE (11:50)
--- NOTE | 2020-06-29 12:02 | P.PCN ---
Date of Procedure: 06/29/20 Procedure(s) Performed: BRIEF HISTORY: Patient is a 74-year-old, pleasant, white male with history of stage IV lung cancer undergoing radiation therapy and presently on immunotherapy was admitted hospital with black tarry stools as well as fever and chills. Has history of A. fib on a Eliquis which is on hold for 3 days. Because of the recent episode of black tarry stools he scheduled for an upper endoscopy to evaluate further.. PROCEDURE PERFORMED: Esophagogastroduodenoscopy. PREOPERATIVE DIAGNOSIS:Black Tarry stools x2 3 days ago. IV sedation per anesthesia. PROCEDURE: After informed consent was obtained, the patient was brought into the endoscopy unit. IV sedation was administered by Anesthesia under continuous monitoring. Initially the Olympus GIF-140 video endoscope was inserted into the mouth. Esophagus intubated without any difficulty. It was gradually advanced into the stomach and duodenum and carefully examined. The bulb and the second part of the duodenum appeared normal. The scope at this time was withdrawn to the stomach, adequately insufflated with air, and upon careful examination, mucosa of the antrum, body, cardia and the fundus appeared normal. The scope was then withdrawn into the esophagus. The GE junction was located at 39 cm from the incisors. The esophagus appeared normal. There were no erosions or ulcerations seen and the patient tolerated the procedure well. IMPRESSION: 1. Normal-appearing esophagus stomach and duodenum with no evidence of bleeding or peptic ulcer disease. RECOMMENDATIONS: The findings of this examination were discussed with the patient. Diet will be advanced as tolerated. Eliquis can be resumed today..
--- NOTE | 2020-06-29 13:08 | P.PN ---
Subjective Progress Note Date: 06/29/20 Principal diagnosis: Acute hypoxic respiratory failure secondary to suspected pneumonia. CoVID 19 ruled out. 74-year-old patient of Dr. Mead, with known history of metastatic squamous cell lung cancer, with metastasis to the spine, and patient is currently on Ktruda immunotherapy, and radiation therapy to his spine. Patient presented to the hospital on 06/27/2020 with complaints of increased shortness of breath, feeling quite exhausted, experiencing shaking chills, and cough, with no phlegm production, last dose of immunotherapy was on June 20. Patient had a history of recent GI bleeding with hemoglobin around 5 requiring transfusion with 2 units of packed red blood cells. Patient is on Eliquis for history of paroxysmal atrial fibrillation, currently in sinus mechanism and patient was recently restarted on Eliquis. Chest x-ray showed airspace disease with pleural parenchymal changes within the right lung, no evident pneumothorax, some blunting of the left costophrenic angle, and minimal patchy density at the left lung base. There is a prominence of the right hilar region, findings and the right lung consistent with patient's history of lung carcinoma with the possibility of superimposed pneumonia. White blood cell count was elevated at 15, hemoglobin was 9.5, platelet count is 419, INR is 1.0, elective choice and renal profile were well within normal limits, AST was 56, ALT was 61, alkaline phosphatase was 133, urinalysis showed 1+ protein, but no evidence of infection. Patient was started IV Zosyn, he was gently rehydrated overnight, with 0.9 normal saline at a rate of 1:30 ML per hour, currently down to 75 ML per hour, he is on breathing treatments, he did require BiPAP support overnight, currently has been switched over to high flow nasal cannula at 15 L, pulse ox is 90%, hemodynamically patient is stable, his been afebrile, denies any chills on today's exam, no altered mentation, he is providing history of his present illness. No nausea vomiting or diarrhea, follow-up chest x-ray was obtained today showing increasing pulmonary infiltrates compared to previous exam 6 hours prior, with the consideration of CHF, and patient was given a dose of IV Lasix this morning. The patient is seen today 06/29/2020 in follow-up on the regular medical floor. He is awake and alert in no acute distress. Breathing easier today as compared to yesterday. Currently on 8 L high flow nasal cannula with O2 saturation of 99%. He is afebrile. Hemodynamically stable. Blood culture reveals no growth. Urine culture revealed no growth. White count 10.4. Hemoglobin 7.8. He is continued on cefepime, Symbicort, DuoNeb's. No further black tarry stool. He did go down for an EGD today that revealed normal-appearing esophagus, stomach and duodenum with no evidence of bleeding or peptic ulcer disease. Eliquis will be recent today. Objective - Vital Signs Vital signs: Vital Signs Temp 97.5 F L 06/29/20 12:36 Pulse 81 06/29/20 12:36 Resp 16 06/29/20 12:36 BP 123/70 06/29/20 12:36 Pulse Ox 99 06/29/20 12:36 Intake & Output 06/28/20 06/29/20 06/29/20 18:59 06:59 18:59 Intake Total 1100 200 100 Output Total 300 500 Balance 800 -300 100 Weight 91.172 kg Intake: IV 100 Intake, IV Titration 700 Amount Piperacillin-Tazobactam 3 100 .375 gm In Sodium Chloride 0.9% 100 ml @ 25 mls/hr IVPB Q8HR [facility] Rx# :[id number] Sodium Chloride 0.9% 1, 600 000 ml @ 75 mls/hr IV . [id number] [facility] Rx#:[id number] Oral 400 200 Output: Urine 300 500 Other: Voiding Method Urinal Urinal # Voids 1 2 # Bowel Movements 800 - Exam GENERAL EXAM: Alert, comfortable, on 8 L high flow nasal cannula and maintaining O2 saturations in the 90s, comfortable in no apparent distress. HEAD: Normocephalic. EYES: Normal reaction of pupils, equal size. NOSE: Clear with pink turbinates. THROAT: No erythema or exudates. NECK: No masses, no JVD. CHEST: No chest wall deformity. LUNGS: Equal air entry with few scattered rhonchi, right greater than left. CVS: S1 and S2 normal with no audible murmur, regular rhythm. ABDOMEN: No hepatosplenomegaly, normal bowel sounds, no guarding or rigidity. SPINE: No scoliosis or deformity SKIN: No rashes CENTRAL NERVOUS SYSTEM: No focal deficits, tone is normal in all 4 extremities. EXTREMITIES: There is no peripheral edema. No clubbing, no cyanosis. Peripheral pulses are intact. - Labs CBC & Chem 7: 06/29/20 10:20 06/28/20 10:02 Labs: Abnormal Lab Results - Last 24 Hours (Table) 06/28/20 06/29/20 Range/Units 10:02 10:20 RBC 2.82 L (4.30-5.90) m/uL Hgb 7.8 L (13.0-17.5) gm/dL Hct 26.7 L (39.0-53.0) % MCHC 29.3 L (31.0-37.0) g/dL RDW 17.6 H (11.5-15.5) % Neutrophils # 10.0 H (1.3-7.7) k/uL Lymphocytes # 0.2 L (1.0-4.8) k/uL Procalcitonin 1.77 H (0.02-0.09) ng/mL Microbiology - Last 24 Hours (Table) 06/27/20 17:41 Urine Culture - Final Urine,Voided 06/27/20 16:02 Blood Culture - Preliminary Blood No Growth after 24 hours Assessment and Plan Assessment: #1. Acute hypoxic rest or a failure related to possibility of pneumonia, rule out COVID 19 #2. Rule out possibility of congestive heart failure, unspecified #3. Metastatic squamous cell lung carcinoma diagnosed in November 2019 with right infrahilar mass, and moderate to large pleural effusion and postobstructive pneumonia in the right lower lobe, stage IV, receiving immunotherapy in the form of Keytruda, and radiation therapy to his spine. #4. Iron deficiency anemia, recent history of GI bleed, on Eliquis, which was held, patient did require blood transfusion with 2 units of pack red blood cells, patient had since been resumed on Eliquis #5. Hypertension #6. Hyperlipidemia #7. Osteoarthritis #8. Former smoker, currently in remission #9. COPD Plan: The patient was seen and evaluated by Dr. Arreguin Improved today compared to yesterday Continue to titrate down the FiO2 as tolerated Continue cefepime and bronchodilators Decrease Decadron to 4 mg every 12 hours EGD today revealed no active bleeding We will continue to follow I, the cosigning physician, performed a history & physical examination of the patient. Lungs sounds with few scattered rhonchi right greater than left Maintaining good O2 saturations in the 90s on 8 L high flow nasal cannula. I discussed the assessment and plan of care with my nurse practitioner, Joselin Garcia. I attest to the above note as dictated by her.
--- NOTE | 2020-06-29 17:41 | P.PN ---
Progress Note - Text Progress Note Date: 06/29/20 Chief Complaint: Short of breath History of presenting complaint: This is a very pleasant 74-year-old patient of Dr. Mead. Long-standing smoker until recently Chronic stable medical conditions include hyperlipidemia, osteoarthritis, bursitis of the hips and knees, home oxygen 3 L.. Diagnosed with lung cancer stage IV. - non-small cell lung cancer. Received radiation treatment. PET scan that showed metastatic disease. [facility] on January 12 had bronchoscopy with further biopsies. Received systemic chemotherapy. Because of transient patient also had right lower lobe collapse right pleural effusion. Also had drainage of the right pleural effusion. Patient received palliated radiation by Dr. Jac Boles. Also getting immunotherapy. Be followed by Dr. Ordaz from oncology. Patient has been doing well at home. At a fair appetite. Up is a former smoker. No weight loss. Patient is supposed of a PET scan at something went wrong is could not get it done. Patient brought into the ER Center by Dr. Ordaz's office. Has been having fevers. Some shortness of breath. No cough. After presenting to the ER patient became more short of breath. Had to put on a BiPAP. Up to 2 months ago patient's lung cancer has been progressive. This was patient secondary put back on eliquis because of his cardiac cause. Following which he started having dark stools. admitted with-pneumonia, acute hypoxic respiratory failure,.put on a BiPAP IV Zosyn. Also GI bleed. Today-patient feels at the bedside. Breathing is better. Laying in bed. Underwent EGD today. No evidence of any bleeding source. Review of systems: Was done for constitutional, cardiovascular, GI, pulmonary. relevant finding as above Active Medications Acetaminophen (Tylenol Tab) 650 mg PO Q6HR PRN PRN Reason: Fever and/ or Pain Last Admin: 06/27/20 21:22 Dose: 650 mg Documented by: Hydrocodone Bitart/Acetaminophen ([place] 10) 1 each PO QID PRN PRN Reason: Pain Last Admin: 06/28/20 08:13 Dose: 1 each Documented by: Al Hydroxide/Mg Hydroxide (Maalox) 15 ml PO Q6HR PRN PRN Reason: Indigestion Albuterol/Ipratropium (Duoneb 0.5 Mg-3 Mg/3 Ml Soln) 3 ml INHALATION RT-QID [facility] Last Admin: 06/29/20 15:11 Dose: 3 ml Documented by: Albuterol/Ipratropium (Duoneb 0.5 Mg-3 Mg/3 Ml Soln) 3 ml INHALATION RT-Q2H PRN PRN Reason: Shortness Of Breath Or Wheezing Alprazolam (Xanax) 0.25 mg PO Q6HR PRN PRN Reason: Anxiety Last Admin: 06/28/20 09:23 Dose: 0.25 mg Documented by: Aspirin (Aspirin) 81 mg PO DAILY [facility] Last Admin: 06/29/20 09:35 Dose: Not Given Documented by: Benzonatate (Tessalon Perles) 100 mg PO BID PRN PRN Reason: Cough Budesonide (Pulmicort) 1 mg INHALATION RT-DAILY PRN PRN Reason: Shortness Of Breath Budesonide/Formoterol Fumarate (Symbicort 160-4.5 Mcg Inhaler) 2 puff INHALATION RT-BID [facility] Last Admin: 06/29/20 07:14 Dose: 2 puff Documented by: Calcium Carbonate/Glycine (Tums) 1,000 mg PO Q4HR PRN PRN Reason: Dyspepsia Dexamethasone Sodium Phosphate (Decadron) 4 mg IV Q12HR [facility] Famotidine (Pepcid) 20 mg PO BID [facility] Last Admin: 06/29/20 09:35 Dose: Not Given Documented by: Folic Acid (Folic Acid) 1 mg PO DAILY [facility] Last Admin: 06/29/20 09:35 Dose: Not Given Documented by: Sodium Chloride (Saline 0.9%) 1,000 mls @ 20 mls/hr IV .Q24H [facility] Last Admin: 06/28/20 20:11 Dose: Not Given Documented by: Cefepime HCl 2 gm/ Sodium (Chloride) 100 mls @ 25 mls/hr IVPB Q12HR [facility] Last Admin: 06/29/20 09:28 Dose: 25 mls/hr Documented by: Lactulose (Cephulac) 20 gm PO DAILY PRN PRN Reason: Constipation Magnesium Hydroxide (Milk Of Magnesia) 2,400 mg PO DAILY PRN PRN Reason: Constipation Magnesium Oxide (Mag-Ox) 400 mg PO DAILY PRN PRN Reason: MUSCLE CRAMPS Melatonin (Melatonin) 3 mg PO HS PRN PRN Reason: Insomnia Metoprolol Tartrate (Lopressor) 25 mg PO DAILY [facility] Last Admin: 06/29/20 09:27 Dose: 25 mg Documented by: Miscellaneous Information (Rx Info: Iv Contrast Was Given) 1 each MISCELLANE DAILY PRN PRN Reason: Per Protocol Stop: 06/30/20 11:45 Morphine Sulfate (Msir) 15 mg PO Q8HR PRN PRN Reason: Moderate to Severe Pain Multivitamins (Theragran) 1 each PO DAILY [facility] Last Admin: 06/29/20 09:35 Dose: Not Given Documented by: Naloxone HCl (Narcan) 0.2 mg IV Q2M PRN PRN Reason: Opioid Reversal Niacin (Niacin Tr) 250 mg PO Q48H [facility] Last Admin: 06/27/20 21:47 Dose: 250 mg Documented by: Nystatin (Mycostatin Powder) 1 applic TOPICAL TID PRN PRN Reason: Rash Ondansetron HCl (Zofran) 4 mg PO Q4H PRN PRN Reason: Nausea Pantoprazole Sodium (Protonix) 40 mg IV DAILY [facility] Last Admin: 06/29/20 09:27 Dose: 40 mg Documented by: Polyethylene Glycol (Miralax) 17 gm PO DAILY PRN PRN Reason: Constipation Senna/Docusate Sodium (Senokot-S) 1 each PO BID PRN PRN Reason: Constipation Tamsulosin HCl (Flomax) 0.4 mg PO PC-BRKFST [facility] Last Admin: 06/29/20 09:35 Dose: Not Given Documented by: Physical examination: VITAL SIGNS: 97.5, 81, 16, 123/70, 99% on 8 L GENERAL: Laying in bed, more comfortable. EYES: Pupils equal. Conjunctiva normal. HEENT: External appearance of nose and ears normal, oral cavity grossly normal. NECK: JVD unable to assess; masses not palpable. HEART: First and second heart sounds are normal; no edema. LUNGS: Respiratory rate increased, diminished breath sounds on expiration, crackles in right base ABDOMEN: Soft, nontender, liver spleen not palpable, no masses palpable. PSYCH: Alert and oriented x3; mood and affect anxious INVESTIGATIONS, reviewed in the clinical context: White count 10.4 hemoglobin 7.8 Previous testing White count 15 hemoglobin 9.5 platelets 419 potassium 4.8 creatinine 0.83 Chest x-ray film personally reviewed by me-shows decreased lung volume on the right site some progression from the previous text x-ray. computed tomography scan of the chest-showing some improvement in the tumor mass. Destructive lesions of multiple bones, multilobar infiltrates Assessment: -multilobar postobstructive pneumonia POA-slow to respond -Acute hypoxic respiratory failure from above, patient initially BiPAP, -now on high flow 8 L oxygen, slow to respond -Persistent atrial fibrillation, rate better controlled POA -Acute COPD exacerbation in a ex-smoker, -Stage IV lung cancer non-small cell type/squamous cell-status post radiation, chemotherapy-currently on immunotherapy.distractive bone lesions in the chest cage. -Hyperlipidemia -Primary osteoarthritis -Acute GI blood loss anemia from patient being eliquis. EGD was unremarkable -DO NOT RESUSCITATE Plan: Continue to taper the oxygen down. Discussed with the patient . This is second episode of patient having dock stools. We'll currently hold off the eliquis. Get a cardiology consultation. We not be a good idea to go back on the same. Continue with antibiotics.
[2020-06-29] MEDS: NIACIN TR 250 MG CAPSULE.ER PO SCH (21:20)
[2020-06-29] MEDS: SODIUM CHLORIDE 0.9% 1,000 ML IV SCH (21:35)
[2020-06-29] MEDS: HYDROcodone/APAP 10-325MG 1 EACH TAB PO PRN (22:18)
[2020-06-30 07:15] LABS: Anisocytosis Slight; Basophils % (A) 0 %; Eosinophils % (A) 0 %; HGB 7.6 gm/dL (13.0-17.5); Hypochromasia Marked; Lymphocytes # (A) 0.2 k/uL (1.0-4.8); Lymphocytes % (A) 2 %; MCH 27.9 pg (25.0-35.0); MCHC 29.3 g/dL (31.0-37.0); MCV 95.2 fL (80.0-100.0); Mean Platelet Volume 7.5; Monocytes # (A) 0.4 k/uL (0-1.0); Monocytes % (A) 3 %; Neutrophils # (A) 13.6 k/uL (1.3-7.7); Neutrophils % (A) 95 %; Platelet Count 423 k/uL (150-450); RBC 2.74 m/uL (4.30-5.90); RDW 17.6 % (11.5-15.5); WBC 14.3 k/uL (3.8-10.6)
[2020-06-30] MEDS: IPRATROPIUM-ALBUTEROL 3 ML NEB INHALATION SCH ×4 (08:17→19:25)
[2020-06-30] MEDS: SYMBICORT 160-4.5 MCG INHALER INHALATION SCH ×2 (08:17→19:25)
[2020-06-30] MEDS: CEFEPIME 2 GM in SODIUM CHLORIDE 0.9% 100 ML IVPB SCH ×2 (08:44→20:11)
[2020-06-30] MEDS: PANTOPRAZOLE 40 MG/10 ML VIAL IV SCH (08:44)
[2020-06-30] MEDS: FOLIC ACID 1 MG TAB PO SCH (08:45)
[2020-06-30] MEDS: METOPROLOL TARTRATE 25 MG TAB PO SCH (08:45)
[2020-06-30] MEDS: ASPIRIN 81 MG PO SCH (08:45)
[2020-06-30] MEDS: MULTIVITAMINS, THERA 1 EACH TAB PO SCH (08:45)
[2020-06-30] MEDS: FAMOTIDINE 20 MG TAB PO SCH ×2 (08:45→20:11)
[2020-06-30] MEDS: DEXAMETHASONE SOD PHOSPHATE 4 MG/ML 1 ML VIAL IV SCH ×2 (08:45→20:10)
[2020-06-30] MEDS: TAMSULOSIN 0.4 MG CAP.ER.24H PO SCH (08:45)
--- NOTE | 2020-06-30 11:07 | P.CRDCN ---
History of Present Illness History of present illness: HISTORY OF PRESENTING ILLNESS This is a pleasant 74-year-old male past medical history significant for paroxysmal atrial fibrillation on Eliquis, hypertension, dyslipidemia and lung cancer status post chemo, radiation and immunotherapy with metastasis to the bone. He follows in the office with Dr. Barlow. We have been asked to see in consultation for anticoagulation recommendations in the setting of GI bleeding. The patient is seen and examined sitting up in bed in no acute distress. He has been experiencing episodes of dark tarry stools as well as some bright red bleeding. He stopped taking his eliquis and the stools returned to normal. Since admission he has undergone an EGD with Dr. Barlow revealing no active bleeding, ulcers or areas of concern. His hgb on admission was 9.5 and repeat today is 7.6. Eliquis has been held since 06/25/2020. He denies symptoms of chest pain, shortness of breath, dizziness or palpitations. He is unclear of the diagnosis of afib and would not like to resume his eliquis at all if possible. Review of previous EKG's from January 2020 do in fact show a-fib. On admission his EKG is sinus with frequent PVC's. He is irregular on exam and not on telemetry. Chest x-ray reveals abnormal pleural thickening and associated bandlike areas of i ncreased attenuation consistent with patient's diagnosis of lung carcinoma the possibility of superimposed pneumonia. There is also underlying emphysema. Chest CT reveals residual or recurrent neoplasm with new osseous metastatic disease involving the sternal manubrium and left lateral fifth rib. He also has a large right-sided loculated effusion with suggestion for malignant effusion, extensive new airspace disease of the right mid and lower lung an enlarging hypodense lesion on the anterior spleen. He is currently being treated for suspected pneumonia by pulmonary care team. Laboratory data reviewed, WBC 14.3, hemoglobin 7.6, platelets 423, sodium 136, potassium 3.9, creatinine 1.07 and procalcitonin 1.77. Currently maintained on lopressor 25 mg daily. REVIEW OF SYSTEMS At the time of my exam: CONSTITUTIONAL: Denies fever or chills. CARDIOVASCULAR: Denies chest pain, shortness of breath, orthopnea, PND or palpitations. RESPIRATORY: Denies cough. GASTROINTESTINAL: Denies abdominal pain, diarrhea, constipation, nausea or vomiting. MUSCULOSKELETAL: Denies myalgias. NEUROLOGIC: Denies numbness, tingling or weakness. ENDOCRINE: Denies fatigue, weight change, polydipsia or polyurina. GENITOURINARY: Denies burning, hematuria or urgency with micturation. HEMATOLOGIC: Denies history of anemia or bleeding. PHYSICAL EXAMINATION Blood pressure 137/77 heart rate 100 afebrile and maintaining oxygen saturation on high flow oxygen. CONSTITUTIONAL: No apparent distress. HEENT: Head is normocephalic. Pupils are equal, round. Sclerae anicteric. Mucous membranes of the mouth are moist. No JVD. No carotid bruit. CHEST EXAMINATION: Scattered rhonchi on the right, diminished on the left. No wheezes or rales. No chest wall tenderness is noted on palpation or with deep breathing. HEART EXAMINATION: Irregular rate and rhythm. S1, S2 heard. No murmurs, gallops or rub. ABDOMEN: Soft, nontender. Positive bowel sounds. EXTREMITIES: 2+ peripheral pulses, no lower extremity edema and no calf tenderness. NEUROLOGIC EXAMINATION: Patient is awake, alert and oriented x3. ASSESSMENT Acute GI bleeding on eliquis, EGD shows no active bleeding Anemia Paroxysmal atrial fibrillation on eliquis and lopressor. Irregular on exam however does have PVC's on EKG. Hypertension Pneumonia Metastatic lung cancer PLAN The patient is adament he does not want to be on senior living anti-coagulation given his frequent episodes of GI bleeding while taking this medications. The risk for stroke have been explained to him and he verbalizes understanding. Consider watchmen procedure. He can follow up with Dr. Barlow in the office upon discharge for further outpatient management. We will follow along as needed, thank you kindly for this consultation. Nurse Practitioner note has been reviewed, I agree with a documented findings and plan of care. Patient was seen and examined. Past Medical History Past Medical History: Cancer, Hyperlipidemia, Hypertension, Osteoarthritis (OA) Additional Past Medical History / Comment(s): hernia, bursitis in hips and knees. Lung ca stage 4 History of Any Multi-Drug Resistant Organisms: None Reported Past Surgical History: Hernia Repair Additional Past Surgical History / Comment(s): back surgery 2008 replaced L5 disc, Past Anesthesia/Blood Transfusion Reactions: No Reported Reaction Past Psychological History: No Psychological Hx Reported Smoking Status: Former smoker Past Alcohol Use History: Occasional Past Drug Use History: None Reported - Past Family History Father Family Medical History: Cancer Additional Family Medical History / Comment(s): multiple myeloma, hypotension Mother Family Medical History: Cancer, Hypertension, Myocardial Infarction (VT) Additional Family Medical History / Comment(s): multiple myeloma Medications and Allergies Home Medications Medication Instructions Recorded Confirmed Type Aspirin EC [Ecotrin Low Dose] 81 mg PO DAILY 12/09/19 06/27/20 History Niacin 100 mg PO Q48H 12/09/19 06/27/20 History Folic Acid 1 mg PO DAILY tab 02/05/20 06/27/20 Rx Budesonide-Formot 160-4.5 Mcg 2 puff INHALATION RT-BID 03/09/20 06/27/20 History [Symbicort 160-4.5 Mcg Inhaler] Calcium Carbonate/Vitamin D3 1 tab PO DAILY 03/09/20 06/27/20 History [Calcium 500-Vit D3 200 Tablet] Ipratropium-Albuterol Nebulize 3 ml INHALATION RT-QID PRN 03/09/20 06/27/20 History [Duoneb 0.5 mg-3 mg/3 ml Soln] Metoprolol Tartrate [Lopressor] 25 mg PO DAILY 03/09/20 06/27/20 History Albuterol Sulfate [Ventolin HFA] 2 puff INHALATION RT-Q8H PRN 04/11/20 06/27/20 History Benzonatate [Tessalon Perles] 100 mg PO BID PRN 04/11/20 06/27/20 History Budesonide [Pulmicort] 1 mg INHALATION RT-DAILY PRN 04/11/20 06/27/20 History Cetirizine HCl 10 mg PO DAILY 04/11/20 06/27/20 History Famotidine [Pepcid] 20 mg PO BID 04/11/20 06/27/20 History Magnesium Oxide [Mag-Ox] 400 mg PO DAILY PRN 04/11/20 06/27/20 History Multivitamins, Thera [Multivitamin 1 tab PO DAILY 04/11/20 06/27/20 History (formulary)] Nystatin 100,000 Unit/gm Powd 1 applic TOPICAL TID PRN 04/11/20 06/27/20 History [Mycostatin Powder] Ondansetron [Zofran] 4 mg PO Q4H PRN 04/11/20 06/27/20 History HYDROcodone/APAP 10-325MG [Hale 1 tab PO QID PRN #12 tab 04/13/20 06/27/20 Rx 10-325] Morphine Sulfate Ir [MSIR] 15 mg PO Q8HR PRN #6 tab 04/13/20 06/27/20 Rx Tamsulosin [Flomax] 0.4 mg PO PC-BRKFST #0 cap.er.24h 04/13/20 06/27/20 Rx polyethylene glycoL 3350 [Miralax] 17 gm PO DAILY PRN powd.pack 04/13/20 06/27/20 Rx Apixaban [Eliquis] 2.5 mg PO BID 06/27/20 06/27/20 History Sennosides-Docusate Sodium 1 each PO BID PRN 06/27/20 06/27/20 History [Senokot-S] Allergies Allergy/AdvReac Type Severity Reaction Status Date / Time codeine AdvReac Unknown Verified 06/27/20 19:48 ibuprofen AdvReac Unknown Verified 06/27/20 19:48 mold AdvReac Unknown Verified 06/27/20 19:48 tetanus and diphtheria AdvReac Unknown Verified 06/27/20 19:48 toxoids Physical Exam Vitals: Vital Signs Temp Pulse Pulse Resp BP Pulse Ox 06/30/20 08:35 100 06/30/20 08:19 100 06/30/20 07:00 97.4 F L 85 18 137/77 96 06/30/20 00:45 97.7 F 113 H 28 H 121/64 95 06/29/20 19:59 101 H 06/29/20 19:44 97.7 F 97 22 121/62 96 06/29/20 19:41 101 H 06/29/20 16:00 91 17 06/29/20 15:23 80 06/29/20 15:14 80 06/29/20 14:48 97.9 F 91 17 125/63 96 06/29/20 12:36 97.5 F L 81 16 123/70 99 06/29/20 11:15 85 06/29/20 11:02 81 Intake and Output 06/29/20 06/30/20 06/30/20 22:59 06:59 14:59 Intake Total 120 240 Output Total 600 600 Balance -480 -360 Intake: Intake, IV Titration 240 Amount Sodium Chloride 0.9% 1, 240 000 ml @ 20 mls/hr IV . Q24H [facility] Rx#:[id number] Oral 120 Output: Urine 600 600 Other: Voiding Method Urinal Urinal # Voids 1 Results 06/30/20 06:38 06/28/20 10:02 CBC 06/29/20 06/30/20 Range/Units 10:20 06:38 WBC 10.4 14.3 H (3.8-10.6) k/uL RBC 2.82 L 2.74 L (4.30-5.90) m/uL Hgb 7.8 L 7.6 L (13.0-17.5) gm/dL Hct 26.7 L 26.0 L (39.0-53.0) % Plt Count 387 423 (150-450) k/uL Current Medications Generic Name Dose Route Start Last Admin Trade Name Freq PRN Reason Stop Dose Admin Acetaminophen 650 mg 06/27/20 20:54 06/27/20 21:22 Tylenol Tab PO 650 mg Q6HR PRN Administration Fever and/ or Pain Hydrocodone Bitart/Acetaminophen 1 each 06/27/20 20:48 06/29/20 22:18 Hale 10 PO 1 each QID PRN Administration Pain Al Hydroxide/Mg Hydroxide 15 ml 06/27/20 23:04 Maalox PO Q6HR PRN Indigestion Albuterol/Ipratropium 3 ml 06/28/20 16:00 06/30/20 08:17 Duoneb 0.5 Mg-3 Mg/3 Ml Soln INHALATION 3 ml RT-QID [facility] Administration Albuterol/Ipratropium 3 ml 06/28/20 11:50 Duoneb 0.5 Mg-3 Mg/3 Ml Soln INHALATION RT-Q2H PRN Shortness Of Breath Or Wheezing Alprazolam 0.25 mg 06/27/20 23:04 06/28/20 09:23 Xanax PO 0.25 mg Q6HR PRN Administration Anxiety Aspirin 81 mg 06/28/20 09:00 06/30/20 08:45 Aspirin PO 81 mg DAILY [facility] Administration Benzonatate 100 mg 06/27/20 20:48 Tessalon Perles PO BID PRN Cough Budesonide 1 mg 06/27/20 20:48 Pulmicort INHALATION RT-DAILY PRN Shortness Of Breath Budesonide/Formoterol Fumarate 2 puff 06/28/20 08:00 06/30/20 08:17 Symbicort 160-4.5 Mcg Inhaler INHALATION 2 puff RT-BID [facility] Administration Calcium Carbonate/Glycine 1,000 mg 06/27/20 23:04 Tums PO Q4HR PRN Dyspepsia Dexamethasone Sodium Phosphate 4 mg 06/29/20 21:00 06/30/20 08:45 Decadron IV 4 mg Q12HR [facility] Administration Famotidine 20 mg 06/27/20 21:00 06/30/20 08:45 Pepcid PO 20 mg BID [facility] Administration Folic Acid 1 mg 06/28/20 09:00 06/30/20 08:45 Folic Acid PO 1 mg DAILY [facility] Administration Sodium Chloride 1,000 mls @ 20 mls/hr 06/27/20 17:45 06/29/20 21:35 Saline 0.9% IV Not Given .Q24H [facility] Cefepime HCl 2 gm/ Sodium 100 mls @ 25 mls/hr 06/29/20 09:00 06/30/20 08:44 Chloride IVPB 25 mls/hr Q12HR [facility] Administration Lactulose 20 gm 06/27/20 23:04 Cephulac PO DAILY PRN Constipation Magnesium Hydroxide 2,400 mg 06/27/20 23:04 Milk Of Magnesia PO DAILY PRN Constipation Magnesium Oxide 400 mg 06/27/20 20:48 Mag-Ox PO DAILY PRN MUSCLE CRAMPS Melatonin 3 mg 06/27/20 23:04 Melatonin PO HS PRN Insomnia Metoprolol Tartrate 25 mg 06/28/20 09:00 06/30/20 08:45 Lopressor PO 25 mg DAILY [facility] Administration Miscellaneous Information 1 each 06/28/20 11:44 Rx Info: Iv Contrast Was Given MISCELLANE 06/30/20 11:45 DAILY PRN Per Protocol Morphine Sulfate 15 mg 06/27/20 20:48 Msir PO Q8HR PRN Moderate to Severe Pain Multivitamins 1 each 06/28/20 09:00 06/30/20 08:45 Theragran PO 1 each DAILY [facility] Administration Naloxone HCl 0.2 mg 06/27/20 17:40 Narcan IV Q2M PRN Opioid Reversal Niacin 250 mg 06/27/20 21:00 06/29/20 21:20 Niacin Tr PO 250 mg Q48H [facility] Administration Nystatin 1 applic 06/27/20 20:48 Mycostatin Powder TOPICAL TID PRN Rash Ondansetron HCl 4 mg 06/27/20 20:48 Zofran PO Q4H PRN Nausea Pantoprazole Sodium 40 mg 06/27/20 17:45 06/30/20 08:44 Protonix IV 40 mg DAILY [facility] Administration Polyethylene Glycol 17 gm 06/27/20 20:48 Miralax PO DAILY PRN Constipation Senna/Docusate Sodium 1 each 06/27/20 20:48 Senokot-S PO BID PRN Constipation Tamsulosin HCl 0.4 mg 06/28/20 08:30 06/30/20 08:45 Flomax PO 0.4 mg PC-BRKFST [facility] Administration Intake and Output 06/29/20 06/30/20 06/30/20 22:59 06:59 14:59 Intake Total 120 240 Output Total 600 600 Balance -480 -360 Intake: Intake, IV Titration 240 Amount Sodium Chloride 0.9% 1, 240 000 ml @ 20 mls/hr IV . Q24H [facility] Rx#:[id number] Oral 120 Output: Urine 600 600 Other: Voiding Method Urinal Urinal # Voids 1 06/30/20 06:38 06/28/20 10:02
--- NOTE | 2020-06-30 11:13 | P.PN ---
Subjective Progress Note Date: 06/30/20 Principal diagnosis: lung cancer, fevers/chills At this time, the patient states he is feeling better overall. He has not noticed further episodes of dark stools. His EGD was unremarkable. His CT scan of the chest has shown improvement within the right lung disease, however there inflammatory changes in the right lower lung which may be secondary to infection versus pneumonitis. The patient reports that prior to his admission he was having frequent shaking chills and sweats. He feels that this is improving, as well as improvement in his breathing. He has been able to taper down his oxygen requirement. Objective - Vital Signs Vital signs: Vital Signs Temp 97.4 F L 06/30/20 07:00 Pulse 100 06/30/20 08:35 Resp 18 06/30/20 07:00 BP 137/77 06/30/20 07:00 Pulse Ox 96 06/30/20 07:00 Intake & Output 06/29/20 06/30/20 06/30/20 18:59 06:59 18:59 Intake Total 460 360 Output Total 500 700 500 Balance -40 -340 -500 Intake: IV 100 Intake, IV Titration 260 240 Amount Cefepime 2 gm In Sodium 100 Chloride 0.9% 100 ml @ 25 mls/hr IVPB Q12HR [facility] Rx #:[id number] Sodium Chloride 0.9% 1, 160 240 000 ml @ 20 mls/hr IV . Q24H [facility] Rx#:[id number] Oral 100 120 Output: Urine 500 700 500 Other: Voiding Method Urinal Urinal # Voids 2 1 - Constitutional General appearance: Present: no acute distress - EENT Eyes: Present: EOMI, PERRLA ENT: Present: hearing grossly normal - Neck Neck: Absent: lymphadenopathy - Respiratory Respiratory: right: diminished (lung base), left: CTA - Cardiovascular Rhythm: regular - Gastrointestinal General gastrointestinal: Absent: distended - Neurologic Neurologic: Present: CNII-XII intact - Psychiatric Psychiatric: Present: A&O x's 3, appropriate affect (depressed mood - emotional) - Labs CBC & Chem 7: 06/30/20 06:38 06/28/20 10:02 Labs: Abnormal Lab Results - Last 24 Hours (Table) 06/29/20 06/30/20 Range/Units 10:20 06:38 WBC 14.3 H (3.8-10.6) k/uL RBC 2.82 L 2.74 L (4.30-5.90) m/uL Hgb 7.8 L 7.6 L (13.0-17.5) gm/dL Hct 26.7 L 26.0 L (39.0-53.0) % MCHC 29.3 L 29.3 L (31.0-37.0) g/dL RDW 17.6 H 17.6 H (11.5-15.5) % Neutrophils # 10.0 H 13.6 H (1.3-7.7) k/uL Lymphocytes # 0.2 L 0.2 L (1.0-4.8) k/uL Microbiology - Last 24 Hours (Table) 06/27/20 16:02 Blood Culture - Preliminary Blood No Growth after 48 hours - Imaging and Cardiology CT scan - chest: report reviewed, image reviewed Assessment and Plan Assessment: The patient is a 74-year-old male with a history of a metastatic non-small cell lung cancer involving the right lower lobe. He underwent palliative radiotherapy to the right lung lesion as he was having dyspnea and chest-wall pain due to rib invasion finishing on 03/31/20. He subsequently developed a painful lesion in the right clavicle which was treated with palliative radiotherapy finishing on 05/16/2020. He was just initiated on RT to the L-spine due to pain in this region. He was hospitalized due to concern for dark stools and fevers/chills. 1. Fevers/chills: The patient appears to be clinically improving, and it is certainly possible that he has some pneumonia in the right lower lung. His oxygen level is improving, and he feels his breathing is easier. 2. Non-small cell lung ca metastatic: The patient has been taking immunotherapy alone. His most recent CT scan largely shows improvement in the lungs compared to February, but there are some areas including bony disease that may have progressed. The patient had just initiated palliative radiation to the L- spine, and he has previously responded well to radiotherapy in the past. As he is feeling better today we will resume his treatment while he is inpatient. I am concerned regarding the patient's mood. He reports a depressed mood, and is struggling with his cancer which he understands his terminal. The patient was previously as an outpatient on [facility], but I feel he would benefit from starting an antidepressant. I have also informed the [facility] socially responsible investment adviser, who will be meeting with the patient. Time with Patient: Less than 30
--- NOTE | 2020-06-30 11:49 | P.PN ---
Subjective Progress Note Date: 06/30/20 Principal diagnosis: Acute hypoxic respiratory failure secondary to suspected pneumonia. CoVID 19 ruled out. 74-year-old patient of Dr. Mead, with known history of metastatic squamous cell lung cancer, with metastasis to the spine, and patient is currently on Ktruda immunotherapy, and radiation therapy to his spine. Patient presented to the hospital on 06/27/2020 with complaints of increased shortness of breath, feeling quite exhausted, experiencing shaking chills, and cough, with no phlegm production, last dose of immunotherapy was on June 20. Patient had a history of recent GI bleeding with hemoglobin around 5 requiring transfusion with 2 units of packed red blood cells. Patient is on Eliquis for history of paroxysmal atrial fibrillation, currently in sinus mechanism and patient was recently restarted on Eliquis. Chest x-ray showed airspace disease with pleural parenchymal changes within the right lung, no evident pneumothorax, some blunting of the left costophrenic angle, and minimal patchy density at the left lung base. There is a prominence of the right hilar region, findings and the right lung consistent with patient's history of lung carcinoma with the possibility of superimposed pneumonia. White blood cell count was elevated at 15, hemoglobin was 9.5, platelet count is 419, INR is 1.0, elective choice and renal profile were well within normal limits, AST was 56, ALT was 61, alkaline phosphatase was 133, urinalysis showed 1+ protein, but no evidence of infection. Patient was started IV Zosyn, he was gently rehydrated overnight, with 0.9 normal saline at a rate of 1:30 ML per hour, currently down to 75 ML per hour, he is on breathing treatments, he did require BiPAP support overnight, currently has been switched over to high flow nasal cannula at 15 L, pulse ox is 90%, hemodynamically patient is stable, his been afebrile, denies any chills on today's exam, no altered mentation, he is providing history of his present illness. No nausea vomiting or diarrhea, follow-up chest x-ray was obtained today showing increasing pulmonary infiltrates compared to previous exam 6 hours prior, with the consideration of CHF, and patient was given a dose of IV Lasix this morning. The patient is seen today 06/29/2020 in follow-up on the regular medical floor. He is awake and alert in no acute distress. Breathing easier today as compared to yesterday. Currently on 8 L high flow nasal cannula with O2 saturation of 99%. He is afebrile. Hemodynamically stable. Blood culture reveals no growth. Urine culture revealed no growth. White count 10.4. Hemoglobin 7.8. He is continued on cefepime, Symbicort, DuoNeb's. No further black tarry stool. He did go down for an EGD today that revealed normal-appearing esophagus, stomach and duodenum with no evidence of bleeding or peptic ulcer disease. Eliquis will be recent today. The patient is seen today 06/30/2020 in follow-up on the regular medical floor. He is resting comfortably in bed. Awake and alert in no acute distress. No worsening shortness of breath, cough or congestion. He is down to 6 L high flow nasal cannula. He is afebrile. Hemodynamically stable. Blood culture reveals no growth. Urine culture reveals no growth. White count 14.3. Hemoglobin 7.6. Objective - Vital Signs Vital signs: Vital Signs Temp 97.4 F L 06/30/20 07:00 Pulse 100 06/30/20 11:37 Resp 18 06/30/20 07:00 BP 137/77 06/30/20 07:00 Pulse Ox 96 06/30/20 07:00 Intake & Output 06/29/20 06/30/20 06/30/20 18:59 06:59 18:59 Intake Total 460 360 Output Total 500 700 500 Balance -40 -340 -500 Intake: IV 100 Intake, IV Titration 260 240 Amount Cefepime 2 gm In Sodium 100 Chloride 0.9% 100 ml @ 25 mls/hr IVPB Q12HR [facility] Rx #:[id number] Sodium Chloride 0.9% 1, 160 240 000 ml @ 20 mls/hr IV . Q24H [facility] Rx#:[id number] Oral 100 120 Output: Urine 500 700 500 Other: Voiding Method Urinal Urinal # Voids 2 1 - Exam GENERAL EXAM: Alert, comfortable, on 6 L high flow nasal cannula and maintaining O2 saturations in the 90s, comfortable in no apparent distress. HEAD: Normocephalic. EYES: Normal reaction of pupils, equal size. NOSE: Clear with pink turbinates. THROAT: No erythema or exudates. NECK: No masses, no JVD. CHEST: No chest wall deformity. LUNGS: Equal air entry with few scattered rhonchi, right greater than left. CVS: S1 and S2 normal with no audible murmur, regular rhythm. ABDOMEN: No hepatosplenomegaly, normal bowel sounds, no guarding or rigidity. SPINE: No scoliosis or deformity SKIN: No rashes CENTRAL NERVOUS SYSTEM: No focal deficits, tone is normal in all 4 extremities. EXTREMITIES: There is no peripheral edema. No clubbing, no cyanosis. Peripheral pulses are intact. - Labs CBC & Chem 7: 06/30/20 06:38 06/28/20 10:02 Labs: Abnormal Lab Results - Last 24 Hours (Table) 06/30/20 Range/Units 06:38 WBC 14.3 H (3.8-10.6) k/uL RBC 2.74 L (4.30-5.90) m/uL Hgb 7.6 L (13.0-17.5) gm/dL Hct 26.0 L (39.0-53.0) % MCHC 29.3 L (31.0-37.0) g/dL RDW 17.6 H (11.5-15.5) % Neutrophils # 13.6 H (1.3-7.7) k/uL Lymphocytes # 0.2 L (1.0-4.8) k/uL Microbiology - Last 24 Hours (Table) 06/27/20 16:02 Blood Culture - Preliminary Blood No Growth after 48 hours Assessment and Plan Assessment: #1. Acute hypoxic rest or a failure related to possibility of pneumonia, COVID 19 ruled out #2. Rule out possibility of congestive heart failure, unspecified #3. Metastatic squamous cell lung carcinoma diagnosed in November 2019 with right infrahilar mass, and moderate to large pleural effusion and postobstructive pneumonia in the right lower lobe, stage IV, receiving immunotherapy in the form of Keytruda, and radiation therapy to his spine. #4. Iron deficiency anemia, recent history of GI bleed, on Eliquis, which was held, patient did require blood transfusion with 2 units of pack red blood cells, patient had since been resumed on Eliquis #5. Hypertension #6. Hyperlipidemia #7. Osteoarthritis #8. Former smoker, currently in remission #9. COPD Plan: The patient was seen and evaluated by Dr. Arreguin Improved today compared to yesterday Continue to titrate down the FiO2 as tolerated Continue cefepime and bronchodilators Continue Decadron at 4 mg every 12 hours To continue with radiation therapy We will continue to follow I, the cosigning physician, performed a history & physical examination of the patient. Lungs sounds with few scattered rhonchi right greater than left. Maintaining good O2 saturations in the 90s on 6 L high flow nasal cannula. I discussed the assessment and plan of care with my nurse practitioner, Joselin Garcia. I attest to the above note as dictated by her.
--- NOTE | 2020-06-30 15:19 | PN ---
PROGRESS NOTE DATE OF DICTATION: 06/30/2020 Patient is a 74-year-old pleasant white male admitted to the hospital with acute black tarry stools, on Eliquis from atrial fibrillation which has been on hold. He underwent an upper endoscopy yesterday that was unremarkable. In the meantime, he did not have any further episodes of bleeding. He is doing well. No new symptoms. PHYSICAL EXAMINATION: He appears comfortable. No apparent distress. Vital signs are stable. Blood pressure 145/86, pulse rate 100, temperature 98. HEENT examination unremarkable. Conjunctivae pink. Sclerae anicteric. Oral cavity no lesions. NECK: No JVD or lymph node enlargement. CHEST: Clear to auscultation. HEART: Regular rate and rhythm. ABDOMEN: Soft. Non-tender. Bowel sounds are positive. No organomegaly. NEUROLOGIC: Alert and oriented x3. No focal deficits. LABS: Labs from today show hemoglobin 7.6, WBC 14.3, platelets 423. IMPRESSION: 1. Black tarry stools of 2 days' duration, status post esophagogastroduodenoscopy yesterday that was unremarkable. Eliquis is on hold and the bleeding has subsided. Most likely we are dealing with a small bowel source of blood loss. Hemoglobin is stable at 7.6 g/dL. 2. Atrial fibrillation, on Eliquis, currently on hold. 3. Newly diagnosed stage IV lung cancer, for which he is undergoing chemo and radiation. RECOMMENDATIONS: 1. Monitor CBC on a daily basis. 2. No plans on any further endoscopic intervention at the present time, as there are no further episodes of bleeding. 3. The patient stated that he was told that the Eliquis can be stopped at this point. At this time we will sign off. Please call us if needed. Thank you for this consultation. MMODL / IJN: [id number] /
--- NOTE | 2020-06-30 17:33 | P.PN ---
Progress Note - Text Progress Note Date: 06/30/20 Chief Complaint: Short of breath History of presenting complaint: This is a very pleasant 74-year-old patient of Dr. Mead. Long-standing smoker until recently Chronic stable medical conditions include hyperlipidemia, osteoarthritis, bursitis of the hips and knees, home oxygen 3 L.. Diagnosed with lung cancer stage IV. - non-small cell lung cancer. Received radiation treatment. PET scan that showed metastatic disease. Hernan in [facility] on January 12 had bronchoscopy with further biopsies. Received systemic chemotherapy. Because of transient patient also had right lower lobe collapse right pleural effusion. Also had drainage of the right pleural effusion. Patient received palliated radiation by Dr. Jac Boles. Also getting immunotherapy. Be followed by Dr. Ordaz from oncology. Patient has been doing well at home. At a fair appetite. Up is a former smoker. No weight loss. Patient is supposed of a PET scan at something went wrong is could not get it done. Patient brought into the ER Center by Dr. Ordaz's office. Has been having fevers. Some shortness of breath. No cough. After presenting to the ER patient became more short of breath. Had to put on a BiPAP. Up to 2 months ago patient's lung cancer has been progressive. This was patient secondary put back on eliquis because of his cardiac cause. Following which he started having dark stools. admitted with-pneumonia, acute hypoxic respiratory failure,.put on a BiPAP IV Zosyn. Also GI bleed. Today-continues to feel better. On nasal cannula 5 L. Eating better. His chances been visiting him. Has been out of bed. Review of systems: Was done for constitutional, cardiovascular, GI, pulmonary. relevant finding as above Active Medications Acetaminophen (Tylenol Tab) 650 mg PO Q6HR PRN PRN Reason: Fever and/ or Pain Last Admin: 06/27/20 21:22 Dose: 650 mg Documented by: Hydrocodone Bitart/Acetaminophen ([place] 10) 1 each PO QID PRN PRN Reason: Pain Last Admin: 06/29/20 22:18 Dose: 1 each Documented by: Al Hydroxide/Mg Hydroxide (Maalox) 15 ml PO Q6HR PRN PRN Reason: Indigestion Albuterol/Ipratropium (Duoneb 0.5 Mg-3 Mg/3 Ml Soln) 3 ml INHALATION RT-QID [facility] Last Admin: 06/30/20 16:36 Dose: 3 ml Documented by: Albuterol/Ipratropium (Duoneb 0.5 Mg-3 Mg/3 Ml Soln) 3 ml INHALATION RT-Q2H PRN PRN Reason: Shortness Of Breath Or Wheezing Alprazolam (Xanax) 0.25 mg PO Q6HR PRN PRN Reason: Anxiety Last Admin: 06/28/20 09:23 Dose: 0.25 mg Documented by: Aspirin (Aspirin) 81 mg PO DAILY [facility] Last Admin: 06/30/20 08:45 Dose: 81 mg Documented by: Benzonatate (Tessalon Perles) 100 mg PO BID PRN PRN Reason: Cough Budesonide (Pulmicort) 1 mg INHALATION RT-DAILY PRN PRN Reason: Shortness Of Breath Budesonide/Formoterol Fumarate (Symbicort 160-4.5 Mcg Inhaler) 2 puff INHALATION RT-BID [facility] Last Admin: 06/30/20 08:17 Dose: 2 puff Documented by: Calcium Carbonate/Glycine (Tums) 1,000 mg PO Q4HR PRN PRN Reason: Dyspepsia Dexamethasone Sodium Phosphate (Decadron) 4 mg IV Q12HR [facility] Last Admin: 06/30/20 08:45 Dose: 4 mg Documented by: Famotidine (Pepcid) 20 mg PO BID [facility] Last Admin: 06/30/20 08:45 Dose: 20 mg Documented by: Folic Acid (Folic Acid) 1 mg PO DAILY [facility] Last Admin: 06/30/20 08:45 Dose: 1 mg Documented by: Sodium Chloride (Saline 0.9%) 1,000 mls @ 20 mls/hr IV .Q24H [facility] Last Admin: 06/29/20 21:35 Dose: Not Given Documented by: Cefepime HCl 2 gm/ Sodium (Chloride) 100 mls @ 25 mls/hr IVPB Q12HR [facility] Last Admin: 06/30/20 08:44 Dose: 25 mls/hr Documented by: Lactulose (Cephulac) 20 gm PO DAILY PRN PRN Reason: Constipation Magnesium Hydroxide (Milk Of Magnesia) 2,400 mg PO DAILY PRN PRN Reason: Constipation Magnesium Oxide (Mag-Ox) 400 mg PO DAILY PRN PRN Reason: MUSCLE CRAMPS Melatonin (Melatonin) 3 mg PO HS PRN PRN Reason: Insomnia Metoprolol Tartrate (Lopressor) 25 mg PO DAILY [facility] Last Admin: 06/30/20 08:45 Dose: 25 mg Documented by: Morphine Sulfate (Msir) 15 mg PO Q8HR PRN PRN Reason: Moderate to Severe Pain Multivitamins (Theragran) 1 each PO DAILY [facility] Last Admin: 06/30/20 08:45 Dose: 1 each Documented by: Naloxone HCl (Narcan) 0.2 mg IV Q2M PRN PRN Reason: Opioid Reversal Niacin (Niacin Tr) 250 mg PO Q48H [facility] Last Admin: 06/29/20 21:20 Dose: 250 mg Documented by: Nystatin (Mycostatin Powder) 1 applic TOPICAL TID PRN PRN Reason: Rash Ondansetron HCl (Zofran) 4 mg PO Q4H PRN PRN Reason: Nausea Pantoprazole Sodium (Protonix) 40 mg IV DAILY [facility] Last Admin: 06/30/20 08:44 Dose: 40 mg Documented by: Polyethylene Glycol (Miralax) 17 gm PO DAILY PRN PRN Reason: Constipation Senna/Docusate Sodium (Senokot-S) 1 each PO BID PRN PRN Reason: Constipation Tamsulosin HCl (Flomax) 0.4 mg PO PC-BRKFST [facility] Last Admin: 06/30/20 08:45 Dose: 0.4 mg Documented by: Physical examination: VITAL SIGNS: 98, 69, 20, 135/60, 95% on 3 L GENERAL: Laying in bed, feeling better EYES: Pupils equal. Conjunctiva normal. HEENT: External appearance of nose and ears normal, oral cavity grossly normal. NECK: JVD unable to assess; masses not palpable. HEART: First and second heart sounds are normal; no edema. LUNGS: Respiratory rate increased, diminished breath sounds on expiration, crackles in right base ABDOMEN: Soft, nontender, liver spleen not palpable, no masses palpable. PSYCH: Alert and oriented x3; mood and affect anxious INVESTIGATIONS, reviewed in the clinical context: white count 14.3 hemoglobin 7.6 Previous testing White count 15 hemoglobin 9.5 platelets 419 potassium 4.8 creatinine 0.83 Chest x-ray film personally reviewed by me-shows decreased lung volume on the right site some progression from the previous text x-ray. computed tomography scan of the chest-showing some improvement in the tumor mass. 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 EGD was unremarkable- eliquis discontinued. Second episode of bleeding. -DO NOT RESUSCITATE Plan: taper down FiO2. Overall feeling better. Advised to be up in a chair and ambulate as tolerated. Questions were answered.hopefully home in next 24-48 hours depending how he does today. Discussed with patient.
[2020-06-30] MEDS: SODIUM CHLORIDE 0.9% 1,000 ML IV SCH (20:31)
[2020-07-01 08:05] LABS: Anisocytosis Slight; Basophils % (A) 0 %; Eosinophils % (A) 0 %; HCT 27.4 % (39.0-53.0); HGB 8.2 gm/dL (13.0-17.5); Hypochromasia Marked; Lymphocytes # (A) 0.3 k/uL (1.0-4.8); Lymphocytes % (A) 2 %; MCH 28.1 pg (25.0-35.0); MCHC 29.9 g/dL (31.0-37.0); Mean Platelet Volume 7.6; Monocytes # (A) 0.6 k/uL (0-1.0); Monocytes % (A) 4 %; Neutrophils # (A) 13.2 k/uL (1.3-7.7); Neutrophils % (A) 92 %; Platelet Count 439 k/uL (150-450); RBC 2.92 m/uL (4.30-5.90); RDW 17.6 % (11.5-15.5); WBC 14.3 k/uL (3.8-10.6)
[2020-07-01] MEDS: IPRATROPIUM-ALBUTEROL 3 ML NEB INHALATION SCH ×3 (08:10→15:53)
[2020-07-01] MEDS: SYMBICORT 160-4.5 MCG INHALER INHALATION SCH (08:10)
[2020-07-01 08:13] VITALS: BP 135/71; RESP 16; TEMP 97.1
[2020-07-01] MEDS: DEXAMETHASONE SOD PHOSPHATE 4 MG/ML 1 ML VIAL IV SCH (08:22)
[2020-07-01] MEDS: PANTOPRAZOLE 40 MG/10 ML VIAL IV SCH (08:23)
[2020-07-01] MEDS: TAMSULOSIN 0.4 MG CAP.ER.24H PO SCH (08:23)
[2020-07-01] MEDS: CEFEPIME 2 GM in SODIUM CHLORIDE 0.9% 100 ML IVPB SCH (08:23)
[2020-07-01] MEDS: MULTIVITAMINS, THERA 1 EACH TAB PO SCH (08:23)
[2020-07-01] MEDS: FOLIC ACID 1 MG TAB PO SCH (08:23)
[2020-07-01] MEDS: METOPROLOL TARTRATE 25 MG TAB PO SCH (08:23)
[2020-07-01] MEDS: ASPIRIN 81 MG PO SCH (08:23)
[2020-07-01] MEDS: FAMOTIDINE 20 MG TAB PO SCH (08:23)
[2020-07-01] MEDS: HYDROcodone/APAP 10-325MG 1 EACH TAB PO PRN (09:00)
--- NOTE | 2020-07-01 11:58 | P.PN ---
Subjective Progress Note Date: 07/01/20 Principal diagnosis: Acute hypoxic respiratory failure secondary to suspected pneumonia. CoVID 19 ruled out. 74-year-old patient of Dr. Mead, with known history of metastatic squamous cell lung cancer, with metastasis to the spine, and patient is currently on Ktruda immunotherapy, and radiation therapy to his spine. Patient presented to the hospital on 06/27/2020 with complaints of increased shortness of breath, feeling quite exhausted, experiencing shaking chills, and cough, with no phlegm production, last dose of immunotherapy was on June 20. Patient had a history of recent GI bleeding with hemoglobin around 5 requiring transfusion with 2 units of packed red blood cells. Patient is on Eliquis for history of paroxysmal atrial fibrillation, currently in sinus mechanism and patient was recently restarted on Eliquis. Chest x-ray showed airspace disease with pleural parenchymal changes within the right lung, no evident pneumothorax, some blunting of the left costophrenic angle, and minimal patchy density at the left lung base. There is a prominence of the right hilar region, findings and the right lung consistent with patient's history of lung carcinoma with the possibility of superimposed pneumonia. White blood cell count was elevated at 15, hemoglobin was 9.5, platelet count is 419, INR is 1.0, elective choice and renal profile were well within normal limits, AST was 56, ALT was 61, alkaline phosphatase was 133, urinalysis showed 1+ protein, but no evidence of infection. Patient was started IV Zosyn, he was gently rehydrated overnight, with 0.9 normal saline at a rate of 1:30 ML per hour, currently down to 75 ML per hour, he is on breathing treatments, he did require BiPAP support overnight, currently has been switched over to high flow nasal cannula at 15 L, pulse ox is 90%, hemodynamically patient is stable, his been afebrile, denies any chills on today's exam, no altered mentation, he is providing history of his present illness. No nausea vomiting or diarrhea, follow-up chest x-ray was obtained today showing increasing pulmonary infiltrates compared to previous exam 6 hours prior, with the consideration of CHF, and patient was given a dose of IV Lasix this morning. The patient is seen today 06/29/2020 in follow-up on the regular medical floor. He is awake and alert in no acute distress. Breathing easier today as compared to yesterday. Currently on 8 L high flow nasal cannula with O2 saturation of 99%. He is afebrile. Hemodynamically stable. Blood culture reveals no growth. Urine culture revealed no growth. White count 10.4. Hemoglobin 7.8. He is continued on cefepime, Symbicort, DuoNeb's. No further black tarry stool. He did go down for an EGD today that revealed normal-appearing esophagus, stomach and duodenum with no evidence of bleeding or peptic ulcer disease. Eliquis will be recent today. The patient is seen today 06/30/2020 in follow-up on the regular medical floor. He is resting comfortably in bed. Awake and alert in no acute distress. No worsening shortness of breath, cough or congestion. He is down to 6 L high flow nasal cannula. He is afebrile. Hemodynamically stable. Blood culture reveals no growth. Urine culture reveals no growth. White count 14.3. Hemoglobin 7.6. The patient is seen today 07/01/2020 in follow-up on the regular medical floor. He is awake and alert in no acute distress. Resting flat in bed. Maintaining O2 saturation in the mid 90s on 4 L/m per nasal cannula. He's been afebrile. Hemodynamically stable. Blood and urine cultures revealed no growth. White count 14.3. Hemoglobin 8.2. Today's chest x-ray shows improvement in aeration more so in the right lung. He remains on cefepime. Objective - Vital Signs Vital signs: Vital Signs Temp 97.1 F L 07/01/20 07:00 Pulse 92 07/01/20 11:46 Resp 16 07/01/20 08:00 BP 135/71 07/01/20 07:00 Pulse Ox 94 L 07/01/20 08:12 Intake & Output 06/30/20 07/01/20 07/01/20 18:59 06:59 18:59 Intake Total 400 Output Total 534 551 7629 Balance -500 -300 -1050 Weight 91.172 kg Intake: Intake, IV Titration 340 Amount Cefepime 2 gm In Sodium 100 Chloride 0.9% 100 ml @ 25 mls/hr IVPB Q12HR [facility] Rx #:[id number] IV Fluid Continuation 1, 240 000 ml @ 0 mls/hr IV .STK -MED ONE Rx#:[id number] Oral 60 Output: Urine 710 [id number] Other: Voiding Method Urinal Urinal # Voids 1 - Exam GENERAL EXAM: Alert, comfortable, on 4 L high flow nasal cannula and maintaining O2 saturations in the 90s, comfortable in no apparent distress. HEAD: Normocephalic. EYES: Normal reaction of pupils, equal size. NOSE: Clear with pink turbinates. THROAT: No erythema or exudates. NECK: No masses, no JVD. CHEST: No chest wall deformity. LUNGS: Equal air entry with few scattered rhonchi, right greater than left. CVS: S1 and S2 normal with no audible murmur, regular rhythm. ABDOMEN: No hepatosplenomegaly, normal bowel sounds, no guarding or rigidity. SPINE: No scoliosis or deformity SKIN: No rashes CENTRAL NERVOUS SYSTEM: No focal deficits, tone is normal in all 4 extremities. EXTREMITIES: There is no peripheral edema. No clubbing, no cyanosis. Peripheral pulses are intact. - Labs CBC & Chem 7: 07/01/20 07:37 06/28/20 10:02 Labs: Abnormal Lab Results - Last 24 Hours (Table) 07/01/20 Range/Units 07:37 WBC 14.3 H (3.8-10.6) k/uL RBC 2.92 L (4.30-5.90) m/uL Hgb 8.2 L (13.0-17.5) gm/dL Hct 27.4 L (39.0-53.0) % MCHC 29.9 L (31.0-37.0) g/dL RDW 17.6 H (11.5-15.5) % Neutrophils # 13.2 H (1.3-7.7) k/uL Lymphocytes # 0.3 L (1.0-4.8) k/uL Microbiology - Last 24 Hours (Table) 06/27/20 16:02 Blood Culture - Preliminary Blood No Growth after 72 hours Assessment and Plan Assessment: #1. Acute hypoxic respiratory failure related to possibility of pneumonia, COVID 19 ruled out, today's chest x-ray shows improvement #2. Rule out possibility of congestive heart failure, unspecified #3. Metastatic squamous cell lung carcinoma diagnosed in November 2019 with right infrahilar mass, and moderate to large pleural effusion and postobstructive pneumonia in the right lower lobe, stage IV, receiving immunotherapy in the form of Keytruda, and radiation therapy to his spine. #4. Iron deficiency anemia, recent history of GI bleed, on Eliquis, which was held, patient did require blood transfusion with 2 units of pack red blood cells, EGD on 06/29/2020 revealed normal-appearing esophagus, stomach and duodenum with no evidence of bleeding or peptic ulcer disease. #5. Hypertension #6. Hyperlipidemia #7. Osteoarthritis #8. Former smoker, currently in remission #9. COPD Plan: The patient was seen and evaluated by Dr. Arreguin Today's chest x-ray shows improved aeration Cleared for discharge from the pulmonary standpoint Patient is receiving palliative radiation therapy Follow-up in our office in 1-2 weeks' time I, the cosigning physician, performed a history & physical examination of the patient. Lungs sounds with few scattered rhonchi right greater than left. Maintaining good O2 saturations in the 90s on 4 L high flow nasal cannula. I discussed the assessment and plan of care with my nurse practitioner, Joselin Garcia. I attest to the above note as dictated by her.
[2020-07-01 12:00] VITALS: PULSE 96
--- NOTE | 2020-07-01 12:20 | XR ---
EXAMINATION TYPE: XR chest 1V portable DATE OF EXAM: 07/01/2020 COMPARISON: Prior chest x-ray 06/27/2020 HISTORY: Pneumonia TECHNIQUE: Single frontal view of the chest is obtained. FINDINGS: Bilateral airspace disease shows a similar appearance greater on the right. There is a non union of the mid diaphyseal right clavicular fracture. Apical pleural thickening noted on the right. Heart size is stable. IMPRESSION: Findings could be due to pneumonia, patient with underlying lung carcinoma. Possible pat hologic fracture right clavicle.
--- NOTE | 2020-07-01 14:57 | P.PN ---
Subjective Progress Note Date: 07/01/20 Principal diagnosis: lung cancer Increased respiratory effort requiring 4-6 liters oxygen, this is new over past 24 hours-48 hours. Chest xray improved per pulm, continues on antibiotics. Objective - Vital Signs Vital signs: Vital Signs Temp 97.1 F L 07/01/20 07:00 Pulse 96 07/01/20 11:59 Resp 16 07/01/20 08:00 BP 135/71 07/01/20 07:00 Pulse Ox 94 L 07/01/20 08:12 Intake & Output 06/30/20 07/01/20 07/01/20 18:59 06:59 18:59 Intake Total 400 Output Total 336 338 4484 Balance -500 -300 -1050 Weight 91.172 kg Intake: Intake, IV Titration 340 Amount Cefepime 2 gm In Sodium 100 Chloride 0.9% 100 ml @ 25 mls/hr IVPB Q12HR [facility] Rx #:[id number] IV Fluid Continuation 1, 240 000 ml @ 0 mls/hr IV .STK -MED ONE Rx#:[id number] Oral 60 Output: Urine 443 [id number] Other: Voiding Method Urinal Urinal # Voids 1 - Exam - Constitutional General appearance: Present: average body habitus, cooperative, no acute distress - EENT Eyes: Present: anicteric sclerae, EOMI, poor dentition ENT: Present: hearing grossly normal, normal oropharynx - Respiratory Respiratory: bilateral: CTA, diminished - Cardiovascular Heart sounds: normal: S1, S2 - Peripheral edema leg Peripheral Edema: bilateral: None - Gastrointestinal General gastrointestinal: Present: normal bowel sounds, soft - Integumentary Integumentary: Present: normal - Neurologic Neurologic: Present: CNII-XII intact - Musculoskeletal Musculoskeletal: Present: strength equal bilaterally - Psychiatric Psychiatric: Present: A&O x's 3, appropriate affect, intact judgment & insight - Labs CBC & Chem 7: 07/01/20 07:37 06/28/20 10:02 Labs: Abnormal Lab Results - Last 24 Hours (Table) 07/01/20 Range/Units 07:37 WBC 14.3 H (3.8-10.6) k/uL RBC 2.92 L (4.30-5.90) m/uL Hgb 8.2 L (13.0-17.5) gm/dL Hct 27.4 L (39.0-53.0) % MCHC 29.9 L (31.0-37.0) g/dL RDW 17.6 H (11.5-15.5) % Neutrophils # 13.2 H (1.3-7.7) k/uL Lymphocytes # 0.3 L (1.0-4.8) k/uL Microbiology - Last 24 Hours (Table) 06/27/20 16:02 Blood Culture - Preliminary Blood No Growth after 72 hours Assessment and Plan Plan: - Imaging and Cardiology CT scan - chest: report reviewed Assessment and Plan Acute Hypoxic Respiratory Failure: - Initially improved on abx, although now requiring 4-6L of o2 - Pulm Following - Pneumonia versus Pneumonitis Lung cancer: - Currentlyu on immune therapy - Will follow-up with primary oncologist after discharge Anemia, iron deficiency - Status Post Endoscopy - Pt received parenteral iron 2 weeks ago, no further supplementation at this time. I - Iron studies to be rechecked in 2 weeks - Cardiology rec re: anticoagulation Plan: - Continue supportive care and monitoring Physician Attest: I have completed the full history and physical and agree with above dictation, dictated as a scribe
--- NOTE | 2020-07-01 22:34 | P.PN ---
Progress Note - Text Progress Note Date: 07/01/20 Chief Complaint: Short of breath History of presenting complaint: This is a very pleasant 74-year-old patient of Dr. Mead. Long-standing smoker until recently Chronic stable medical conditions include hyperlipidemia, osteoarthritis, bursitis of the hips and knees, home oxygen 3 L.. Diagnosed with lung cancer stage IV. - non-small cell lung cancer. Received radiation treatment. PET scan that showed metastatic disease. Hernan in [facility] on January 12 had bronchoscopy with further biopsies. Received systemic chemotherapy. Because of transient patient also had right lower lobe collapse right pleural effusion. Also had drainage of the right pleural effusion. Patient received palliated radiation by Dr. Jac Boles. Also getting immunotherapy. Be followed by Dr. Ordaz from oncology. Patient has been doing well at home. At a fair appetite. Up is a former smoker. No weight loss. Patient is supposed of a PET scan at something went wrong is could not get it done. Patient brought into the ER Center by Dr. Ordaz's office. Has been having fevers. Some shortness of breath. No cough. After presenting to the ER patient became more short of breath. Had to put on a BiPAP. Up to 2 months ago patient's lung cancer has been progressive. This was patient secondary put back on eliquis because of his cardiac cause. Following which he started having dark stools. admitted with-pneumonia, acute hypoxic respiratory failure,.put on a BiPAP IV Zosyn. Also GI bleed. EGD was unremarkable. Eliquis discontinued. No further bleeding. Today-oxygen down to 3 L. Doing much better. Tolerating some diet. Getting palliative treatment to the spine. Follow-up with his oncologist. Care was discussed with the patient. Overall prognosis guarded. Eliquis has been discontinued. Discussion and discharge planning more than 35 minutes Consult: Dr. Jaime from oncology Dr Rodríguez mesa from pulmonary Dr. El Barlow from GI Dr. Jac Boles from radiation oncology Physical examination: VITAL SIGNS: 97.1, 86, 16, 135-71, 94% on 3 L GENERAL: Propped up in bed feeling better EYES: Pupils equal. Conjunctiva normal. HEENT: External appearance of nose and ears normal, oral cavity grossly normal. NECK: JVD unable to assess; masses not palpable. HEART: First and second heart sounds are normal; no edema. LUNGS: Respiratory rate increased, diminished breath sounds on expiration, crackles in right base ABDOMEN: Soft, nontender, liver spleen not palpable, no masses palpable. PSYCH: Alert and oriented x3; mood and affect anxious INVESTIGATIONS, reviewed in the clinical context: white count 14.3 hemoglobin 8.2 Previous testing White count 15 hemoglobin 9.5 platelets 419 potassium 4.8 creatinine 0.83 Chest x-ray film personally reviewed by me-shows decreased lung volume on the right site some progression from the previous text x-ray. computed tomography scan of the chest-showing some improvement in the tumor mass. 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 EGD was unremarkable- eliquis discontinued. (Second episode of bleeding. With blood thinners) -DO NOT RESUSCITATE Disposition: Home with karin
== END 2020-07-01 16:02 | disposition home health service (06) | DRG 193 ==
LOC: EC 15:03 → 4SSUR 17:40
PROVIDERS: ADMIT Hospitalist; ATTEND Hospitalist
PROC: 5A09457 Assistance with Respiratory Ventilation, 24-96 Consecutive Hours, Continuous Positive Airway Pressure (ICD-10-PCS; 2020-06-27)
PROC: 0DJ08ZZ Inspection of Upper Intestinal Tract, Via Natural or Artificial Opening Endoscopic (ICD-10-PCS; principal; 2020-06-29 08:30)
PROC: DP0C2ZZ Beam Radiation of Other Bone using Photons >10 MeV (ICD-10-PCS; 2020-06-30)
DX: J18.9 Pneumonia, unspecified organism (principal); J96.01 Acute respiratory failure with hypoxia; J91.8 Pleural effusion in other conditions classified elsewhere; C79.51 Secondary malignant neoplasm of bone; I48.19 Other persistent atrial fibrillation; D62 Acute posthemorrhagic anemia; C34.91 Malignant neoplasm of unspecified part of right bronchus or lung; K92.1 Melena; J98.19 Other pulmonary collapse; J43.9 Emphysema, unspecified; Z66 Do not resuscitate; Z20.828 Contact with and (suspected) exposure to other viral communicable diseases; I10 Essential (primary) hypertension; E78.5 Hyperlipidemia, unspecified; I49.3 Ventricular premature depolarization; M19.91 Primary osteoarthritis, unspecified site; M70.71 Other bursitis of hip, right hip; M70.72 Other bursitis of hip, left hip; K30 Functional dyspepsia; M54.9 Dorsalgia, unspecified; R59.9 Enlarged lymph nodes, unspecified; Z99.81 Dependence on supplemental oxygen; Z79.01 Long term (current) use of anticoagulants; Z79.82 Long term (current) use of aspirin; Z79.51 Long term (current) use of inhaled steroids; Z79.899 Other long term (current) drug therapy; Z87.891 Personal history of nicotine dependence; Z98.890 Other specified postprocedural states; Z87.39 Personal history of other diseases of the musculoskeletal system and connective tissue; Z92.21 Personal history of antineoplastic chemotherapy; Z87.19 Personal history of other diseases of the digestive system; Z92.3 Personal history of irradiation; Z87.11 Personal history of peptic ulcer disease; Z88.6 Allergy status to analgesic agent; Z88.5 Allergy status to narcotic agent; Z88.7 Allergy status to serum and vaccine; Z91.048 Other nonmedicinal substance allergy status; Z80.7 Family history of other malignant neoplasms of lymphoid, hematopoietic and related tissues; Z82.49 Family history of ischemic heart disease and other diseases of the circulatory system
CPT/HCPCS: 36415; 43235; 71045; 71046; 71260; 77412; 77417; 80048; 80053; 81001; 84145; 85025; 85610; 85730; 87040; 87086; 93005; 94640; 94660; 94760; 96361; 96365; 96375; 99284

== ENCOUNTER → 2020-07-20 | Outpatient (CLI) | payer MEDICARE ==
--- NOTE | 2020-07-21 08:35 | XR ---
EXAMINATION TYPE: XR chest 2V DATE OF EXAM: 07/20/2020 COMPARISON: Chest CT June 28, 2020. Chest x-ray July 01, 2020. Older studies. HISTORY: Pneumonia with history of lung cancer. TECHNIQUE: Frontal and lateral views of the chest are obtained. FINDINGS: There is background chronic emphysematous change with persistent right mid to lower lung o pacity and small right pleural effusion or fluid collection extending posteriorly superiorly and late rally. Suspect stable tiny left pleural effusion and increased left sided interstitial edema on back ground chronic change. Stable mild cardiomegaly The osseous structures are intact. IMPRESSION: Suspect worsening interstitial edema bilaterally as only significant interval change fro m most recent study. Background chronic emphysematous and pulmonary fibrotic changes along with cardi omegaly redemonstrated. Stable tiny left pleural effusion. Stable small right pleural fluid collectio n. Persistent right mid to lower lung opacity could reflect acute infiltrates and/or edema related to treatment changes.
== END | disposition home or self-care (01) ==
LOC: RAD 16:05
PROVIDERS: ATTEND Internal Medicine Hematology & Oncology
DX: J43.9 Emphysema, unspecified (principal); J84.10 Pulmonary fibrosis, unspecified; I51.7 Cardiomegaly; J90 Pleural effusion, not elsewhere classified; C34.31 Malignant neoplasm of lower lobe, right bronchus or lung; C79.51 Secondary malignant neoplasm of bone; D64.9 Anemia, unspecified; G89.3 Neoplasm related pain (acute) (chronic)
CPT/HCPCS: 71046

== ENCOUNTER 2020-07-21 12:32 | Inpatient (IN) | payer MEDICARE ==
[2020-07-21] MEDS ORDERED: SODIUM CHLORIDE 0.9% 500 ML 500 ML IV STA (12:40)
[2020-07-21] MEDS ORDERED: DIPHENOX-ATROP STARTER PACK 8 TAB BTL PO STA (12:41)
--- NOTE | 2020-07-21 12:43 | ED ---
General Adult HPI - General Chief complaint: Recheck/Abnormal Lab/Rx Stated complaint: diarrhea Time Seen by Provider: 07/21/20 12:35 Source: patient, EMS, RN notes reviewed, old records reviewed Mode of arrival: EMS Limitations: no limitations - History of Present Illness Initial comments: This is a 74-year-old male who presents emergency department with past medical history significant for lung cancer. Patient states he is on immunotherapy as well as having had radiation of the past. Patient states she had pneumonia about 2 weeks ago he finished antibiotics at that time. Patient states he comes in today because of generalized weakness and a 5 day history of diarrhea. Patient denies any fever or chills. Patient states he has a little bit more of a cough that normal. Patient also states he is slightly short of breath. Patient denies any chest pain or palpitations. Patient denies any lightheadedness or dizziness. Patient denies any headache patient denies numbness weakness per patient denies any abdominal pain. Patient any back pain. Patient denies dysuria hematuria urinary frequency. -: week(s) - Related Data Home Medications Medication Instructions Recorded Confirmed Aspirin EC [Ecotrin Low Dose] 81 mg PO DAILY 12/09/19 07/21/20 Niacin 100 mg PO Q48H 12/09/19 07/21/20 Budesonide-Formot 160-4.5 Mcg 2 puff INHALATION RT-BID 03/09/20 07/21/20 [Symbicort 160-4.5 Mcg Inhaler] Calcium Carbonate/Vitamin D3 1 tab PO DAILY 03/09/20 07/21/20 [Calcium 500-Vit D3 200 Tablet] Albuterol Sulfate [Ventolin HFA] 2 puff INHALATION RT-Q8H PRN 04/11/20 07/21/20 Benzonatate [Tessalon Perles] 100 mg PO BID PRN 04/11/20 07/21/20 Budesonide [Pulmicort] 1 mg INHALATION RT-DAILY PRN 04/11/20 07/21/20 Cetirizine HCl 10 mg PO DAILY 04/11/20 07/21/20 Famotidine [Pepcid] 20 mg PO BID 04/11/20 07/21/20 Magnesium Oxide [Mag-Ox] 400 mg PO DAILY PRN 04/11/20 07/21/20 Multivitamins, Thera [Multivitamin 1 tab PO DAILY 04/11/20 07/21/20 (formulary)] Nystatin 100,000 Unit/gm Powd 1 applic TOPICAL TID PRN 04/11/20 07/21/20 [Mycostatin Powder] Ondansetron [Zofran] 4 mg PO Q4H PRN 04/11/20 07/21/20 Sennosides-Docusate Sodium 1 tab PO BID PRN 06/27/20 07/21/20 [Senokot-S] Cholestyramine (with Sugar) 4 gm PO BID 07/21/20 07/21/20 [Cholestyramine Packet] HYDROcodone/APAP 10-325MG [[place] 1 tab PO Q4HR PRN 07/21/20 07/21/20 10-325] Ipratropium-Albuterol Nebulize 3 ml INHALATION RT-QID 07/21/20 07/21/20 [Duoneb 0.5 mg-3 mg/3 ml Soln] Melatonin 10 mg PO HS 07/21/20 07/21/20 Metoprolol Tartrate [Lopressor] 12.5 mg PO BID 07/21/20 07/21/20 Sertraline [Zoloft] 50 mg PO DAILY 07/21/20 07/21/20 busPIRone HCl [Buspar] 10 mg PO BID 07/21/20 07/21/20 Previous Rx's Medication Instructions Recorded Folic Acid 1 mg PO DAILY tab 02/05/20 Morphine Sulfate Ir [MSIR] 15 mg PO Q8HR PRN #6 tab 04/13/20 Tamsulosin [Flomax] 0.4 mg PO PC-BRKFST #0 cap.er.24h 04/13/20 polyethylene glycoL 3350 [Miralax] 17 gm PO DAILY PRN powd.pack 04/13/20 Allergies Allergy/AdvReac Type Severity Reaction Status Date / Time codeine AdvReac Unknown Verified 07/21/20 13:43 ibuprofen AdvReac Unknown Verified 07/21/20 13:43 mold AdvReac Unknown Verified 07/21/20 13:43 tetanus and diphtheria AdvReac Unknown Verified 07/21/20 13:43 toxoids Review of Systems ROS Statement: Those systems with pertinent positive or pertinent negative responses have been documented in the HPI. ROS Other: All systems not noted in ROS Statement are negative. Past Medical History Past Medical History: Cancer, Hyperlipidemia, Hypertension, Osteoarthritis (OA) Additional Past Medical History / Comment(s): hernia, bursitis in hips and knees. Lung ca stage 4 History of Any Multi-Drug Resistant Organisms: None Reported Past Surgical History: Hernia Repair Additional Past Surgical History / Comment(s): back surgery 2008 replaced L5 disc, Past Anesthesia/Blood Transfusion Reactions: No Reported Reaction Past Psychological History: No Psychological Hx Reported Smoking Status: Former smoker Past Alcohol Use History: Occasional Past Drug Use History: None Reported - Past Family History Father Family Medical History: Cancer Additional Family Medical History / Comment(s): multiple myeloma, hypotension Mother Family Medical History: Cancer, Hypertension, Myocardial Infarction ([place]) Additional Family Medical History / Comment(s): multiple myeloma General Exam - General Exam Comments Initial Comments: GENERAL: Patient is well-developed and well-nourished. Patient is nontoxic and well- hydrated and is in mild distress. ENT: Neck is soft and supple. No significant lymphadenopathy is noted. Oropharynx is clear. Moist mucous membranes. Neck has full range of motion without eliciting any pain. EYES: The sclera were anicteric and conjunctiva were pink and moist. Extraocular movements were intact and pupils were equal round and reactive to light. Eyelids were unremarkable. PULMONARY: Crackles right base CARDIOVASCULAR: There is a regular rate and rhythm without any murmurs gallops or rubs. ABDOMEN: Soft and nontender with normal bowel sounds. SKIN: Skin is clear with no lesions or rashes and otherwise unremarkable. NEUROLOGIC: Patient is alert and oriented x3. Cranial nerves II through XII are grossly intact. Motor and sensory are also intact. Normal speech, volume and content. Symmetrical smile. MUSCULOSKELETAL: Normal extremities with adequate strength and full range of motion. LYMPHATICS: No significant lymphadenopathy is noted PSYCHIATRIC: Normal psychiatric evaluation. Limitations: no limitations Course Vital Signs 07/21/20 07/21/20 07/21/20 12:33 13:10 13:12 Temperature 97.5 F L Pulse Rate 92 Respiratory 18 18 Rate Blood Pressure 140/73 140/73 O2 Sat by Pulse 96 94 L Oximetry 07/21/20 07/21/20 13:30 14:00 Temperature Pulse Rate Respiratory Rate Blood Pressure 133/74 133/77 O2 Sat by Pulse 94 L 96 Oximetry Medical Decision Making - Medical Decision Making EKG shows sinus rhythm with frequent PVCs at 94 bpm MS interval is 176 QRS is 96 QT interval 386 QTC is 482. Patient's EKG shows no ST segment elevation or depression. X-ray shows worsening interstitial edema when compared to previous x-ray.Because his with pneumonia so started the patient on antibiotics. I spoke with Dr. Guzman agreed to admit the patient admitted the patient continued antibiotics on the floor. - Lab Data Result diagrams: 07/21/20 13:15 07/21/20 13:20 Lab Results 07/21/20 07/21/20 07/21/20 Range/Units 13:15 13:15 13:15 WBC 11.4 H (3.8-10.6) k/uL RBC 3.03 L (4.30-5.90) m/uL Hgb 8.6 L (13.0-17.5) gm/dL Hct 28.0 L (39.0-53.0) % MCV 92.5 (80.0-100.0) fL MCH 28.4 (25.0-35.0) pg MCHC 30.8 L (31.0-37.0) g/dL RDW 18.5 H (11.5-15.5) % Plt Count 221 (150-450) k/uL Neutrophils % 90 % Lymphocytes % 3 % Monocytes % 4 % Eosinophils % 2 % Basophils % 0 % Neutrophils # 10.3 H (1.3-7.7) k/uL Lymphocytes # 0.3 L (1.0-4.8) k/uL Monocytes # 0.5 (0-1.0) k/uL Eosinophils # 0.2 (0-0.7) k/uL Basophils # 0.0 (0-0.2) k/uL Hypochromasia Marked Anisocytosis Slight PT 10.7 (9.0-12.0) sec INR 1.0 (<1.2) APTT 26.2 (22.0-30.0) sec Sodium (137-145) mmol/L Potassium (3.5-5.1) mmol/L Chloride (98-107) mmol/L Carbon Dioxide (22-30) mmol/L Anion Gap mmol/L BUN (9-20) mg/dL Creatinine (0.66-1.25) mg/dL Est GFR (CKD-EPI)AfAm (>60 ml/min/1.73 sqM) Est GFR (CKD-EPI)NonAf (>60 ml/min/1.73 sqM) Glucose (74-99) mg/dL Plasma Lactic Acid Arturo 1.3 (0.7-2.0) mmol/L Calcium (8.4-10.2) mg/dL Magnesium (1.6-2.3) mg/dL Total Bilirubin (0.2-1.3) mg/dL AST (17-59) U/L ALT (4-49) U/L Alkaline Phosphatase (38-126) U/L Troponin I (0.000-0.034) ng/mL Total Protein (6.3-8.2) g/dL Albumin (3.5-5.0) g/dL 07/21/20 07/21/20 Range/Units 13:15 13:20 WBC (3.8-10.6) k/uL RBC (4.30-5.90) m/uL Hgb (13.0-17.5) gm/dL Hct (39.0-53.0) % MCV (80.0-100.0) fL MCH (25.0-35.0) pg MCHC (31.0-37.0) g/dL RDW (11.5-15.5) % Plt Count (150-450) k/uL Neutrophils % % Lymphocytes % % Monocytes % % Eosinophils % % Basophils % % Neutrophils # (1.3-7.7) k/uL Lymphocytes # (1.0-4.8) k/uL Monocytes # (0-1.0) k/uL Eosinophils # (0-0.7) k/uL Basophils # (0-0.2) k/uL Hypochromasia Anisocytosis PT (9.0-12.0) sec INR (<1.2) APTT (22.0-30.0) sec Sodium 135 L (137-145) mmol/L Potassium 3.9 (3.5-5.1) mmol/L Chloride 108 H (98-107) mmol/L Carbon Dioxide 21 L (22-30) mmol/L Anion Gap 6 mmol/L BUN 10 (9-20) mg/dL Creatinine 0.68 (0.66-1.25) mg/dL Est GFR (CKD-EPI)AfAm >90 (>60 ml/min/1.73 sqM) Est GFR (CKD-EPI)NonAf >90 (>60 ml/min/1.73 sqM) Glucose 98 (74-99) mg/dL Plasma Lactic Acid Arturo (0.7-2.0) mmol/L Calcium 7.7 L (8.4-10.2) mg/dL Magnesium 2.0 (1.6-2.3) mg/dL Total Bilirubin 0.4 (0.2-1.3) mg/dL AST 21 (17-59) U/L ALT 22 (4-49) U/L Alkaline Phosphatase 101 (38-126) U/L Troponin I <0.012 (0.000-0.034) ng/mL Total Protein 5.7 L (6.3-8.2) g/dL Albumin 2.7 L (3.5-5.0) g/dL Disposition Clinical Impression: Right lower lobe pneumonia Disposition: ADMITTED IP TO THIS [facility] Referrals: Niles Mead MD [Primary Care Provider] - 1-2 days Time of Disposition: 15:32
[2020-07-21 13:23] LABS: Anisocytosis Slight; Basophils % (A) 0 %; Eosinophils # (A) 0.2 k/uL (0-0.7); Eosinophils % (A) 2 %; HGB 8.6 gm/dL (13.0-17.5); Hypochromasia Marked; Lymphocytes # (A) 0.3 k/uL (1.0-4.8); Lymphocytes % (A) 3 %; MCH 28.4 pg (25.0-35.0); MCHC 30.8 g/dL (31.0-37.0); MCV 92.5 fL (80.0-100.0); Monocytes # (A) 0.5 k/uL (0-1.0); Monocytes % (A) 4 %; Neutrophils # (A) 10.3 k/uL (1.3-7.7); Neutrophils % (A) 90 %; Platelet Count 221 k/uL (150-450); RBC 3.03 m/uL (4.30-5.90); RDW 18.5 % (11.5-15.5); WBC 11.4 k/uL (3.8-10.6)
[2020-07-21 13:33] LABS: Partial Thromboplastin Time 26.2 sec (22.0-30.0); Prothrombin Time 10.7 sec (9.0-12.0)
[2020-07-21 13:33] LABS: ALT 22 U/L (4-49); AST 21 U/L (17-59); African American GFR (CKD) >90 (>60 ml/min/1.73 sqM); Albumin 2.7 g/dL (3.5-5.0); Alkaline Phosphatase 101 U/L (38-126); Anion Gap 6 mmol/L; Blood Urea Nitrogen 10 mg/dL (9-20); Calcium 7.7 mg/dL (8.4-10.2); Carbon Dioxide 21 mmol/L (22-30); Chloride 108 mmol/L (98-107); Glucose 98 mg/dL (74-99); Non-African American GFR(CKD) >90 (>60 ml/min/1.73 sqM); Potassium 3.9 mmol/L (3.5-5.1); Sodium 135 mmol/L (137-145); Total Bilirubin 0.4 mg/dL (0.2-1.3); Total Protein 5.7 g/dL (6.3-8.2)
--- NOTE | 2020-07-21 14:08 | XR ---
EXAMINATION TYPE: XR chest 2V DATE OF EXAM: 07/21/2020 COMPARISON: Chest x-ray one day earlier. CT chest 23 days earlier. HISTORY: History of lung cancer with weakness. TECHNIQUE: Frontal and lateral views of the chest are obtained. FINDINGS: There is chronic emphysematous and parenchymal change with persistent right mid to basilar opacity and small right pleural fluid collection. Left lung is clear. Cardiac silhouette size stable and enlarged. Right-sided volume loss redemonstrated. Degenerative change left glenohumeral joint ag ain seen. IMPRESSION: Cardiomegaly and chronic changes with right-sided volume loss. Persistent small right pl eural fluid collection with nonspecific right mid to lower lung opacity. Mild interstitial prominence bilaterally. No significant change from one day earlier.
[2020-07-21] MEDS ORDERED: cefTRIAXone IN SWFI 1,000 MG/10 ML SYRINGE IVP STA (15:19)
[2020-07-21] MEDS ORDERED: PNEUMONIA PROTOCOL UTILIZED 1 EACH MISC PO PRN (15:32)
[2020-07-21] MEDS ORDERED: AZITHROMYCIN 500 MG in SODIUM CHLORIDE 0.9% 250 ML IVPB STA (15:32)
[2020-07-21] MEDS ORDERED: PIPERACILLIN-TAZOBACTAM 3.375 GM in SODIUM CHLORIDE 0.9% 100 ML IVPB STA (15:32)
[2020-07-21] MEDS ORDERED: HYDROcodone/APAP 10-325MG 1 EACH TAB PO ONE (15:33)
[2020-07-21 16:05] LABS: Appearance,Urine Clear (Clear); Bilirubin,Urine Negative (Negative); Blood,Urine Negative (Negative); Color,Urine Yellow; Glucose,Urine (UA) Negative (Negative); Ketones,Urine Negative (Negative); Leukocyte Esterase,Urine Negative (Negative); Nitrite,Urine Negative (Negative); Protein,Urine Negative (Negative); Specific Gravity,Urine 1.012 (1.001-1.035); Urobilinogen,Urine <2.0 mg/dL (<2.0)
[2020-07-21] MEDS ORDERED: MORPHINE SULFATE IR 15 MG TABLET PO PRN (23:13)
[2020-07-21] MEDS ORDERED: ALBUTEROL NEBULIZED 2.5 MG/3 ML INHALATION PRN (23:13)
[2020-07-21] MEDS ORDERED: ONDANSETRON 4 MG TAB PO PRN (23:13)
[2020-07-21] MEDS ORDERED: BENZONATATE 100 MG CAP PO PRN (23:13)
[2020-07-21] MEDS ORDERED: NYSTATIN 100,000 UNIT/GM POWD 15 GM TOPICAL PRN (23:13)
[2020-07-21] MEDS ORDERED: MAGNESIUM OXIDE 400 MG TAB PO PRN (23:13)
[2020-07-21] MEDS ORDERED: NIACIN 100 MG PO SCH (23:15)
[2020-07-21] MEDS: PIPERACILLIN-TAZOBACTAM 3.375 GM in SODIUM CHLORIDE 0.9% 100 ML IVPB SCH (23:23)
--- NOTE | 2020-07-21 23:24 | P.HPIM ---
History of Present Illness H&P Date: 07/21/20 Chief Complaint: diarrhea History of presenting complaint: This is a very pleasant 74-year-old patient of Dr. Mead. Long-standing smoker until recently Chronic stable medical conditions include hyperlipidemia, osteoarthritis, bursitis of the hips and knees, home oxygen 3 L.. Diagnosed with lung cancer stage IV. - non-small cell lung cancer. Received radiation treatment. PET scan that showed metastatic disease. [facility] in [facility] on January 12 had bronchoscopy with further biopsies. Received systemic chemotherapy. Because of transient patient also had right lower lobe collapse right pleural effusion. Also had drainage of the right pleural effusion. [place] duong received palliated radiation by Dr. Jac Boles. Also getting immunotherapy. Be followed by Dr. Ordaz from oncology. also her GI bleeding. Hence eliquis has been discontinued. The patient's presents with diarrhea for possible days. Anemia from 3-8 bowel movements a day. No blood. Daily watery. Slight abdominal discomfort. Appetite has been going down. No fever or chills. No nausea no vomiting. Does get bouts of coughing. Getting immunotherapy every 3 weeks. Review of systems: GEN.: Tired, EYES: None HEENT: None NECK: None RESPIRATORY: As above CARDIOVASCULAR: None GASTROINTESTINAL: as above GENITOURINARY: None MUSCULOSKELETAL: None LYMPHATICS: None HEMATOLOGICAL: None PSYCHIATRY: anxious NEUROLOGICAL: None Past medical history to include: Atrial fibrillation, COPD, stage IV lung cancer non-small cell, cell, hyperlipidemia, osteoarthritis Social history: ex-smoker Lives with his . Alcohol occasionally. Physical examination: VITAL SIGNS:97.5, 92, 18, 140/73, 96% on 4 L GENERAL: BMI 24, laying in bed, awake tired EYES: Pupils equal. Conjunctiva pale. HEENT: External appearance of nose and ears normal, oral cavity grossly normal. NECK: JVD unable to assess; masses not palpable. HEART: First and second heart sounds are normal; no edema. LUNGS: Respiratory rate increased, diminished breath sounds , bronchial breathing on the right side. ABDOMEN: Soft, nontender, liver spleen not palpable, no masses palpable. PSYCH: Alert and oriented x3; mood and affect anxious NEUROLOGICAL: Cranial nerves grossly intact; no facial asymmetry, power and sensation grossly intact. LYMPHATICS: No lymph nodes palpable in the axilla and neck INVESTIGATIONS, reviewed in the clinical context: white count 11.4 hemoglobin 8.6 platelets 221 potassium 3.9 creatinine 0.68 UA negative EKG tracing personally reviewed by me-Sinus rhythm PVCs chest x-ray from infiltrate course back on the right site predominantly Assessment: -acute diarrhea for last 6 days mainly watery. No nausea vomiting. Minimal abdominal pain. No fever no chills. 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 EGD was unremarkable-eliquis discontinued. (Second episode of bleeding. With blood thinners) Plan: home medications be continued. Send off stool for parasites. Add Metamucil. For liquid diet. Prognosis guarded. IV fluids. Past Medical History Past Medical History: Cancer, Hyperlipidemia, Hypertension, Osteoarthritis (OA) Additional Past Medical History / Comment(s): hernia, bursitis in hips and knees. Lung ca stage 4 History of Any Multi-Drug Resistant Organisms: None Reported Past Surgical History: Hernia Repair Additional Past Surgical History / Comment(s): back surgery 2008 replaced L5 disc, Past Anesthesia/Blood Transfusion Reactions: No Reported Reaction Past Psychological History: No Psychological Hx Reported Smoking Status: Former smoker Past Alcohol Use History: Occasional Past Drug Use History: None Reported - Past Family History Father Family Medical History: Cancer Additional Family Medical History / Comment(s): multiple myeloma, hypotension Mother Family Medical History: Cancer, Hypertension, Myocardial Infarction ([place]) Additional Family Medical History / Comment(s): multiple myeloma Medications and Allergies Home Medications Medication Instructions Recorded Confirmed Type Aspirin EC [Ecotrin Low Dose] 81 mg PO DAILY 12/09/19 07/21/20 History Niacin 100 mg PO Q48H 12/09/19 07/21/20 History Folic Acid 1 mg PO DAILY tab 02/05/20 07/21/20 Rx Budesonide-Formot 160-4.5 Mcg 2 puff INHALATION RT-BID 03/09/20 07/21/20 History [Symbicort 160-4.5 Mcg Inhaler] Calcium Carbonate/Vitamin D3 1 tab PO DAILY 03/09/20 07/21/20 History [Calcium 500-Vit D3 200 Tablet] Albuterol Sulfate [Ventolin HFA] 2 puff INHALATION RT-Q8H PRN 04/11/20 07/21/20 History Benzonatate [Tessalon Perles] 100 mg PO BID PRN 04/11/20 07/21/20 History Budesonide [Pulmicort] 1 mg INHALATION RT-DAILY PRN 04/11/20 07/21/20 History Cetirizine HCl 10 mg PO DAILY 04/11/20 07/21/20 History Famotidine [Pepcid] 20 mg PO BID 04/11/20 07/21/20 History Magnesium Oxide [Mag-Ox] 400 mg PO DAILY PRN 04/11/20 07/21/20 History Multivitamins, Thera [Multivitamin 1 tab PO DAILY 04/11/20 07/21/20 History (formulary)] Nystatin 100,000 Unit/gm Powd 1 applic TOPICAL TID PRN 04/11/20 07/21/20 History [Mycostatin Powder] Ondansetron [Zofran] 4 mg PO Q4H PRN 04/11/20 07/21/20 History Morphine Sulfate Ir [MSIR] 15 mg PO Q8HR PRN #6 tab 04/13/20 07/21/20 Rx Tamsulosin [Flomax] 0.4 mg PO PC-BRKFST #0 cap.er.24h 04/13/20 07/21/20 Rx polyethylene glycoL 3350 [Miralax] 17 gm PO DAILY PRN powd.pack 04/13/20 07/21/20 Rx Sennosides-Docusate Sodium 1 tab PO BID PRN 06/27/20 07/21/20 History [Senokot-S] Cholestyramine (with Sugar) 4 gm PO BID 07/21/20 07/21/20 History [Cholestyramine Packet] HYDROcodone/APAP 10-325MG [[place] 1 tab PO Q4HR PRN 07/21/20 07/21/20 History 10-325] Ipratropium-Albuterol Nebulize 3 ml INHALATION RT-QID 07/21/20 07/21/20 History [Duoneb 0.5 mg-3 mg/3 ml Soln] Melatonin 10 mg PO HS 07/21/20 07/21/20 History Metoprolol Tartrate [Lopressor] 12.5 mg PO BID 07/21/20 07/21/20 History Sertraline [Zoloft] 50 mg PO DAILY 07/21/20 07/21/20 History busPIRone HCl [Buspar] 10 mg PO BID 07/21/20 07/21/20 History Allergies Allergy/AdvReac Type Severity Reaction Status Date / Time codeine AdvReac Unknown Verified 07/21/20 13:43 ibuprofen AdvReac Unknown Verified 07/21/20 13:43 mold AdvReac Unknown Verified 07/21/20 13:43 tetanus and diphtheria AdvReac Unknown Verified 07/21/20 13:43 toxoids Physical Exam Vitals: Vital Signs Temp Pulse Pulse Resp BP BP Pulse Ox 07/21/20 19:00 97.5 F L 89 20 135/65 96 07/21/20 18:10 97.7 F 95 16 135/72 93 L 07/21/20 16:35 80 16 133/75 95 07/21/20 15:58 91 16 117/80 95 07/21/20 15:33 90 16 121/61 95 07/21/20 14:00 133/77 96 07/21/20 13:30 133/74 94 L 07/21/20 13:12 140/73 94 L 07/21/20 13:10 18 07/21/20 12:33 97.5 F L 92 18 140/73 96 Intake and Output 07/21/20 07/21/20 07/22/20 14:59 22:59 06:59 Other: # Voids 1 Weight 89.358 kg 89.358 kg Results CBC & Chem 7: 07/21/20 13:15 07/21/20 13:20 Labs: Abnormal Lab Results - Last 24 Hours (Table) 07/21/20 07/21/20 Range/Units 13:15 13:20 WBC 11.4 H (3.8-10.6) k/uL RBC 3.03 L (4.30-5.90) m/uL Hgb 8.6 L (13.0-17.5) gm/dL Hct 28.0 L (39.0-53.0) % MCHC 30.8 L (31.0-37.0) g/dL RDW 18.5 H (11.5-15.5) % Neutrophils # 10.3 H (1.3-7.7) k/uL Lymphocytes # 0.3 L (1.0-4.8) k/uL Sodium 135 L (137-145) mmol/L Chloride 108 H (98-107) mmol/L Carbon Dioxide 21 L (22-30) mmol/L Calcium 7.7 L (8.4-10.2) mg/dL Total Protein 5.7 L (6.3-8.2) g/dL Albumin 2.7 L (3.5-5.0) g/dL Thrombosis Risk Factor Assmnt - Choose All That Apply Each Risk Factor Represents 2 Points: Age 61-74 years, Malignancy Thrombosis Risk Factor Assessment Total Risk Factor Score: 4 Thrombosis Risk Factor Assessment Level: Moderate Risk
[2020-07-21] MEDS: METOPROLOL TARTRATE 25 MG TAB PO SCH (23:44)
[2020-07-22] MEDS: HYDROcodone/APAP 10-325MG 1 EACH TAB PO PRN ×4 (02:43→21:48)
[2020-07-22] MEDS: ASPIRIN 81 MG PO SCH (08:05)
[2020-07-22] MEDS: TAMSULOSIN 0.4 MG CAP.ER.24H PO SCH (08:05)
[2020-07-22] MEDS: SERTRALINE 50 MG TAB PO SCH (08:06)
[2020-07-22] MEDS: FOLIC ACID 1 MG TAB PO SCH (08:07)
[2020-07-22] MEDS: MULTIVITAMINS, THERA 1 EACH TAB PO SCH (08:07)
[2020-07-22] MEDS: busPIRone HCl 10 MG TAB PO SCH ×2 (08:07→20:36)
[2020-07-22] MEDS: LORATADINE 10 MG TAB PO SCH (08:07)
[2020-07-22] MEDS: FAMOTIDINE 20 MG TAB PO SCH ×2 (08:08→20:36)
[2020-07-22] MEDS: polyethylene glycoL 3350 17 GM POWD.PACK PO SCH ×2 (08:11→20:36)
[2020-07-22] MEDS: METOPROLOL TARTRATE 25 MG TAB PO SCH ×2 (08:12→20:36)
[2020-07-22] MEDS: PIPERACILLIN-TAZOBACTAM 3.375 GM in SODIUM CHLORIDE 0.9% 100 ML IVPB SCH ×2 (08:13→14:16)
--- NOTE | 2020-07-22 09:26 | XR ---
EXAMINATION TYPE: XR chest 2V DATE OF EXAM: 07/22/2020 COMPARISON: 07/21/2020 INDICATION: Pneumonia TECHNIQUE: Frontal and lateral views of the chest are obtained. FINDINGS: The heart size is normal. The pulmonary vasculature is normal. Large consolidations are at the right lower lobe. This was present previously. Pneumonia should be co nsidered. This should be followed to clearing. IMPRESSION: 1. Large right lower lobe consolidation. Follow-up to clearing is recommended.
[2020-07-22] MEDS: IPRATROPIUM-ALBUTEROL 3 ML NEB INHALATION SCH ×4 (11:12→19:04)
[2020-07-22] MEDS: SYMBICORT 160-4.5 MCG INHALER INHALATION SCH ×2 (11:14→19:04)
[2020-07-22] MEDS: BUDESONIDE 1 MG/2 ML NEBU INHALATION SCH ×2 (11:14→19:04)
[2020-07-22] MEDS ORDERED: IOPAMIDOL CONTRAST (ORAL USE) VIAL PO PRN (11:34)
[2020-07-22 12:11] LABS: Anisocytosis Slight; Basophils % (A) 0 %; Eosinophils # (A) 0.5 k/uL (0-0.7); Eosinophils % (A) 4 %; HCT 24.9 % (39.0-53.0); HGB 7.8 gm/dL (13.0-17.5); Hypochromasia Marked; Lymphocytes # (A) 0.3 k/uL (1.0-4.8); Lymphocytes % (A) 3 %; MCH 28.9 pg (25.0-35.0); MCHC 31.3 g/dL (31.0-37.0); MCV 92.4 fL (80.0-100.0); Mean Platelet Volume 7.2; Monocytes # (A) 0.5 k/uL (0-1.0); Monocytes % (A) 5 %; Neutrophils # (A) 9.7 k/uL (1.3-7.7); Neutrophils % (A) 87 %; Platelet Count 216 k/uL (150-450); RBC 2.69 m/uL (4.30-5.90); RDW 18.4 % (11.5-15.5); WBC 11.2 k/uL (3.8-10.6)
[2020-07-22 12:36] LABS: ALT 22 U/L (4-49); AST 28 U/L (17-59); African American GFR (CKD) >90 (>60 ml/min/1.73 sqM); Albumin 2.3 g/dL (3.5-5.0); Albumin/Globulin Ratio 0.9; Alkaline Phosphatase 96 U/L (38-126); Anion Gap 4 mmol/L; Blood Urea Nitrogen 7 mg/dL (9-20); Calcium 7.7 mg/dL (8.4-10.2); Carbon Dioxide 22 mmol/L (22-30); Chloride 109 mmol/L (98-107); Globulin 2.7 g/dL; Glucose 101 mg/dL (74-99); Magnesium 1.9 mg/dL (1.6-2.3); Non-African American GFR(CKD) >90 (>60 ml/min/1.73 sqM); Potassium 3.7 mmol/L (3.5-5.1); Sodium 135 mmol/L (137-145); Total Bilirubin 0.2 mg/dL (0.2-1.3)
[2020-07-22] MEDS: CHOLESTYRAMINE (WITH SUGAR) 4 GM PACKET PO SCH ×3 (13:57→17:09)
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
[2020-07-22 15:23] VITALS: BMI 24.0
--- NOTE | 2020-07-22 15:25 | CT ---
EXAMINATION TYPE: CT ChestAbdPelvis w con DATE OF EXAM: 07/22/2020 COMPARISON: Prior CT chest 06/28/2020 HISTORY: Restaging, anemia CT DLP: 1175 mGycm Automated exposure control for dose reduction was used. CONTRAST: CT scan of the chest, abdomen and pelvis is performed with Oral Contrast and with IV Contrast, patien t injected with 100 mL of Isovue 300. FINDINGS: LUNGS: Pleural fluid collection is again seen, there is abnormal soft tissue along the pleural surfac e, right costophrenic angle which shows abnormal thickening and is increased in thickness as compared to prior exam. Lung parenchymal changes at the right lower lobe have progressed in the interval. The re is increased soft tissue, consolidation as compared to prior. Emphysematous changes are again note d. MEDIASTINUM: Retrocaval pretracheal adenopathy and subcarinal adenopathy is extensive as on prior. Ochoa bcarinal node measures approximately 3 cm in short axis by approximately 5.6 cm, similar to prior. Curiel s progressed and now measures approximately 3 cm in short axis as compared to prior exam when it kimmie ured 1.8 cm. No pericardial effusion is seen. AORTA: No significant abnormality is seen. OTHER: No additional significant abnormality is seen. LIVER/GB: No significant abnormality is appreciated. PANCREAS: No significant abnormality is seen. SPLEEN: Low dense spleen lesion is again noted. ADRENALS: No significant abnormality is seen. KIDNEYS: Low dense kidney lesions are present bilaterally.. REPRODUCTIVE ORGANS: No gross abnormality seen. BOWEL: No significant abnormality is seen. FREE AIR: No Free Air visible. ASCITES: None seen. RETROPERITONEAL ADENOPATHY: No retroperitoneal adenopathy is seen. LYMPH NODES: No greater than 1 cm abdominal or pelvic lymph nodes are appreciated. URINARY BLADDER: No significant abnormality is seen. PELVIC ADENOPATHY: None visualized. OSSEOUS STRUCTURES: Suspected nonunion at the mid diaphyseal right clavicular fracture, possible pat hologic fracture. Destructive left-sided rib lesion the fifth rib is again seen, soft tissue measures 2.5 cm which is increased from 3.1 cm on prior. There are multiple sclerotic foci are present within the pelvis including sacrum as well as the lumbar spine and thoracic spine, proximal left upper extr emity, ribs and manubrium. IMPRESSION: Findings suggest progression of lung carcinoma, there is metastatic disease.
[2020-07-22 15:28] LABS: Reticulocyte % 2.3 % (0.5-2.0)
[2020-07-22] MEDS ORDERED: AZITHROMYCIN 500 MG in SODIUM CHLORIDE 0.9% 250 ML IVPB SCH (16:00)
[2020-07-22] MEDS: MELATONIN 5 MG TABLET PO SCH (20:36)
--- NOTE | 2020-07-22 20:48 | P.PN ---
Progress Note - Text Progress Note Date: 07/22/20 Chief Complaint: diarrhea History of presenting complaint: This is a very pleasant 74-year-old patient of Dr. Mead. Long-standing smoker until recently Chronic stable medical conditions include hyperlipidemia, osteoarthritis, bursitis of the hips and knees, home oxygen 3 L.. Diagnosed with lung cancer stage IV. - non-small cell lung cancer. Received radiation treatment. PET scan that showed metastatic disease. [facility] in [facility] on January 12 had bronchoscopy with further biopsies. Received systemic chemotherapy. Because of transient patient also had right lower lobe collapse right pleural effusion. Also had drainage of the right pleural effusion. Patient received palliated radiation by Dr. Jac Boles. Also getting immunotherapy. Be followed by Dr. Ordaz from oncology. also her GI bleeding. Hence eliquis has been discontinued. The patient's presents with diarrhea for possible days. Anemia from 3-8 bowel movements a day. No blood. Daily watery. Slight abdominal discomfort. Appetite has been going down. No fever or chills. No nausea no vomiting. Does get bouts of coughing. Getting immunotherapy every 3 weeks. Today-and loose stool this morning. Appetite better. Feeling better. Review of systems: Was done for constitutional, cardiovascular, GI, pulmonary. relevant finding as above Active Medications Hydrocodone Bitart/Acetaminophen (Hydrocodone/Apap 10-325mg 1 Each Tab) 1 each PO Q4HR PRN PRN Reason: Pain Last Admin: 07/22/20 17:08 Dose: 1 each Documented by: Albuterol Sulfate (Albuterol Nebulized 2.5 Mg/3 Ml) 2.5 mg INHALATION RT-Q8H PRN PRN Reason: Shortness Of Breath Albuterol/Ipratropium (Ipratropium-Albuterol 3 Ml Neb) 3 ml INHALATION RT-QID [facility] Last Admin: 07/22/20 19:04 Dose: 3 ml Documented by: Aspirin (Aspirin 81 Mg) 81 mg PO DAILY [facility] Last Admin: 07/22/20 08:05 Dose: 81 mg Documented by: Benzonatate (Benzonatate 100 Mg Cap) 100 mg PO BID PRN PRN Reason: Cough Budesonide (Budesonide 1 Mg/2 Ml Nebu) 1 mg INHALATION BID [facility] Last Admin: 07/22/20 19:04 Dose: 1 mg Documented by: Budesonide/Formoterol Fumarate (Symbicort 160-4.5 Mcg Inhaler) 2 puff INHALATION RT-BID [facility] Last Admin: 07/22/20 19:04 Dose: 2 puff Documented by: Buspirone HCl (Buspirone Hcl 10 Mg Tab) 10 mg PO BID [facility] Last Admin: 07/22/20 20:36 Dose: 10 mg Documented by: Cholestyramine Resin (Cholestyramine (With Sugar) 4 Gm Packet) 4 gm PO TID BETWEEN MEALS [facility] Last Admin: 07/22/20 17:09 Dose: 4 gm Documented by: Famotidine (Famotidine 20 Mg Tab) 20 mg PO BID [facility] Last Admin: 07/22/20 20:36 Dose: 20 mg Documented by: Folic Acid (Folic Acid 1 Mg Tab) 1 mg PO DAILY [facility] Last Admin: 07/22/20 08:07 Dose: 1 mg Documented by: Piperacillin Sod/Tazobactam (Sod 3.375 gm/ Sodium Chloride) 100 mls @ 25 mls/hr IVPB Q8HR [facility] Stop: 07/28/20 16:01 Last Admin: 07/22/20 14:16 Dose: 25 mls/hr Documented by: Iopamidol (Iopamidol Contrast (Oral Use) Vial) 30 ml PO Q60M PRN PRN Reason: CT Scan Stop: 07/23/20 11:34 Last Admin: 07/22/20 12:27 Dose: 30 ml Documented by: Loratadine (Loratadine 10 Mg Tab) 10 mg PO DAILY [facility] Last Admin: 07/22/20 08:07 Dose: 10 mg Documented by: Magnesium Oxide (Magnesium Oxide 400 Mg Tab) 400 mg PO DAILY PRN PRN Reason: MUSCLE CRAMPS Melatonin (Melatonin 5 Mg Tablet) 10 mg PO HS [facility] Last Admin: 07/22/20 20:36 Dose: 10 mg Documented by: Metoprolol Tartrate (Metoprolol Tartrate 25 Mg Tab) 12.5 mg PO BID [facility] Last Admin: 07/22/20 20:36 Dose: Not Given Documented by: Miscellaneous Information (Pneumonia Protocol Utilized 1 Each Misc) 1 each PO ONCE PRN PRN Reason: Per Protocol Morphine Sulfate (Morphine Sulfate Ir 15 Mg Tablet) 15 mg PO Q8HR PRN PRN Reason: Moderate to Severe Pain Multivitamins (Multivitamins, Thera 1 Each Tab) 1 each PO DAILY [facility] Last Admin: 07/22/20 08:07 Dose: 1 each Documented by: Nystatin (Nystatin 100,000 Unit/Gm Powd 15 Gm) 1 applic TOPICAL TID PRN PRN Reason: Rash Ondansetron HCl (Ondansetron 4 Mg Tab) 4 mg PO Q4H PRN PRN Reason: Nausea Polyethylene Glycol (Polyethylene Glycol 3350 17 Gm Powd.Pack) 17 gm PO BID [facility] Last Admin: 07/22/20 20:36 Dose: Not Given Documented by: Sertraline HCl (Sertraline 50 Mg Tab) 50 mg PO DAILY [facility] Last Admin: 07/22/20 08:06 Dose: 50 mg Documented by: Tamsulosin HCl (Tamsulosin 0.4 Mg Cap.Er.24h) 0.4 mg PO PC-BRKFST [facility] Last Admin: 07/22/20 08:05 Dose: 0.4 mg Documented by: Physical examination: VITAL SIGNS: 98.2, 100, 18, 120/66, 93% room air GENERAL: BMI 24, laying in bed, awake tired EYES: Pupils equal. Conjunctiva pale. HEENT: External appearance of nose and ears normal, oral cavity grossly normal. NECK: JVD unable to assess; masses not palpable. HEART: First and second heart sounds are normal; no edema. LUNGS: Respiratory rate increased, diminished breath sounds , bronchial breathing on the right side. ABDOMEN: Soft, nontender, liver spleen not palpable, no masses palpable. PSYCH: Alert and oriented x3; mood and affect anxious INVESTIGATIONS, reviewed in the clinical context: White count 11.2 hemoglobin 7.8 potassium 3.7 creatinine 0.71 Stool-negative for C. diff Computed tomography scan of the chest abdomen pelvis-progression of malignancy Previous testing white count 11.4 hemoglobin 8.6 platelets 221 potassium 3.9 creatinine 0.68 UA negative EKG tracing personally reviewed by me-Sinus rhythm PVCs chest x-ray from infiltrate course back on the right site predominantly Assessment: -acute diarrhea for last 6 days mainly watery. No nausea vomiting. Minimal abdominal pain. No fever no chills. Could be viral. Negative for C. diff. 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 EGD was unremarkable-eliquis discontinued. (Second episode of bleeding. With blood thinners) -Does not have pneumonia. No antibiotics Plan: We will add Questran. Other medications to continue. DC antibiotics. Advance to soft bland diet.
[2020-07-23 02:30] LABS: % Iron Saturation 3.86 (15.00-50.00); Ferritin 573.6 ng/mL (22.0-322.0); Folate, Serum 19.2 ng/mL
[2020-07-23 06:57] LABS: Anisocytosis Slight; Basophils % (A) 0 %; Eosinophils # (A) 0.8 k/uL (0-0.7); Eosinophils % (A) 6 %; HCT 25.4 % (39.0-53.0); Hypochromasia Marked; Lymphocytes # (A) 0.2 k/uL (1.0-4.8); Lymphocytes % (A) 2 %; MCHC 31.5 g/dL (31.0-37.0); MCV 92.2 fL (80.0-100.0); Mean Platelet Volume 7.3; Monocytes # (A) 0.6 k/uL (0-1.0); Monocytes % (A) 4 %; Neutrophils # (A) 11.2 k/uL (1.3-7.7); Neutrophils % (A) 87 %; Platelet Count 239 k/uL (150-450); RBC 2.76 m/uL (4.30-5.90); RDW 18.6 % (11.5-15.5); WBC 12.9 k/uL (3.8-10.6)
[2020-07-23] MEDS: METOPROLOL TARTRATE 25 MG TAB PO SCH ×2 (07:24→20:27)
[2020-07-23] MEDS: polyethylene glycoL 3350 17 GM POWD.PACK PO SCH ×2 (07:33→20:27)
[2020-07-23] MEDS: MULTIVITAMINS, THERA 1 EACH TAB PO SCH (07:34)
[2020-07-23] MEDS: FOLIC ACID 1 MG TAB PO SCH (07:34)
[2020-07-23] MEDS: FAMOTIDINE 20 MG TAB PO SCH ×2 (07:34→20:27)
[2020-07-23] MEDS: ASPIRIN 81 MG PO SCH (07:34)
[2020-07-23] MEDS: TAMSULOSIN 0.4 MG CAP.ER.24H PO SCH (07:34)
[2020-07-23] MEDS: SERTRALINE 50 MG TAB PO SCH (07:34)
[2020-07-23] MEDS: HYDROcodone/APAP 10-325MG 1 EACH TAB PO PRN ×3 (07:35→22:28)
[2020-07-23] MEDS: busPIRone HCl 10 MG TAB PO SCH ×2 (07:35→20:27)
[2020-07-23] MEDS: LORATADINE 10 MG TAB PO SCH (07:35)
[2020-07-23 08:10] LABS: Appearance,Urine Clear (Clear); Bilirubin,Urine Negative (Negative); Blood,Urine Negative (Negative); Color,Urine Light Yellow; Glucose,Urine (UA) Negative (Negative); Ketones,Urine Negative (Negative); Leukocyte Esterase,Urine Negative (Negative); Nitrite,Urine Negative (Negative); Protein,Urine Negative (Negative); Specific Gravity,Urine 1.014 (1.001-1.035); Urobilinogen,Urine <2.0 mg/dL (<2.0)
[2020-07-23] MEDS: IPRATROPIUM-ALBUTEROL 3 ML NEB INHALATION SCH ×4 (08:38→20:03)
[2020-07-23] MEDS: SYMBICORT 160-4.5 MCG INHALER INHALATION SCH ×2 (08:38→20:03)
[2020-07-23] MEDS: BUDESONIDE 1 MG/2 ML NEBU INHALATION SCH ×2 (08:38→20:03)
[2020-07-23] MEDS: CHOLESTYRAMINE (WITH SUGAR) 4 GM PACKET PO SCH ×3 (09:41→16:59)
[2020-07-23 09:48] LABS: African American GFR (CKD) 115.6 (60.0-200.0); Albumin 2.7 g/dL (3.80-4.90); Albumin/Globulin Ratio 1.42 (1.60-3.17); Anion Gap 8.8 mmol/L (4.00-12.00); BUN/Creat Ratio 11.67 Ratio (12.00-20.00); Calcium 7.8 mg/dL (8.7-10.3); Carbon Dioxide 21.2 mmol/L (21.6-31.8); Globulin 1.9 g/dL (1.6-3.3); Non-African American GFR(CKD) 99.7 (60.0-200.0); Potassium 3.6 mmol/L (3.5-5.5); Total Bilirubin 0.2 mg/dL (0.2-1.2); Total Protein 4.6 g/dL (6.2-8.2)
--- NOTE | 2020-07-23 13:18 | PN ---
PROGRESS NOTE DATE OF SURGERY: 07/23/2020 DATE OF SERVICE: This 74-year-old gentleman was admitted with significant diarrhea, weakness, also had features of progressive lung cancer and with metastatic disease also. The patient is mildly confused. Patient also complains of weakness also. Patient is being closely monitored. The white count is 12.8, hemoglobin is 8 at this time. Sodium is 137 and albumin is 2.7. Stool OB is positive. C difficile negative. PAST MEDICAL HISTORY: Reviewed. REVIEW OF SYSTEMS: CARDIOVASCULAR: As mentioned earlier. RESPIRATORY: As mentioned earlier. GI: As mentioned earlier. : No dysuria. NERVOUS SYSTEM: Mild diffuse weakness. CURRENT MEDICATIONS: [place] 10 mg, DuoNeb q.i.d., Tessalon, Pulmicort, Symbicort b.i.d., BuSpar, Questran, Pepcid, folic acid, Claritin, magnesium oxide, melatonin, lopressor, multivitamins, Zofran MiraLAX, Zoloft, Flomax. Doses reviewed. PHYSICAL EXAM: Patient is alert, oriented x2. Pulse 58, blood pressure is 135/77, respiration 18, temperature 98.2, pulse ox 98% on 3 L. HEENT: Conjunctivae normal. NECK: No JVD. CARDIOVASCULAR SYSTEM: S1 and S2 muffled. RESPIRATORY SYSTEM: Breath sounds diminished at the bases, a few scattered rhonchi, no crackles. ABDOMEN: Soft, obese, nontender. EXTREMITIES: Legs no edema, no swelling. NERVOUS SYSTEM: No focal deficits. LABS: WBC 12.2, hemoglobin 8, sodium 137, potassium 3.6. ASSESSMENT: 1. Acute diarrhea, possibly medication induced, possibly gastroenteritis with weakness. 2. Chronic hypoxic respiratory failure. 3. Paroxysmal atrial fibrillation. 4. Chronic obstructive pulmonary disease. 5. Stage IV non-small cell lung cancer status post radiation and chemotherapy, currently on immunotherapy with lesion the chest cage. 6. Hyperlipidemia. 7. Degenerative joint disease. 8. History of gastrointestinal bleed. 9. No evidence of pneumonia. 10.Increased white blood cells. 11.Anemia, normocytic anemia of malignancy. 12.Mild hypocalcemia. 13.Mild hypoalbuminemia secondary to poor mild protein calorie malnutrition. 14.FULL CODE. RECOMMENDATIONS AND DISCUSSION: In this 74-year-old gentleman who presented with multiple complex medical issues, we will monitor the patient closely. Continue the current management and continue symptomatic treatment. Otherwise I would recommend PT OT evaluation. Continue the rest of the medications. Repeat labs. The diarrhea seems to be improving at this time. I would get a random cortisol level. The overall prognosis is guarded because of multiple complex medical issues and discussed the patient. Further recommendations to follow. MONIKA / AVELINO: [id number] / MTDD
[2020-07-23] MEDS: MELATONIN 5 MG TABLET PO SCH (20:27)
[2020-07-24 06:48] LABS: Anisocytosis Slight; Basophils % (A) 0 %; Eosinophils % (A) 8 %; HCT 25.2 % (39.0-53.0); HGB 7.8 gm/dL (13.0-17.5); Hypochromasia Marked; Lymphocytes # (A) 0.3 k/uL (1.0-4.8); Lymphocytes % (A) 2 %; MCH 28.9 pg (25.0-35.0); MCV 93.1 fL (80.0-100.0); Mean Platelet Volume 7.6; Monocytes # (A) 0.6 k/uL (0-1.0); Monocytes % (A) 5 %; Neutrophils # (A) 9.8 k/uL (1.3-7.7); Neutrophils % (A) 83 %; Platelet Count 254 k/uL (150-450); RDW 18.7 % (11.5-15.5); WBC 11.8 k/uL (3.8-10.6)
[2020-07-24] MEDS: IPRATROPIUM-ALBUTEROL 3 ML NEB INHALATION SCH ×4 (07:27→19:52)
[2020-07-24] MEDS: SYMBICORT 160-4.5 MCG INHALER INHALATION SCH ×2 (07:27→19:52)
[2020-07-24] MEDS: BUDESONIDE 1 MG/2 ML NEBU INHALATION SCH ×2 (07:28→19:52)
[2020-07-24] MEDS: ASPIRIN 81 MG PO SCH (07:49)
[2020-07-24] MEDS: FOLIC ACID 1 MG TAB PO SCH (07:49)
[2020-07-24] MEDS: FAMOTIDINE 20 MG TAB PO SCH ×2 (07:49→21:32)
[2020-07-24] MEDS: MULTIVITAMINS, THERA 1 EACH TAB PO SCH (07:49)
[2020-07-24] MEDS: SERTRALINE 50 MG TAB PO SCH (07:49)
[2020-07-24] MEDS: TAMSULOSIN 0.4 MG CAP.ER.24H PO SCH (07:50)
[2020-07-24] MEDS: LORATADINE 10 MG TAB PO SCH (07:50)
[2020-07-24] MEDS: METOPROLOL TARTRATE 25 MG TAB PO SCH ×2 (07:50→21:32)
[2020-07-24] MEDS: HYDROcodone/APAP 10-325MG 1 EACH TAB PO PRN ×2 (07:50→21:31)
[2020-07-24] MEDS: polyethylene glycoL 3350 17 GM POWD.PACK PO SCH ×2 (07:51→21:32)
[2020-07-24] MEDS: busPIRone HCl 10 MG TAB PO SCH ×2 (07:51→21:32)
[2020-07-24] MEDS: CHOLESTYRAMINE (WITH SUGAR) 4 GM PACKET PO SCH ×3 (09:15→16:56)
[2020-07-24 10:53] LABS: African American GFR (CKD) 108.5 (60.0-200.0); Anion Gap 7.4 mmol/L (4.00-12.00); BUN/Creat Ratio 12.86 Ratio (12.00-20.00); Calcium 7.8 mg/dL (8.7-10.3); Carbon Dioxide 23.6 mmol/L (21.6-31.8); Non-African American GFR(CKD) 93.6 (60.0-200.0); Potassium 3.9 mmol/L (3.5-5.5)
--- NOTE | 2020-07-24 19:26 | PN ---
PROGRESS NOTE DATE OF SERVICE: 07/24/2020 This 74-year-old gentleman admitted with significant diarrhea and weakness appears to be improving at this time. No chest pain. No palpitations. Patient had metastatic malignancy, which is being followed by Hematology/Oncology. No chest pain. No palpitations. No fever. PHYSICAL EXAMINATION: Alert and oriented times three. Pulse 83. Blood pressure is 98/64. Respiration 22, temperature 97.7, pulse ox 94% on 2 L. HEENT: Conjunctivae normal. NECK: No JVD. CARDIOVASCULAR: S1, S2 muffled. RESPIRATIONS: Breath sounds diminished in the bases. No rhonchi. No crackles. ABDOMEN: Soft, nontender. LEGS are no edema. No swelling. NERVOUS SYSTEM: No focal deficits. LABS: WBC 7.2, hemoglobin 7.8. ASSESSMENT: 1. Acute diarrhea, possibly medication induced, possibly gastroenteritis with weakness. 2. Chronic hypoxic respiratory failure. 3. Paroxysmal atrial fibrillation. 4. Anemia, multifactorial, possibly secondary to malignancy. 5. Chronic obstructive pulmonary disease. 6. Stage IV non-small cell lung cancer status post radiation chemotherapy, currently on immunotherapy with lesion in the chest cages. 7. Hyperlipidemia. 8. Degenerative joint disease. 9. History of gastrointestinal bleed. 10.No evidence of pneumonia. 11.Increased WBC. 12.Anemia, normocytic anemia of malignancy. 13.Mild hypocalcemia. 14.Mild hypoalbuminemia secondary to mild protein calorie malnutrition. 15.FULL CODE. RECOMMENDATIONS AND DISCUSSION: I recommend to continue current medications, management. Symptomatic treatment. Otherwise, repeat labs in the morning. Increase ambulation. PT/OT evaluation. Once the consultants have cleared the patient, would like to discharge the patient home. Further recommendations to follow. MMODL / IJN: [id number] /
[2020-07-24] MEDS: MELATONIN 5 MG TABLET PO SCH (21:32)
[2020-07-25] MEDS: HYDROcodone/APAP 10-325MG 1 EACH TAB PO PRN ×2 (05:04→12:17)
[2020-07-25 06:40] LABS: Anisocytosis Slight; Basophils % (A) 0 %; Eosinophils % (A) 9 %; HCT 23.5 % (39.0-53.0); HGB 7.4 gm/dL (13.0-17.5); Hypochromasia Marked; Lymphocytes # (A) 0.3 k/uL (1.0-4.8); Lymphocytes % (A) 2 %; MCH 28.7 pg (25.0-35.0); MCHC 31.3 g/dL (31.0-37.0); MCV 91.7 fL (80.0-100.0); Mean Platelet Volume 7.2; Monocytes # (A) 0.5 k/uL (0-1.0); Monocytes % (A) 5 %; Neutrophils # (A) 9.2 k/uL (1.3-7.7); Neutrophils % (A) 83 %; Platelet Count 256 k/uL (150-450); RBC 2.56 m/uL (4.30-5.90); RDW 18.7 % (11.5-15.5); WBC 11.1 k/uL (3.8-10.6)
[2020-07-25] MEDS: BUDESONIDE 1 MG/2 ML NEBU INHALATION SCH (07:51)
[2020-07-25] MEDS: SYMBICORT 160-4.5 MCG INHALER INHALATION SCH (07:51)
[2020-07-25] MEDS: IPRATROPIUM-ALBUTEROL 3 ML NEB INHALATION SCH ×3 (07:51→15:02)
[2020-07-25 08:11] VITALS: RESP 18
[2020-07-25] MEDS: ASPIRIN 81 MG PO SCH (08:19)
[2020-07-25] MEDS: TAMSULOSIN 0.4 MG CAP.ER.24H PO SCH (08:19)
[2020-07-25] MEDS: FOLIC ACID 1 MG TAB PO SCH (08:20)
[2020-07-25] MEDS: FAMOTIDINE 20 MG TAB PO SCH (08:20)
[2020-07-25] MEDS: SERTRALINE 50 MG TAB PO SCH (08:20)
[2020-07-25] MEDS: LORATADINE 10 MG TAB PO SCH (08:20)
[2020-07-25] MEDS: MULTIVITAMINS, THERA 1 EACH TAB PO SCH (08:20)
[2020-07-25] MEDS: METOPROLOL TARTRATE 25 MG TAB PO SCH (08:20)
[2020-07-25] MEDS: busPIRone HCl 10 MG TAB PO SCH (08:20)
[2020-07-25] MEDS: CHOLESTYRAMINE (WITH SUGAR) 4 GM PACKET PO SCH (08:22)
[2020-07-25] MEDS: polyethylene glycoL 3350 17 GM POWD.PACK PO SCH (08:22)
[2020-07-25 09:30] LABS: African American GFR (CKD) 115.6 (60.0-200.0); Anion Gap 5.8 mmol/L (4.00-12.00); Calcium 7.7 mg/dL (8.7-10.3); Carbon Dioxide 23.2 mmol/L (21.6-31.8); Non-African American GFR(CKD) 99.7 (60.0-200.0); Potassium 3.7 mmol/L (3.5-5.5)
[2020-07-25] MEDS ORDERED: SODIUM FERRIC GLUCONAT-SUCROSE 125 MG in SODIUM CHLORIDE 0.9% 100 ML IVPB ONE (12:45)
[2020-07-25 14:42] VITALS: BP 107/62; PULSE 75; TEMP 97.7
--- NOTE | 2020-07-25 16:04 | P.PN ---
Subjective Progress Note Date: 07/25/20 Principal diagnosis: Difficulty in breathing, pneumonia In follow-up today patient states respiratory status is improved since admission, no fevers, purulent sputum production, no new pain to report Objective - Vital Signs Vital signs: Vital Signs Temp 97.8 F 07/25/20 07:00 Pulse 76 07/25/20 11:50 Resp 18 07/25/20 07:00 BP 105/50 07/25/20 07:00 Pulse Ox 94 L 07/25/20 07:00 Intake & Output 07/24/20 07/25/20 07/25/20 18:59 06:59 18:59 Intake Total 400 Output Total 300 400 320 Balance 100 -400 -320 Intake: Oral 400 Output: Urine 300 400 320 Other: Voiding Method Toilet Bedside Commode Bedside Commode Urinal Urinal Urinal - Constitutional General appearance: Present: average body habitus, cooperative, no acute distress - EENT Eyes: Present: anicteric sclerae, EOMI ENT: Present: hearing grossly normal - Respiratory Respiratory: bilateral: CTA, diminished - Cardiovascular Heart sounds: normal: S1, S2 Abnormal Heart Sounds: Absent: systolic murmur, diastolic murmur, rub, S3 Gallop, S4 Gallop, click, other - Peripheral edema leg Peripheral Edema: bilateral: None - Gastrointestinal General gastrointestinal: Present: normal bowel sounds, soft - Neurologic Neurologic: Present: CNII-XII intact - Musculoskeletal Musculoskeletal: Present: generalized weakness, strength equal bilaterally - Psychiatric Psychiatric: Present: A&O x's 3, appropriate affect, intact judgment & insight - Labs CBC & Chem 7: 07/25/20 06:11 07/25/20 06:11 Labs: Abnormal Lab Results - Last 24 Hours (Table) 07/25/20 07/25/20 Range/Units 06:11 06:11 WBC 11.1 H (3.8-10.6) k/uL RBC 2.56 L (4.30-5.90) m/uL Hgb 7.4 L (13.0-17.5) gm/dL Hct 23.5 L (39.0-53.0) % RDW 18.7 H (11.5-15.5) % Neutrophils # 9.2 H (1.3-7.7) k/uL Lymphocytes # 0.3 L (1.0-4.8) k/uL Eosinophils # 1.0 H (0-0.7) k/uL Calcium 7.7 L (8.7-10.3) mg/dL Microbiology - Last 24 Hours (Table) 07/24/20 11:09 Gram Stain - Preliminary Sputum Sputum Culture - Preliminary 07/22/20 13:55 Stool Culture - Preliminary Stool 07/21/20 13:15 Blood Culture - Preliminary Blood No Growth after 72 hours - Imaging and Cardiology CT scan - abdomen: report reviewed CT scan - chest: report reviewed CT scan - pelvis: report reviewed Assessment and Plan (1) Adenocarcinoma of lung, stage 4 Narrative/Plan: CT of the chest abdomen and pelvis report reviewed with patient, explained to him that I needed to review the report with his primary Oncologist. Report reviewed with Primary Oncologist, Radiologist-to confirm that there are 2 areas that are increasing in size. Reported back to the Primary Oncologist. Per Dr. Rm, plan at this time is to hold immunotherapy due on 08/01 and for the patient to follow up with Dr. Rm on 08/03 at 1145. At that time they will discuss further the plan of care. Current Visit: Yes Status: Chronic Priority: High Code(s): C34.90 - MALIGNANT NEOPLASM OF UNSP PART OF UNSP BRONCHUS OR LUNG SNOMED Code(s): 698657374 Time with Patient: Greater than 30
--- NOTE | 2020-07-26 09:38 | DS ---
DISCHARGE SUMMARY FINAL DIAGNOSES: 1. Acute diarrhea, possibly medication induced, possible acute gastroenteritis with weakness, improved. 2. Chronic hypoxic respiratory failure. 3. Paroxysmal atrial fibrillation. 4. Anemia, multifactorial, possibly secondary to malignancy. 5. History of chronic obstructive pulmonary disease. 6. Stage IV non-small cell lung cancer status post radiation therapy, currently on immunotherapy with lesions on the chest cage. 7. Hyperlipidemia. 8. History of degenerative joint disease. 9. History of gastrointestinal bleed. 10.No evidence of pneumonia. 11.Increased WBC. 12.Anemia, normocytic anemia of malignancy. 13.Mild hypercalcemia. 14.Mild hypoalbuminemia secondary to mild protein calorie malnutrition. 15.FULL CODE. DISCHARGE DISPOSITION: The patient being discharged in stable condition with guarded prognosis. HISTORY OF PRESENT ILLNESS: This 74-year-old gentleman with a past medical history of multiple medical problems being followed by Dr. Mead in the outpatient setting was admitted with diarrhea and weakness. The patient was treated symptomatically. Patient improved significantly and multiple consultants saw the patient. On exam, vitals are stable. Cardiovascular: S1, S2. Abdomen soft. Nervous system: No focal deficits. Labs: WBC 11.4, hemoglobin 7.4. Iron was suggested at this time. Stool OB was negative. DISCHARGE ADVICE AND MEDICATIONS: 1. Diet is cardiac diet. 2. Activity limited until followup. 3. Follow up with Dr. Mead in 2-3 days with CBC, BMP. 4. Follow up with Dr. Rm as recommended. DISCHARGE MEDICATIONS: 1. BuSpar 10 mg p.o. b.i.d. 2. Calcium carbonate. 3. Cetirizine 10 mg daily. 4. Cholestyramine 4 g p.o. b.i.d. 5. DuoNeb q.i.d. and p.r.n. 6. Ecotrin 81 mg p.o. daily. 7. Lopressor 12.5 mg p.o. b.i.d. 8. Magnesium oxide 400 mg daily p.r.n. 9. Melatonin 10 mg q.h.s. 10.Multivitamins 1 p.o. daily. 11.Nystatin p.r.n. 12.Niacin 100 mg p.o. q.48 hours. 13.[place] 10 mg q.4 p.r.n. 14.Pepcid 20 mg p.o. t.i.d. 15.Pulmicort 1 mg b.i.d. 16.Senna. 17.Symbicort 160/4.5 two puffs b.i.d. 18.Tessalon 100 mg p.o. b.i.d. 19.Ventolin 2 puffs q.i.d. p.r.n. 20.Zofran 4 mg q.4 p.r.n. 21.Zoloft 50 mg p.o. daily. 22.Flomax 0.4 daily. 23.Folic acid 1 mg. 24.Iron sulfate 320 mg daily. 25.MiraLAX 17 g daily. 26.MS-IR 15 mg q.8 p.r.n. Once again, the patient discharged in stable condition with guarded prognosis. Total time taken was 35 minutes. MONIKA / AVELINO: [id number] /
--- NOTE | 2020-07-26 22:58 | CDI ---
Documentation Clarification Form Date: 07/27/2020 From: Manav Granados Phone: If you have a question about this query, please contact Mili Wright, Hotel Front Desk Agent at [phone] between 8am and 5pm. Admit Date: Discharge Date: 07/25/2020 Patient Name: Maynor Daniels Visit Number: [id number] ATTENTION: The Clinical Documentation Specialists (CDI) and [facility] Coding Staff appreciate your assistance in clarifying documentation. Please respond to the clarification below the line at the bottom and electronically sign. The CDI & [facility] Coding staff will review the response and follow-up if needed. Please note: Queries are made part of the Legal Health Record. If you have any questions, please contact the author of this message via ITS. Dear Dr Geovanny Ramey MD., The patient presented with diarrhea and weakness. History/Risk Factors: Right lung cancer, osteoarthritis, Hyperlipidemia Tobacco use: Former smoker Vital signs:07/21/20 19:00 97.5 F L 89 20 135/65 96 Pulse oximetry: O2 Sat by Pulse 96 94 L 07/22 Dr. Gildardo Jaime Consult note stated as "Acute on Chronic hypoxic Respiratory Failure: - Secondary to Pneumonia versus Pneumonitis - Also component of known lung cancer - Await CT scan. Per DS note "Chronic Respiratory failure" In your professional opinion, can you please clarify if these findings signify one of the following conditions? Acute on Chronic hypoxic Respiratory Failure Chronic Respiratory Failure Other Diagnosis, please specify Unable to determine Chronic Respiratory Failure MTDD
== END 2020-07-25 15:46 | disposition home health service (06) | DRG 394 ==
LOC: EC 12:32 → 4SSUR 15:50 → OBSVTOIN 07-22 14:26
PROVIDERS: ADMIT Hospitalist; ATTEND Hospitalist
DX: K52.1 Toxic gastroenteritis and colitis (principal); J96.11 Chronic respiratory failure with hypoxia; E44.1 Mild protein-calorie malnutrition; C34.91 Malignant neoplasm of unspecified part of right bronchus or lung; C79.51 Secondary malignant neoplasm of bone; D63.0 Anemia in neoplastic disease; E78.5 Hyperlipidemia, unspecified; E86.0 Dehydration; I10 Essential (primary) hypertension; M19.91 Primary osteoarthritis, unspecified site; I48.0 Paroxysmal atrial fibrillation; J44.9 Chronic obstructive pulmonary disease, unspecified; T50.995A Adverse effect of other drugs, medicaments and biological substances, initial encounter; I49.3 Ventricular premature depolarization; E83.51 Hypocalcemia; Z79.899 Other long term (current) drug therapy; Z79.82 Long term (current) use of aspirin; Z79.51 Long term (current) use of inhaled steroids; Z88.6 Allergy status to analgesic agent; Z88.5 Allergy status to narcotic agent; Z88.7 Allergy status to serum and vaccine; Z88.8 Allergy status to other drugs, medicaments and biological substances; Z85.118 Personal history of other malignant neoplasm of bronchus and lung; Z87.891 Personal history of nicotine dependence; Z92.21 Personal history of antineoplastic chemotherapy; Z92.3 Personal history of irradiation; Z82.49 Family history of ischemic heart disease and other diseases of the circulatory system; Z80.7 Family history of other malignant neoplasms of lymphoid, hematopoietic and related tissues; Z98.890 Other specified postprocedural states; Z86.19 Personal history of other infectious and parasitic diseases; Z68.24 Body mass index [BMI] 24.0-24.9, adult
CPT/HCPCS: 36415; 71046; 71260; 74177; 80048; 80053; 81003; 82150; 82272; 82533; 82607; 82728; 82746; 83540; 83550; 83605; 83615; 83630; 83690; 83735; 84484; 85025; 85045; 85610; 85730; 87040; 87045; 87046; 87070; 87205; 87324; 93005; 94640; 94760; 96361; 96365; 96366; 96368; 96375; 99285

== ENCOUNTER → 2020-07-29 | Outpatient (CLI) | payer MEDICARE ==
--- NOTE | 2020-07-31 14:44 | PE ---
Nuclear medicine PET/CT HISTORY: Non-small cell lung carcinoma, initial Patient received 10.9 mCi F-18 FDG intravenously in delayed scanning was performed from the skull bas e to the mid thighs. Localization and attenuation correction CT scan was performed. Correlation to prior CT chest abdomen pelvis 07/22/2020 Chest and neck: Uptake is present focally adjacent to the lamina of the third cervical vertebral body on the left within the posterior musculature. Focal soft tissue is present posterior to the trachea at the thoracic inlet level the right midline with associated hypermetabolic uptake likely a node. Th e retrocaval pretracheal node which is enlarged shows associated hypermetabolic uptake. Subcarinal so ft tissue is abnormal and shows associated uptake. Diffuse abnormal uptake present within the abnorma l lung parenchyma at the right lung base along the pleural margin, lobular soft tissue present along the pleural surface at the inferior aspect of the right hemithorax shows diffuse hypermetabolic uptak e. Possible small loculated effusion present on the right, minimal effusion may be present on the lef t. Focus of uptake in the parasternal location the thoracic inlet level, axial image #96 is present a nteriorly in the right ABDOMEN: Suspect there is a low dense mass contiguous spleen showing uptake. Soft tissue deposit post erior to the left kidney on axial image #168 shows associated hypermetabolic uptake. Bowel uptake is felt likely to be physiologic. There is a soft tissue deposit adjacent to the rectum to the right mid line measuring 6 mm on axial image 238 which shows associated hypermetabolic uptake. There is extensi ve diverticular change. Osseous structures show diffuse areas of abnormal uptake to include the left femoral neck region, the posterior left ilium, multiple sclerotic foci are present throughout the pelvis. Lumbar spine also s hows foci of uptake with associated sclerotic change, some sclerotic foci do not show definite uptake . Multiple ribs show sclerotic change, some expansion with associated uptake. There is a focal lytic lesion along the fifth rib laterally, soft tissue mass shows uptake, similar appearing focus is prese nt at the posterior fifth rib, lytic destructive lesion with associated soft tissue uptake. Deep to t he left scapula there is some soft tissue uptake present within the subscapularis muscle. Left humeru s shows sclerosis and focus of uptake proximally, destructive lesion of the proximal right clavicle s hows associated uptake. There is some areas of sclerosis in uptake also noted within the thoracic spi ne, cervical spine. IMPRESSION: Metastatic disease as described.
== END | disposition home or self-care (01) ==
LOC: RADPETMAIN 10:10
PROVIDERS: ATTEND Internal Medicine Hematology & Oncology
DX: C34.31 Malignant neoplasm of lower lobe, right bronchus or lung (principal)
CPT/HCPCS: 78815; A9552